=== PATIENT | male | born 1940 | race Caucasian/White ===

== ENCOUNTER 2017-12-12 22:40 | Inpatient (IN) | payer MEDICARE, OTHER ==
[2017-12-12 22:59] VITALS: BMI 46.8
[2017-12-12] MEDS ORDERED: Sodium Chloride 0.9% 1,000 ML IV ONE (23:45)
[2017-12-12] MEDS ORDERED: Albuterol-Ipratrop 3 mg / 0.5 (3 ml) UD IH STA (23:55)
--- NOTE | 2017-12-13 00:20 | ED PDOC ---
Arrival/HPI - General Chief Complaint: Medical Clearance Time Seen by Provider: 12/12/17 22:54 Historian: Patient, Family - History of Present Illness Narrative History of Present Illness (Text): 12/12/17 23:45 77 year old male, whose past medical history includes COPD, hypertension, diabetes, CAD, bowel obstruction s/p colon resection, sepsis, pneumonia, and influenza B, presents to the emergency department transferred from [facility] following discharge there. As per discharge note sent, patient completed a course of IV antibiotics and Tamiflu after being diagnosed with pneumonia. Family requested patient to be transferred to [facility] for further management apparently unhappy with the care. Patient currently states he has continued cough and chest congestion with occasional shortness of breath , but denies any fever, chills, chest pain, nausea, vomiting, diarrhea, back pain, neck pain, headache, dizziness, or any other complaints. Symptom Onset: Gradual Symptom Course: Unchanged Activities at Onset: Light Context: Other (Transfer) Past Medical History - Provider Review Nursing Documentation Reviewed: Yes - Pulmonary Hx Chronic Obstructive Pulmonary Disease (COPD): Yes Hx Pneumonia: Yes - Endocrine/Metabolic Hx Diabetes Mellitus Type 2: Yes - Psychiatric Hx Substance Use: No Family/Social History - Physician Review Nursing Documentation Reviewed: Yes Family/Social History: No Known Family HX Smoking Status: no Hx Alcohol Use: No Hx Substance Use: No Allergies/Home Meds Allergies/Adverse Reactions: Allergies No Known Allergies Allergy (Verified 12/12/17 23:06) Review of Systems - Physician Review All systems were reviewed & negative as marked: Yes - Review of Systems Constitutional: absent: Fevers, Other (Chills) Respiratory: SOB, Cough, Other (Chest congestion) Cardiovascular: absent: Chest Pain Gastrointestinal: absent: Diarrhea, Nausea, Vomiting Musculoskeletal: absent: Back Pain, Neck Pain Neurological: absent: Headache, Dizziness Physical Exam Vital Signs Reviewed: Yes Vital Signs Temp Pulse Resp BP Pulse Ox 12/13/17 01:09 99.5 F 95 H 18 108/70 95 Appearance: Positive for: Well-Appearing, Non-Toxic, Comfortable Pain Distress: None Mental Status: Positive for: Alert and Oriented X 3 - Systems Exam Head: Present: Atraumatic, Normocephalic Pupils: Present: PERRL Extroacular Muscles: Present: EOMI Conjunctiva: Present: Normal Mouth: Present: Moist Mucous Membranes Nose (Internal): Present: Rhinorrhea, Other (Nasal Congestion) Neck: Present: Normal Range of Motion Respiratory/Chest: Present: Decreased Breath Sounds, Rhonchi. No: Respiratory Distress, Accessory Muscle Use Cardiovascular: Present: Regular Rate and Rhythm, Normal S1, S2. No: Murmurs Abdomen: Present: Normal Bowel Sounds. No: Tenderness, Distention, Peritoneal Signs Back: Present: Normal Inspection Upper Extremity: Present: Normal Inspection. No: Cyanosis, Edema Lower Extremity: Present: Normal Inspection. No: Edema, Cyanosis Neurological: Present: GCS=15, CN II-XII Intact, Speech Normal Skin: Present: Warm, Dry, Normal Color. No: Rashes Psychiatric: Present: Alert, Oriented x 3, Normal Insight, Normal Concentration Medical Decision Making ED Course and Treatment: 12/12/17 23:35 Impression: 77 year old male presents complaining of continued cough, chest congestion, and occasional shortness of breath. Patient was transferred from [facility] after being treated for pneumonia with complete course of IV antibiotics and Tamiflu. Plan: -- VBG -- Labs -- EKG -- Chest X-ray -- Duoneb, IV Fluids -- Urine Culture, Blood Culture -- O2 via Nasal Cannula -- Urinalysis -- Reassess and disposition Progress Notes: 12/13/17 01:58 CXR Impression: As read by me, scattered infiltrates 12/13/17 02:12 EKG shows NSR at 97 BPM with non-specific T-wave. Interpreted by me. 12/13/17 02:[address] Diamond morgan who is aware and agrees with the plan. Accepts patient into her service with Dr. Luciano under consult. - Lab Interpretations Lab Results: 12/13/17 00:30 Lab Results 12/13/17 00:30: pO2 33, VBG pH 7.39, VBG pCO2 47.0, VBG HCO3 28.5 H, VBG Total CO2 29.9 H, VBG O2 Sat (Calc) 70.0 H, VBG Base Excess 2.8 H, VBG Potassium 5.0, Sodium 127.0 L, Chloride 97.0 L, Glucose 119 H, Lactate 1.9, FiO2 21.0, Venous Blood Potassium 5.0 12/13/17 00:30: PT 14.7 H, INR 1.28 H, APTT 29.9 12/13/17 00:30: WBC 10.9, RBC 3.58, Hgb 11.0 L, Hct 33.4 L, MCV 93.3, MCH 30.7, MCHC 32.9, RDW 14.1, Plt Count 575 H, MPV 10.0, Gran % 82.1 H, Lymph % (Auto) 11.1 L, [place] % (Auto) 5.4, Eos % (Auto) 1.2 L, Baso % (Auto) 0.2, Gran # 8.91 H , Lymph # (Auto) 1.2, [place] # (Auto) 0.6, Eos # (Auto) 0.1, Baso # (Auto) 0.02 I have reviewed the lab results: Yes - RAD Interpretation Radiology Orders: 12/12/17 23:45 CHEST PORTABLE [RAD] Stat - EKG Interpretation Interpreted by ED Physician: Yes Type: 12 lead EKG - Medication Orders Current Medication Orders: Albuterol/Ipratropium (Duoneb 3 Mg/0.5 Mg (3 Ml) Ud) 3 ml IH Q4H PRN PRN Reason: Shortness of Breath Cefepime HCl (Maxipime 1gm) 1 gm in 100 mls @ 100 mls/hr IVPB ONCE ONE Stop: 12/13/17 03:29 Discontinued Medications Albuterol/Ipratropium (Duoneb 3 Mg/0.5 Mg (3 Ml) Ud) 3 ml IH ONCE STA Stop: 12/12/17 23:56 Last Admin: 12/13/17 00:30 Dose: 3 ml Sodium Chloride (Sodium Chloride 0.9%) 1,000 mls @ 2,000 mls/hr IV .Q30M ONE Stop: 12/13/17 00:14 Last Admin: 12/13/17 00:30 Dose: 2,000 mls/hr eMAR Start Stop Document 12/13/17 00:30 AD (Rec: 12/13/17 01:25 AD [id number]) Intravenous Solution Start Date 12/13/17 Start Time 00:30 Levofloxacin/Dextrose (Levaquin 750mg) 750 mg IVPB ONCE ONE PRN Reason: Protocol Stop: 12/13/17 02:19 - Scribe Statement The provider has reviewed the documentation as recorded by the Alexus Suh Provider Simibe Attestation: All medical record entries made by the Alexus were at my direction and personally dictated by me. I have reviewed the chart and agree that the record accurately reflects my personal performance of the history, physical exam, medical decision making, and the department course for this patient. I have also personally directed, reviewed, and agree with the discharge instructions and disposition. Disposition/Present on Arrival - Present on Arrival Any Indicators Present on Arrival: No History of DVT/PE: No History of Uncontrolled Diabetes: No Urinary Catheter: No History of Decub. Ulcer: No History Surgical Site Infection Following: None - Disposition Have Diagnosis and Disposition been Completed?: Yes Diagnosis: COPD (chronic obstructive pulmonary disease), Pneumonia Disposition Time: 02:21 Patient Plan: Admission Patient Problems: Current Active Problems Problem Status Onset COPD (chronic obstructive pulmonary disease) Acute Pneumonia Acute Condition: STABLE
[2017-12-13 00:52] LABS: BASO # 0.02 K/mm3 (0.0-2.0); BASO % 0.2 % (0.0-3.0); EOS # 0.1 (0.0-0.7); EOS % 1.2 % (1.5-5.0); GRAN # 8.91 (1.4-6.5); GRAN % 82.1 % (50.0-68.0); LYMPH # 1.2 (1.2-3.4); LYMPH % 11.1 % (22.0-35.0); MEAN CELL VOLUME 93.3 fl (80.0-105.0); MEAN CORPUSCULAR HEMOGLOBIN 30.7 pg (25.0-35.0); MEAN CORPUSCULAR HGB CONC 32.9 g/dl (31.0-37.0); MONO # 0.6 (0.1-0.6); MONO % 5.4 % (1.0-6.0); RBC 3.58 10^6/uL (3.5-6.1); RED CELL DISTRIBUTION WIDTH 14.1 % (11.5-14.5); WHITE BLOOD COUNT 10.9 10^3/ul (4.5-11.0)
[2017-12-13 01:04] LABS: VENOUS BLOOD GAS BASE EXCESS 2.8 mmol/L (0.0-2.0); VENOUS BLOOD GAS PO2 33 mm/Hg (30-55); VENOUS BLOOD PH 7.39 (7.32-7.43)
[2017-12-13 01:10] LABS: INR 1.28 (0.93-1.08); PARTIAL THROMBOPLASTIN TIME 29.9 Seconds (25.1-36.5); PROTHROMBIN TIME 14.7 SECONDS (9.4-12.5)
[2017-12-13] MEDS ORDERED: Cefepime (Maxipime) 1 g Inj IVPB ONE (02:15)
[2017-12-13] MEDS ORDERED: levoFLOXacin 750 mg in D5W 150 ML BAG IVPB ONE (02:18)
[2017-12-13] MEDS ORDERED: Albuterol-Ipratrop 3 mg / 0.5 (3 ml) UD IH PRN (02:19)
[2017-12-13] MEDS ORDERED: Cefepime 1gm in NS 100ml 1 GM/100 ML BAG IVPB ONE (02:30)
[2017-12-13 03:48] LABS: ALB/GLOB RATIO 0.6 (1.1-1.8); ALBUMIN 2.3 g/dL (3.0-4.8); ALT/SGPT 61 U/L (7-56); AST/SGOT 49 U/L (17-59); BLOOD UREA NITROGEN 15 mg/dL (7-21); CALCIUM 8.2 mg/dL (8.4-10.5); GFR AFRICAN-AMERICAN > 60; GFR NON-AFRICAN AMERICAN > 60
[2017-12-13 04:00] LABS: B-TYPE NATRIURETIC PEPTIDE 526 pg/mL (0-450); TROPONIN I < 0.01 ng/mL
[2017-12-13] MEDS ORDERED: levoFLOXacin 750 mg in D5W 750 MG/150 ML BAG IVPB ONE (05:45)
--- NOTE | 2017-12-13 08:09 | RAD ---
HISTORY: Sepsis Patient COMPARISON: No prior. FINDINGS: LUNGS: There is a diffuse alveolar infiltrate in the right lung and a patchy alveolar infiltrate in the left. Findings are consistent with pneumonia PLEURA: No significant pleural effusion identified, no pneumothorax apparent. CARDIOVASCULAR: Normal. OSSEOUS STRUCTURES: No significant abnormalities. VISUALIZED UPPER ABDOMEN: Normal. OTHER FINDINGS: None. IMPRESSION: There is a diffuse alveolar infiltrate in the right lung and a patchy alveolar infiltrate in the left. Findings are consistent with pneumonia
[2017-12-13 08:11] LABS: HDL CHOLESTEROL 22 mg/dL (29-60); IRON 14 ug/dL (45-180)
[2017-12-13 08:20] LABS: % IRON SATURATION 8 % (20-55); TOTAL IRON BINDING CAPACITY 177 ug/dL (261-462)
[2017-12-13] MEDS: Albuterol-Ipratrop 3 mg / 0.5 (3 ml) UD IH SCH ×3 (08:25→20:20)
[2017-12-13 08:34] LABS: LDL CHOLESTEROL < 30 mg/dL (0-129)
[2017-12-13 08:40] LABS: PH,URINE 7.5 (4.7-8.0); URINE BILIRUBIN NEGATIVE (NEGATIVE); URINE BLOOD NEGATIVE (NEGATIVE); URINE GLUCOSE (UA) NEGATIVE (NEGATIVE); URINE LEUKOCYTE ESTERASE NEGATIVE Leu/uL (NEGATIVE); URINE PROTEIN NEGATIVE mg/dL (<30 mg/dL); URINE UROBILINOGEN 0.2 E.U./dL (<1 E.U./dL)
[2017-12-13 08:49] LABS: URINE APPEARANCE CLEAR (CLEAR); URINE COLOR YELLOW (YELLOW)
[2017-12-13] MEDS ORDERED: Azithromycin 500MG/NS 250ml 500 MG/250 ML BAG IVPB SCH (10:00)
[2017-12-13] MEDS ORDERED: cefTRIAXone 1 gm 1 GM/100 ML BAG IVPB SCH (10:00)
[2017-12-13] MEDS ORDERED: Azithromycin 500 MG in Sodium Chloride 0.9% 250 ML IVPB SCH (10:00)
[2017-12-13] MEDS: Sodium Chloride 0.9% 1,000 ML IV SCH ×2 (10:01→19:15)
[2017-12-13] MEDS: MethylPREDNISolone 40 mg Vial IVP SCH ×2 (10:01→22:41)
--- NOTE | 2017-12-13 10:25 | CARD ---
APPROVED REPORT EKG Measurement Heart [id number] <Conclusion> Normal sinus rhythm Possible Left atrial enlargement Nonspecific T wave abnormality Prolonged QT Abnormal ECG
[2017-12-13] MEDS: Promethazine/Cod 6.25mg-10mg/5ml Syr UD PO PRN (10:49)
[2017-12-13] MEDS ORDERED: Influenza Vaccine 60 mcg/0.5 mL SYR (4YR UP) IM ONE (11:09)
[2017-12-13] MEDS ORDERED: Pneumococcal 23-Valent Vaccine IM ONE (11:09)
[2017-12-13] MEDS ORDERED: Gadodiamide 287 MG/ML VIAL (20ML) IV ONE (11:23)
[2017-12-13] MEDS: Cefepime IV 2 gm in NS 2 GM/100 ML BAG IVPB SCH ×3 (11:44→22:36)
[2017-12-13] MEDS: Vancomycin 1gm in NS 250ml 1 GM/250 ML BAG IVPB SCH ×2 (14:35→20:58)
[2017-12-13 14:38] LABS: FOLATE 14.3 ng/mL
--- NOTE | 2017-12-13 16:47 | CP.PCM.CON ---
History of Present Illness - History of Present Illness History of Present Illness: 77 year old male with PMH of HTN, DM, CAD, COPD, history of bowel obstruction S/ P colonic resection, history of pneumonia was being treated in [facility] for Influenza but the patient did not like his care there and [place] [facility] [place]. He was having fevers there and cough as well as some shortness of breath. There is no note of vomiting, no loss of consciousness, no diarrhea, no convulsions, no loss of consciousness When I saw the patient on the floor, the patient was just given Ativan and the patient is lethargic. CXR was done and it showed multifocal pneumonia. Infectious Diseases consult is requested to further evaluate and manage. Review of Systems - Review of Systems All systems: reviewed and no additional remarkable complaints except (as per HPI ) Past Patient History - Past Social History Smoking Status: Never Smoked - CARDIAC Hx Hypertension: Yes Other/Comment: CAD - PULMONARY Hx Chronic Obstructive Pulmonary Disease (COPD): Yes Hx Pneumonia: Yes - HEENT Hx Glaucoma: Yes - ENDOCRINE/METABOLIC Hx Diabetes Mellitus Type 2: Yes - MUSCULOSKELETAL/RHEUMATOLOGICAL Hx Falls: Yes - PSYCHIATRIC Hx Substance Use: No - SURGICAL HISTORY Hx Surgeries: Yes Hx Coronary Stent: Yes Other/Comment: Colon Resection Meds Allergies/Adverse Reactions: Allergies Allergy/AdvReac Type Severity Reaction Status Date / Time No Known Allergies Allergy Verified 12/12/17 23:06 - Medications Medications: Current Medications Acetaminophen (Tylenol 325mg Tab) 650 mg PO Q4H PRN PRN Reason: pain fever Albuterol/Ipratropium (Duoneb 3 Mg/0.5 Mg (3 Ml) Ud) 3 ml IH Q4H PRN PRN Reason: Shortness of Breath Albuterol/Ipratropium (Duoneb 3 Mg/0.5 Mg (3 Ml) Ud) 3 ml IH [id number] JEAN PAUL Last Admin: 12/13/17 08:25 Dose: 3 ml Famotidine (Pepcid) 40 mg PO HS JEAN PAUL Ceftriaxone Sodium (Rocephin 1 Gram Ivpb) 1 gm in 100 mls @ 100 mls/hr IVPB DAILY JEAN PAUL PRN Reason: Protocol Sodium Chloride (Sodium Chloride 0.9%) 1,000 mls @ 100 mls/hr IV .Q10H JEAN PAUL Cefepime HCl (Maxipime 2gm) 2 gm in 100 mls @ 100 mls/hr IVPB Q8 JEAN PAUL PRN Reason: Protocol Stop: 12/18/17 09:46 Vancomycin HCl (Vancomycin 1gm) 1 gm in 250 mls @ 167 mls/hr IVPB Q12H JEAN PAUL PRN Reason: Protocol Doxycycline Hyclate 100 mg/ (Sodium Chloride) 100 mls @ 100 mls/hr IVPB Q12 JEAN PAUL PRN Reason: Protocol Methylprednisolone (Solu-Medrol) 40 mg IVP Q12 [facility] Physical Exam - Constitutional Appears: Cachectic, Chronically Ill, Other (somewhat lethargic) - Head Exam Head Exam: NORMAL INSPECTION - Neck Exam Neck exam: Negative for: Meningismus - Respiratory Exam Respiratory Exam: Rales (scattered) Additional comments: harsh breath sounds all over - Cardiovascular Exam Cardiovascular Exam: +S1, +S2 - GI/Abdominal Exam GI & Abdominal Exam: Soft. absent: Tenderness Results - Vital Signs Recent Vital Signs: Last Vital Signs Temp 99.1 F 12/13/17 09:16 Pulse 96 H 12/13/17 09:16 Resp 22 12/13/17 09:16 BP 139/70 12/13/17 09:16 Pulse Ox 97 12/13/17 09:16 - Labs Result Diagrams: 12/13/17 00:30 12/13/17 03:00 Labs: Laboratory Results - last 24 hr 12/13/17 12/13/17 03:00 08:28 Sodium 130 L Potassium 4.7 Chloride 98 Carbon Dioxide 29 Anion Gap 8 L BUN 15 Creatinine 0.8 Est GFR ( Amer) > 60 Est GFR (Non-Af Amer) > 60 Random Glucose 114 H Calcium 8.2 L Total Bilirubin 0.6 AST 49 ALT 61 H Alkaline Phosphatase 94 Troponin I < 0.01 NT-Pro-B Natriuret Pep 526 H Total Protein 5.9 Albumin 2.3 L Globulin 3.6 Albumin/Globulin Ratio 0.6 L Urine Color Yellow Urine Appearance Clear Urine pH 7.5 Ur Specific [place] 1.015 Urine Protein Negative Urine Glucose (UA) Negative Urine Ketones Negative Urine Blood Negative Urine Nitrate Negative Urine Bilirubin Negative Urine Urobilinogen 0.2 Ur Leukocyte Esterase Negative Assessment & Plan - Assessment and Plan (Free Text) Plan: Assessment Consider sepsis from multifocal healthcare-associated pneumonia, post-viral HTN DM CAD COPD history of bowel obstruction S/P colonic resection history of pneumonia Plan Started Vancomycin, Cefepime and Doxycycline pending blood, sputum cx, urine Legionella Ag, PCT; reviewed CXR will monitor clinically
[2017-12-14] MEDS: Albuterol-Ipratrop 3 mg / 0.5 (3 ml) UD IH SCH ×4 (01:30→20:10)
--- NOTE | 2017-12-14 03:53 | CON ---
DATE: PULMONARY CONSULTATION REFERRING PHYSICIAN: Dr. Fields. REASON FOR CONSULTATION: Status post pneumonia, status post influenza infection, chronic lung disease, cough and shortness of breath. HISTORY OF PRESENT ILLNESS: This is a 77-year-old gentleman with past medical history of chronic obstructive lung disease; coronary artery disease; hypertension; diabetes; history of bowel obstruction in the past, requiring resection; history of pneumonia; apparently was in [place] where he got sick, found to have influenza and pneumonia, treated accordingly, so he was admitted here and treated. Apparently, family brought him to [place] and brought into emergency room and was admitted. Earlier today, he was very agitated and wanted to leave, was uncooperative, received some sedative. Presently sleepy, arousable, but according to nursing staff, had his lunch, but has been having cough, sputum production, low-grade fever. No hemoptysis, no hematemesis, no hematuria. No diarrhea reported. Does have a leg swelling. PAST MEDICAL HISTORY: Coronary artery disease, diabetes, chronic obstructive lung disease, hypertension, status post influenza infection and pneumonia, also had glaucoma. ALLERGIES: NONE KNOWN. SOCIAL HISTORY: There is no history of active smoking. Denies any alcohol use. FAMILY HISTORY: No significant cardiopulmonary disease reported. MEDICATIONS: He is on doxycycline 100 mg twice a day, DuoNeb q. 4 hours p.r.n. and q. 6 hours [id number], cefepime 2 g IV q. 8 hours, Pepcid 40 mg daily, promethazine with codeine 5 mL q. 4 hours p.r.n., IV fluid normal saline 100 mL per hour, Solu-Medrol 40 mg q. 12 hours, Tylenol p.r.n. basis, vancomycin 1 g IV q. 12 hours. 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 Follows simple command. Has some cough. No hemoptysis, no hematemesis, no hematuria. Does have leg swelling. PHYSICAL EXAMINATION: GENERAL: Lying in the bed, sleepy, arousable. VITAL SIGNS: T-max 100.5, heart rate is 84, temperature is 98, respiratory rate is 20, blood pressure 116/55, pulse ox 99% on 3 liters nasal cannula. HEENT: Moist mucous membranes. Crowded airway. NECK: Supple. No JVD. LUNGS: Has scattered rhonchi and few crackles at bases. HEART: S1 and S1. ABDOMEN: Soft, nontender. No organomegaly. EXTREMITIES: Does have edema. NEUROLOGIC: Awake and alert, follows simple commands. LABORATORY DATA: Shows hemoglobin 11.0, hematocrit 33.4, WBC 10.9, platelet is 575. INR 1.28. PTT is 30. Has VBG done, which shows pH 7.39, pCO2 47, O2 33. Sodium 130, potassium 4.7, chloride 98, bicarbonate 29, BUN 15, creatinine 0.8, glucose 114, hemoglobin A1c 8.5, calcium 8.2, iron is 14, AST 49, ALT 61, alk phos is 94. Albumin is 2.3. Cholesterol is less than 50, B12 is 966. Folate is 14. ProBNP 526. Chest x-ray done shows diffuse alveolar infiltrate in the right lung and patchy alveolar infiltrate in the left lung. IMPRESSION AND PLAN: Probably resolving multilobar pneumonia, chronic obstructive lung disease, diabetes, hypertension, coronary artery disease. At present, agree with broad-spectrum antibiotics covering healthcare-associated organism. We will also suggest sending procalcitonin in the morning. Stool for Clostridium difficile. We will need to assess left ventricular and right ventricular function. Swallow evaluation. Venous Doppler of lower extremity. Thank you and we will follow with you. Eloisa Luciano MD
[2017-12-14] MEDS: Cefepime IV 2 gm in NS 2 GM/100 ML BAG IVPB SCH ×3 (05:47→21:04)
[2017-12-14 06:22] LABS: HEMOGLOBIN 9.9 g/dL (14.0-18.0); MEAN CELL VOLUME 92.7 fl (80.0-105.0); MEAN CORPUSCULAR HEMOGLOBIN 30.3 pg (25.0-35.0); MEAN CORPUSCULAR HGB CONC 32.7 g/dl (31.0-37.0); MEAN PLATELET VOLUME 9.8 fl (7.0-11.0); RBC 3.27 10^6/uL (3.5-6.1); RED CELL DISTRIBUTION WIDTH 13.6 % (11.5-14.5); WHITE BLOOD COUNT 12.3 10^3/ul (4.5-11.0)
[2017-12-14 07:33] LABS: ALB/GLOB RATIO 0.6 (1.1-1.8); ALBUMIN 2.4 g/dL (3.0-4.8); ALT/SGPT 59 U/L (7-56); AST/SGOT 44 U/L (17-59); BLOOD UREA NITROGEN 18 mg/dL (7-21); GFR AFRICAN-AMERICAN > 60; GFR NON-AFRICAN AMERICAN > 60
[2017-12-14] MEDS: Promethazine/Cod 6.25mg-10mg/5ml Syr UD PO PRN ×4 (07:53→22:20)
[2017-12-14] MEDS ORDERED: Petrolatum Oint Foilpak (5 gm) TOP PRN ×2 (09:00→09:08)
--- NOTE | 2017-12-14 09:03 | HP ---
CHIEF COMPLAINT: Shortness of breath, anxious. HISTORY OF PRESENT ILLNESS: Mr. Nikko Dia is a 77-year-old male with past medical history of COPD, hypertension, diabetes mellitus, pneumonia, coronary artery disease, bowel obstruction status post colon resection, sepsis, influenza B who came to the Emergency Department of [facility] from [facility] following discharge there. According to papers, the patient was getting IV antibiotics there and Tamiflu after being diagnosed with pneumonia. According to patient's family, patient was not getting good care over there and transferred here, but they brought patient by themselves in [facility]. Patient is still coughing, having chest congestion, occasional shortness of breath. Denies any fever, chills. No nausea, vomiting or diarrhea, but looks like anxious. PAST MEDICAL HISTORY: As above. COPD, pneumonia, diabetes mellitus type 2. FAMILY HISTORY: Father and mother noncontributory. HABITS: Never smoke. No drugs. No ethanol. ALLERIGES: PATIENT IS NOT ALLERGIC WITH ANY MEDICATION. REVIEW OF SYSTEMS: Patient was examined at the bedside in his room, looks anxious, coughing, shortness of breath, and chest congestion and complaining about constipation. No chest pain. No nausea, vomiting, or diarrhea. No back pain. No neck pain. No headache. No dizziness. PHYSICAL EXAMINATION: VITAL SIGNS: Temperature 99.5, pulse 95, respiratory rate 18, blood pressure 108/70, pulse oximetry 95%. HEENT: Head normocephalic, atraumatic. Eyes PERRLA. Extraocular muscles intact. Conjunctivae clear. Nose patent. Mucous membrane moist. NECK: Supple. No carotid bruit. No JVD. No thyromegaly. CHEST: Bilaterally symmetrical. HEART: S1, S2 positive. LUNGS: Clear to auscultation. ABDOMEN: Soft. Bowel sounds present. No organomegaly. EXTREMITIES: No edema. No cyanosis. NEUROLOGICAL: Patient is awake and alert. Moving all four extremities. No focal deficits. LABORATORY DATA: White blood cells 10.9, hemoglobin 11.0, hematocrit 33.4, platelets 575. Sodium 130, potassium 4.7, BUN 15, creatinine 0.8, glucose 114, hemoglobin A1c 8.5, calcium 8.2. ASSESSMENT AND PLAN: Mr. Nikko Dia is a 77-year-old male with anemia, hyponatremia, hyperglycemia, uncontrolled diabetes mellitus, hemoglobin A1c is 8.5, hypocalcemia, iron deficiency, abnormal liver function test, recently pneumonia, flu, chronic obstructive pulmonary disease, hypertension, diabetes mellitus, coronary artery disease, history of bowel resection status post colon resection, sepsis. Patient got treatment in [facility]. Following discharge there, diabetes mellitus type 2. We admitted the patient. Would consult with Infectious Disease, Dr. Curtis and Dr. Luciano of Pulmonary/Critical Care. Spoke for length of time with patient's niece, Valencia, who is the power of document review attorney, phone number [phone]. According to her, patient does not have children. He lost his a couple of months ago, and he is very depressed. So, I put consult with Dr. Desiree Umana. During depression, he made him DNR and DNI, but his niece, Valencia, made him full code. Now, patient is getting Ativan for agitation, doxycycline started by [facility] Cameron, albuterol started, cefepime given in emergency room, Pepcid for gastrointestinal prophylaxis, promethazine with codeine given for coughing. Patient has hyponatremia, normal saline given; Solu-Medrol started with 40 mg, we will taper it down; vancomycin started. Out of bed, physical therapy. Repeat labs. Ya Fields MD
[2017-12-14] MEDS: MethylPREDNISolone 40 mg Vial IVP SCH ×2 (10:50→21:14)
[2017-12-14] MEDS: Insulin Reg-MEDIUM-Coverage SC SCH ×3 (11:55→21:55)
[2017-12-14] MEDS: Vancomycin 1gm in NS 250ml 1 GM/250 ML BAG IVPB SCH ×2 (12:45→21:15)
--- NOTE | 2017-12-14 15:28 | US ---
HISTORY: Leg pain and swelling. Evaluate for DVT PHYSICIAN(S): Kaiser Henry MD. TECHNIQUE: Duplex sonography and color-flow Doppler with graded compression were used to evaluate the deep venous systems of both lower extremities. FINDINGS: The visualized deep venous systems of both lower extremities are sonographically normal and compressible. Normal wave forms and augmentation are seen. There is no sonographic evidence for deep venous thrombosis in the visualized segments of both lower extremities. IMPRESSION: No sonographic evidence for deep venous thrombosis in the visualized segments of both lower extremities.
--- NOTE | 2017-12-14 17:32 | CP.PCM.PN ---
Subjective - Date & Time of Evaluation Date of Evaluation: 12/14/17 Time of Evaluation: 11:00 - Subjective Subjective: Patient still having SOB and cough, no fevers. Objective - Vital Signs/Intake and Output Vital Signs (last 24 hours): Temp Pulse Resp BP Pulse Ox 98.1 F 101 H 18 114/78 98 12/14/17 06:00 12/14/17 06:00 12/14/17 06:00 12/14/17 06:00 12/14/17 06:00 Intake and Output: 12/14/17 12/14/17 06:59 18:59 Intake Total 3680 Output Total 400 Balance 3280 - Medications Medications: Current Medications Acetaminophen (Tylenol 325mg Tab) 650 mg PO Q4H PRN PRN Reason: Fever >100.4 F Albuterol/Ipratropium (Duoneb 3 Mg/0.5 Mg (3 Ml) Ud) 3 ml IH Q4H PRN PRN Reason: Shortness of Breath Last Admin: 12/14/17 05:05 Dose: 3 ml Albuterol/Ipratropium (Duoneb 3 Mg/0.5 Mg (3 Ml) Ud) 3 ml IH [id number] [facility] Last Admin: 12/14/17 07:30 Dose: 3 ml Emollient Ointment (Vaseline Oint) 5 gm TOP Q8 PRN PRN Reason: Dry skin Last Admin: 12/14/17 09:26 Dose: 5 gm Famotidine (Pepcid) 40 mg PO HS [facility] Last Admin: 12/13/17 22:41 Dose: 40 mg Sodium Chloride (Sodium Chloride 0.9%) 1,000 mls @ 100 mls/hr IV .Q10H [facility] Last Admin: 12/13/17 19:15 Dose: Not Given Cefepime HCl (Maxipime 2gm) 2 gm in 100 mls @ 100 mls/hr IVPB Q8 JEAN PAUL PRN Reason: Protocol Stop: 12/18/17 09:46 Last Admin: 12/14/17 05:47 Dose: 100 mls/hr Vancomycin HCl (Vancomycin 1gm) 1 gm in 250 mls @ 167 mls/hr IVPB Q12H JEAN PAUL PRN Reason: Protocol Last Admin: 12/13/17 20:58 Dose: 167 mls/hr Doxycycline Hyclate 100 mg/ (Sodium Chloride) 100 mls @ 100 mls/hr IVPB Q12 JEAN PAUL PRN Reason: Protocol Last Admin: 12/14/17 10:51 Dose: 100 mls/hr Insulin Human Regular (Humulin R Med) 0 units SC ACHS JEAN PAUL PRN Reason: Protocol Lorazepam (Ativan) 0.5 mg IVP Q8H PRN; Protocol PRN Reason: Anxiety Methylprednisolone (Solu-Medrol) 40 mg IVP Q12 JEAN PAUL Last Admin: 12/14/17 10:50 Dose: 40 mg Promethazine HCl/Codeine (Phenergan/Codeine Oral Syrup) 5 ml PO Q4H PRN PRN Reason: Cough and congestion Last Admin: 12/14/17 07:53 Dose: 5 ml - Labs Labs: 12/14/17 06:00 12/14/17 06:00 PT 14.7 SECONDS (9.4-12.5) H 12/13/17 00:30 INR 1.28 (0.93-1.08) H 12/13/17 00:30 APTT 29.9 Seconds (25.1-36.5) 12/13/17 00:30 - Constitutional Appears: Cachectic, Chronically Ill - Head Exam Head Exam: NORMAL INSPECTION - Neck Exam Neck Exam: absent: Meningismus - Respiratory Exam Respiratory Exam: Decreased Breath Sounds - Cardiovascular Exam Cardiovascular Exam: +S1, +S2 - GI/Abdominal Exam GI & Abdominal Exam: Soft. absent: Tenderness Assessment and Plan - Assessment and Plan (Free Text) Plan: Assessment Consider sepsis from multifocal healthcare-associated pneumonia, post-viral HTN DM CAD COPD history of bowel obstruction S/P colonic resection history of pneumonia Plan continue Vancomycin, Cefepime and Doxycycline day 2 pending final blood, sputum cx; reviewed CXR will continue to monitor clinically
[2017-12-14] MEDS: POLYETHYLENE GLYCOL 3350 17 GM/Dose PACKET PO SCH (17:49)
--- NOTE | 2017-12-14 17:56 | PN ---
DATE: 12/14/2017 PULMONARY PROGRESS NOTE REFERRING PHYSICIAN: Ya Fields MD. SUBJECTIVE: He is lying in the bed, head at 45 degrees, sleepy, arousable. Has some cough and shortness of breath. No nausea. No vomiting. No diarrhea, leg pain or leg swelling. OBJECTIVE: GENERAL: In no acute distress. VITAL SIGNS: Temp is 98, heart rate is 101, respiratory rate is 20, blood pressure 114/78, pulse ox 98% on 3 L nasal cannula. HEENT: Moist mucous membranes. Small oral cavity. NECK: Supple. No JVD. LUNGS: Have a scattered rhonchi. HEART: S1 and S2. ABDOMEN: Soft, nontender. No organomegaly. EXTREMITIES: No edema of lower extremities. He has the right upper extremity some edema. NEUROLOGICAL: Sleepy, arousable. Follows simple command. LABORATORY DATA: Shows hemoglobin 9.9, hematocrit 30.3, WBC 12.3, platelet count is 439. Sodium 132, potassium 3.9, chloride 103, bicarbonate 20, BUN 18, creatinine 0.8, glucose 347, calcium is 8.0, AST 44, ALT 59, alk phos is 94, albumin is 2.4. Procalcitonin is 0.44. TSH is 1.90. Laboratory data showed blood culture and urine culture with no growth. An extremity ultrasound done, report is pending. MEDICATIONS: He is on Ativan 0.5 mg q. 8 hours p.r.n., doxycycline 100 mg twice a day, DuoNeb q. 4 hours p.r.n. and q. 6 hours [id number], insulin coverage, cefepime 2 g IV q. 8 hours, Pepcid 40 mg at bedtime, promethazine with codeine q. 4 hours p.r.n., Remeron 7.5 mg at bedtime, IV fluid normal saline 100 mL per hour, Solu-Medrol 40 mg q. 12 hours, Tylenol p.r.n., vancomycin 1 g IV q. 12 hours, bacitracin ointment q. 8 hours p.r.n. basis, which is Eye Wash. IMPRESSION AND PLAN: Multilobe pneumonia, chronic obstructive lung disease, diabetes, hypertension, coronary artery disease, rule out deep venous thrombosis, aspiration precaution. Keep head elevated at 45 degrees. Continue bronchodilator. Decrease Solu-Medrol. Continue antibiotics. Gastric prophylaxis. Sequential compression device to lower extremity. Awaiting for echocardiogram and assess left ventricular and right ventricular function. Thank you and we will follow with you. Eloisa Luciano MD
[2017-12-14] MEDS: Sodium Chloride 0.9% 1,000 ML IV SCH (21:56)
--- NOTE | 2017-12-15 00:09 | CON ---
DATE: 12/14/2017 PRESENTATION: Patient is a 77-year-old male, seen at bedside. Patient was admitted to the hospital on 12/13/2017; he was a transfer from [facility] following discharge there. Patient had completed a course of antibiotics and Tamiflu after being diagnosed with pneumonia. Family requested patient to be transferred to [facility] for further management; they were not happy with the care he had received there. Patient was having continued cough, chest congestion, with shortness of breath. His past medical history includes COPD, hypertension, diabetes, CAD, bowel obstruction and he is status post colon resection. Sepsis, pneumonia, and influenza B are his most current diagnosis. Psychiatric consult was ordered due to concern that patient may be depressed. Patient was seen at bedside. He was very upset. He wanted some Vaseline for his lips, that is the time when he had asked several times for this and he was very, very loud. When I tried to talk with him, he gets very frustrated because he cannot hear me. I was yelling at the top of my lungs and he was not able to hear much of anything, indicated that I should ask his niece anything I wanted to know and that he was sick; he was very, very sick; and he pointed to his chest and said he has trouble breathing. Patient was not in any imminent distress at that point in time. His color was good. His air exchange appeared to be normal, but patient did appear to be very anxious and upset. Chart was reviewed. It was found that his healthcare proxy is Valencia Mendez with the phone number given as [phone]. She is his niece. She was able to give me collateral information. Evidently, patient's a few months ago. They had been a very long time and had no children, had a very close marriage and he has been going downhill since that time. He lives in [place], has not been not been able to take care of his apartment recently. He does not have any close relatives other than his nieces and nephews that are the next of kin. She indicates that his current presentation is not indicative of his normal baseline. He is a bright man, who stays current with current events, is very talkative, is very able to interact with others. 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 She indicates that his hearing seems to have worsened over the recent past and he is complaining of his throat hurting. Psychiatrically, he has had no history of any psychiatric difficulties. He has never been to a psychiatrist, put on any medication, had any suicide attempts or suicidal thoughts, and even with his confusion, this has not been part of the picture. She is very concerned about him. She does not feel he will be able to be discharged home and manage for himself, so she is willing to consider a subacute care for him. We discussed his current medications. She does not really want him to be routinely given a benzodiazepine and she has concerns about addiction and oversedation. I discussed the possibility of Seroquel or mirtazapine, and we agreed on mirtazapine as he has been significantly depressed prior to becoming delirious. This information was all relayed to the addiction social worker, who will follow up with her. VITAL SIGNS: Current vital signs include temperature of 98.1, pulse rate of 101, blood pressure of 114/78, respiratory rate of 18, and O2 saturation of 98%. MENTAL STATUS EXAMINATION: Unable to be performed due to patient being unable to hear me. He is frustrated and somewhat anxious and agitated, but this maybe partially because he really is unable to communicate or he communicated with adequately. There is nothing in his behavior or history that would indicate that he is suicidal or homicidal at this time. LABORATORY DATA: Patient's current white blood cell count is 12.3. As of 11:14 this morning, his blood sugar was 418; at 08:00 this morning was 342. So, either or both of these could certainly have an effect on patient's delirium and current symptoms. His urine clean catch indicates no infection. His blood cultures were both negative after 24 hours as well. DIAGNOSTIC IMPRESSION: Depressive disorder, unspecified; delirium secondary to medical condition. PLAN: Patient does not appear to be suicidal or homicidal at this time. His niece Valencia is willing to be involved in his care and wants to take an active part, in fact, in his care and has been contacted for collateral information. Patient's medications, which maybe helpful to him in terms of his sensorium at this time are Ativan 0.5 mg IV push every 8 hours as needed, he has not utilized this as of yet, and he was started on mirtazapine 7.5 mg one p.o. at bedtime. Psychiatry will continue to follow this patient on a daily basis. Thank you for the consult. Francisca Olea APN Desiree Umana MD STEVEN
--- NOTE | 2017-12-15 02:01 | PN ---
DATE: SUBJECTIVE: Patient is seen and examined at the bedside, looking comfortable. Sometimes getting anxiety attack, gave Ativan. Discussion done with patient's niece; nurse practitioner, Danay; and the patient's nurse, Missy; having cough and shortness of breath sometime. Otherwise, no headache, no dizziness. Having constipation, we gave him MiraLax. Sugar was getting high due to steroids. We put him on sliding scale and still sugar was high, then I gave him Levemir. PHYSICAL EXAMINATION: VITAL SIGNS: Temperature 98, heart rate 101, respiratory rate 20, blood pressure 114/78, pulse oximetry 98% on 3 liters nasal cannula. HEENT: Head: Normocephalic and atraumatic. Eyes: PERRLA. EOMs are intact. Conjunctivae are clear. Nose: Patent. Mucous membranes are moist. NECK: Supple. No JVD or thyromegaly. LUNGS: Have scattered rhonchi. HEART: S1, S2 positive. ABDOMEN: Soft and nontender. No organomegaly. EXTREMITIES: No edema. No cyanosis. NEUROLOGIC: Patient is awake. Moving all four extremities. Follows simple commands. LABORATORY DATA: Hemoglobin 9.9, hematocrit 30.3, white blood cell 12.3, platelets 439. Sodium 132, potassium 3.9, BUN 18, creatinine 0.8. AST 44, ALT 59, TSH 1.90. MEDICATIONS: Ativan, doxycycline, DuoNeb, insulin coverage, cefepime, Pepcid, promethazine, Remeron, Solu-Medrol, Tylenol, vancomycin. ASSESSMENT AND PLAN: Mr. Nikko Dia has multiple lobe pneumonia, chronic obstructive lung disease, diabetes mellitus, anxiety, depression, hypertension, coronary artery disease, rule out deep vein thrombosis, aspiration precautions, constipation, gave MiraLax, diabetes mellitus. We will do hemoglobin A1c and start the patient on sliding scale and started Levemir. Continue bronchodilator, tapering dose of steroid, continue antibiotics. Gastric and deep venous thrombosis prophylaxis. Patient went for lower extremity ultrasound. According to Dr. Kaiser Henry, no sonographic evidence of deep vein thrombosis in the visualized segment of both the lower extremities. Patient is sometimes getting agitated. Psych is on the case. Repeat labs. We will follow up. Ya Fields MD [facility] # [id number]
[2017-12-15] MEDS: Albuterol-Ipratrop 3 mg / 0.5 (3 ml) UD IH SCH ×3 (02:40→19:49)
[2017-12-15] MEDS: Promethazine/Cod 6.25mg-10mg/5ml Syr UD PO PRN ×2 (03:14→07:31)
[2017-12-15] MEDS: Cefepime IV 2 gm in NS 2 GM/100 ML BAG IVPB SCH ×3 (06:05→21:18)
[2017-12-15 08:15] LABS: ALB/GLOB RATIO 0.7 (1.1-1.8); ALBUMIN 2.2 g/dL (3.0-4.8); ALT/SGPT 67 U/L (7-56); AST/SGOT 36 U/L (17-59); BLOOD UREA NITROGEN 18 mg/dL (7-21); GFR AFRICAN-AMERICAN > 60; GFR NON-AFRICAN AMERICAN > 60
[2017-12-15] MEDS: Insulin Reg-MEDIUM-Coverage SC SCH ×4 (08:38→22:20)
--- NOTE | 2017-12-15 11:14 | RAD ---
PROCEDURE: Radiographs of the Right Shoulder HISTORY: pain COMPARISON: No prior. FINDINGS: BONES: Normal. No fracture. JOINTS: Normal. Glenohumeral and acromioclavicular joints preserved. No osteoarthritis. SOFT TISSUES: Normal. OTHER FINDINGS: Large right-sided pneumothorax. I spoke to the patient's nurse on at 11:10 a.m. IMPRESSION: Large right-sided pneumothorax
--- NOTE | 2017-12-15 11:53 | RAD ---
HISTORY: pneumothorax seen on shoulder XR COMPARISON: 12/12/2017 and shoulder x-ray obtained earlier today FINDINGS: LUNGS: There is a large right-sided pneumothorax. The edge of the lung is 2 cm from the chest wall in the mid chest and is 6 cm from the lung apex. There is no mediastinal shift. This has not changed compare to the earlier shoulder film PLEURA: No significant pleural effusion identified, no pneumothorax apparent. CARDIOVASCULAR: Normal. OSSEOUS STRUCTURES: No significant abnormalities. VISUALIZED UPPER ABDOMEN: Normal. OTHER FINDINGS: None. IMPRESSION: There is a large right-sided pneumothorax. The edge of the lung is 2 cm from the chest wall in the mid chest and is 6 cm from the lung apex. There is no mediastinal shift. This has not changed compare to the earlier shoulder film
[2017-12-15] MEDS: POLYETHYLENE GLYCOL 3350 17 GM/Dose PACKET PO SCH (12:00)
[2017-12-15] MEDS: Insulin Detemir 100 units/ml Vial (Levemir) SC SCH (12:00)
--- NOTE | 2017-12-15 12:10 | CP.PCM.CON ---
History of Present Illness - History of Present Illness History of Present Illness: General Surgery Note for Dr. Purdy Reason for Consult: Right Pneumothorax 77 M with past medical history of HTN, COPD, DM, and CAD who was admitted for HCAP and COPD exacerbation. Patient had shoulder XR done which was read as R pneumothorax. Portable CXR was ordered which confirmed the diagnosis. Patient was evaluated with ICU team. Patient was noted to be in respiratory distress on initial presentation. Dr. Purdy emergently placed an 8 Fr catheter in the right anterior chest wall, which lead to re-expansion of lung shown on post procedure CXR. Patient tolerated procedure and symptoms improved. Admits to cough. 12 pint ROS was negative unless otherwise stated above. PMD: Dr. Fields PMH: HTN, COPD, DM, history of Colon Ca, CAD Medications: Reviewed, as per APOLINAR Allergies: NKDA PSH: colectomy, colostomy, colostomy reversal Family History: Noncontributory Social History: Denies alcohol/tobacco/illicit drug use Review of Systems - Review of Systems All systems: reviewed and no additional remarkable complaints except (12 pint ROS was negatoive unless otherwise stated in HPI) Past Patient History - Past Social History Smoking Status: Never Smoked - CARDIAC Hx Hypertension: Yes Other/Comment: CAD - PULMONARY Hx Chronic Obstructive Pulmonary Disease (COPD): Yes Hx Pneumonia: Yes - HEENT Hx Glaucoma: Yes - ENDOCRINE/METABOLIC Hx Diabetes Mellitus Type 2: Yes - MUSCULOSKELETAL/RHEUMATOLOGICAL Hx Falls: Yes - PSYCHIATRIC Hx Substance Use: No - SURGICAL HISTORY Hx Surgeries: Yes Hx Coronary Stent: Yes Other/Comment: Colon Resection Meds Allergies/Adverse Reactions: Allergies Allergy/AdvReac Type Severity Reaction Status Date / Time No Known Allergies Allergy Verified 12/12/17 23:06 - Medications Medications: Current Medications Acetaminophen (Tylenol 325mg Tab) 650 mg PO Q4H PRN PRN Reason: Fever >100.4 F Last Admin: 12/15/17 10:14 Dose: 650 mg Albuterol/Ipratropium (Duoneb 3 Mg/0.5 Mg (3 Ml) Ud) 3 ml IH Q4H PRN PRN Reason: Shortness of Breath Last Admin: 12/14/17 05:05 Dose: 3 ml Albuterol/Ipratropium (Duoneb 3 Mg/0.5 Mg (3 Ml) Ud) 3 ml IH [id number] JEAN PAUL Last Admin: 12/15/17 07:14 Dose: 3 ml Emollient Ointment (Vaseline Oint) 5 gm TOP Q8 PRN PRN Reason: Dry skin Last Admin: 12/14/17 09:26 Dose: 5 gm Famotidine (Pepcid) 40 mg PO HS [facility] Last Admin: 12/14/17 21:05 Dose: 40 mg Sodium Chloride (Sodium Chloride 0.9%) 1,000 mls @ 100 mls/hr IV .Q10H [facility] Last Admin: 12/14/17 21:56 Dose: 100 mls/hr Cefepime HCl (Maxipime 2gm) 2 gm in 100 mls @ 100 mls/hr IVPB Q8 JEAN PAUL PRN Reason: Protocol Stop: 12/18/17 09:46 Last Admin: 12/15/17 06:05 Dose: 100 mls/hr Vancomycin HCl (Vancomycin 1gm) 1 gm in 250 mls @ 167 mls/hr IVPB Q12H JEAN PAUL PRN Reason: Protocol Last Admin: 12/14/17 21:15 Dose: 167 mls/hr Doxycycline Hyclate 100 mg/ (Sodium Chloride) 100 mls @ 100 mls/hr IVPB Q12 JEAN PAUL PRN Reason: Protocol Last Admin: 12/14/17 21:16 Dose: 100 mls/hr Insulin Detemir (Levemir) 8 unit SC DAILY [facility] Insulin Human Regular (Humulin R Med) 0 units SC ACHS [facility] PRN Reason: Protocol Last Admin: 12/15/17 08:38 Dose: 7 units Lorazepam (Ativan) 0.25 mg IVP Q8H PRN; Protocol PRN Reason: Anxiety Last Admin: 12/15/17 10:28 Dose: 0.25 mg Methylprednisolone (Solu-Medrol) 20 mg IVP Q12 [facility] Last Admin: 12/14/17 21:14 Dose: 20 mg Pantoprazole Sodium (Protonix Inj) 40 mg IVP DAILY [facility] Polyethylene Glycol (Miralax) 17 gm PO DAILY [facility] Last Admin: 12/14/17 17:49 Dose: 17 gm Promethazine HCl/Codeine (Phenergan/Codeine Oral Syrup) 5 ml PO Q4H PRN PRN Reason: Cough and congestion Last Admin: 12/15/17 07:31 Dose: 5 ml Quetiapine Fumarate (Seroquel) 12.5 mg PO HS JEAN PAUL PRN Reason: Protocol Physical Exam - Constitutional Appears: In Acute Distress - Head Exam Head Exam: ATRAUMATIC, NORMOCEPHALIC - Eye Exam Eye Exam: EOMI, Normal appearance - ENT Exam ENT Exam: Mucous Membranes Dry - Neck Exam Neck exam: Negative for: Tenderness - Respiratory Exam Respiratory Exam: Decreased Breath Sounds (Right), Respiratory Distress - Cardiovascular Exam Cardiovascular Exam: REGULAR RHYTHM - GI/Abdominal Exam GI & Abdominal Exam: Normal Bowel Sounds, Soft. absent: Tenderness - Extremities Exam Extremities exam: Positive for: normal capillary refill, pedal pulses present - Back Exam Back exam: absent: CVA tenderness (L), CVA tenderness (R) - Neurological Exam Neurological exam: Alert, CN II-XII Intact, Oriented x3 - Psychiatric Exam Psychiatric exam: Agitated, Anxious - Skin Skin Exam: Dry, Intact, Normal Color, Warm Additional comments: 8 fr chest tube in right anterior chest wall attached to [place] drainage system connected to wall suction Results - Vital Signs Recent Vital Signs: Last Vital Signs Temp 97.4 F L 12/15/17 08:31 Pulse 95 H 12/15/17 08:31 Resp 22 12/15/17 08:31 BP 146/93 H 12/15/17 08:31 Pulse Ox 97 12/15/17 11:08 - Labs Result Diagrams: 12/14/17 06:00 12/15/17 07:00 Labs: Laboratory Results - last 24 hr 12/14/17 12/14/17 12/14/17 06:00 16:30 21:12 Sodium Potassium Chloride Carbon Dioxide Anion Gap BUN Creatinine Est GFR ( Amer) Est GFR (Non-Af Amer) POC Glucose (mg/dL) 362 H 362 H Random Glucose Calcium Total Bilirubin AST ALT Alkaline Phosphatase Total Protein Albumin Globulin Albumin/Globulin Ratio Procalcitonin 0.44 12/15/17 12/15/17 12/15/17 07:00 07:23 11:26 Sodium 135 Potassium 4.3 Chloride 108 H Carbon Dioxide 20 L Anion Gap 12 BUN 18 Creatinine 0.7 L Est GFR ( Amer) > 60 Est GFR (Non-Af Amer) > 60 POC Glucose (mg/dL) 326 H 294 H Random Glucose 340 H* Calcium 8.0 L Total Bilirubin 0.2 AST 36 ALT 67 H Alkaline Phosphatase 89 Total Protein 5.6 L Albumin 2.2 L Globulin 3.4 Albumin/Globulin Ratio 0.7 L Procalcitonin Assessment & Plan - Assessment and Plan (Free Text) Assessment: 77 M presents with Right Pneumothorax Plan: -8 fr Chest tube placed on the right -Chest tube to wall suction -Analgesics PRN -Dressing changes PRN -Discussed with Dr. Gurwinder Gaspar PGY1 Procedures - Chest Tube Chest Tube Location: Anterior Chest Right Chest Tube Procedure: Chlorhexidine Tube Sutured to Skin: Yes Sterile Dressing Applied: Yes Anesthesia: Lidocaine 1% Volume Anesthetic (mls): 10 Incision Made With: #11 blade Post Procedure: sutured to skin, sterile dressing applied, air occlusive dressing Villatoro of Air Villalba: Yes Tube Drainage: fluid Amount of Initial Drainage: 150 Post Procedure CXR?: Yes Patient Tolerated Procedure: Yes Progress: 8 fr chest tube
[2017-12-15] MEDS ORDERED: HYDROmorphone 0.5 mg/0.5 ml ISec IVP PRN (12:16)
--- NOTE | 2017-12-15 12:36 | RAD ---
HISTORY: s/p chest tube placement COMPARISON: Earlier same day FINDINGS: LUNGS: There is a new small caliber chest tube in the right lung apex with re-expansion of the right lung. PLEURA: No significant pleural effusion identified, no pneumothorax apparent. CARDIOVASCULAR: Normal. OSSEOUS STRUCTURES: No significant abnormalities. VISUALIZED UPPER ABDOMEN: Normal. OTHER FINDINGS: None. IMPRESSION: There is a new small caliber chest tube in the right lung apex with re-expansion of the right lung.
--- NOTE | 2017-12-15 12:42 | CP.PCM.CON ---
<Deniz Porter - Last Filed: 12/15/17 12:36> History of Present Illness - History of Present Illness History of Present Illness: ICU Consult Note 77 year old male with past medical history of HTN, COPD, DM, and CAD who initially presented for HCAP. ICU was called by nursing staff on the floor once it was discovered patient has a right sided pneumothorax, as per request by PMD. Chest x-ray showed right sided pneumothorax. Vitals signs stable on arrival. Patient was evaluated by ICU team and Surgery, Dr. Purdy. Patient was noted to be in respiratory distress on initial presentation. Dr. Purdy emergently placed an 8 [place] pigtail catheter in the right chest wall, which lead to reexpansion of lung as shown on repeat chest x-ray. Patient reports improvement in respiratory symptoms. Admits to cough. Denies chest pain, nausea , vomiting, fever, chills. PMH: As above Family History: Noncontributory Social History: Denies alcohol, tobacco, or illicit drug use Allergies: NKDA Medications: Reviewed, as per MAR Review of Systems - Review of Systems Review of Systems: 12 point ROS as per HPI, otherwise negative Past Patient History - Past Social History Smoking Status: Never Smoked - CARDIAC Hx Hypertension: Yes Other/Comment: CAD - PULMONARY Hx Chronic Obstructive Pulmonary Disease (COPD): Yes Hx Pneumonia: Yes - HEENT Hx Glaucoma: Yes - ENDOCRINE/METABOLIC Hx Diabetes Mellitus Type 2: Yes - MUSCULOSKELETAL/RHEUMATOLOGICAL Hx Falls: Yes - PSYCHIATRIC Hx Substance Use: No - SURGICAL HISTORY Hx Surgeries: Yes Hx Coronary Stent: Yes Other/Comment: Colon Resection Meds Allergies/Adverse Reactions: Allergies Allergy/AdvReac Type Severity Reaction Status Date / Time No Known Allergies Allergy Verified 12/12/17 23:06 - Medications Medications: Current Medications Acetaminophen (Tylenol 325mg Tab) 650 mg PO Q4H PRN PRN Reason: Fever >100.4 F Last Admin: 12/15/17 10:14 Dose: 650 mg Albuterol/Ipratropium (Duoneb 3 Mg/0.5 Mg (3 Ml) Ud) 3 ml IH Q4H PRN PRN Reason: Shortness of Breath Last Admin: 12/14/17 05:05 Dose: 3 ml Albuterol/Ipratropium (Duoneb 3 Mg/0.5 Mg (3 Ml) Ud) 3 ml IH [id number] [facility] Last Admin: 12/15/17 07:14 Dose: 3 ml Emollient Ointment (Vaseline Oint) 5 gm TOP Q8 PRN PRN Reason: Dry skin Last Admin: 12/14/17 09:26 Dose: 5 gm Famotidine (Pepcid) 40 mg PO HS [facility] Last Admin: 12/14/17 21:05 Dose: 40 mg Hydromorphone HCl (Dilaudid) 0.5 mg IVP Q4H PRN PRN Reason: Pain, moderate (4-7) Sodium Chloride (Sodium Chloride 0.9%) 1,000 mls @ 100 mls/hr IV .Q10H [facility] Last Admin: 12/14/17 21:56 Dose: 100 mls/hr Cefepime HCl (Maxipime 2gm) 2 gm in 100 mls @ 100 mls/hr IVPB Q8 [facility] PRN Reason: Protocol Stop: 12/18/17 09:46 Last Admin: 12/15/17 06:05 Dose: 100 mls/hr Vancomycin HCl (Vancomycin 1gm) 1 gm in 250 mls @ 167 mls/hr IVPB Q12H [facility] PRN Reason: Protocol Last Admin: 12/14/17 21:15 Dose: 167 mls/hr Doxycycline Hyclate 100 mg/ (Sodium Chloride) 100 mls @ 100 mls/hr IVPB Q12 [facility] PRN Reason: Protocol Last Admin: 12/14/17 21:16 Dose: 100 mls/hr Insulin Detemir (Levemir) 8 unit SC DAILY [facility] Insulin Human Regular (Humulin R Med) 0 units SC ACHS [facility] PRN Reason: Protocol Last Admin: 12/15/17 08:38 Dose: 7 units Lorazepam (Ativan) 0.25 mg IVP Q8H PRN; Protocol PRN Reason: Anxiety Last Admin: 12/15/17 10:28 Dose: 0.25 mg Methylprednisolone (Solu-Medrol) 20 mg IVP Q12 [facility] Last Admin: 12/14/17 21:14 Dose: 20 mg Pantoprazole Sodium (Protonix Ec Tab) 40 mg PO ACB [facility] Polyethylene Glycol (Miralax) 17 gm PO DAILY [facility] Last Admin: 12/14/17 17:49 Dose: 17 gm Promethazine HCl/Codeine (Phenergan/Codeine Oral Syrup) 5 ml PO Q4H PRN PRN Reason: Cough and congestion Last Admin: 12/15/17 07:31 Dose: 5 ml Quetiapine Fumarate (Seroquel) 12.5 mg PO HS [facility] PRN Reason: Protocol Physical Exam - Constitutional Appears: Non-toxic, In Acute Distress - Head Exam Head Exam: ATRAUMATIC, NORMAL INSPECTION, NORMOCEPHALIC - Eye Exam Eye Exam: EOMI, Normal appearance - ENT Exam ENT Exam: Mucous Membranes Dry - Respiratory Exam Respiratory Exam: Decreased Breath Sounds (On right), Respiratory Distress. absent: Rales, Rhonchi, Wheezes - Cardiovascular Exam Cardiovascular Exam: RRR, +S1, +S2 - GI/Abdominal Exam GI & Abdominal Exam: Normal Bowel Sounds, Soft. absent: Tenderness - Extremities Exam Extremities exam: Positive for: normal inspection. Negative for: calf tenderness, pedal edema - Neurological Exam Neurological exam: Alert, CN II-XII Intact, Oriented x3 - Psychiatric Exam Psychiatric exam: Normal Affect, Normal Mood - Skin Skin Exam: Intact, Normal Color, Warm Results - Vital Signs Recent Vital Signs: Last Vital Signs Temp 97.4 F L 12/15/17 08:31 Pulse 95 H 12/15/17 08:31 Resp 22 12/15/17 08:31 BP 146/93 H 12/15/17 08:31 Pulse Ox 97 12/15/17 11:08 - Labs Result Diagrams: 12/14/17 06:00 12/15/17 07:00 Labs: Laboratory Results - last 24 hr 12/14/17 12/14/17 12/14/17 06:00 16:30 21:12 Sodium Potassium Chloride Carbon Dioxide Anion Gap BUN Creatinine Est GFR ( Amer) Est GFR (Non-Af Amer) POC Glucose (mg/dL) 362 H 362 H Random Glucose Calcium Total Bilirubin AST ALT Alkaline Phosphatase Total Protein Albumin Globulin Albumin/Globulin Ratio Procalcitonin 0.44 12/15/17 12/15/17 12/15/17 07:00 07:23 11:26 Sodium 135 Potassium 4.3 Chloride 108 H Carbon Dioxide 20 L Anion Gap 12 BUN 18 Creatinine 0.7 L Est GFR ( Amer) > 60 Est GFR (Non-Af Amer) > 60 POC Glucose (mg/dL) 326 H 294 H Random Glucose 340 H* Calcium 8.0 L Total Bilirubin 0.2 AST 36 ALT 67 H Alkaline Phosphatase 89 Total Protein 5.6 L Albumin 2.2 L Globulin 3.4 Albumin/Globulin Ratio 0.7 L Procalcitonin Assessment & Plan - Assessment and Plan (Free Text) Plan: 77 year old male with past medical history of HTN, COPD, DM, and CAD presents to the ICU for right sided pneumothorax s/p pigtail catheter insertion. Patient improved after procedure, will continue to monitor in ICU overnight. Will repeat chest x-ray tomorrow morning. Neuro: AAOx3 No deficits Cardio: Hemodynamically stable Maintain MAP > 65 Continue current meds Pulm: Right pneumothorax, pigtail catheter placed Reexpansion of lung as per CXR Will repeat CXR in AM Maintain O2 sat >90% Pulm Consulted Continue antibiotics GI: Protonix CCD Nephro: Replenish electrolytes as needed Maintain euvolemia ID: Afebrile, leukocytosis likely secondary to steroid use Continue abx Procal pending follow up cultures Maintain normothermia Endo: Continue ISS Maintain euglycemia German PGY-2 <Edwin Scruggs - Last Filed: 12/15/17 14:45> Meds - Medications Medications: Current Medications Acetaminophen (Tylenol 325mg Tab) 650 mg PO Q4H PRN PRN Reason: Fever >100.4 F Last Admin: 12/15/17 10:14 Dose: 650 mg Albuterol/Ipratropium (Duoneb 3 Mg/0.5 Mg (3 Ml) Ud) 3 ml IH Q4H PRN PRN Reason: Shortness of Breath Last Admin: 12/14/17 05:05 Dose: 3 ml Albuterol/Ipratropium (Duoneb 3 Mg/0.5 Mg (3 Ml) Ud) 3 ml IH [id number] [facility] Last Admin: 12/15/17 07:14 Dose: 3 ml Emollient Ointment (Vaseline Oint) 5 gm TOP Q8 PRN PRN Reason: Dry skin Last Admin: 12/14/17 09:26 Dose: 5 gm Famotidine (Pepcid) 40 mg PO HS [facility] Last Admin: 12/14/17 21:05 Dose: 40 mg Hydromorphone HCl (Dilaudid) 0.5 mg IVP Q4H PRN PRN Reason: Pain, moderate (4-7) Last Admin: 12/15/17 13:02 Dose: 0.5 mg Sodium Chloride (Sodium Chloride 0.9%) 1,000 mls @ 100 mls/hr IV .Q10H [facility] Last Admin: 12/15/17 13:00 Dose: 100 mls/hr Cefepime HCl (Maxipime 2gm) 2 gm in 100 mls @ 100 mls/hr IVPB Q8 JAEN PAUL PRN Reason: Protocol Stop: 12/18/17 09:46 Last Admin: 12/15/17 14:31 Dose: 100 mls/hr Vancomycin HCl (Vancomycin 1gm) 1 gm in 250 mls @ 167 mls/hr IVPB Q12H [facility] PRN Reason: Protocol Last Admin: 12/15/17 13:15 Dose: 167 mls/hr Doxycycline Hyclate 100 mg/ (Sodium Chloride) 100 mls @ 100 mls/hr IVPB Q12 [facility] PRN Reason: Protocol Last Admin: 12/15/17 14:31 Dose: 100 mls/hr Insulin Detemir (Levemir) 8 unit SC DAILY [facility] Last Admin: 12/15/17 12:00 Dose: 8 unit Insulin Human Regular (Humulin R Med) 0 units SC ACHS [facility] PRN Reason: Protocol Last Admin: 12/15/17 13:19 Dose: 10 units Lorazepam (Ativan) 0.25 mg IVP Q8H PRN; Protocol PRN Reason: Anxiety Last Admin: 12/15/17 10:28 Dose: 0.25 mg Methylprednisolone (Solu-Medrol) 20 mg IVP Q12 [facility] Last Admin: 12/15/17 14:30 Dose: 20 mg Pantoprazole Sodium (Protonix Ec Tab) 40 mg PO ACB [facility] Polyethylene Glycol (Miralax) 17 gm PO DAILY [facility] Last Admin: 12/15/17 12:00 Dose: Not Given Promethazine HCl/Codeine (Phenergan/Codeine Oral Syrup) 5 ml PO Q4H PRN PRN Reason: Cough and congestion Last Admin: 12/15/17 07:31 Dose: 5 ml Quetiapine Fumarate (Seroquel) 12.5 mg PO HS [facility] PRN Reason: Protocol Results - Vital Signs Recent Vital Signs: Last Vital Signs Temp 97.4 F L 12/15/17 08:31 Pulse 98 H 12/15/17 14:00 Resp 32 H 12/15/17 14:00 BP 152/79 H 12/15/17 14:00 Pulse Ox 100 12/15/17 14:00 - Labs Result Diagrams: 12/14/17 06:00 12/15/17 07:00 Labs: Laboratory Results - last 24 hr 12/14/17 12/14/17 12/15/17 16:30 21:12 07:00 Sodium 135 Potassium 4.3 Chloride 108 H Carbon Dioxide 20 L Anion Gap 12 BUN 18 Creatinine 0.7 L Est GFR ( Amer) > 60 Est GFR (Non-Af Amer) > 60 POC Glucose (mg/dL) 362 H 362 H Random Glucose 340 H* Calcium 8.0 L Total Bilirubin 0.2 AST 36 ALT 67 H Alkaline Phosphatase 89 Total Protein 5.6 L Albumin 2.2 L Globulin 3.4 Albumin/Globulin Ratio 0.7 L 12/15/17 12/15/17 07:23 11:26 Sodium Potassium Chloride Carbon Dioxide Anion Gap BUN Creatinine Est GFR ( Amer) Est GFR (Non-Af Amer) POC Glucose (mg/dL) 326 H 294 H Random Glucose Calcium Total Bilirubin AST ALT Alkaline Phosphatase Total Protein Albumin Globulin Albumin/Globulin Ratio Assessment & Plan - Assessment and Plan (Free Text) Plan: Patient seen and examined, with resident, agree with note with following additions/exceptions: Patient is 77yo male with PMhx of HTN, COPD, DM, CAD, was on regular gurpreet when he was noted to have large R pneumothorax, ICU consulted. Surgery placed emergent R pigtail CT with subsequent lung re-expansion, and improvement in resp distress. Currently afebrile, HD stable, comfortable in NAD, sat 99% on 2LNC. Cont with CT to suction, repeat CXR in AM, BP control, supp o2, follow up cultures, GI ppx, DVT ppx, monitor in MICU
[2017-12-15] MEDS: Sodium Chloride 0.9% 1,000 ML IV SCH ×2 (13:00→21:19)
[2017-12-15] MEDS: Vancomycin 1gm in NS 250ml 1 GM/250 ML BAG IVPB SCH ×2 (13:15→21:25)
[2017-12-15] MEDS: MethylPREDNISolone 40 mg Vial IVP SCH ×2 (14:30→21:21)
--- NOTE | 2017-12-15 15:01 | CP.PCM.PN ---
Subjective - Date & Time of Evaluation Date of Evaluation: 12/15/17 Time of Evaluation: 10:50 - Subjective Subjective: Patient noted to have right sided pneumothorax and chest tube is to be placed and patient to be sent to ICU. Still with some SOB at rest, no fevers. Objective - Vital Signs/Intake and Output Vital Signs (last 24 hours): Temp Pulse Resp BP Pulse Ox 97.4 F L 95 H 22 146/93 H 99 12/15/17 08:31 12/15/17 08:31 12/15/17 08:31 12/15/17 08:31 12/15/17 08:31 Intake and Output: 12/15/17 12/15/17 06:59 18:59 Intake Total 1620 Output Total 400 Balance 1220 - Medications Medications: Current Medications Acetaminophen (Tylenol 325mg Tab) 650 mg PO Q4H PRN PRN Reason: Fever >100.4 F Last Admin: 12/14/17 19:55 Dose: 650 mg Albuterol/Ipratropium (Duoneb 3 Mg/0.5 Mg (3 Ml) Ud) 3 ml IH Q4H PRN PRN Reason: Shortness of Breath Last Admin: 12/14/17 05:05 Dose: 3 ml Albuterol/Ipratropium (Duoneb 3 Mg/0.5 Mg (3 Ml) Ud) 3 ml IH [id number] [facility] Last Admin: 12/15/17 07:14 Dose: 3 ml Emollient Ointment (Vaseline Oint) 5 gm TOP Q8 PRN PRN Reason: Dry skin Last Admin: 12/14/17 09:26 Dose: 5 gm Famotidine (Pepcid) 40 mg PO HS [facility] Last Admin: 12/14/17 21:05 Dose: 40 mg Sodium Chloride (Sodium Chloride 0.9%) 1,000 mls @ 100 mls/hr IV .Q10H [facility] Last Admin: 12/14/17 21:56 Dose: 100 mls/hr Cefepime HCl (Maxipime 2gm) 2 gm in 100 mls @ 100 mls/hr IVPB Q8 [facility] PRN Reason: Protocol Stop: 12/18/17 09:46 Last Admin: 12/15/17 06:05 Dose: 100 mls/hr Vancomycin HCl (Vancomycin 1gm) 1 gm in 250 mls @ 167 mls/hr IVPB Q12H [facility] PRN Reason: Protocol Last Admin: 12/14/17 21:15 Dose: 167 mls/hr Doxycycline Hyclate 100 mg/ (Sodium Chloride) 100 mls @ 100 mls/hr IVPB Q12 [facility] PAUL PRN Reason: Protocol Last Admin: 12/14/17 21:16 Dose: 100 mls/hr Insulin Detemir (Levemir) 8 unit SC DAILY [facility] Insulin Human Regular (Humulin R Med) 0 units SC ACHS [facility] PRN Reason: Protocol Last Admin: 12/15/17 08:38 Dose: 7 units Lorazepam (Ativan) 0.25 mg IVP Q8H PRN; Protocol PRN Reason: Anxiety Methylprednisolone (Solu-Medrol) 20 mg IVP Q12 [facility] Last Admin: 12/14/17 21:14 Dose: 20 mg Mirtazapine (Remeron) 7.5 mg PO HS [facility] Last Admin: 12/14/17 21:06 Dose: 7.5 mg Pantoprazole Sodium (Protonix Inj) 40 mg IVP DAILY [facility] Polyethylene Glycol (Miralax) 17 gm PO DAILY [facility] Last Admin: 12/14/17 17:49 Dose: 17 gm Promethazine HCl/Codeine (Phenergan/Codeine Oral Syrup) 5 ml PO Q4H PRN PRN Reason: Cough and congestion Last Admin: 12/15/17 07:31 Dose: 5 ml - Labs Labs: 12/14/17 06:00 12/15/17 07:00 PT 14.7 SECONDS (9.4-12.5) H 12/13/17 00:30 INR 1.28 (0.93-1.08) H 12/13/17 00:30 APTT 29.9 Seconds (25.1-36.5) 12/13/17 00:30 - Constitutional Appears: Chronically Ill - Head Exam Head Exam: NORMAL INSPECTION - Neck Exam Neck Exam: absent: Meningismus - Respiratory Exam Respiratory Exam: Decreased Breath Sounds - Cardiovascular Exam Cardiovascular Exam: +S1, +S2 - GI/Abdominal Exam GI & Abdominal Exam: Soft. absent: Tenderness Assessment and Plan - Assessment and Plan (Free Text) Plan: Assessment Consider sepsis from multifocal healthcare-associated pneumonia, post-viral, now with right sided pneumothorax HTN DM CAD COPD history of bowel obstruction S/P colonic resection history of pneumonia Plan continue Vancomycin, Cefepime and Doxycycline day 3 follow up plan for chest tube placement and patient to be sent to ICU
--- NOTE | 2017-12-15 17:42 | PN ---
DATE: 12/15/2017 He is being seen today for a psychiatry followup consultation. PRESENTATION: The patient is a 77-year-old male seen at bedside. He was originally admitted to [facility] on 12/13/2017. He had been hospitalized at [facility], but the family was not happy with the care he received there. He completed a course of IV antibiotics and Tamiflu and has been diagnosed with pneumonia. He continued to have cough and chest congestion with shortness of breath on admission. Consult for psychiatry was ordered for 12/14/2017, due to concerns about patient being depressed. Collateral information had been collected from patient's medical proxy, [place]. Patient does have a history of being depressed recently due to his fairly recent of his and since then he started decline in his functioning and his health. Yesterday, he was difficult to speak with, he was belligerent, he did not appear to be oriented. However, today, he is marginally better. He is able to hear me when I talk to him. He indicates that he needs a pill for sleep. When I indicated to him that I will order something for him, he points his finger at me and tells me he is going to hold me to it. He is oriented today. Denies any symptoms; however, he does not allow me to converse with him very well again indicating if I have anything that I want to know, I should call his niece and that what he needs is his pill, so he can sleep at night. He was reassured that it will be ordered. Current vital signs include temperature of 97.4, blood pressure of 146/93. His blood sugar at 11:26 today was 294. Chest x-ray from today indicates a large right-sided pneumothorax without mediastinal shift. MENTAL STATUS EXAMINATION: Patient is alert and oriented x3. His eye contact is good. His behavior was cooperative only for a short amount of time. His speech rate and volume are within normal limits, little little loud. Mood is blunted. Affect is constricted. Thoughts are goal directed, but concrete and simplistic. He denies being suicidal or homicidal, "What you are asking me that for?" Denies the presence of hallucinations, delusions, or paranoia. "Why do you ask me these questions, ask my niece? I don't have any of that." His focus, concentration, and memory appeared to be impaired. Appetite is improving. He did not sleep last night, which he is upset about. 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 PLAN: Patient denies being suicidal or homicidal and appears in no imminent danger of hurting himself or others. I had started him on Remeron 7.5 mg at bedtime last night that did not help him sleep. This will be discontinued and Seroquel 12.5 mg one at bedtime was ordered. It appears he has started to clear and he is able to take part in his care. Psychiatry will continue to follow. Thank you for the consult. Francisca Olea APN Desiree Umana MD [facility]
[2017-12-16] MEDS: Albuterol-Ipratrop 3 mg / 0.5 (3 ml) UD IH SCH ×5 (01:24→19:28)
--- NOTE | 2017-12-16 04:14 | PN ---
DATE: 12/15/2017 PULMONARY CRITICAL CARE PROGRESS NOTE REFERRING PHYSICIAN: Ya Fields MD. SUBJECTIVE: Subjectively, the patient's last 24-hour events noted. Apparently, the patient has right-sided chest pain, found to have spontaneous pneumothorax which was tension pneumothorax requiring chest tube placement. Presently, he is in intensive care unit, has some air leak, complaining about chest tube site pain. Has some cough and sputum production. No hemoptysis or emesis. No hematuria. No diarrhea reported. OBJECTIVE: GENERAL: Lying in the bed, head at 45 degrees, no acute distress. VITAL SIGNS: Temp is 100.8, heart rate is 83, respiratory rate is 20, blood pressure 151/83, pulse ox 100% on nasal cannula. HEENT: Small oral cavity. Crowded airway. NECK: Supple. No JVD. LUNGS: Had scattered rhonchi and crackles. Right-sided chest tube. HEART: S1 and S2. ABDOMEN: Soft, nontender. No organomegaly. EXTREMITIES: No edema. NEUROLOGICAL: Awake, alert. Follows simple command. MEDICATIONS: He is on Ativan 0.5 mg IV q. 8 hours p.r.n., Dilaudid 0.5 mg q.4 hours p.r.n., doxycycline 100 mg twice a day, DuoNeb q. 4 hours p.r.n. and DuoNeb q. 6 hours [id number], insulin coverage, Levemir 8 unit subcu daily, cefepime 2 g IV q. 8 hours, Miralax 17 g daily, Pepcid 40 mg daily, promethazine with codeine q. 4 hours p.r.n., Protonix 40 mg daily, Seroquel 12.5 mg at bedtime, IV fluid normal saline 100 mL per hour, Solu-Medrol 20 mg IV q. 12 hours, Tylenol p.r.n., vancomycin 1 g IV q. 12 hours, Vaseline ointment to affected area q. 8 hours. LABORATORY DATA: Shows sodium 135, potassium 4.3, chloride 108, bicarbonate 20, BUN 18, creatinine 0.7, glucose is 390, calcium is 8.0, AST 36, ALT 67, alk phos is 89, albumin is 2.2. Microbiology; blood culture, urine culture, there is no growth. Right shoulder x-ray shows tension pneumothorax. X-ray after chest tube placement shows right-sided chest tube with re-expansion of the right lung. IMPRESSION AND PLAN: Multi-lobe pneumonia, chronic obstructive lung disease, spontaneous pneumothorax which was tension pneumothorax requiring emergent chest tube placement, diabetes, hypertension, coronary artery disease. From Pulmonary point of view, continue chest tube on low suction, antibiotics, IV and inhaled bronchodilators. Gastric prophylaxis. Sequential compression device to lower extremity. Awaiting for echocardiogram. Follow up ABG, chest x-ray, CBC, CMP in the morning. Critical care time, more than 35 minutes. Thank you and we will follow with you. Eloisa Luciano MD
[2017-12-16] MEDS: Cefepime IV 2 gm in NS 2 GM/100 ML BAG IVPB SCH ×3 (05:11→23:32)
[2017-12-16] MEDS: Sodium Chloride 0.9% 1,000 ML IV SCH ×2 (05:12→18:50)
[2017-12-16 06:26] LABS: ARTERIAL BLOOD GAS HCO3 21.2 mmol/L (21-28); ARTERIAL BLOOD GAS HEMOGLOBIN 11.6 g/dL (11.7-17.4); ARTERIAL BLOOD GAS O2 CAPACITY 16.1 mL/dl (16-24); ARTERIAL BLOOD GAS O2 CONTENT 15.9 ML/dl (15-23); ARTERIAL BLOOD GAS O2 SAT 98.7 % (95-98); ARTERIAL BLOOD GAS PCO2 32 mm/Hg (35-45); ARTERIAL BLOOD GAS PH 7.43 (7.35-7.45); ARTERIAL BLOOD GAS TCO2 22.2 mmol.L (22-28)
[2017-12-16] MEDS: Insulin Reg-MEDIUM-Coverage SC SCH ×4 (08:09→22:00)
[2017-12-16] MEDS: Pantoprazole 40 mg EC Tab PO SCH (08:10)
[2017-12-16 08:15] LABS: HEMOGLOBIN 9.2 g/dL (14.0-18.0); MEAN CELL VOLUME 91.8 fl (80.0-105.0); MEAN CORPUSCULAR HEMOGLOBIN 30.1 pg (25.0-35.0); MEAN CORPUSCULAR HGB CONC 32.7 g/dl (31.0-37.0); MEAN PLATELET VOLUME 9.4 fl (7.0-11.0); RBC 3.06 10^6/uL (3.5-6.1); RED CELL DISTRIBUTION WIDTH 13.9 % (11.5-14.5); WHITE BLOOD COUNT 11.1 10^3/ul (4.5-11.0)
[2017-12-16 08:42] LABS: ALB/GLOB RATIO 0.7 (1.1-1.8); ALBUMIN 2.2 g/dL (3.0-4.8); ALT/SGPT 79 U/L (7-56); AST/SGOT 43 U/L (17-59); BLOOD UREA NITROGEN 21 mg/dL (7-21); CALCIUM 7.9 mg/dL (8.4-10.5); GFR AFRICAN-AMERICAN > 60; GFR NON-AFRICAN AMERICAN > 60
--- NOTE | 2017-12-16 09:04 | PN ---
DATE: 12/15/2017 SUBJECTIVE: The patient is a 77-year-old male. The patient is seen and examined on the bedside in the ICU, status post right-sided pneumothorax and chest tube is placed, and the patient sent to ICU. Still having some shortness of breath at rest. No fever, no chills. No nausea, vomiting or diarrhea. No headache, no dizziness. No hematuria or hematochezia. PHYSICAL EXAMINATION: VITAL SIGNS: Temperature 97.4, pulse 95, respiratory rate 22, blood pressure 146/93, pulse oximetry 99. HEENT: Head is normocephalic and atraumatic. Eyes, PERRLA. Extraocular muscles intact. Conjunctivae clear. Nose patent. NECK: Supple. No carotid bruit. No JVD or thyromegaly. CHEST: Bilaterally symmetrical. HEART: S1 and S2 positive. LUNGS: Clear to auscultation. ABDOMEN: Soft. Bowel sounds present. No organomegaly. EXTREMITIES: No edema. No cyanosis. NEUROLOGIC: Patient is awake, alert. Moving all 4 extremities. No focal deficit. MEDICATIONS: Albuterol, Vaseline ointment, Pepcid, NS, cefepime, vancomycin, doxycycline, insulin, lorazepam, Solu-Medrol, pantoprazole. LABORATORY DATA: White blood cells 12.3, hemoglobin 9.9, hematocrit 30.0, platelets 439. Sodium 135, potassium 4.3, BUN 18, creatinine 0.7, glucose 340. ASSESSMENT AND PLAN: Mr. Nikko Dia is a 77-year-old male with leukocytosis, anemia, hyperkalemia, hyperglycemia, has sepsis from multifocal healthcare-associated pneumonia, now right-sided pneumothorax, chest tube in place, hypertension, coronary artery disease, chronic obstructive pulmonary disease, has a history of bilateral status post, history of pneumonia. PLAN: We will continue vancomycin, cefepime, doxycycline as per Infectious Disease, status post chest tube placement, and admitted in the ICU. I appreciated Dr. Grant Cameron and Dr. Faheem Purdy's input. Seen by psychiatrist also. GI and DVT prophylaxes. I reviewed chest x-ray, shoulder x-ray. Repeat labs. We will follow up. Ya Fields MD [facility] # [id number] [facility]
--- NOTE | 2017-12-16 09:27 | CP.PCM.PN ---
Subjective - Date & Time of Evaluation Date of Evaluation: 12/16/17 Time of Evaluation: 09:25 - Subjective Subjective: Surgery Pt s&e. Pt had R CT placed for PTX yesterday and tolerated it well. Reports mild SOB. Liza CP. Low grade fever of 100.4 overnight. Objective - Vital Signs/Intake and Output Vital Signs (last 24 hours): Temp Pulse Resp BP Pulse Ox 97.4 F L 79 29 H 151/83 H 100 12/16/17 08:00 12/16/17 02:00 12/15/17 20:01 12/15/17 20:01 12/15/17 20:01 - Medications Medications: Current Medications Acetaminophen (Tylenol 325mg Tab) 650 mg PO Q4H PRN PRN Reason: Fever >100.4 F Last Admin: 12/15/17 21:29 Dose: 650 mg Acetaminophen (Tylenol 325mg Tab) 650 mg PO Q6H PRN PRN Reason: Pain, Mild (1-3) Albuterol/Ipratropium (Duoneb 3 Mg/0.5 Mg (3 Ml) Ud) 3 ml IH Q4H PRN PRN Reason: Shortness of Breath Last Admin: 12/14/17 05:05 Dose: 3 ml Albuterol/Ipratropium (Duoneb 3 Mg/0.5 Mg (3 Ml) Ud) 3 ml IH [id number] [facility] Last Admin: 12/16/17 07:17 Dose: 3 ml Emollient Ointment (Vaseline Oint) 5 gm TOP Q8 PRN PRN Reason: Dry skin Last Admin: 12/14/17 09:26 Dose: 5 gm Famotidine (Pepcid) 40 mg PO HS [facility] Last Admin: 12/15/17 21:19 Dose: 40 mg Hydromorphone HCl (Dilaudid) 0.5 mg IVP Q4H PRN PRN Reason: Pain, moderate (4-7) Last Admin: 12/15/17 13:02 Dose: 0.5 mg Sodium Chloride (Sodium Chloride 0.9%) 1,000 mls @ 100 mls/hr IV .Q10H [facility] Last Admin: 12/16/17 05:12 Dose: 100 mls/hr Cefepime HCl (Maxipime 2gm) 2 gm in 100 mls @ 100 mls/hr IVPB Q8 JEAN PAUL PRN Reason: Protocol Stop: 12/18/17 09:46 Last Admin: 12/16/17 05:11 Dose: 100 mls/hr Vancomycin HCl (Vancomycin 1gm) 1 gm in 250 mls @ 167 mls/hr IVPB Q12H JEAN PAUL PRN Reason: Protocol Last Admin: 12/15/17 21:25 Dose: 167 mls/hr Doxycycline Hyclate 100 mg/ (Sodium Chloride) 100 mls @ 100 mls/hr IVPB Q12 JEAN PAUL PRN Reason: Protocol Last Admin: 12/15/17 21:25 Dose: 100 mls/hr Insulin Detemir (Levemir) 8 unit SC DAILY JEAN PAUL Last Admin: 12/15/17 12:00 Dose: 8 unit Insulin Human Regular (Humulin R Med) 0 units SC ACHS JEAN PAUL PRN Reason: Protocol Last Admin: 12/16/17 08:09 Dose: 7 units Lorazepam (Ativan) 0.25 mg IVP Q8H PRN; Protocol PRN Reason: Anxiety Last Admin: 12/15/17 10:28 Dose: 0.25 mg Methylprednisolone (Solu-Medrol) 20 mg IVP Q12 JEAN PAUL Last Admin: 12/15/17 21:21 Dose: 20 mg Pantoprazole Sodium (Protonix Ec Tab) 40 mg PO ACB JEAN PAUL Last Admin: 12/16/17 08:10 Dose: 40 mg Polyethylene Glycol (Miralax) 17 gm PO DAILY JEAN PAUL Last Admin: 12/15/17 12:00 Dose: Not Given Promethazine HCl/Codeine (Phenergan/Codeine Oral Syrup) 5 ml PO Q4H PRN PRN Reason: Cough and congestion Last Admin: 12/15/17 07:31 Dose: 5 ml Quetiapine Fumarate (Seroquel) 12.5 mg PO HS JEAN PAUL PRN Reason: Protocol Last Admin: 12/15/17 21:19 Dose: 12.5 mg - Labs Labs: 12/16/17 07:30 12/16/17 08:02 PT 14.7 SECONDS (9.4-12.5) H 12/13/17 00:30 INR 1.28 (0.93-1.08) H 12/13/17 00:30 APTT 29.9 Seconds (25.1-36.5) 12/13/17 00:30 - Constitutional Appears: Non-toxic, Cachectic, Chronically Ill - Head Exam Head Exam: ATRAUMATIC, NORMAL INSPECTION, NORMOCEPHALIC - Eye Exam Eye Exam: EOMI, Normal appearance, PERRL Pupil Exam: NORMAL ACCOMODATION, PERRL - ENT Exam ENT Exam: Mucous Membranes Moist, Normal Exam - Neck Exam Neck Exam: Full ROM, Normal Inspection. absent: Lymphadenopathy - Respiratory Exam Respiratory Exam: Decreased Breath Sounds, Clear to Ausculation Bilateral, Rhonchi. absent: Chest Wall Tenderness, Wheezes, Stridor Additional comments: Mild R crackles. R CT in place. No leak. Minimal fluids output. - Cardiovascular Exam Cardiovascular Exam: REGULAR RHYTHM, +S1, +S2. absent: Murmur - GI/Abdominal Exam GI & Abdominal Exam: Soft, Normal Bowel Sounds. absent: Distended, Firm, Guarding, Rigid, Tenderness - Extremities Exam Extremities Exam: Normal Capillary Refill, Normal Inspection, Tenderness. absent: Full ROM, Joint Swelling, Pedal Edema Additional comments: R shoulder TTP - Back Exam Back Exam: NORMAL INSPECTION - Neurological Exam Neurological Exam: Alert, Awake, CN II-XII Intact, Normal Gait, Oriented x3 - Psychiatric Exam Psychiatric exam: Normal Affect, Normal Mood - Skin Skin Exam: Dry, Intact, Normal Color, Warm Assessment and Plan - Assessment and Plan (Free Text) Assessment: R Pneumothorax POD 1 s/p R Chest Tube 8fr CXR: resolution of PTX. CT in place Plan: -Chest tube to wall suction -Analgesics PRN -Dressing changes PRN -Medical management -Will Discuss with Dr. Purdy
[2017-12-16] MEDS: Insulin Detemir 100 units/ml Vial (Levemir) SC SCH (09:30)
[2017-12-16] MEDS: POLYETHYLENE GLYCOL 3350 17 GM/Dose PACKET PO SCH (09:31)
[2017-12-16] MEDS: MethylPREDNISolone 40 mg Vial IVP SCH ×2 (09:32→21:59)
[2017-12-16] MEDS: Vancomycin 1gm in NS 250ml 1 GM/250 ML BAG IVPB SCH (09:32)
--- NOTE | 2017-12-16 10:05 | RAD ---
HISTORY: pneumothorax COMPARISON: 12/15/2017 FINDINGS: LUNGS: Patchy bilateral infiltrates PLEURA: A small caliber chest tube is seen in the right lung apex. There is no evidence of pneumothorax CARDIOVASCULAR: Normal. OSSEOUS STRUCTURES: No significant abnormalities. VISUALIZED UPPER ABDOMEN: Normal. OTHER FINDINGS: None. IMPRESSION: Bilateral infiltrates. No evidence of pneumothorax. Chest tube remains in place
--- NOTE | 2017-12-16 10:09 | CP.CCUPN ---
<Deniz Porter - Last Filed: 12/16/17 10:05> CCU Subjective - Physician Review Subjective (Free Text): Patient seen and examined at bedside. Patient complaining of pain near site of chest tube. Patient denies shortness of breath, nausea, vomiting, diarrhea, fever, chills. CCU Objective - Vital Signs / Intake & Output Vital Signs (Last 4 hours): Vital Signs Temp 12/16/17 08:00 97.4 F L Intake and Output (Last 8hrs): Intake & Output 12/15/17 12/16/17 12/16/17 22:59 06:59 14:59 Intake Total 1130 Output Total 990 Balance 140 Intake: IV 650 Right Hand 650 Oral 480 Output: Chest Tube Drainage 190 Right Upper Anterior 190 Chest Urine 800 Urine, Voided 800 Other: # Voids Urine, Voided 2 # Bowel Movements 0 - Physical Exam Head: Positive for: Atraumatic, Normocephalic Pupils: Positive for: PERRL Extroacular Muscles: Positive for: EOMI Conjunctiva: Positive for: Normal Mouth: Positive for: Moist Mucous Membranes Neck: Positive for: Normal Range of Motion Respiratory/Chest: Positive for: Decreased Breath Sounds, Rhonchi. Negative for : Respiratory Distress, Accessory Muscle Use Cardiovascular: Positive for: Regular Rate and Rhythm, Normal S1, S2. Negative for: Murmurs Abdomen: Positive for: Normal Bowel Sounds. Negative for: Tenderness, Distention, Peritoneal Signs Back: Positive for: Normal Inspection Upper Extremity: Positive for: Normal Inspection. Negative for: Cyanosis, Edema Lower Extremity: Positive for: Normal Inspection. Negative for: Edema, Cyanosis Neurological: Positive for: GCS=15, CN II-XII Intact, Speech Normal Skin: Positive for: Warm, Dry, Normal Color. Negative for: Rashes Psychiatric: Positive for: Alert, Oriented x 3, Normal Insight, Normal Concentration - Medications Active Medications: Active Medications Generic Name Dose Route Start Last Admin Trade Name Freq PRN Reason Stop Dose Admin Acetaminophen 650 mg 12/13/17 14:01 12/15/17 21:29 Tylenol 325mg Tab PO 650 mg Q4H PRN Administration Fever >100.4 F Acetaminophen 650 mg 12/16/17 05:57 Tylenol 325mg Tab PO Q6H PRN Pain, Mild (1-3) Albuterol/Ipratropium 3 ml 12/13/17 02:19 12/14/17 05:05 Duoneb 3 Mg/0.5 Mg (3 Ml) Ud IH 3 ml Q4H PRN Administration Shortness of Breath Albuterol/Ipratropium 3 ml 12/13/17 08:00 12/16/17 07:17 Duoneb 3 Mg/0.5 Mg (3 Ml) Ud IH 3 ml [id number] JEAN PAUL Administration Emollient Ointment 5 gm 12/14/17 09:08 12/14/17 09:26 Vaseline Oint TOP 5 gm Q8 PRN Administration Dry skin Famotidine 40 mg 12/13/17 22:00 12/15/17 21:19 Pepcid PO 40 mg HS JEAN PAUL Administration Hydromorphone HCl 0.5 mg 12/15/17 12:16 12/15/17 13:02 Dilaudid IVP 0.5 mg Q4H PRN Administration Pain, moderate (4-7) Sodium Chloride 1,000 mls @ 100 mls/hr 12/13/17 07:30 12/16/17 05:12 Sodium Chloride 0.9% IV 100 mls/hr .Q10H JEAN PAUL Administration Cefepime HCl 2 gm in 100 mls @ 100 mls/hr 12/13/17 09:45 12/16/17 05:11 Maxipime 2gm IVPB 12/18/17 09:46 100 mls/hr Q8 JEAN PAUL Administration Protocol Vancomycin HCl 1 gm in 250 mls @ 167 mls/hr 12/13/17 09:45 12/16/17 09:32 Vancomycin 1gm IVPB 167 mls/hr Q12H JEAN PAUL Administration Protocol Doxycycline Hyclate 100 mg/ 100 mls @ 100 mls/hr 12/13/17 10:00 12/16/17 09: 33 Sodium Chloride IVPB 100 mls/hr Q12 JEAN PAUL Administration Protocol Insulin Detemir 8 unit 12/15/17 10:00 12/16/17 09:30 Levemir SC 8 unit DAILY JEAN PAUL Administration Insulin Human Regular 0 units 12/14/17 11:30 12/16/17 08:09 Humulin R Med SC 7 units ACHS JEAN PAUL Administration Protocol Lorazepam 0.25 mg 12/14/17 22:08 12/16/17 09:29 Ativan IVP 0.25 mg Q8H PRN Administration Anxiety Protocol Methylprednisolone 20 mg 12/14/17 14:19 12/16/17 09:32 Solu-Medrol IVP 20 mg Q12 JEAN PAUL Administration Pantoprazole Sodium 40 mg 12/16/17 07:30 12/16/17 08:10 Protonix Ec Tab PO 40 mg ACB JEAN PAUL Administration Polyethylene Glycol 17 gm 12/14/17 17:00 12/16/17 09:31 Miralax PO 17 gm DAILY JEAN PAUL Administration Promethazine HCl/Codeine 5 ml 12/13/17 10:17 12/15/17 07:31 Phenergan/Codeine Oral Syrup PO 5 ml Q4H PRN Administration Cough and congestion Quetiapine Fumarate 12.5 mg 12/15/17 22:00 12/15/17 21:19 Seroquel PO 12.5 mg HS JEAN PAUL Administration Protocol - Patient Studies Lab Studies: Lab Studies 12/16/17 12/16/17 12/16/17 Range/Units 08:02 08:00 07:30 WBC 11.1 H (4.5-11.0) 10^3/ul RBC 3.06 L (3.5-6.1) 10^6/uL Hgb 9.2 L (14.0-18.0) g/dL Hct 28.1 L (42.0-52.0) % MCV 91.8 (80.0-105.0) fl MCH 30.1 (25.0-35.0) pg MCHC 32.7 (31.0-37.0) g/dl RDW 13.9 (11.5-14.5) % Plt Count 367 (120.0-450.0) 10^3/uL MPV 9.4 (7.0-11.0) fl pCO2 (35-45) mm/Hg pO2 (80-100) mm/Hg HCO3 (21-28) mmol/L ABG pH (7.35-7.45) ABG Total CO2 (22-28) mmol.L ABG O2 Saturation (95-98) % ABG O2 Content (15-23) ML/dl ABG Base Excess (-2.0-3.0) mmol/L ABG Hemoglobin (11.7-17.4) g/dL ABG Carboxyhemoglobin (0.5-1.5) % POC ABG HHb (Measured) (0-5) % ABG Methemoglobin (0.0-3.0) % ABG O2 Capacity (16-24) mL/dl Hgb O2 Saturation (95.0-98.0) % FiO2 % Sodium 135 (132-148) mmol/L Potassium 4.3 (3.6-5.0) mmol/L Chloride 109 H (98-107) mmol/L Carbon Dioxide 21 (21-33) mmol/L Anion Gap 10 (10-20) BUN 21 (7-21) mg/dL Creatinine 0.7 L (0.8-1.5) mg/dl Est GFR ( Amer) > 60 Est GFR (Non-Af Amer) > 60 POC Glucose (mg/dL) 315 H (65-110) mg/dL Random Glucose 344 H* (70-110) mg/dL Calcium 7.9 L (8.4-10.5) mg/dL Total Bilirubin 0.3 (0.2-1.3) mg/dL AST 43 (17-59) U/L ALT 79 H (7-56) U/L Alkaline Phosphatase 114 (38-126) U/L Total Protein 5.5 L (5.8-8.3) g/dL Albumin 2.2 L (3.0-4.8) g/dL Globulin 3.3 gm/dL Albumin/Globulin Ratio 0.7 L (1.1-1.8) 12/16/17 12/16/17 12/15/17 Range/Units 06:18 04:59 21:38 WBC (4.5-11.0) 10^3/ul RBC (3.5-6.1) 10^6/uL Hgb (14.0-18.0) g/dL Hct (42.0-52.0) % MCV (80.0-105.0) fl MCH (25.0-35.0) pg MCHC (31.0-37.0) g/dl RDW (11.5-14.5) % Plt Count (120.0-450.0) 10^3/uL MPV (7.0-11.0) fl pCO2 32 L (35-45) mm/Hg pO2 109.0 H (80-100) mm/Hg HCO3 21.2 (21-28) mmol/L ABG pH 7.43 (7.35-7.45) ABG Total CO2 22.2 (22-28) mmol.L ABG O2 Saturation 98.7 H (95-98) % ABG O2 Content 15.9 (15-23) ML/dl ABG Base Excess -2.4 L (-2.0-3.0) mmol/L ABG Hemoglobin 11.6 L (11.7-17.4) g/dL ABG Carboxyhemoglobin 1.2 (0.5-1.5) % POC ABG HHb (Measured) 1.3 (0-5) % ABG Methemoglobin 0.9 (0.0-3.0) % ABG O2 Capacity 16.1 (16-24) mL/dl Hgb O2 Saturation 96.6 (95.0-98.0) % FiO2 32.0 % Sodium (132-148) mmol/L Potassium (3.6-5.0) mmol/L Chloride (98-107) mmol/L Carbon Dioxide (21-33) mmol/L Anion Gap (10-20) BUN (7-21) mg/dL Creatinine (0.8-1.5) mg/dl Est GFR ( Amer) Est GFR (Non-Af Amer) POC Glucose (mg/dL) 374 H 338 H (65-110) mg/dL Random Glucose (70-110) mg/dL Calcium (8.4-10.5) mg/dL Total Bilirubin (0.2-1.3) mg/dL AST (17-59) U/L ALT (7-56) U/L Alkaline Phosphatase (38-126) U/L Total Protein (5.8-8.3) g/dL Albumin (3.0-4.8) g/dL Globulin gm/dL Albumin/Globulin Ratio (1.1-1.8) 12/15/17 12/15/17 12/15/17 Range/Units 15:51 12:59 11:26 WBC (4.5-11.0) 10^3/ul RBC (3.5-6.1) 10^6/uL Hgb (14.0-18.0) g/dL Hct (42.0-52.0) % MCV (80.0-105.0) fl MCH (25.0-35.0) pg MCHC (31.0-37.0) g/dl RDW (11.5-14.5) % Plt Count (120.0-450.0) 10^3/uL MPV (7.0-11.0) fl pCO2 (35-45) mm/Hg pO2 (80-100) mm/Hg HCO3 (21-28) mmol/L ABG pH (7.35-7.45) ABG Total CO2 (22-28) mmol.L ABG O2 Saturation (95-98) % ABG O2 Content (15-23) ML/dl ABG Base Excess (-2.0-3.0) mmol/L ABG Hemoglobin (11.7-17.4) g/dL ABG Carboxyhemoglobin (0.5-1.5) % POC ABG HHb (Measured) (0-5) % ABG Methemoglobin (0.0-3.0) % ABG O2 Capacity (16-24) mL/dl Hgb O2 Saturation (95.0-98.0) % FiO2 % Sodium (132-148) mmol/L Potassium (3.6-5.0) mmol/L Chloride (98-107) mmol/L Carbon Dioxide (21-33) mmol/L Anion Gap (10-20) BUN (7-21) mg/dL Creatinine (0.8-1.5) mg/dl Est GFR ( Amer) Est GFR (Non-Af Amer) POC Glucose (mg/dL) 390 H 414 H* 294 H (65-110) mg/dL Random Glucose (70-110) mg/dL Calcium (8.4-10.5) mg/dL Total Bilirubin (0.2-1.3) mg/dL AST (17-59) U/L ALT (7-56) U/L Alkaline Phosphatase (38-126) U/L Total Protein (5.8-8.3) g/dL Albumin (3.0-4.8) g/dL Globulin gm/dL Albumin/Globulin Ratio (1.1-1.8) Laboratory Results - last 24 hr 12/15/17 12/15/17 12/15/17 11:26 12:59 15:51 WBC RBC Hgb Hct MCV MCH MCHC RDW Plt Count MPV pCO2 pO2 HCO3 ABG pH ABG Total CO2 ABG O2 Saturation ABG O2 Content ABG Base Excess ABG Hemoglobin ABG Carboxyhemoglobin POC ABG HHb (Measured) ABG Methemoglobin ABG O2 Capacity Hgb O2 Saturation FiO2 Sodium Potassium Chloride Carbon Dioxide Anion Gap BUN Creatinine Est GFR ( Amer) Est GFR (Non-Af Amer) POC Glucose (mg/dL) 294 H 414 H* 390 H Random Glucose Calcium Total Bilirubin AST ALT Alkaline Phosphatase Total Protein Albumin Globulin Albumin/Globulin Ratio 12/15/17 12/16/17 12/16/17 21:38 04:59 06:18 WBC RBC Hgb Hct MCV MCH MCHC RDW Plt Count MPV pCO2 32 L pO2 109.0 H HCO3 21.2 ABG pH 7.43 ABG Total CO2 22.2 ABG O2 Saturation 98.7 H ABG O2 Content 15.9 ABG Base Excess -2.4 L ABG Hemoglobin 11.6 L ABG Carboxyhemoglobin 1.2 POC ABG HHb (Measured) 1.3 ABG Methemoglobin 0.9 ABG O2 Capacity 16.1 Hgb O2 Saturation 96.6 FiO2 32.0 Sodium Potassium Chloride Carbon Dioxide Anion Gap BUN Creatinine Est GFR ( Amer) Est GFR (Non-Af Amer) POC Glucose (mg/dL) 338 H 374 H Random Glucose Calcium Total Bilirubin AST ALT Alkaline Phosphatase Total Protein Albumin Globulin Albumin/Globulin Ratio 12/16/17 12/16/17 12/16/17 07:30 08:00 08:02 WBC 11.1 H RBC 3.06 L Hgb 9.2 L Hct 28.1 L MCV 91.8 MCH 30.1 MCHC 32.7 RDW 13.9 Plt Count 367 MPV 9.4 pCO2 pO2 HCO3 ABG pH ABG Total CO2 ABG O2 Saturation ABG O2 Content ABG Base Excess ABG Hemoglobin ABG Carboxyhemoglobin POC ABG HHb (Measured) ABG Methemoglobin ABG O2 Capacity Hgb O2 Saturation FiO2 Sodium 135 Potassium 4.3 Chloride 109 H Carbon Dioxide 21 Anion Gap 10 BUN 21 Creatinine 0.7 L Est GFR ( Amer) > 60 Est GFR (Non-Af Amer) > 60 POC Glucose (mg/dL) 315 H Random Glucose 344 H* Calcium 7.9 L Total Bilirubin 0.3 AST 43 ALT 79 H Alkaline Phosphatase 114 Total Protein 5.5 L Albumin 2.2 L Globulin 3.3 Albumin/Globulin Ratio 0.7 L Fingerstick Blood Sugar Results: 315 Critical Care Progress Note - Nutrition Nutrition: Nutrition Category Date Time Status Consistent Carbohydrate [DIET] Diets 12/14/17 Dinner Ordered Assessment/Plan - Assessment and Plan (Free Text) Plan: 77 year old male with past medical history of HTN, COPD, DM, and CAD presents to the ICU for right sided pneumothorax s/p pigtail catheter insertion. Patient is stable. Chest x-ray from this morning demonstrates no pneumothorax. Patient will be transferred to telemetry at this time. Neuro: AAOx3 No deficits Cardio: Hemodynamically stable Maintain MAP > 65 Continue current meds Pulm: Right pneumothorax, pigtail catheter placed No pneumothorax on x-ray Surgery following Will repeat CXR in AM Maintain O2 sat >90% Pulm Consulted Continue antibiotics GI: Protonix CCD Nephro: Replenish electrolytes as needed Maintain euvolemia ID: Afebrile, leukocytosis likely secondary to steroid use Continue abx Procal pending follow up cultures Maintain normothermia Endo: Continue ISS Maintain euglycemia German, PGY-2 <Edwin Scruggs - Last Filed: 12/16/17 11:54> CCU Objective - Vital Signs / Intake & Output Vital Signs (Last 4 hours): Vital Signs Temp 12/16/17 08:00 97.4 F L Intake and Output (Last 8hrs): Intake & Output 12/15/17 12/16/17 12/16/17 22:59 06:59 14:59 Intake Total 1130 Output Total 990 Balance 140 Intake: IV 650 Right Hand 650 Oral 480 Output: Chest Tube Drainage 190 Right Upper Anterior 190 Chest Urine 800 Urine, Voided 800 Other: # Voids Urine, Voided 2 # Bowel Movements 0 - Medications Active Medications: Active Medications Generic Name Dose Route Start Last Admin Trade Name Freq PRN Reason Stop Dose Admin Acetaminophen 650 mg 12/13/17 14:01 12/15/17 21:29 Tylenol 325mg Tab PO 650 mg Q4H PRN Administration Fever >100.4 F Acetaminophen 650 mg 12/16/17 05:57 Tylenol 325mg Tab PO Q6H PRN Pain, Mild (1-3) Albuterol/Ipratropium 3 ml 12/13/17 02:19 12/14/17 05:05 Duoneb 3 Mg/0.5 Mg (3 Ml) Ud IH 3 ml Q4H PRN Administration Shortness of Breath Albuterol/Ipratropium 3 ml 12/13/17 08:00 12/16/17 07:17 Duoneb 3 Mg/0.5 Mg (3 Ml) Ud IH 3 ml [id number] JEAN PAUL Administration Emollient Ointment 5 gm 12/14/17 09:08 12/14/17 09:26 Vaseline Oint TOP 5 gm Q8 PRN Administration Dry skin Sodium Chloride 1,000 mls @ 100 mls/hr 12/13/17 07:30 12/16/17 05:12 Sodium Chloride 0.9% IV 100 mls/hr .Q10H JEAN PAUL Administration Cefepime HCl 2 gm in 100 mls @ 100 mls/hr 12/13/17 09:45 12/16/17 05:11 Maxipime 2gm IVPB 12/18/17 09:46 100 mls/hr Q8 JEAN PAUL Administration Protocol Vancomycin HCl 1 gm in 250 mls @ 167 mls/hr 12/13/17 09:45 12/16/17 09:32 Vancomycin 1gm IVPB 167 mls/hr Q12H JEAN PAUL Administration Protocol Doxycycline Hyclate 100 mg/ 100 mls @ 100 mls/hr 12/13/17 10:00 12/16/17 09: 33 Sodium Chloride IVPB 100 mls/hr Q12 JEAN PAUL Administration Protocol Insulin Detemir 8 unit 12/15/17 10:00 12/16/17 09:30 Levemir SC 8 unit DAILY JEAN PAUL Administration Insulin Human Regular 0 units 12/14/17 11:30 12/16/17 08:09 Humulin R Med SC 7 units ACHS JEAN PAUL Administration Protocol Lorazepam 0.25 mg 12/14/17 22:08 12/16/17 09:29 Ativan IVP 0.25 mg Q8H PRN Administration Anxiety Protocol Methylprednisolone 20 mg 12/14/17 14:19 12/16/17 09:32 Solu-Medrol IVP 20 mg Q12 JEAN PAUL Administration Pantoprazole Sodium 40 mg 12/16/17 07:30 12/16/17 08:10 Protonix Ec Tab PO 40 mg ACB JEAN PAUL Administration Polyethylene Glycol 17 gm 12/14/17 17:00 12/16/17 09:31 Miralax PO 17 gm DAILY JEAN PAUL Administration Promethazine HCl/Codeine 5 ml 12/13/17 10:17 12/15/17 07:31 Phenergan/Codeine Oral Syrup PO 5 ml Q4H PRN Administration Cough and congestion Quetiapine Fumarate 12.5 mg 12/16/17 18:00 Seroquel PO BID JEAN PAUL Protocol - Patient Studies Lab Studies: Lab Studies 12/16/17 12/16/17 12/16/17 Range/Units 11:20 08:02 08:00 WBC (4.5-11.0) 10^3/ul RBC (3.5-6.1) 10^6/uL Hgb (14.0-18.0) g/dL Hct (42.0-52.0) % MCV (80.0-105.0) fl MCH (25.0-35.0) pg MCHC (31.0-37.0) g/dl RDW (11.5-14.5) % Plt Count (120.0-450.0) 10^3/uL MPV (7.0-11.0) fl pCO2 (35-45) mm/Hg pO2 (80-100) mm/Hg HCO3 (21-28) mmol/L ABG pH (7.35-7.45) ABG Total CO2 (22-28) mmol.L ABG O2 Saturation (95-98) % ABG O2 Content (15-23) ML/dl ABG Base Excess (-2.0-3.0) mmol/L ABG Hemoglobin (11.7-17.4) g/dL ABG Carboxyhemoglobin (0.5-1.5) % POC ABG HHb (Measured) (0-5) % ABG Methemoglobin (0.0-3.0) % ABG O2 Capacity (16-24) mL/dl Hgb O2 Saturation (95.0-98.0) % FiO2 % Sodium 135 (132-148) mmol/L Potassium 4.3 (3.6-5.0) mmol/L Chloride 109 H (98-107) mmol/L Carbon Dioxide 21 (21-33) mmol/L Anion Gap 10 (10-20) BUN 21 (7-21) mg/dL Creatinine 0.7 L (0.8-1.5) mg/dl Est GFR ( Amer) > 60 Est GFR (Non-Af Amer) > 60 POC Glucose (mg/dL) 299 H 315 H (65-110) mg/dL Random Glucose 344 H* (70-110) mg/dL Calcium 7.9 L (8.4-10.5) mg/dL Total Bilirubin 0.3 (0.2-1.3) mg/dL AST 43 (17-59) U/L ALT 79 H (7-56) U/L Alkaline Phosphatase 114 (38-126) U/L Total Protein 5.5 L (5.8-8.3) g/dL Albumin 2.2 L (3.0-4.8) g/dL Globulin 3.3 gm/dL Albumin/Globulin Ratio 0.7 L (1.1-1.8) 12/16/17 12/16/17 12/16/17 Range/Units 07:30 06:18 04:59 WBC 11.1 H (4.5-11.0) 10^3/ul RBC 3.06 L (3.5-6.1) 10^6/uL Hgb 9.2 L (14.0-18.0) g/dL Hct 28.1 L (42.0-52.0) % MCV 91.8 (80.0-105.0) fl MCH 30.1 (25.0-35.0) pg MCHC 32.7 (31.0-37.0) g/dl RDW 13.9 (11.5-14.5) % Plt Count 367 (120.0-450.0) 10^3/uL MPV 9.4 (7.0-11.0) fl pCO2 32 L (35-45) mm/Hg pO2 109.0 H (80-100) mm/Hg HCO3 21.2 (21-28) mmol/L ABG pH 7.43 (7.35-7.45) ABG Total CO2 22.2 (22-28) mmol.L ABG O2 Saturation 98.7 H (95-98) % ABG O2 Content 15.9 (15-23) ML/dl ABG Base Excess -2.4 L (-2.0-3.0) mmol/L ABG Hemoglobin 11.6 L (11.7-17.4) g/dL ABG Carboxyhemoglobin 1.2 (0.5-1.5) % POC ABG HHb (Measured) 1.3 (0-5) % ABG Methemoglobin 0.9 (0.0-3.0) % ABG O2 Capacity 16.1 (16-24) mL/dl Hgb O2 Saturation 96.6 (95.0-98.0) % FiO2 32.0 % Sodium (132-148) mmol/L Potassium (3.6-5.0) mmol/L Chloride (98-107) mmol/L Carbon Dioxide (21-33) mmol/L Anion Gap (10-20) BUN (7-21) mg/dL Creatinine (0.8-1.5) mg/dl Est GFR ( Amer) Est GFR (Non-Af Amer) POC Glucose (mg/dL) 374 H (65-110) mg/dL Random Glucose (70-110) mg/dL Calcium (8.4-10.5) mg/dL Total Bilirubin (0.2-1.3) mg/dL AST (17-59) U/L ALT (7-56) U/L Alkaline Phosphatase (38-126) U/L Total Protein (5.8-8.3) g/dL Albumin (3.0-4.8) g/dL Globulin gm/dL Albumin/Globulin Ratio (1.1-1.8) 12/15/17 12/15/17 12/15/17 Range/Units 21:38 15:51 12:59 WBC (4.5-11.0) 10^3/ul RBC (3.5-6.1) 10^6/uL Hgb (14.0-18.0) g/dL Hct (42.0-52.0) % MCV (80.0-105.0) fl MCH (25.0-35.0) pg MCHC (31.0-37.0) g/dl RDW (11.5-14.5) % Plt Count (120.0-450.0) 10^3/uL MPV (7.0-11.0) fl pCO2 (35-45) mm/Hg pO2 (80-100) mm/Hg HCO3 (21-28) mmol/L ABG pH (7.35-7.45) ABG Total CO2 (22-28) mmol.L ABG O2 Saturation (95-98) % ABG O2 Content (15-23) ML/dl ABG Base Excess (-2.0-3.0) mmol/L ABG Hemoglobin (11.7-17.4) g/dL ABG Carboxyhemoglobin (0.5-1.5) % POC ABG HHb (Measured) (0-5) % ABG Methemoglobin (0.0-3.0) % ABG O2 Capacity (16-24) mL/dl Hgb O2 Saturation (95.0-98.0) % FiO2 % Sodium (132-148) mmol/L Potassium (3.6-5.0) mmol/L Chloride (98-107) mmol/L Carbon Dioxide (21-33) mmol/L Anion Gap (10-20) BUN (7-21) mg/dL Creatinine (0.8-1.5) mg/dl Est GFR ( Amer) Est GFR (Non-Af Amer) POC Glucose (mg/dL) 338 H 390 H 414 H* (65-110) mg/dL Random Glucose (70-110) mg/dL Calcium (8.4-10.5) mg/dL Total Bilirubin (0.2-1.3) mg/dL AST (17-59) U/L ALT (7-56) U/L Alkaline Phosphatase (38-126) U/L Total Protein (5.8-8.3) g/dL Albumin (3.0-4.8) g/dL Globulin gm/dL Albumin/Globulin Ratio (1.1-1.8) Laboratory Results - last 24 hr 12/15/17 12/15/17 12/15/17 12:59 15:51 21:38 WBC RBC Hgb Hct MCV MCH MCHC RDW Plt Count MPV pCO2 pO2 HCO3 ABG pH ABG Total CO2 ABG O2 Saturation ABG O2 Content ABG Base Excess ABG Hemoglobin ABG Carboxyhemoglobin POC ABG HHb (Measured) ABG Methemoglobin ABG O2 Capacity Hgb O2 Saturation FiO2 Sodium Potassium Chloride Carbon Dioxide Anion Gap BUN Creatinine Est GFR ( Amer) Est GFR (Non-Af Amer) POC Glucose (mg/dL) 414 H* 390 H 338 H Random Glucose Calcium Total Bilirubin AST ALT Alkaline Phosphatase Total Protein Albumin Globulin Albumin/Globulin Ratio 12/16/17 12/16/17 12/16/17 04:59 06:18 07:30 WBC 11.1 H RBC 3.06 L Hgb 9.2 L Hct 28.1 L MCV 91.8 MCH 30.1 MCHC 32.7 RDW 13.9 Plt Count 367 MPV 9.4 pCO2 32 L pO2 109.0 H HCO3 21.2 ABG pH 7.43 ABG Total CO2 22.2 ABG O2 Saturation 98.7 H ABG O2 Content 15.9 ABG Base Excess -2.4 L ABG Hemoglobin 11.6 L ABG Carboxyhemoglobin 1.2 POC ABG HHb (Measured) 1.3 ABG Methemoglobin 0.9 ABG O2 Capacity 16.1 Hgb O2 Saturation 96.6 FiO2 32.0 Sodium Potassium Chloride Carbon Dioxide Anion Gap BUN Creatinine Est GFR ( Amer) Est GFR (Non-Af Amer) POC Glucose (mg/dL) 374 H Random Glucose Calcium Total Bilirubin AST ALT Alkaline Phosphatase Total Protein Albumin Globulin Albumin/Globulin Ratio 12/16/17 12/16/17 12/16/17 08:00 08:02 11:20 WBC RBC Hgb Hct MCV MCH MCHC RDW Plt Count MPV pCO2 pO2 HCO3 ABG pH ABG Total CO2 ABG O2 Saturation ABG O2 Content ABG Base Excess ABG Hemoglobin ABG Carboxyhemoglobin POC ABG HHb (Measured) ABG Methemoglobin ABG O2 Capacity Hgb O2 Saturation FiO2 Sodium 135 Potassium 4.3 Chloride 109 H Carbon Dioxide 21 Anion Gap 10 BUN 21 Creatinine 0.7 L Est GFR ( Amer) > 60 Est GFR (Non-Af Amer) > 60 POC Glucose (mg/dL) 315 H 299 H Random Glucose 344 H* Calcium 7.9 L Total Bilirubin 0.3 AST 43 ALT 79 H Alkaline Phosphatase 114 Total Protein 5.5 L Albumin 2.2 L Globulin 3.3 Albumin/Globulin Ratio 0.7 L Critical Care Progress Note - Nutrition Nutrition: Nutrition Category Date Time Status Consistent Carbohydrate [DIET] Diets 12/14/17 Dinner Ordered Assessment/Plan - Assessment and Plan (Free Text) Plan: Patient seen and examined, with resident, agree with note with following additions/exceptions: Patient is 77yo male with PMhx of HTN, COPD, DM, CAD, admitted to ICU with large R pneumothorax. Surgery placed emergent R pigtail CT Denies fever, chills , cough, chest pain, sob. CXR today with lung re-expansion, no PTX. PTX s/p pigtail CT PNA HTN COPD CAD Recommend: - supp o2 as needed - cont with CT to low wall suction, management as per surgery - BP control - antibiotics as per ID - monitor HH - daily cxr, abg - follow up pulm, ID - GI ppx - DVT ppx - stable, transfer to telemetry
--- NOTE | 2017-12-16 15:53 | CP.PCM.PN ---
Subjective - Date & Time of Evaluation Date of Evaluation: 12/16/17 Time of Evaluation: 10:10 - Subjective Subjective: Patient continues to have a chest tube, no fevers, no feels weak. Objective - Vital Signs/Intake and Output Vital Signs (last 24 hours): Temp Pulse Resp BP Pulse Ox 97.4 F L 79 29 H 151/83 H 100 12/16/17 08:00 12/16/17 02:00 12/15/17 20:01 12/15/17 20:01 12/15/17 20:01 - Medications Medications: Current Medications Acetaminophen (Tylenol 325mg Tab) 650 mg PO Q4H PRN PRN Reason: Fever >100.4 F Last Admin: 12/15/17 21:29 Dose: 650 mg Acetaminophen (Tylenol 325mg Tab) 650 mg PO Q6H PRN PRN Reason: Pain, Mild (1-3) Albuterol/Ipratropium (Duoneb 3 Mg/0.5 Mg (3 Ml) Ud) 3 ml IH Q4H PRN PRN Reason: Shortness of Breath Last Admin: 12/14/17 05:05 Dose: 3 ml Albuterol/Ipratropium (Duoneb 3 Mg/0.5 Mg (3 Ml) Ud) 3 ml IH [id number] [facility] Last Admin: 12/16/17 07:17 Dose: 3 ml Emollient Ointment (Vaseline Oint) 5 gm TOP Q8 PRN PRN Reason: Dry skin Last Admin: 12/14/17 09:26 Dose: 5 gm Famotidine (Pepcid) 40 mg PO HS [facility] Last Admin: 12/15/17 21:19 Dose: 40 mg Hydromorphone HCl (Dilaudid) 0.5 mg IVP Q4H PRN PRN Reason: Pain, moderate (4-7) Last Admin: 12/15/17 13:02 Dose: 0.5 mg Sodium Chloride (Sodium Chloride 0.9%) 1,000 mls @ 100 mls/hr IV .Q10H [facility] Last Admin: 12/16/17 05:12 Dose: 100 mls/hr Cefepime HCl (Maxipime 2gm) 2 gm in 100 mls @ 100 mls/hr IVPB Q8 JE[facility] PAUL PRN Reason: Protocol Stop: 12/18/17 09:46 Last Admin: 12/16/17 05:11 Dose: 100 mls/hr Vancomycin HCl (Vancomycin 1gm) 1 gm in 250 mls @ 167 mls/hr IVPB Q12H JEAN PAUL PRN Reason: Protocol Last Admin: 12/15/17 21:25 Dose: 167 mls/hr Doxycycline Hyclate 100 mg/ (Sodium Chloride) 100 mls @ 100 mls/hr IVPB Q12 JEAN PAUL PRN Reason: Protocol Last Admin: 12/15/17 21:25 Dose: 100 mls/hr Insulin Detemir (Levemir) 8 unit SC DAILY JEAN PAUL Last Admin: 12/15/17 12:00 Dose: 8 unit Insulin Human Regular (Humulin R Med) 0 units SC ACHS JEAN PAUL PRN Reason: Protocol Last Admin: 12/16/17 08:09 Dose: 7 units Lorazepam (Ativan) 0.25 mg IVP Q8H PRN; Protocol PRN Reason: Anxiety Last Admin: 12/15/17 10:28 Dose: 0.25 mg Methylprednisolone (Solu-Medrol) 20 mg IVP Q12 JEAN PAUL Last Admin: 12/15/17 21:21 Dose: 20 mg Pantoprazole Sodium (Protonix Ec Tab) 40 mg PO ACB JEAN PAUL Last Admin: 12/16/17 08:10 Dose: 40 mg Polyethylene Glycol (Miralax) 17 gm PO DAILY JEAN PAUL Last Admin: 12/15/17 12:00 Dose: Not Given Promethazine HCl/Codeine (Phenergan/Codeine Oral Syrup) 5 ml PO Q4H PRN PRN Reason: Cough and congestion Last Admin: 12/15/17 07:31 Dose: 5 ml Quetiapine Fumarate (Seroquel) 12.5 mg PO HS JEAN PAUL PRN Reason: Protocol Last Admin: 12/15/17 21:19 Dose: 12.5 mg - Labs Labs: 12/16/17 07:30 12/16/17 08:02 PT 14.7 SECONDS (9.4-12.5) H 12/13/17 00:30 INR 1.28 (0.93-1.08) H 12/13/17 00:30 APTT 29.9 Seconds (25.1-36.5) 12/13/17 00:30 - Constitutional Appears: Cachectic, Chronically Ill - Head Exam Head Exam: NORMAL INSPECTION - Neck Exam Neck Exam: absent: Meningismus - Respiratory Exam Respiratory Exam: Decreased Breath Sounds - Cardiovascular Exam Cardiovascular Exam: +S1, +S2 - GI/Abdominal Exam GI & Abdominal Exam: Soft. absent: Tenderness Assessment and Plan - Assessment and Plan (Free Text) Plan: Assessment Consider sepsis from multifocal healthcare-associated pneumonia, post-viral, now with right sided spontaneous pneumothorax S/P chest tube placement HTN DM CAD COPD history of bowel obstruction S/P colonic resection history of pneumonia Plan continue Vancomycin, Cefepime and Doxycycline day 4 and monitor clinically; complete up to 7 days of antibiotics
--- NOTE | 2017-12-16 19:50 | PN ---
DATE: 10/18/2017 FOLLOWUP CONSULTATION PRESENTATION: Patient is a 77-year-old male, seen at bedside in the ICU. Patient was admitted to the hospital, having been transferred from [facility] on 12/13/2017, at the time when he had been treated there with antibiotics and Tamiflu. Family was not pleased with his care and brought him here. He was diagnosed with pneumonia, flu, and originally came in with chest congestion and shortness of breath. Psych consult was called due to concerns regarding patient being depressed. Patient's has within the last 6 months and he misses her and since then his health and his mental status are going downhill according to family. His medical proxy is his niece, Valencia. Patient was on a regular floor, was transferred yesterday due to the finding of a large pneumothorax and chest tube has been inserted and he is being monitored in the ICU. He indicates today that he is doing better. He remembers me, he is oriented, but he is very sad. He talks to me about losing his and how difficult that was and how sick she was and how she and how difficult the whole situation was for him and how much he misses her and his mother. He is not enjoying the food; he is used to his homemade food from home. His niece has evidently been bringing him food, which is helpful, but patient is still, having a hard time recalling, his memory, sometimes is fuzzy and he has a lot of anxiety. I spoke with the ICU nurses. I have reviewed their notes. I also spoke with his niece to just let her know how he was doing today and that I had increased his Seroquel from 12.5 at bedtime to 12.5 a.m. and at bedtime may be to help with his anxiety during the day. CURRENT VITAL SIGNS: Include temperature of 97.4, blood pressure of 151/83, pulse rate of 83, and O2 sat of 98%. LABORATORY DATA: Most recent labs show his white blood cell count had gone up to 12.3 on 12/14 and it has now dropped to 11.1 and his hemoglobin and hematocrit remain low. Urine cultures and blood cultures are negative. MENTAL STATUS EXAM: Patient is alert and oriented as to where he is, but not date and time which is not unusual for a patient that has been in the hospital for a few days. His speech rate and volume are within normal limits. Mood is sad. Affect is constricted. Thoughts are goal directed, but concrete. He denies being suicidal or homicidal. Denies the presence of hallucinations, delusions, or paranoia. His concentration and focus have some impairment. 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 His appetite is improving and he is having some difficulty sleeping at night according to himself. DIAGNOSTIC IMPRESSION: Depressive disorder, unspecified; delirium secondary to medical problems, clearing. PLAN: Patient denies being suicidal or homicidal and appears in no imminent danger of hurting himself or others. He is sad and is talking a lot about his loses, but his delirium is clearly improving. He seems to be feeling better and physically he is much more comfortable and breathing better. I expect that he will continue to clear. Psychiatry will continue to follow, Dr. Pina will follow this weekend. Thank you for the consult. Francisca Olea APN Desiree Umana MD STEVEN
--- NOTE | 2017-12-16 21:14 | PN ---
DATE: 12/16/2017 PULMONARY CRITICAL CARE PROGRESS NOTE REFERRING PHYSICIAN: Ya Fields M.D. SUBJECTIVE: He is lying in the bed, head at 45 degree, a little sleepy, arousable, feels better, still has a chest tube area some discomfort. No more air leak, no nausea, no vomiting, no diarrhea, no leg swelling. OBJECTIVE: GENERAL: In no acute distress. VITAL SIGNS: Temperature 98, heart rate is 83, respiratory rate is 20, blood pressure 144/67, pulse ox 99% on nasal canula. HEENT: Moist mucous membranes. Small oral cavity. NECK: Supple. No JVD. LUNGS: Have crackles and scattered rhonchi. HEART: S1 and S2, has a right-sided chest tube. ABDOMEN: Soft, nontender. No organomegaly. EXTREMITIES: There is no edema of the lower extremity. Upper extremity, does have some edema. NEUROLOGICAL: Sleepy, arousable, follows simple command. MEDICATIONS: He is on Ativan 0.25 mg IV q.8 hours p.r.n., doxycycline 100 mg twice a day, albuterol/Atrovent nebulizer q.4 hours p.r.n. and q. 6 hours round the clock, insulin coverage, Levemir 8 units subcu daily, cefepime is at 2 g IV q.8 hours, MiraLax 17 g daily, promethazine with codeine 5 mL q.4 hours p.r.n., Protonix 40 mg daily, Seroquel 12.5 mg twice a day, IV fluid normal saline 100 mL/hour, Solu-Medrol 20 mg q.12 hours, Tylenol p.r.n., Ultram 50 mg q.8 hours p.r.n., vancomycin 1 g IV q.12 hours, Vaseline ointment to affected area q.8 hours. LABORATORY DATA: Shows hemoglobin 9.2, hematocrit 28.1, WBC 11.1, platelet count is 367. ABG show pH 7.43, pCO2 32, O2 of 109, this is on nasal cannula. Sodium 135, potassium 4.3, chloride 109, bicarbonate 21, BUN 21, creatinine 0.7, glucose 299, calcium is 7.9, AST 43, ALT 79, alkaline phosphatase is 114, albumin is 2.2. Microbiology: Blood culture and urine culture, there is no growth. Had echocardiogram done, report is pending. Chest x-ray done this morning shows bilateral infiltrate. Chest tube remains in the right chest cavity. IMPRESSION AND PLAN: Multilobe pneumonia; chronic obstructive lung disease; status post spontaneous pneumothorax requiring chest tube, presently no more air leak in the chest tube; diabetes; hypertension; coronary artery disease. Case discussed with control inspector. I agree with the present treatment. We will get CT of the chest to evaluate the lung parenchyma, being treated for healthcare-associated organism. Continue gastric prophylaxis. IV and inhaled bronchodilator. Follow up labs in the morning. Thank you and we will follow with you. Eloisa Luciano MD
[2017-12-17] MEDS: Vancomycin 1gm in NS 250ml 1 GM/250 ML BAG IVPB SCH ×2 (00:48→09:22)
[2017-12-17] MEDS: Sodium Chloride 0.9% 1,000 ML IV SCH ×3 (01:45→21:41)
[2017-12-17] MEDS: Albuterol-Ipratrop 3 mg / 0.5 (3 ml) UD IH SCH ×4 (01:52→19:54)
[2017-12-17] MEDS: Cefepime IV 2 gm in NS 2 GM/100 ML BAG IVPB SCH ×3 (05:15→21:41)
[2017-12-17 07:18] LABS: HEMOGLOBIN 10.3 g/dL (14.0-18.0); MEAN CELL VOLUME 91.7 fl (80.0-105.0); MEAN CORPUSCULAR HEMOGLOBIN 30.4 pg (25.0-35.0); MEAN CORPUSCULAR HGB CONC 33.1 g/dl (31.0-37.0); MEAN PLATELET VOLUME 9.4 fl (7.0-11.0); RBC 3.39 10^6/uL (3.5-6.1); RED CELL DISTRIBUTION WIDTH 13.8 % (11.5-14.5); WHITE BLOOD COUNT 17.5 10^3/ul (4.5-11.0)
[2017-12-17 07:42] LABS: ALB/GLOB RATIO 0.6 (1.1-1.8); ALBUMIN 2.1 g/dL (3.0-4.8); ALT/SGPT 70 U/L (7-56); AST/SGOT 30 U/L (17-59); BLOOD UREA NITROGEN 20 mg/dL (7-21); CALCIUM 8.1 mg/dL (8.4-10.5); GFR AFRICAN-AMERICAN > 60; GFR NON-AFRICAN AMERICAN > 60
--- NOTE | 2017-12-17 08:04 | CP.PCM.PN ---
Subjective - Date & Time of Evaluation Date of Evaluation: 12/17/17 Time of Evaluation: 08:00 - Subjective Subjective: Surgery Pt s&e. Reports SOB. CT leak with cough. CT placed on waterseal yesterday Objective - Vital Signs/Intake and Output Vital Signs (last 24 hours): Temp Pulse Resp BP Pulse Ox 97.4 F L 79 20 149/70 96 12/17/17 06:36 12/17/17 06:36 12/17/17 06:36 12/17/17 06:36 12/17/17 06:36 Intake and Output: 12/17/17 12/17/17 06:59 18:59 Intake Total 1660 Output Total 860 Balance 800 - Medications Medications: Current Medications Acetaminophen (Tylenol 325mg Tab) 650 mg PO Q4H PRN PRN Reason: Fever >100.4 F Last Admin: 12/16/17 17:01 Dose: 650 mg Acetaminophen (Tylenol 325mg Tab) 650 mg PO Q6H PRN PRN Reason: Pain, Mild (1-3) Albuterol/Ipratropium (Duoneb 3 Mg/0.5 Mg (3 Ml) Ud) 3 ml IH Q4H PRN PRN Reason: Shortness of Breath Last Admin: 12/14/17 05:05 Dose: 3 ml Albuterol/Ipratropium (Duoneb 3 Mg/0.5 Mg (3 Ml) Ud) 3 ml IH [id number] [facility] Last Admin: 12/17/17 01:52 Dose: Not Given Emollient Ointment (Vaseline Oint) 5 gm TOP Q8 PRN PRN Reason: Dry skin Last Admin: 12/14/17 09:26 Dose: 5 gm Sodium Chloride (Sodium Chloride 0.9%) 1,000 mls @ 100 mls/hr IV .Q10H [facility] Last Admin: 12/17/17 01:45 Dose: Not Given Cefepime HCl (Maxipime 2gm) 2 gm in 100 mls @ 100 mls/hr IVPB Q8 JEAN PAUL PRN Reason: Protocol Stop: 12/18/17 09:46 Last Admin: 12/17/17 05:15 Dose: 100 mls/hr Vancomycin HCl (Vancomycin 1gm) 1 gm in 250 mls @ 167 mls/hr IVPB Q12H JEAN PAUL PRN Reason: Protocol Last Admin: 12/17/17 00:48 Dose: 167 mls/hr Doxycycline Hyclate 100 mg/ (Sodium Chloride) 100 mls @ 100 mls/hr IVPB Q12 JEAN PAUL PRN Reason: Protocol Last Admin: 12/16/17 22:02 Dose: 100 mls/hr Insulin Detemir (Levemir) 8 unit SC DAILY [facility] Last Admin: 12/16/17 09:30 Dose: 8 unit Insulin Human Regular (Humulin R Med) 0 units SC ACHS JEAN PAUL PRN Reason: Protocol Last Admin: 12/16/17 22:00 Dose: Not Given Lorazepam (Ativan) 0.25 mg IVP Q8H PRN; Protocol PRN Reason: Anxiety Last Admin: 12/16/17 20:24 Dose: 0.25 mg Methylprednisolone (Solu-Medrol) 20 mg IVP Q12 [facility] Last Admin: 12/16/17 21:59 Dose: 20 mg Pantoprazole Sodium (Protonix Ec Tab) 40 mg PO ACB [facility] Last Admin: 12/16/17 08:10 Dose: 40 mg Polyethylene Glycol (Miralax) 17 gm PO DAILY [facility] Last Admin: 12/16/17 09:31 Dose: 17 gm Promethazine HCl/Codeine (Phenergan/Codeine Oral Syrup) 5 ml PO Q4H PRN PRN Reason: Cough and congestion Last Admin: 12/15/17 07:31 Dose: 5 ml Quetiapine Fumarate (Seroquel) 12.5 mg PO BID [facility] PRN Reason: Protocol Last Admin: 12/16/17 17:01 Dose: 12.5 mg Tramadol HCl (Ultram) 50 mg PO TID PRN PRN Reason: Pain, moderate (4-7) Last Admin: 12/17/17 01:47 Dose: 50 mg - Labs Labs: 12/17/17 06:00 12/17/17 06:00 PT 14.7 SECONDS (9.4-12.5) H 12/13/17 00:30 INR 1.28 (0.93-1.08) H 12/13/17 00:30 APTT 29.9 Seconds (25.1-36.5) 12/13/17 00:30 - Constitutional Appears: Non-toxic, Cachectic, Chronically Ill - Head Exam Head Exam: ATRAUMATIC, NORMAL INSPECTION, NORMOCEPHALIC - Eye Exam Eye Exam: EOMI, Normal appearance, PERRL Pupil Exam: NORMAL ACCOMODATION, PERRL - ENT Exam ENT Exam: Mucous Membranes Moist, Normal Exam - Neck Exam Neck Exam: Full ROM, Normal Inspection. absent: Lymphadenopathy - Respiratory Exam Respiratory Exam: Decreased Breath Sounds. absent: NORMAL BREATHING PATTERN Additional comments: crackles R side - Cardiovascular Exam Cardiovascular Exam: REGULAR RHYTHM - GI/Abdominal Exam GI & Abdominal Exam: Soft, Normal Bowel Sounds. absent: Distended, Tenderness - Extremities Exam Extremities Exam: Full ROM, Normal Inspection - Back Exam Back Exam: NORMAL INSPECTION - Neurological Exam Neurological Exam: Alert, Awake, CN II-XII Intact, Oriented x3 Assessment and Plan - Assessment and Plan (Free Text) Assessment: R Pneumothorax POD 2 s/p R Chest Tube 8fr POD 1: CXR: resolution of PTX . CT in place CT currently on waterseal Plan: -F/u CXR -Analgesics PRN -Dressing changes PRN -Medical management -Will Discuss with Dr. Purdy
[2017-12-17] MEDS: Insulin Reg-MEDIUM-Coverage SC SCH ×4 (08:26→22:00)
[2017-12-17] MEDS: Pantoprazole 40 mg EC Tab PO SCH (08:26)
--- NOTE | 2017-12-17 09:14 | CP.PCM.PCO ---
Physician Communication Note - Physician Communication Note Physician Communication Note: CT clogged-PTX recurred/Rx Suction-Rep CXR
[2017-12-17] MEDS: Insulin Detemir 100 units/ml Vial (Levemir) SC SCH (09:20)
[2017-12-17] MEDS: POLYETHYLENE GLYCOL 3350 17 GM/Dose PACKET PO SCH (09:21)
[2017-12-17] MEDS: MethylPREDNISolone 40 mg Vial IVP SCH (09:21)
--- NOTE | 2017-12-17 09:31 | CARD ---
APPROVED REPORT EXAM: Two-dimensional and M-mode echocardiogram with Doppler and color Doppler. Other Information Quality : AverageRhythm : INDICATION Congestive Heart Failure 2D DIMENSIONS Left Atrium (2D)3.8 (1.6-4.0cm)IVSd1.0 (0.7-1.1cm) LVDd4.1 (3.9-5.9cm)PWd1.0 (0.7-1.1cm) LVDs2.7 (2.5-4.0cm)FS (%) 34.6 % LVEF (%)64.0 (>50%) M-Mode DIMENSIONS Aortic Root3.10 (2.2-3.7cm)Aortic Cusp Exc.1.40 (1.5-2.0cm) Aortic Valve AoV Peak Jercwdmm571.0cm/s Mitral Valve MV E Uklozsss45.3cm/sMV A Kiyawyzo521.0cm/sE/A ratio0.9 TDI Lateral E' Peak V13.30cm/sMedial E' Peak V6.24cm/sE/Lateral E'7.2 E/Medial E'15.3 Pulmonary Valve PV Peak Fydpxjpb76.0cm/sPV Peak Grad.3mmHg Tricuspid Valve TR Peak [id number]/sRAP [id number] Peak Gr.29mmHg [id number] LEFT VENTRICLE The left ventricle is normal size. There is normal left ventricular wall thickness. The left ventricular function is normal. The left ventricular ejection fraction is within the normal range. There is normal LV segmental wall motion. RIGHT VENTRICLE The right ventricle is normal size. ATRIA The left atrium size is normal. The right atrium size is normal. The interatrial septum is intact with no evidence for an atrial septal defect. AORTIC VALVE The aortic valve is normal in structure. MITRAL VALVE The mitral valve is normal in structure. Mitral regurgitation is mild. TRICUSPID VALVE The tricuspid valve is normal in structure. There is trace tricuspid regurgitation. PULMONIC VALVE The pulmonic valve is not well visualized. GREAT VESSELS The aortic root is normal in size. PERICARDIAL EFFUSION There is no pericardial effusion. <Conclusion> The left ventricle is normal size. There is normal left ventricular wall thickness. There is normal left ventricular wall thickness. Mitral regurgitation is mild.
[2017-12-17] MEDS: Oxycodone/Acetaminophen 5/325 mg Tab PO PRN ×2 (10:08→20:32)
--- NOTE | 2017-12-17 16:23 | PN ---
DATE: 12/17/2017 SUBJECTIVE: The patient is in bed, in no acute distress, was seen early this morning, chronically ill and weak. OBJECTIVE: VITAL SIGNS: Temperature of 97, heart rate of 96, respiratory rate of 20, blood pressure is 140/70. HEENT: Unremarkable. NECK: Supple. LUNGS: Decreased breath sounds. HEART: Normal S1, S2. ABDOMEN: Soft, nontender. LABORATORY EXAMINATION: Reveals a white count of 17,500, hemoglobin of 10, platelets of 396. BUN of 20, creatinine of 0.7. Procalcitonin is 0.44. Urinalysis is noted and serology is negative. ASSESSMENT AND PLAN: A 77-year-old male with sepsis with multifocal healthcare-associated pneumonia, post viral with a right-sided spontaneous pneumothorax with chest tube with hypertension, diabetes, coronary artery disease, chronic obstructive pulmonary disease, currently on vancomycin, cefepime, doxycycline day #5 with complete [address] Wagner's note is reviewed. Repeat chest x-ray from this morning, results are pending. Chest tube was placed black on wall suction as discussion with Dr. Purdy. Dr. Luciano's is note is reviewed. Review of orders confirms the patient to be on doxycycline, cefepime, and vancomycin. Blood cultures negative. Methicillin resistant Staphylococcus aureus screen is negative. The patient's procalcitonin is 0.44. We will discontinue the vancomycin. Isacc Curtis MD
--- NOTE | 2017-12-17 17:05 | RAD ---
HISTORY: pneumothorax COMPARISON: Comparison is made to the previous study dated 12/16/2017 FINDINGS: LUNGS: Interval worsening of the right-sided pneumothorax and partial collapse of the right lung since the previous exam. Reticular opacities are again seen in both lungs. PLEURA: Interval mild worsening of the right pneumothorax since the previous exam. CARDIOVASCULAR: Normal. OSSEOUS STRUCTURES: No significant abnormalities. VISUALIZED UPPER ABDOMEN: Dilated bowel loops are noted in the abdomen. OTHER FINDINGS: None. IMPRESSION: Interval mild worsening of the right-sided pneumothorax and partial collapse of the right lung since the previous study. Patchy opacities in the lungs again noted.
--- NOTE | 2017-12-17 17:30 | CP.PCM.PCO ---
Physician Communication Note - Physician Communication Note Physician Communication Note: PTX Improving/Cont suction for now/Sat 98% - Room Air
--- NOTE | 2017-12-17 21:08 | RAD ---
HISTORY: pneumothorax COMPARISON: Comparison is made with the previous same-day exam FINDINGS: LUNGS: No significant interval change in the lungs noted since the previous study. Again seen are patchy opacities at the mid left lung and in the mid and lower right lung. There is partial collapse of the right lung. PLEURA: Pneumothorax is again noted. The chest C tube/ catheter is seen extending to the mid portion of the right chest. CARDIOVASCULAR: Normal. OSSEOUS STRUCTURES: No significant abnormalities. VISUALIZED UPPER ABDOMEN: Normal. OTHER FINDINGS: None. IMPRESSION: No significant interval change noted since the previous exam. Right upper chest pneumothorax again noted. Possible trapped right lung partially collapsed.
--- NOTE | 2017-12-17 21:15 | RAD ---
HISTORY: recheck pneumothorax COMPARISON: Comparison is made to the previous same-day exam FINDINGS: LUNGS: Interval appearance of small opacity in the right lung base likely atelectasis. Otherwise no significant interval change in the lungs. Partial collapse of the right lung is again noted. PLEURA: Pneumothorax at the mid and upper right chest is again noted without significant change. Possible small right pleural effusion CARDIOVASCULAR: Normal. OSSEOUS STRUCTURES: No significant abnormalities. VISUALIZED UPPER ABDOMEN: Normal. OTHER FINDINGS: None. IMPRESSION: Right lung base opacity likely atelectasis. Otherwise no significant interval change since the previous exam.
--- NOTE | 2017-12-18 00:37 | PN ---
PULMONARY PROGRESS NOTE DATE: 12/17/2017 REFERRING PHYSICIAN: Ya Fields MD SUBJECTIVE: He is lying in the bed, head at 45 degrees. Feels okay. This morning events noted, had a recurrence of pneumothorax. There is collapse of upper lobe requiring continued chest tube with suction. Has mild cough. No nausea. No vomiting. He is constipated. No leg pain. No leg swelling. OBJECTIVE: GENERAL: In no acute distress. VITAL SIGNS: Temperature is 98, heart rate is 90, respiratory rate is 20, blood pressure 143/67, pulse ox 98% on nasal cannula. HEENT: Small oral cavity. Crowded airway. NECK: Supple. No JVD. LUNGS: Has a right-sided chest tube. Scattered rhonchi. HEART: S1 and S2. ABDOMEN: Positive bowel sounds. Soft, nontender. EXTREMITIES: There is no edema. NEUROLOGICAL: Awake and alert. Follows simple commands. MEDICATIONS: He is on Ativan 0.25 mg q. 8 hours p.r.n., doxycycline 100 mg twice a day, DuoNeb q. 4 hours p.r.n. and q. 6 hours [id number], insulin coverage Levemir 8 units subcutaneous daily,cefepime 2 gm IV q. 8 hours, Miralax 17 gm daily, Percocet 5/325 one tab q. 8 hours p.r.n., promethazine with codeine q. 4 hours p.r.n., Protonix 40 mg daily, Seroquel 12.5 mg twice a day, IV fluid normal saline 100 mL per hour, Solu-Medrol 20 mg q. 12 hours, Tylenol p.r.n. basis, Vaseline ointment to affected area p.r.n. LABORATORY DATA: Shows hemoglobin 10.3, hematocrit 31.1, WBC is 17.5, platelet count is 396. Sodium 135, potassium 4.7, chloride 105, bicarbonate 22, BUN 20, creatinine 0.7, glucose is 190, calcium is 8.1, AST 30, ALT 70, alk phos is 93, albumin is 2.1. Microbiology, blood culture and urine culture, there is no growth. Chest x-ray repeat shows chest tube in the right side, but no more pneumothorax. IMPRESSION AND PLAN: Multi-lobe pneumonia, chronic obstructive lung disease status post pneumothorax, still has a chest tube, constipation, diabetes, hypertension, coronary artery disease. Chest tube point of view, being followed by Surgery. Pulmonary point of view, continue antibiotics, decrease Solu-Medrol, and continue inhaled bronchodilator. We will add MiraLax p.o., p.r.n. Dulcolax, gastric prophylaxis, deep venous thrombosis prophylaxis. Thank you, and we will follow with you. Eloisa Luciano MD
[2017-12-18] MEDS: Albuterol-Ipratrop 3 mg / 0.5 (3 ml) UD IH SCH ×4 (01:25→21:05)
--- NOTE | 2017-12-18 04:32 | PN ---
DATE: SUBJECTIVE: The patient is a 77-year-old male. The patient is seen and examined at the bedside, no acute distress. No nausea, vomiting, or diarrhea. Chronically ill and weak. Complaining about chest pain. According to him, Tylenol or tramadol is not working. I gave a dose of Percocet. No fever. No chills. No headache or dizziness. PHYSICAL EXAMINATION: VITAL SIGNS: Temperature 97, heart rate 96, respiratory rate 20, and blood pressure 140/70. HEENT: Head: Normocephalic, atraumatic. Eyes: PERRLA. Extraocular movements are intact. Conjunctivae clear. Nose patent. Mucous membranes are moist. NECK: Supple. No carotid bruit. No JVD or thyromegaly. CHEST: Bilaterally symmetrical. HEART: S1 and S2 positive. LUNGS: Clear to auscultation. ABDOMEN: Soft. Bowel sounds are present. No organomegaly. EXTREMITIES: No edema. No cyanosis. NEUROLOGIC: The patient is awake and alert. Moving all four extremities with no focal deficits. LABORATORY DATA: White blood cells 17.5, hemoglobin 10.3, hematocrit 31.1, and platelets 396. Sodium 135, potassium 4.7, BUN 20, creatinine 0.7, glucose 253, and calcium 8.1. MEDICATIONS: Ativan, doxycycline, Dulcolax, albuterol, DuoNeb, insulin, Levemir, cefepime, MiraLax, Percocet, Phenergan, Protonix, Seroquel, MS, Solu-Medrol, and Tylenol. ASSESSMENT AND PLAN: Mr. Nikko Dia is a 77-year-old male with leukocytosis, anemia, uncontrolled diabetes mellitus, hypocalcemia, and abnormal liver function test, seen by Infectious Disease, Dr. Curtis, has multifocal healthcare-associated pneumonia, post viral syndrome with right-sided spontaneous pneumothorax, with chest tube, with hypertension, coronary artery disease, and chronic obstructive pulmonary disease, currently on vancomycin, cefepime, doxycycline, D5 with the completion of 7 days. Repeat chest x-ray noted. Chest tube was placed back on wall suction as discussed with Dr. Purdy. I reviewed Dr. Purdy' notes and Dr. Curtis's notes. Reviewed Dr. Luciano's notes. Continue doxycycline, cefepime, and vancomycin. Blood cultures are negative. Methicillin resistant Staphylococcus aureus screen is negative. The patient's prolactin is 0.44. Dr. Curtis discontinued the vancomycin. Discussion done with patient and patient's brother. Gastrointestinal and deep venous thrombosis prophylaxis. Repeat labs. We will follow up. Ya Fields MD
[2017-12-18] MEDS: Cefepime IV 2 gm in NS 2 GM/100 ML BAG IVPB SCH (05:03)
[2017-12-18] MEDS: Oxycodone/Acetaminophen 5/325 mg Tab PO PRN ×3 (06:06→21:08)
[2017-12-18] MEDS: Promethazine/Cod 6.25mg-10mg/5ml Syr UD PO PRN (06:13)
[2017-12-18] MEDS: Sodium Chloride 0.9% 1,000 ML IV SCH ×2 (07:30→17:30)
--- NOTE | 2017-12-18 07:56 | CP.PCM.PN ---
Subjective - Date & Time of Evaluation Date of Evaluation: 12/18/17 Time of Evaluation: 07:53 - Subjective Subjective: Patient reports feeling better today. Denies SOB or pain. He is saturating 98% on NC, 2lt. Objective - Vital Signs/Intake and Output Vital Signs (last 24 hours): Temp Pulse Resp BP Pulse Ox 99.0 F 93 H 20 138/85 98 12/18/17 06:00 12/18/17 06:00 12/18/17 06:00 12/18/17 06:00 12/18/17 06:00 Intake and Output: 12/18/17 12/18/17 06:59 18:59 Intake Total 2060 Output Total 1600 Balance 460 - Medications Medications: Current Medications Acetaminophen (Tylenol 325mg Tab) 650 mg PO Q4H PRN PRN Reason: Fever >100.4 F Last Admin: 12/16/17 17:01 Dose: 650 mg Acetaminophen (Tylenol 325mg Tab) 650 mg PO Q6H PRN PRN Reason: Pain, Mild (1-3) Last Admin: 12/18/17 01:52 Dose: 650 mg Albuterol/Ipratropium (Duoneb 3 Mg/0.5 Mg (3 Ml) Ud) 3 ml IH Q4H PRN PRN Reason: Shortness of Breath Last Admin: 12/14/17 05:05 Dose: 3 ml Albuterol/Ipratropium (Duoneb 3 Mg/0.5 Mg (3 Ml) Ud) 3 ml IH [id number] JEAN PAUL Last Admin: 12/18/17 07:33 Dose: 3 ml Bisacodyl (Dulcolax) 10 mg RC DAILY [facility] Emollient Ointment (Vaseline Oint) 5 gm TOP Q8 PRN PRN Reason: Dry skin Last Admin: 12/14/17 09:26 Dose: 5 gm Sodium Chloride (Sodium Chloride 0.9%) 1,000 mls @ 100 mls/hr IV .Q10H JEAN PAUL Last Admin: 12/17/17 21:41 Dose: 100 mls/hr Cefepime HCl (Maxipime 2gm) 2 gm in 100 mls @ 100 mls/hr IVPB Q8 JEAN PAUL PRN Reason: Protocol Stop: 12/18/17 09:46 Last Admin: 12/18/17 05:03 Dose: 100 mls/hr Doxycycline Hyclate 100 mg/ (Sodium Chloride) 100 mls @ 100 mls/hr IVPB Q12 JEAN PAUL PRN Reason: Protocol Last Admin: 12/17/17 23:06 Dose: 100 mls/hr Insulin Detemir (Levemir) 8 unit SC DAILY [facility] Last Admin: 12/17/17 09:20 Dose: 8 unit Insulin Human Regular (Humulin R Med) 0 units SC ACHS JEAN PAUL PRN Reason: Protocol Last Admin: 12/17/17 22:00 Dose: Not Given Lorazepam (Ativan) 0.25 mg IVP Q8H PRN; Protocol PRN Reason: Anxiety Last Admin: 12/17/17 18:04 Dose: 0.25 mg Methylprednisolone (Solu-Medrol) 20 mg IVP DAILY [facility] Oxycodone/Acetaminophen (Percocet 5/325 Mg Tab) 1 tab PO Q8 PRN PRN Reason: Pain, moderate (4-7) Stop: 12/20/17 14:01 Last Admin: 12/18/17 06:06 Dose: 1 tab Pantoprazole Sodium (Protonix Ec Tab) 40 mg PO ACB [facility] Last Admin: 12/17/17 08:26 Dose: 40 mg Polyethylene Glycol (Miralax) 17 gm PO DAILY [facility] Last Admin: 12/17/17 09:21 Dose: 17 gm Promethazine HCl/Codeine (Phenergan/Codeine Oral Syrup) 5 ml PO Q4H PRN PRN Reason: Cough and congestion Last Admin: 12/18/17 06:13 Dose: 5 ml Quetiapine Fumarate (Seroquel) 12.5 mg PO BID [facility] PRN Reason: Protocol Last Admin: 12/17/17 18:09 Dose: 12.5 mg - Labs Labs: 12/17/17 06:00 12/17/17 06:00 PT 14.7 SECONDS (9.4-12.5) H 12/13/17 00:30 INR 1.28 (0.93-1.08) H 12/13/17 00:30 APTT 29.9 Seconds (25.1-36.5) 12/13/17 00:30 - Constitutional Appears: No Acute Distress, Chronically Ill - Head Exam Head Exam: ATRAUMATIC, NORMOCEPHALIC - Eye Exam Eye Exam: EOMI - ENT Exam ENT Exam: Mucous Membranes Moist - Respiratory Exam Respiratory Exam: absent: Respiratory Distress Additional comments: chest tube site CDI with clean and dry dressing. - Cardiovascular Exam Cardiovascular Exam: REGULAR RHYTHM. absent: Tachycardia Assessment and Plan - Assessment and Plan (Free Text) Assessment: 77 y/o male w/ pneumothorax s/p chest tube placement Plan: -cont chest tube on wall suction -monitor output -daily CXR -may require second chest tube -aggressive incentive spirometer use -further recs per Dr. Purdy [facility] PGY3
[2017-12-18] MEDS: Insulin Reg-MEDIUM-Coverage SC SCH ×4 (07:59→22:12)
--- NOTE | 2017-12-18 09:02 | RAD ---
HISTORY: pneumothorax COMPARISON: Comparison is made to the previous study dated 12/17/2017. FINDINGS: LUNGS: Interval [id number] improvement in the previously seen patchy opacities in both lungs since the previous exam. PLEURA: Interval mild decrease in the size of the right upper chest pneumothorax since the previous study. Right-sided chest C tube is noted. There is a blunting of the right costophrenic angle likely represents small pleural effusion. CARDIOVASCULAR: Normal. OSSEOUS STRUCTURES: No significant abnormalities. VISUALIZED UPPER ABDOMEN: Dilated bowel loops in the abdomen are again noted. OTHER FINDINGS: None. IMPRESSION: Interval [id number] improvement in the lungs since the previous exam. Interval mild decrease in the size of the right upper chest pneumothorax.
[2017-12-18] MEDS: Lidocaine 5% Patch TD SCH (09:30)
[2017-12-18] MEDS: Insulin Detemir 100 units/ml Vial (Levemir) SC SCH (09:30)
[2017-12-18] MEDS: MethylPREDNISolone 40 mg Vial IVP SCH (09:31)
[2017-12-18] MEDS: Pantoprazole 40 mg EC Tab PO SCH (09:33)
[2017-12-18] MEDS: POLYETHYLENE GLYCOL 3350 17 GM/Dose PACKET PO SCH (10:59)
[2017-12-18] MEDS ORDERED: Iohexol 350 MG/100 ML VIAL ONE (11:30)
[2017-12-18] MEDS ORDERED: A C T ELECTRONICS XX ONE (13:10)
--- NOTE | 2017-12-18 13:35 | PN ---
DATE: 12/18/2017 SUBJECTIVE: The patient is in bed in no acute distress, was seen earlier today in 264, bed 2. No fevers and chills. PHYSICAL EXAMINATION: VITAL SIGNS: Temperature is 99, blood pressure is 130/80, respiratory rate 20, heart rate of 93. HEENT: Unremarkable. NECK: Supple. LUNGS: Have decreased breath sounds. HEART: Normal S1, S2. ABDOMEN: Soft, nontender. LABORATORY EXAMINATION: Reveals the patient's white count is 17,500, hemoglobin of 10, platelets of 396. BUN of 20, creatinine of 0.7 and procalcitonin is noted at 0.44. Urinalysis is reviewed to be unremarkable and serology is negative. Microbiology reveals the blood cultures are no growth. Urine cultures are no growth. ASSESSMENT AND PLAN: He is a 77-year-old male seen earlier today with sepsis with multi healthcare-associated pneumonia, right-sided spontaneous pneumothorax with chest tube and hypertension, diabetes, coronary artery disease, chronic obstructive lung disease on vancomycin, cefepime and doxycycline, day #6. The vancomycin was discontinued. Currently on doxycycline and cefepime, day #6, would complete a short course therapy. The patient is also on Solu-Medrol. The patient's last procalcitonin was 0.4 and chest x-ray from this morning is improving and previously seen patchy opacities in both lungs. The cefepime was discontinued by pharmacy. We will repeat a procalcitonin and reinitiate cefepime. We will continue doxycycline, today is day #6. Isacc Curtis MD
[2017-12-18] MEDS: Cefepime 1gm in NS 100ml 1 GM/100 ML BAG IVPB SCH ×2 (16:25→21:08)
--- NOTE | 2017-12-18 21:46 | PN ---
DATE: 12/18/2017 PULMONARY PROGRESS NOTE REFERRING PHYSICIAN: Dr. Fields. SUBJECTIVE: He is lying in the bed, head at 45 degrees, still have a chest tube on water seal and negative pressure. No chest pain, no nausea, no vomiting, no diarrhea. Trace upper extremity swelling, no leg swelling. OBJECTIVE: GENERAL: In no acute distress. VITAL SIGNS: Temperature is 98, heart rate 72, respiratory 20, blood pressure 164/99, pulse ox 98% on nasal cannula. HEENT: Small oral cavity. NECK: Supple. No JVD. LUNGS: Has a right-sided chest tube. There is no air leak noted. HEART: S1 and S2. ABDOMEN: Soft, nontender. No organomegaly. EXTREMITIES: No edema. NEUROLOGICAL: Awake and alert. Follows simple commands. MEDICATIONS: He is on Ativan 0.25 mg IV q. 8 hours p.r.n., doxycycline 100 mg twice a day, Dulcolax 10 mg rectally also, DuoNeb q. 4 hours p.r.n. and q. 6 hours [id number], insulin coverage, Levemir 8 units subcutaneous daily, Lidocaine patch daily, cefepime 1 g q. 8 hours, MiraLax 17 g daily, Percocet 5/325 one tablet q. 6 hours p.r.n., promethazine q. 4 hours p.r.n., Protonix 40 mg daily, Seroquel 12.5 mg twice a day, IV fluid normal saline 100 mL per hour, Solu-Medrol 20 mg daily, Tylenol p.r.n. basis, Vaseline ointment to affected area. LABORATORY DATA: Reviewed, noted blood sugar 198. Microbiology: Blood culture, urine culture, culture is unremarkable. Chest x-ray shows persistent right upper lobe small pneumothorax, also bilateral infiltrate. IMPRESSION AND PLAN: Multi-lobe pneumonia, chronic obstructive lung disease, persistent pneumothorax despite chest tube placement, constipation, diabetes, hypertension, coronary artery disease. There is no air leak. So we may need bigger chest tube. We will get CT of the chest to evaluate the lung parenchyma, continue intravenous and inhaled bronchodilator, continue antibiotics, gastric prophylaxis, deep venous thrombosis prophylaxis. Follow up chest x-ray. Thank you, and we will follow with you. Eloisa Luciano MD [facility] # [id number]
[2017-12-19] MEDS: Albuterol-Ipratrop 3 mg / 0.5 (3 ml) UD IH SCH ×4 (02:55→20:51)
[2017-12-19] MEDS: Sodium Chloride 0.9% 1,000 ML IV SCH ×2 (03:30→05:25)
--- NOTE | 2017-12-19 04:14 | PN ---
DATE:11/20/17 SUBJECTIVE: The patient is a 77-year-old male. The patient was seen and examined on the bedside, looking comfortable. No nausea, vomiting or diarrhea. No hematuria or hematochezia. No swelling of the leg. Still having chest tube on water fill and negative pressure. Was complaining about back pain; I put lidocaine patch. No fever, no chills. PHYSICAL EXAMINATION: VITAL SIGNS: Temperature 98, heart rate 72, respiratory rate 20, blood pressure 164/99, pulse oximetry 98% on nasal cannula. HEENT: Head: Normocephalic and atraumatic. Eyes: PERRLA. Extraocular muscles are intact. Conjunctivae are clear. Nose: Patent. Mucous membranes are moist. NECK: Supple. No carotid bruit. No JVD or thyromegaly. CHEST: Bilaterally symmetrical. HEART: S1, S2 positive. LUNGS: Clear to auscultation. ABDOMEN: Soft. Bowel sounds present. No organomegaly. EXTREMITIES: No edema. No cyanosis. NEUROLOGIC: Patient is awake and alert. Moving all four extremities. No focal deficit. MEDICATIONS: Ativan, doxycycline, Dulcolax, DuoNeb, insulin coverage, Levemir, Lidoderm, cefepime, Percocet, promethazine, Protonix, Seroquel, NS, Solu-Medrol, Tylenol. LABORATORY DATA: Blood sugar 198. Microbiology: Blood cultures and urine cultures are negative. ASSESSMENT AND PLAN: Mr. Nikko Dia is a 77-year-old male with multi-lobe pneumonia, chronic back pain, chronic obstructive lung disease, persistent pneumothorax, just had chest tube placement, constipation, diabetes mellitus, hypertension, coronary artery disease. There is no air leakage. So we may need bigger chest tube. We will do a CT of the chest and evaluate the lung parenchyma. Continue intravenous and inhaled bronchodilators. Gastric prophylaxis, deep venous thrombosis prophylaxis. Repeat labs. For chronic back pain, Lidoderm patch given. Otherwise, continue suction of the gastric products, pneumothorax. We will follow up. Ya Fields MD [facility]
[2017-12-19] MEDS: Cefepime 1gm in NS 100ml 1 GM/100 ML BAG IVPB SCH ×2 (05:26→13:15)
--- NOTE | 2017-12-19 05:30 | CON ---
DATE: HISTORY OF PRESENT ILLNESS: Patient is a 77-year-old [place] male who is being treated on the medical floor for pneumonia and flu. Psychiatry consult was called due to concern by his family that the patient being depressed. Apparently, the patient's in the last 6 months and since then his health and mental status has been suddenly getting worse. I have reviewed Francisca Olea's notes, which indicate that the patient reported he was doing better and he recalls her from prior interviews. He reported that he remains depressed , his indicated that it was difficult and is unhappy with the hospitalization and is not enjoying the food and apparently has some anxiety. The patient is not suicidal and confusion was improving according to Francisca Olea's follow up with him yesterday. I met with him at bedside this morning and it was very difficult to have a conversation with him as he is quite hard of hearing. He does appear to be depressed and he admits depression and however, he is quite certain that he is not suicidal and wants to live. He denies any hallucinations and he is not responding to internal stimuli. Affect is constricted. His focus is fair and the patient is oriented to the month, year, location and circumstances. There is some mild shortness of breath, but overall he does appear comfortable regarding his breathing. The patient states that he has some pain and dry mouth and would like some medical change to address current pain. Anxiety still appears to be an issue, which is quite common in individuals with shortness of breath, regardless, perhaps will improve if breathing improves well. He does not appear to be paranoid or actively delusional. His insight and judgment are improving, but still limited. MEDICATIONS: Current psychiatric medications include Ativan 0.25 mg IV q. 8 p.r.n., the patient received 2 doses yesterday; Seroquel 12.5 mg p.o. b.i.d. scheduled, the patient received one dose yesterday, one dose this morning. Labs and vitals were reviewed by this provider. DIAGNOSTIC IMPRESSION: Includes depression, not otherwise specified; improving delirium. Rule out major depression. RECOMMENDATIONS: The patient is improving in terms of his orientation; however, continues to be depressed and has some symptoms of anxiety. He would benefit from outpatient psychiatric treatment or therapy with a psychiatrist to discuss his losses and consider psychiatric medications if his depression persists. At this time, we will hold off on any antidepressants until the patient's medical health improves and until delirium clears up. Psychiatry will follow up with him on 12/19/2017 to monitor his progress and determine need for deferring antidepressants. Ariel Pina MD
[2017-12-19] MEDS: Insulin Reg-MEDIUM-Coverage SC SCH ×4 (08:29→21:41)
--- NOTE | 2017-12-19 09:19 | RAD ---
HISTORY: chest tube COMPARISON: 12/18/2017 FINDINGS: LUNGS: No active pulmonary disease. PLEURA: There is an increasing right-sided pneumothorax. The edge of the lung is 4 cm from the chest wall in the apex. A chest tube remains in place CARDIOVASCULAR: Normal. OSSEOUS STRUCTURES: No significant abnormalities. VISUALIZED UPPER ABDOMEN: Normal. OTHER FINDINGS: None. IMPRESSION: There is an increasing right-sided pneumothorax. The edge of the lung is 4 cm from the chest wall in the apex. A chest tube remains in place
[2017-12-19] MEDS: MethylPREDNISolone 40 mg Vial IVP SCH (10:18)
[2017-12-19] MEDS: Pantoprazole 40 mg EC Tab PO SCH (10:20)
[2017-12-19] MEDS: Insulin Detemir 100 units/ml Vial (Levemir) SC SCH (10:20)
[2017-12-19] MEDS: Lidocaine 5% Patch TD SCH (10:21)
[2017-12-19] MEDS: POLYETHYLENE GLYCOL 3350 17 GM/Dose PACKET PO SCH (10:21)
[2017-12-19] MEDS ORDERED: Morphine 4 mg/ml ISec IVP STA (10:56)
--- NOTE | 2017-12-19 12:00 | PCM.SURG1 ---
Surgeon's Initial Post Op Note - Surgeon's Notes Surgeon: Gurwinder [employer] Officer: none Type of Anesthesia: Local Anesthesia Administered By: surgeon Pre-Operative Diagnosis: Rec PTX Operative Findings: Air Leak Post-Operative Diagnosis: same Operation Performed: #14 Fr Chest tube Insertion Specimen/Specimens Removed: none Estimated Blood Loss: EBL {In ML}: 0 Blood Products Given: N/A Drains Used: Chest Tubes Post-Op Condition: Fair Date of Surgery/Procedure: 12/19/17 Time of Surgery/Procedure: 11:15
--- NOTE | 2017-12-19 12:02 | CP.PCM.PCO ---
Physician Communication Note - Physician Communication Note Physician Communication Note: New CT(14Fr)Inserted:+air leak noted
--- NOTE | 2017-12-19 13:06 | RAD ---
HISTORY: chest tube placement COMPARISON: 12/19/2017 earlier FINDINGS: LUNGS: There is improvement in the right-sided pneumothorax after placement of a larger caliber chest tube. The edge of the lung is 12 mm from the lung apex. No change in bilateral infiltrates PLEURA: No significant pleural effusion identified, no pneumothorax apparent. CARDIOVASCULAR: Normal. OSSEOUS STRUCTURES: No significant abnormalities. VISUALIZED UPPER ABDOMEN: Normal. OTHER FINDINGS: None. IMPRESSION: There is improvement in the right-sided pneumothorax after placement of a larger caliber chest tube. The edge of the lung is 12 mm from the lung apex. No change in bilateral infiltrates
[2017-12-19] MEDS: Benzocaine/Menthol (Cepacol) Lozenge MT PRN (13:16)
--- NOTE | 2017-12-19 13:57 | CP.PCM.PN ---
Subjective - Date & Time of Evaluation Date of Evaluation: 12/19/17 Time of Evaluation: 11:00 - Subjective Subjective: Patient still with chest tube, no fevers, not in distress. Objective - Vital Signs/Intake and Output Vital Signs (last 24 hours): Temp Pulse Resp BP Pulse Ox 98.8 F 93 H 18 152/91 H 97 12/19/17 06:00 12/19/17 06:00 12/19/17 06:00 12/19/17 06:00 12/19/17 06:00 Intake and Output: 12/19/17 12/19/17 06:59 18:59 Intake Total 2780 Output Total 225 Balance 2555 - Medications Medications: Current Medications Acetaminophen (Tylenol 325mg Tab) 650 mg PO Q4H PRN PRN Reason: Fever >100.4 F Last Admin: 12/16/17 17:01 Dose: 650 mg Acetaminophen (Tylenol 325mg Tab) 650 mg PO Q6H PRN PRN Reason: Pain, Mild (1-3) Last Admin: 12/18/17 01:52 Dose: 650 mg Albuterol/Ipratropium (Duoneb 3 Mg/0.5 Mg (3 Ml) Ud) 3 ml IH Q4H PRN PRN Reason: Shortness of Breath Last Admin: 12/14/17 05:05 Dose: 3 ml Albuterol/Ipratropium (Duoneb 3 Mg/0.5 Mg (3 Ml) Ud) 3 ml IH [id number] [facility] Last Admin: 12/19/17 07:46 Dose: 3 ml Bisacodyl (Dulcolax) 10 mg RC DAILY [facility] Last Admin: 12/19/17 10:20 Dose: 10 mg Emollient Ointment (Vaseline Oint) 5 gm TOP Q8 PRN PRN Reason: Dry skin Last Admin: 12/14/17 09:26 Dose: 5 gm Sodium Chloride (Sodium Chloride 0.9%) 1,000 mls @ 100 mls/hr IV .Q10H [facility] Last Admin: 12/19/17 05:25 Dose: 100 mls/hr Doxycycline Hyclate 100 mg/ (Sodium Chloride) 100 mls @ 100 mls/hr IVPB Q12 JEAN PAUL PRN Reason: Protocol Last Admin: 12/19/17 10:21 Dose: 100 mls/hr Cefepime HCl (Maxipime 1gm) 1 gm in 100 mls @ 100 mls/hr IVPB Q8 JEAN PAUL PRN Reason: Protocol Stop: 12/27/17 14:01 Last Admin: 12/19/17 05:26 Dose: 100 mls/hr Insulin Detemir (Levemir) 8 unit SC DAILY [facility] Last Admin: 12/19/17 10:20 Dose: 8 unit Insulin Human Regular (Humulin R Med) 0 units SC ACHS JEAN PAUL PRN Reason: Protocol Last Admin: 12/19/17 08:29 Dose: Not Given Lidocaine (Lidoderm) 1 ea TD DAILY [facility] Last Admin: 12/19/17 10:21 Dose: 1 ea Lorazepam (Ativan) 0.25 mg IVP Q8H PRN; Protocol PRN Reason: Anxiety Last Admin: 12/19/17 02:51 Dose: 0.25 mg Methylprednisolone (Solu-Medrol) 20 mg IVP DAILY [facility] Last Admin: 12/19/17 10:18 Dose: 20 mg Oxycodone/Acetaminophen (Percocet 5/325 Mg Tab) 1 tab PO Q6H PRN PRN Reason: Pain, moderate (4-7) Stop: 12/21/17 09:22 Last Admin: 12/18/17 21:08 Dose: 1 tab Pantoprazole Sodium (Protonix Ec Tab) 40 mg PO ACB [facility] Last Admin: 12/19/17 10:20 Dose: 40 mg Polyethylene Glycol (Miralax) 17 gm PO DAILY [facility] Last Admin: 12/19/17 10:21 Dose: 17 gm Promethazine HCl/Codeine (Phenergan/Codeine Oral Syrup) 5 ml PO Q4H PRN PRN Reason: Cough and congestion Last Admin: 12/18/17 06:13 Dose: 5 ml Quetiapine Fumarate (Seroquel) 12.5 mg PO BID JEAN PAUL PRN Reason: Protocol Last Admin: 12/19/17 10:20 Dose: 12.5 mg - Labs Labs: 12/17/17 06:00 12/17/17 06:00 PT 14.7 SECONDS (9.4-12.5) H 12/13/17 00:30 INR 1.28 (0.93-1.08) H 12/13/17 00:30 APTT 29.9 Seconds (25.1-36.5) 12/13/17 00:30 - Constitutional Appears: Chronically Ill - Head Exam Head Exam: NORMAL INSPECTION - ENT Exam ENT Exam: Mucous Membranes Moist - Neck Exam Neck Exam: absent: Meningismus - Respiratory Exam Respiratory Exam: Decreased Breath Sounds - Cardiovascular Exam Cardiovascular Exam: +S1, +S2 - GI/Abdominal Exam GI & Abdominal Exam: Soft. absent: Tenderness Assessment and Plan - Assessment and Plan (Free Text) Plan: Assessment Consider sepsis from multifocal healthcare-associated pneumonia, post-viral, now with right sided spontaneous pneumothorax S/P chest tube placement HTN DM CAD COPD history of bowel obstruction S/P colonic resection history of pneumonia Plan continue Doxycycline day 7 - january d/c after today will continue to monitor clinically
[2017-12-19 14:20] LABS: PH,URINE 5.5 (4.7-8.0); URINE BILIRUBIN NEGATIVE (NEGATIVE); URINE BLOOD SMALL (NEGATIVE); URINE GLUCOSE (UA) 100 mg/dL (NEGATIVE); URINE LEUKOCYTE ESTERASE NEGATIVE Leu/uL (NEGATIVE); URINE PROTEIN NEGATIVE mg/dL (<30 mg/dL); URINE UROBILINOGEN 0.2 E.U./dL (<1 E.U./dL)
[2017-12-19 14:24] LABS: URINE APPEARANCE CLEAR (CLEAR); URINE COLOR YELLOW (YELLOW)
[2017-12-19 14:36] LABS: URINE EPITHELIAL CELLS 0 - 2 /hpf (0-5); URINE WBC 0 - 2 /hpf (0-6)
[2017-12-19 14:37] LABS: URINE AMORPHOUS SEDIMENT MODERATE; URINE BACTERIA MANY (NEG)
--- NOTE | 2017-12-19 14:55 | CP.PCM.PN ---
<Kayli Murphy - Last Filed: 12/19/17 15:03> Subjective - Date & Time of Evaluation Date of Evaluation: 12/19/17 Time of Evaluation: 11:30 - Subjective Subjective: Chief Complaint: scrotal edema 77 yr male w/ history of COPD, HTN, DM II, CAD, bowel obstruction s/p colon resection, sepsis, pneumonia, and influenza B. Pt was transferred from [facility] following discharge there after being treated for pneumonia. Pt admitted to [facility] [place] with respiratory distress and transferred to ICU for sepsis. R chest wall chest tube inserted on 12/19/17. Pt is now on telemetry unit. Today, pt is seen at bedside with no complaints. Pt's nurse endorsed that patient has very large scrotal edema and his urine has been copious and malodorous. Pt denies any fever, chills, chest pain, shortness of breath, diarrhea, constipation, or urinary problems. Objective - Vital Signs/Intake and Output Vital Signs (last 24 hours): Temp Pulse Resp BP Pulse Ox 98.9 F 107 H 19 146/79 97 12/19/17 11:50 12/19/17 11:50 12/19/17 11:50 12/19/17 13:17 12/19/17 06:00 Intake and Output: 12/19/17 12/19/17 06:59 18:59 Intake Total 2780 Output Total 225 Balance 2555 - Medications Medications: Current Medications Acetaminophen (Tylenol 325mg Tab) 650 mg PO Q4H PRN PRN Reason: Fever >100.4 F Last Admin: 12/16/17 17:01 Dose: 650 mg Acetaminophen (Tylenol 325mg Tab) 650 mg PO Q6H PRN PRN Reason: Pain, Mild (1-3) Last Admin: 12/18/17 01:52 Dose: 650 mg Albuterol/Ipratropium (Duoneb 3 Mg/0.5 Mg (3 Ml) Ud) 3 ml IH Q4H PRN PRN Reason: Shortness of Breath Last Admin: 12/14/17 05:05 Dose: 3 ml Albuterol/Ipratropium (Duoneb 3 Mg/0.5 Mg (3 Ml) Ud) 3 ml IH [id number] JEAN PAUL Last Admin: 12/19/17 13:49 Dose: Not Given Benzocaine/Menthol (Cepacol Sore Throat) 1 [address]ne MT Q2H PRN PRN Reason: Sore Throat Last Admin: 12/19/17 13:16 Dose: 1 wayne Bisacodyl (Dulcolax) 10 mg RC DAILY [facility] Last Admin: 12/19/17 10:20 Dose: 10 mg Emollient Ointment (Vaseline Oint) 5 gm TOP Q8 PRN PRN Reason: Dry skin Last Admin: 12/14/17 09:26 Dose: 5 gm Furosemide (Lasix) 20 mg IVP Q12 [facility] Last Admin: 12/19/17 13:17 Dose: 20 mg Sodium Chloride (Sodium Chloride 0.9%) 1,000 mls @ 100 mls/hr IV .Q10H [facility] Last Admin: 12/19/17 05:25 Dose: 100 mls/hr Doxycycline Hyclate 100 mg/ (Sodium Chloride) 100 mls @ 100 mls/hr IVPB Q12 JEAN PAUL PRN Reason: Protocol Last Admin: 12/19/17 10:21 Dose: 100 mls/hr Cefepime HCl (Maxipime 1gm) 1 gm in 100 mls @ 100 mls/hr IVPB Q8 JEAN PAUL PRN Reason: Protocol Stop: 12/27/17 14:01 Last Admin: 12/19/17 13:15 Dose: 100 mls/hr Insulin Detemir (Levemir) 8 unit SC DAILY [facility] Last Admin: 12/19/17 10:20 Dose: 8 unit Insulin Human Regular (Humulin R Med) 0 units SC ACHS [facility] PRN Reason: Protocol Last Admin: 12/19/17 13:15 Dose: 1 units Lidocaine (Lidoderm) 1 ea TD DAILY [facility] Last Admin: 12/19/17 10:21 Dose: 1 ea Lorazepam (Ativan) 0.25 mg IVP Q8H PRN; Protocol PRN Reason: Anxiety Last Admin: 12/19/17 02:51 Dose: 0.25 mg Methylprednisolone (Solu-Medrol) 20 mg IVP DAILY [facility] Last Admin: 12/19/17 10:18 Dose: 20 mg Oxycodone/Acetaminophen (Percocet 5/325 Mg Tab) 1 tab PO Q6H PRN PRN Reason: Pain, moderate (4-7) Stop: 03/21/18 09:22 Last Admin: 12/18/17 21:08 Dose: 1 tab Pantoprazole Sodium (Protonix Ec Tab) 40 mg PO ACB JEAN PAUL Last Admin: 12/19/17 10:20 Dose: 40 mg Polyethylene Glycol (Miralax) 17 gm PO DAILY JE[facility] PAUL Last Admin: 12/19/17 10:21 Dose: 17 gm Promethazine HCl/Codeine (Phenergan/Codeine Oral Syrup) 5 ml PO Q4H PRN PRN Reason: Cough and congestion Last Admin: 12/18/17 06:13 Dose: 5 ml Quetiapine Fumarate (Seroquel) 12.5 mg PO BID JEAN PAUL PRN Reason: Protocol Last Admin: 12/19/17 10:20 Dose: 12.5 mg - Labs Labs: 12/17/17 06:00 12/17/17 06:00 PT 14.7 SECONDS (9.4-12.5) H 12/13/17 00:30 INR 1.28 (0.93-1.08) H 12/13/17 00:30 APTT 29.9 Seconds (25.1-36.5) 12/13/17 00:30 - Constitutional Appears: No Acute Distress, Chronically Ill - Head Exam Head Exam: ATRAUMATIC, NORMAL INSPECTION, NORMOCEPHALIC - Eye Exam Eye Exam: EOMI, Normal appearance, PERRL Pupil Exam: NORMAL ACCOMODATION, PERRL - ENT Exam ENT Exam: Mucous Membranes Moist, Normal Exam - Neck Exam Neck Exam: Full ROM, Normal Inspection. absent: Lymphadenopathy - Respiratory Exam Respiratory Exam: Decreased Breath Sounds, NORMAL BREATHING PATTERN Additional comments: R chest wall dressing, c/d/I, serosanginous drainage from chest tube. moderate output. - Cardiovascular Exam Cardiovascular Exam: REGULAR RHYTHM, +S1, +S2. absent: Murmur - GI/Abdominal Exam GI & Abdominal Exam: Soft, Normal Bowel Sounds - Exam Exam: Scrotal Swelling - Extremities Exam Extremities Exam: Full ROM, Normal Capillary Refill, Normal Inspection. absent : Joint Swelling, Pedal Edema - Back Exam Back Exam: NORMAL INSPECTION - Neurological Exam Neurological Exam: Alert, Awake - Psychiatric Exam Psychiatric exam: Normal Affect, Normal Mood - Skin Skin Exam: Dry, Intact, Normal Color, Warm Assessment and Plan (1) Scrotal edema Status: Acute (2) Leukocytosis Status: Acute (3) Anemia Status: Acute (4) Malnutrition Status: Acute (5) Healthcare-associated pneumonia Status: Acute (6) Pneumothorax on right Status: Acute (7) Pneumonia Status: Acute - Assessment and Plan (Free Text) Plan: Consult wJaden Beck ordered. Consult w. Dr. Guevara ordered. UA & C+S ordered. IVP lasix ordered. IV solumedryl. IV doxycycline onboard. s/p IV cefepime & IV vancomycin. Culture: nares NEGATIVE, urine NEGATIVE, blood NEGATIVE. Possible change of chest tube per Dr. Luciano's notes. VTE/GI prophylaxis. PT/OT on board. Incentive spirometer. Pain management: lidocaine patch, percocet 5/325mg PO, i tab q 6hr, phenergan+codeine 5ml q4hr Consults: Urology - Dr. Beck Cardio - Dr. Guevara Pulmo - Dr. Luciano Surgery/Pulmo - Dr. Scruggs ID - Dr. Curtis Psych - Dr. Carvajal Surgery - Dr. Bharathi Henry Reviewed: ECHO = EF 64% ECG = ABNORMAL, NSR, L atrial enlargement, nonspecific T wave abnormality, prolonged QT CXR = 12/19 increasing R sided pneumothorax, chest tube in place CT chest = ? Xray R shoulder = large R sided pneumothorax Doppler BLE = NEGATIVE CXR = 12/13 diffuse alveolar infiltrate in R lung and patchy alveolar infiltrate in L lung. consistent w/ pneumonia <Ya Fields - Last Filed: 12/19/17 22:51> Objective - Vital Signs/Intake and Output Vital Signs (last 24 hours): Temp Pulse Resp BP Pulse Ox 97.1 F L 107 H 20 131/63 97 12/19/17 18:01 12/19/17 21:40 12/19/17 18:01 12/19/17 21:41 12/19/17 06:00 Intake and Output: 12/19/17 12/20/17 18:59 06:59 Intake Total 480 Balance 480 - Medications Medications: Current Medications Acetaminophen (Tylenol 325mg Tab) 650 mg PO Q4H PRN PRN Reason: Fever >100.4 F Last Admin: 12/16/17 17:01 Dose: 650 mg Acetaminophen (Tylenol 325mg Tab) 650 mg PO Q6H PRN PRN Reason: Pain, Mild (1-3) Last Admin: 12/18/17 01:52 Dose: 650 mg Albuterol/Ipratropium (Duoneb 3 Mg/0.5 Mg (3 Ml) Ud) 3 ml IH Q4H PRN PRN Reason: Shortness of Breath Last Admin: 12/14/17 05:05 Dose: 3 ml Albuterol/Ipratropium (Duoneb 3 Mg/0.5 Mg (3 Ml) Ud) 3 ml IH [id number] [facility] Last Admin: 12/19/17 20:51 Dose: 3 ml Benzocaine/Menthol (Cepacol Sore Throat) 1 wayne MT Q2H PRN PRN Reason: Sore Throat Last Admin: 12/19/17 13:16 Dose: 1 wayne Bisacodyl (Dulcolax) 10 mg RC DAILY [facility] Last Admin: 12/19/17 10:20 Dose: 10 mg Emollient Ointment (Vaseline Oint) 5 gm TOP Q8 PRN PRN Reason: Dry skin Last Admin: 12/14/17 09:26 Dose: 5 gm Furosemide (Lasix) 20 mg IVP Q12 JEAN PAUL Last Admin: 12/19/17 21:41 Dose: 20 mg Doxycycline Hyclate 100 mg/ (Sodium Chloride) 100 mls @ 100 mls/hr IVPB Q12 JEAN PAUL PRN Reason: Protocol Last Admin: 12/19/17 10:21 Dose: 100 mls/hr Cefepime HCl (Maxipime 1gm) 1 gm in 100 mls @ 100 mls/hr IVPB Q8 JEAN PAUL PRN Reason: Protocol Stop: 12/27/17 14:01 Last Admin: 12/19/17 13:15 Dose: 100 mls/hr Insulin Detemir (Levemir) 8 unit SC DAILY [facility] Last Admin: 12/19/17 10:20 Dose: 8 unit Insulin Human Regular (Humulin R Med) 0 units SC ACHS JEAN PAUL PRN Reason: Protocol Last Admin: 12/19/17 21:41 Dose: 2 units Lidocaine (Lidoderm) 1 ea TD DAILY [facility] Last Admin: 12/19/17 10:21 Dose: 1 ea Lorazepam (Ativan) 0.25 mg IVP Q8H PRN; Protocol PRN Reason: Anxiety Last Admin: 12/19/17 21:40 Dose: 0.25 mg Methylprednisolone (Solu-Medrol) 20 mg IVP DAILY [facility] Last Admin: 12/19/17 10:18 Dose: 20 mg Metoprolol Tartrate (Lopressor) 25 mg PO BID [facility] Last Admin: 12/19/17 21:40 Dose: 25 mg Oxycodone/Acetaminophen (Percocet 5/325 Mg Tab) 1 tab PO Q6H PRN PRN Reason: Pain, moderate (4-7) Stop: 12/21/17 09:22 Last Admin: 12/18/17 21:08 Dose: 1 tab Pantoprazole Sodium (Protonix Ec Tab) 40 mg PO ACB [facility] Last Admin: 12/19/17 10:20 Dose: 40 mg Polyethylene Glycol (Miralax) 17 gm PO DAILY [facility] Last Admin: 12/19/17 10:21 Dose: 17 gm Promethazine HCl/Codeine (Phenergan/Codeine Oral Syrup) 5 ml PO Q4H PRN PRN Reason: Cough and congestion Last Admin: 12/18/17 06:13 Dose: 5 ml Quetiapine Fumarate (Seroquel) 12.5 mg PO BID [facility] PRN Reason: Protocol Last Admin: 12/19/17 17:57 Dose: 12.5 mg - Labs Labs: 12/17/17 06:00 12/17/17 06:00 PT 14.7 SECONDS (9.4-12.5) H 12/13/17 00:30 INR 1.28 (0.93-1.08) H 12/13/17 00:30 APTT 29.9 Seconds (25.1-36.5) 12/13/17 00:30 Assessment and Plan - Assessment and Plan (Free Text) Plan: 77 yr male w/ history of COPD, HTN, DM II, CAD, bowel obstruction s/p colon resection, sepsis, pneumonia, and influenza B. Pt was transferred from [facility] following discharge there after being treated for pneumonia. Pt admitted to [facility] [place] with respiratory distress and transferred to ICU for sepsis. R chest wall chest tube inserted on 12/19/17. Pt is now on telemetry unit. Today, pt is seen at bedside with no complaints. Pt's nurse endorsed that patient has very large scrotal edema and his urine has been copious and malodorous. Pt denies any fever, chills, chest pain, shortness of breath, diarrhea, constipation, or urinary problems.pt is seen and examined at bed side , agreed all above , d/d with mat linker .and staff , will f/u
--- NOTE | 2017-12-19 15:12 | CT ---
PROCEDURE: CT Chest without contrast HISTORY: pneumo COMPARISON: None. TECHNIQUE: Contiguous axial images were obtained through the chest without intravenous contrast enhancement. Sagittal and coronal reconstructions were performed. Radiation dose (DLP): 195 mGy-cm. This CT exam was performed using one or more of the following dose reduction techniques: Automated exposure control, adjustment of the mA and/or kV according to patient size, and/or use of iterative reconstruction technique. FINDINGS: LUNGS: There is a chest tube in the right lung apex. There is a small residual pneumothorax. Bilateral infiltrates are seen. There is a small amount of subcutaneous emphysema in the right pectoral region. MEDIASTINUM: Unremarkable thoracic aorta. No aneurysm. Normal sized heart. Main pulmonary artery unremarkable. No vascular congestion. No lymphadenopathy. PLEURA: No pleural fluid. No pneumothorax. BONES: No fracture. No destructive lesion. UPPER ABDOMEN: Grossly unremarkable. OTHER FINDINGS: None. IMPRESSION: Chest tube in right lung apex. Small residual pneumothorax. Bilateral alveolar infiltrates
--- NOTE | 2017-12-19 16:03 | CP.PCM.PCO ---
Physician Communication Note - Physician Communication Note Physician Communication Note: pt will be seen tomorrow
--- NOTE | 2017-12-19 23:11 | PN ---
DATE: 12/19/2017 PULMONARY PROGRESS NOTE REFERRING PHYSICIAN: Dr. Fields. SUBJECTIVE: The patient is lying in the bed, head at 45 degrees, sleepy, arousable. Earlier today events noted, chest tube was replaced, a bigger chest tube with good result with decrease in pneumothorax, still have air leak. No nausea, no vomiting, no diarrhea, leg pain or leg swelling. OBJECTIVE: GENERAL: In no acute distress. VITAL SIGNS: Temperature is 98, heart rate is 96, respiratory is 20, blood pressure 103/57, pulse ox 96% on nasal cannula. HEENT: Moist mucous membranes. Small oral cavity. Crowded airway. NECK: Supple. No JVD. LUNGS: Has scattered rhonchi. HEART: S1 and S2. ABDOMEN: Soft, nontender. No organomegaly. EXTREMITIES: No edema. NEUROLOGICAL: Awake and alert. Follows simple commands. Chest tube still have air leak. MEDICATIONS: He is on Ativan 0.25 mg q. 8 hours p.r.n., Cepacol lozenges q. 2 hours p.r.n., doxycycline 100 mg twice a day, Dulcolax 10 mg rectally, DuoNeb q. 6 hours [id number], insulin coverage, Lasix 20 mg twice a day, Levemir 8 units subcutaneous daily, Lidocaine patch daily, metoprolol tartrate 25 mg twice a day, cefepime 1 g q. 8 hours, MiraLax 17 g daily, Percocet 5/325 one tablet q. 6 hours p.r.n., promethazine with codeine 5 mL q. 4 hours p.r.n., Protonix 40 mg daily, Seroquel 12.5 mg twice a day, Solu-Medrol 20 mg daily, Tylenol p.r.n. basis, Vaseline at affected area. LABORATORY DATA: Reviewed, noted blood sugar this morning is 213. Microbiology: Blood culture, urine culture, nares is unremarkable. Chest x-ray done after replacing the chest tube shows improvement of the right-sided pneumothorax after replacement of the large caliber tube. CAT scan of the chest also done yesterday, which shows chest tube in the right lung, small residual pneumothorax, bilateral alveolar infiltrate. IMPRESSION AND PLAN: Multi-lobe pneumonia, chronic obstructive lung disease, persistent pneumothorax requiring large bore chest tube, constipation, diabetes, hypertension, coronary artery disease. Pulmonary point of view, doing okay. Continue antibiotics, bronchodilator. Aspiration precaution. Surgical follow up. Still have air leak in the chest tube. Follow up chest x-ray in the morning and gastric prophylaxis, deep vein thrombosis prophylaxis. Thank you and we will follow with you. Eloisa Luciano MD
--- NOTE | 2017-12-20 01:46 | CP.PCM.PN ---
Subjective - Date & Time of Evaluation Date of Evaluation: 12/20/17 Time of Evaluation: 01:45 - Subjective Subjective: Nurse calls and tells that patient has airleak. Also needs heparin lock insertion for this 77 year old male who has been admitted for hyponatremia, hyperglycemia, uncontrolled DM. Has PMH of HTN,DM II, COPD, CAD, PNA, bowel obstruction, S/P colon resection, sepsis, Influenza, Patient was found to have small apical pneumothorax on right side. Objective - Vital Signs/Intake and Output Vital Signs (last 24 hours): Temp Pulse Resp BP Pulse Ox 98.7 F 98 H 17 150/72 95 12/20/17 00:00 12/20/17 00:00 12/20/17 00:00 12/20/17 00:00 12/20/17 00:00 Intake and Output: 12/19/17 12/20/17 18:59 06:59 Intake Total 480 Balance 480 - Medications Medications: Current Medications Acetaminophen (Tylenol 325mg Tab) 650 mg PO Q4H PRN PRN Reason: Fever >100.4 F Last Admin: 12/16/17 17:01 Dose: 650 mg Acetaminophen (Tylenol 325mg Tab) 650 mg PO Q6H PRN PRN Reason: Pain, Mild (1-3) Last Admin: 12/18/17 01:52 Dose: 650 mg Albuterol/Ipratropium (Duoneb 3 Mg/0.5 Mg (3 Ml) Ud) 3 ml IH Q4H PRN PRN Reason: Shortness of Breath Last Admin: 12/14/17 05:05 Dose: 3 ml Albuterol/Ipratropium (Duoneb 3 Mg/0.5 Mg (3 Ml) Ud) 3 ml IH [id number] JEAN PAUL Last Admin: 12/19/17 20:51 Dose: 3 ml Benzocaine/Menthol (Cepacol Sore Throat) 1 [place]ne MT Q2H PRN PRN Reason: Sore Throat Last Admin: 12/19/17 13:16 Dose: 1 wayne Bisacodyl (Dulcolax) 10 mg RC DAILY [facility] Last Admin: 12/19/17 10:20 Dose: 10 mg Emollient Ointment (Vaseline Oint) 5 gm TOP Q8 PRN PRN Reason: Dry skin Last Admin: 12/14/17 09:26 Dose: 5 gm Furosemide (Lasix) 20 mg IVP Q12 [facility] Last Admin: 12/19/17 21:41 Dose: 20 mg Doxycycline Hyclate 100 mg/ (Sodium Chloride) 100 mls @ 100 mls/hr IVPB Q12 JEAN PAUL PRN Reason: Protocol Last Admin: 12/19/17 22:42 Dose: 100 mls/hr Cefepime HCl (Maxipime 1gm) 1 gm in 100 mls @ 100 mls/hr IVPB Q8 JEAN PAUL PRN Reason: Protocol Stop: 12/27/17 14:01 Last Admin: 12/19/17 13:15 Dose: 100 mls/hr Insulin Detemir (Levemir) 8 unit SC DAILY [facility] Last Admin: 12/19/17 10:20 Dose: 8 unit Insulin Human Regular (Humulin R Med) 0 units SC ACHS [facility] PRN Reason: Protocol Last Admin: 12/19/17 21:41 Dose: 2 units Lidocaine (Lidoderm) 1 ea TD DAILY [facility] Last Admin: 12/19/17 10:21 Dose: 1 ea Lorazepam (Ativan) 0.25 mg IVP Q8H PRN; Protocol PRN Reason: Anxiety Last Admin: 12/19/17 21:40 Dose: 0.25 mg Methylprednisolone (Solu-Medrol) 20 mg IVP DAILY [facility] Last Admin: 12/19/17 10:18 Dose: 20 mg Metoprolol Tartrate (Lopressor) 25 mg PO BID [facility] Last Admin: 12/19/17 21:40 Dose: 25 mg Oxycodone/Acetaminophen (Percocet 5/325 Mg Tab) 1 tab PO Q6H PRN PRN Reason: Pain, moderate (4-7) Stop: 12/21/17 09:22 Last Admin: 12/18/17 21:08 Dose: 1 tab Pantoprazole Sodium (Protonix Ec Tab) 40 mg PO ACB [facility] Last Admin: 12/19/17 10:20 Dose: 40 mg Polyethylene Glycol (Miralax) 17 gm PO DAILY [facility] Last Admin: 12/19/17 10:21 Dose: 17 gm Promethazine HCl/Codeine (Phenergan/Codeine Oral Syrup) 5 ml PO Q4H PRN PRN Reason: Cough and congestion Last Admin: 12/18/17 06:13 Dose: 5 ml Quetiapine Fumarate (Seroquel) 12.5 mg PO BID JEAN PAUL PRN Reason: Protocol Last Admin: 12/19/17 17:57 Dose: 12.5 mg - Labs Labs: 12/17/17 06:00 12/17/17 06:00 PT 14.7 SECONDS (9.4-12.5) H 12/13/17 00:30 INR 1.28 (0.93-1.08) H 12/13/17 00:30 APTT 29.9 Seconds (25.1-36.5) 12/13/17 00:30 Micro Results 12/13/17 00:45 Blood Blood Culture - Final NO GROWTH AFTER 5 DAYS 12/13/17 00:45 Blood Gram Stain - Final TEST NOT PERFORMED 12/13/17 00:30 Blood Blood Culture - Final NO GROWTH AFTER 5 DAYS 12/13/17 00:30 Blood Gram Stain - Final TEST NOT PERFORMED 12/15/17 12:40 Naris MRSA Culture (Admit) - Final MRSA NOT DETECTED 12/13/17 08:28 Urine,Clean Catch Urine Culture - Final No Growth (<1,000 CFU/ML) Most Recent Lab Values WBC 17.5 10^3/ul (4.5-11.0) H D 12/17/17 06:00 RBC 3.39 10^6/uL (3.5-6.1) L 12/17/17 06:00 Hgb 10.3 g/dL (14.0-18.0) L 12/17/17 06:00 Hct 31.1 % (42.0-52.0) L 12/17/17 06:00 MCV 91.7 fl (80.0-105.0) 12/17/17 06:00 MCH 30.4 pg (25.0-35.0) 12/17/17 06:00 MCHC 33.1 g/dl (31.0-37.0) 12/17/17 06:00 RDW 13.8 % (11.5-14.5) 12/17/17 06:00 Plt Count 396 10^3/uL (120.0-450.0) 12/17/17 06:00 MPV 9.4 fl (7.0-11.0) 12/17/17 06:00 Gran % 82.1 % (50.0-68.0) H 12/13/17 00:30 Lymph % (Auto) 11.1 % (22.0-35.0) L 12/13/17 00:30 Simpson % (Auto) 5.4 % (1.0-6.0) 12/13/17 00:30 Eos % (Auto) 1.2 % (1.5-5.0) L 12/13/17 00:30 Baso % (Auto) 0.2 % (0.0-3.0) 12/13/17 00:30 Gran # 8.91 (1.4-6.5) H 12/13/17 00:30 Lymph # (Auto) 1.2 (1.2-3.4) 12/13/17 00:30 Simpson # (Auto) 0.6 (0.1-0.6) 12/13/17 00:30 Eos # (Auto) 0.1 (0.0-0.7) 12/13/17 00:30 Baso # (Auto) 0.02 K/mm3 (0.0-2.0) 12/13/17 00:30 PT 14.7 SECONDS (9.4-12.5) H 12/13/17 00:30 INR 1.28 (0.93-1.08) H 12/13/17 00:30 APTT 29.9 Seconds (25.1-36.5) 12/13/17 00:30 pCO2 32 mm/Hg (35-45) L 12/16/17 06:18 pO2 109.0 mm/Hg (80-100) H 12/16/17 06:18 HCO3 21.2 mmol/L (21-28) 12/16/17 06:18 ABG pH 7.43 (7.35-7.45) 12/16/17 06:18 ABG Total CO2 22.2 mmol.L (22-28) 12/16/17 06:18 ABG O2 Saturation 98.7 % (95-98) H 12/16/17 06:18 ABG O2 Content 15.9 ML/dl (15-23) 12/16/17 06:18 ABG Base Excess -2.4 mmol/L (-2.0-3.0) L 12/16/17 06:18 ABG Hemoglobin 11.6 g/dL (11.7-17.4) L 12/16/17 06:18 ABG Carboxyhemoglobin 1.2 % (0.5-1.5) 12/16/17 06:18 POC ABG HHb (Measured) 1.3 % (0-5) 12/16/17:18 ABG Methemoglobin 0.9 % (0.0-3.0) 12/16/17:18 ABG O2 Capacity 16.1 mL/dl (16-24) 12/16/17 06:18 VBG pH 7.39 (7.32-7.43) 12/13/17 00:30 VBG pCO2 47.0 (40-60) 12/13/17 00:30 VBG HCO3 28.5 mmol/l (21-28) H 12/13/17 00:30 VBG Total CO2 29.9 mmol.L (22-28) H 12/13/17 00:30 VBG O2 Sat (Calc) 70.0 % (40-65) H 12/13/17 00:30 VBG Base Excess 2.8 mmol/L (0.0-2.0) H 12/13/17 00:30 VBG Potassium 5.0 mmol/L (3.6-5.2) 12/13/17 00:30 Hgb O2 Saturation 96.6 % (95.0-98.0) 12/16/17 06:18 Sodium 127.0 mmol/L (132-148) L 12/13/17 00:30 Chloride 97.0 mmol/L (98-107) L 12/13/17 00:30 Glucose 119 mg/dl (75-110) H 12/13/17 00:30 Lactate 1.9 mmol/L (0.7-2.1) 12/13/17 00:30 FiO2 32.0 % 12/16/17:18 Sodium 135 mmol/L (132-148) 12/17/17 06:00 Potassium 4.7 mmol/L (3.6-5.0) 12/17/17 06:00 Chloride 105 mmol/L (98-107) 12/17/17 06:00 Carbon Dioxide 22 mmol/L (21-33) 12/17/17 06:00 Anion Gap 13 (10-20) 12/17/17 06:00 BUN 20 mg/dL (7-21) 12/17/17 06:00 Creatinine 0.7 mg/dl (0.8-1.5) L 12/17/17 06:00 Est GFR ( Amer) > 60 12/17/17 06:00 Est GFR (Non-Af Amer) > 60 12/17/17 06:00 POC Glucose (mg/dL) 302 mg/dL (65-110) H 12/20/17 02:06 Random Glucose 190 mg/dL (70-110) H 12/17/17 06:00 Hemoglobin A1c 8.5 % (4.2-6.5) H 12/13/17 00:30 Calcium 8.1 mg/dL (8.4-10.5) L 12/17/17 06:00 Iron 14 ug/dL (45-180) L 12/13/17 00:30 TIBC 177 ug/dL (261-462) L 12/13/17 00:30 % Saturation 8 % (20-55) L 12/13/17 00:30 Total Bilirubin 0.4 mg/dL (0.2-1.3) 12/17/17 06:00 AST 30 U/L (17-59) 12/17/17 06:00 ALT 70 U/L (7-56) H 12/17/17 06:00 Alkaline Phosphatase 93 U/L (38-126) 12/17/17 06:00 Troponin I < 0.01 ng/mL 12/13/17 03:00 NT-Pro-B Natriuret Pep 526 pg/mL (0-450) H 12/13/17 03:00 Total Protein 5.3 g/dL (5.8-8.3) L 12/17/17 06:00 Albumin 2.1 g/dL (3.0-4.8) L 12/17/17 06:00 Globulin 3.2 gm/dL 12/17/17 06:00 Albumin/Globulin Ratio 0.6 (1.1-1.8) L 12/17/17 06:00 Triglycerides 34 mg/dL (35-160) L 12/13/17 00:30 Cholesterol < 50 mg/dL (130-200) L 12/13/17 00:30 LDL Cholesterol Direct < 30 mg/dL (0-129) 12/13/17 00:30 HDL Cholesterol 22 mg/dL (29-60) L 12/13/17 00:30 Vitamin B12 966 pg/mL (239-931) H 12/13/17 00:30 Folate 14.3 ng/mL 12/13/17 00:30 Procalcitonin 0.40 NG/ML (0.19-0.49) 12/18/17 13:40 TSH 3rd Generation 1.90 mIU/mL (0.46-4.68) 12/14/17 06:00 Venous Blood Potassium 5.0 mmol/L (3.6-5.2) 12/13/17 00:30 Urine Color Yellow (YELLOW) 12/19/17 13:00 Urine Appearance Clear (CLEAR) 12/19/17 13:00 Urine pH 5.5 (4.7-8.0) 12/19/17 13:00 Ur Specific [place] 1.015 (1.005-1.035) 12/19/17 13:00 Urine Protein Negative mg/dL (<30 mg/dL) 12/19/17 13:00 Urine Glucose (UA) 100 mg/dL (NEGATIVE) H 12/19/17 13:00 Urine Ketones Negative mg/dL (NEGATIVE) 12/19/17 13:00 Urine Blood Small (NEGATIVE) H 12/19/17 13:00 Urine Nitrate Negative (NEGATIVE) 12/19/17 13:00 Urine Bilirubin Negative (NEGATIVE) 12/19/17 13:00 Urine Urobilinogen 0.2 E.U./dL (<1 E.U./dL) 12/19/17 13:00 Ur Leukocyte Esterase Negative Ab[place]han/uL (NEGATIVE) 12/19/17 13:00 Urine RBC 5 - 10 /hpf (0-2) 12/19/17 13:00 Urine WBC 0 - 2 /hpf (0-6) 12/19/17 13:00 Ur Epithelial Cells 0 - 2 /hpf (0-5) 12/19/17 13:00 Amorphous Sediment Moderate 12/19/17 13:00 Urine Bacteria Many (NEG) 12/19/17 13:00 Urine Other Uyeast 12/19/17 13:00 Influenza Typ A,B (EIA) Negative for flu a/b (NEGATIVE) 12/13/17 19:25 - Constitutional Appears: Well, No Acute Distress - Head Exam Head Exam: ATRAUMATIC, NORMAL INSPECTION, NORMOCEPHALIC - Eye Exam Eye Exam: Normal appearance - ENT Exam ENT Exam: Normal External Ear Exam - Neck Exam Neck Exam: Normal Inspection - Respiratory Exam Respiratory Exam: NORMAL BREATHING PATTERN Additional comments: Diminished air entry on right side. There is a Pneumovac on right side. When I clamped the tube connected between suction and pneumovac and asked patient to cough , I noticed no airbubbles. - Cardiovascular Exam Cardiovascular Exam: absent: JVD - GI/Abdominal Exam GI & Abdominal Exam: absent: Distended - Rectal Exam Rectal Exam: Deferred - Exam Additional comments: Deferred. - Extremities Exam Extremities Exam: Normal Inspection - Back Exam Back Exam: NORMAL INSPECTION - Neurological Exam Neurological Exam: Alert, Awake - Psychiatric Exam Psychiatric exam: Normal Affect, Normal Mood - Skin Skin Exam: Normal Color Assessment and Plan - Assessment and Plan (Free Text) Assessment: S/P right lung apical pneumothorax. Poor venous access. HTN. Non insulin dependent DM. CAD. PNA. History bowel obstruction/resection. Hisgtory of sepsis. Plan: Chest Xray(Potable)-Shows full expansion of lung on right side. # 24 angiocath was inserted in right hand.
[2017-12-20] MEDS: Cefepime 1gm in NS 100ml 1 GM/100 ML BAG IVPB SCH ×4 (01:59→22:47)
[2017-12-20] MEDS: Albuterol-Ipratrop 3 mg / 0.5 (3 ml) UD IH SCH ×4 (02:27→19:21)
[2017-12-20] MEDS: Oxycodone/Acetaminophen 5/325 mg Tab PO PRN (03:54)
--- NOTE | 2017-12-20 04:09 | CON ---
DATE: 12/19/2017 CARDIOLOGY CONSULTATION REASON FOR CONSULTATION: Abnormal EKG. BRIEF CLINICAL HISTORY: This is a 77-year-old male with past medical history significant for COPD, hypertension, diabetes, pneumonia, admitted with multilobar pneumonia,COPD, bowel obstruction. He is status post colon resection, admitted with multilobar pneumonia, pneumothorax persistent. Chest tube is placed. Cardiology consult was called for abnormal EKG, sinus tachycardia. The patient denies any chest pain. His niece is at the bedside. Information obtained from the niece. The patient is very weak and frail. PAST MEDICAL HISTORY: Significant for COPD, pneumonia, diabetes, multilobar pneumonia as well as pneumothorax FAMILY HISTORY: Noncontributory. SOCIAL HISTORY: Denies any smoking. Denies any history of alcohol abuse. ALLERGIES: NO KNOWN DRUG ALLERGY. CURRENT MEDICATION: The patient is taking now Ativan, doxycycline, Albuterol, cefepime, acetaminophen, Vaseline ointment, lidocaine. REVIEW OF SYSTEMS: As per HPI. PHYSICAL EXAMINATION VITAL SIGNS: As follows: Temperature afebrile, heart rate 96, blood pressure 103/57. HEENT: PERRLA. Extraocular muscles intact. NECK: Supple. No carotid bruit or thyromegaly. CHEST: Clear to auscultation. HEART: S1, S2, regular. ABDOMEN: Soft. EXTREMITIES: Clubbing and cyanosis negative. LABORATORY DATA: WBC 17.5, hemoglobin 10.3, hematocrit of 31.1, platelet count 396. Chemistry shows sodium 135, potassium 4.6, chloride 105, carbon dioxide 22, anion gap of 13, BUN 20, and creatinine 0.7. EKG showed sinus tachycardia. No acute ST-T changes noted. IMPRESSION: 1. Sinus tachycardia. 2. Pneumonia. 3. Chronic obstructive pulmonary disease. 4. Multilobar pneumonia. 5. Status post spontaneous pneumothorax. 6. Status post chest tube. 7. Diabetes. 8. Hypertension. 9. Tachycardia is multifactorial secondary to underlying condition. The patient is very frail, anemic as well as with severe protein calorie malnutrition. Serum albumin is 2.1, which was present on admission as well. RECOMMENDATION: Continue broad spectrum antibiotic. We will review the echo. The patient had an echocardiography done two days ago that showed ejection fraction normal, trace tricuspid regurgitation, mild mitral regurgitant noted. Calculated RV systolic pressure 39 and calculated ejection 64%. Recommend we will put low dose of beta mauricio and monitor closely. As mentioned multifactorial sinus tachycardia because of underlying condition as well as the pain and anemia. We will follow with you. Also the patient has persistently elevated WBC. So far, the blood culture is negative. We will start 25 b.i.d. first dose now. Thank you, Dr. Fields, for providing us the opportunity in taking care of the patient, Ifeoma El. Eloisa Montana MD
--- NOTE | 2017-12-20 07:13 | CP.PCM.PCO ---
Physician Communication Note - Physician Communication Note Physician Communication Note: Lung reexpanded/No leak/Incr Infiltrates
--- NOTE | 2017-12-20 07:42 | CP.PCM.PN ---
<Avani Roblero - Last Filed: 12/21/17 07:56> Subjective - Date & Time of Evaluation Date of Evaluation: 12/20/17 Time of Evaluation: 07:38 - Subjective Subjective: Surgery Progress Note for Dr Purdy: Patient seen and examined at bedside. No acute events overnight. Reports pain at the chest tube site, 2000 cc SS output from right chest tube, + air leak. Denies fever, chills, nausea, vomiting, abdominal pain, leg swelling. Saturating 96-98% on 2L NC. Objective - Vital Signs/Intake and Output Vital Signs (last 24 hours): Temp Pulse Resp BP Pulse Ox 99.8 F H 95 H 18 110/68 100 12/20/17 05:00 12/20/17 05:00 12/20/17 05:00 12/20/17 05:00 12/20/17 05:00 Intake and Output: 12/20/17 12/20/17 06:59 18:59 Intake Total 1940 Output Total 2130 Balance -190 - Medications Medications: Current Medications Acetaminophen (Tylenol 325mg Tab) 650 mg PO Q4H PRN PRN Reason: Fever >100.4 F Last Admin: 12/16/17 17:01 Dose: 650 mg Acetaminophen (Tylenol 325mg Tab) 650 mg PO Q6H PRN PRN Reason: Pain, Mild (1-3) Last Admin: 12/18/17 01:52 Dose: 650 mg Albuterol/Ipratropium (Duoneb 3 Mg/0.5 Mg (3 Ml) Ud) 3 ml IH Q4H PRN PRN Reason: Shortness of Breath Last Admin: 12/14/17 05:05 Dose: 3 ml Albuterol/Ipratropium (Duoneb 3 Mg/0.5 Mg (3 Ml) Ud) 3 ml IH [id number] JEAN PAUL Last Admin: 12/20/17 02:27 Dose: 3 ml Benzocaine/Menthol (Cepacol Sore Throat) 1 [place]ne MT Q2H PRN PRN Reason: Sore Throat Last Admin: 12/19/17 13:16 Dose: 1 wayne Bisacodyl (Dulcolax) 10 mg RC DAILY [facility] Last Admin: 12/19/17 10:20 Dose: 10 mg Emollient Ointment (Vaseline Oint) 5 gm TOP Q8 PRN PRN Reason: Dry skin Last Admin: 12/14/17 09:26 Dose: 5 gm Furosemide (Lasix) 20 mg IVP Q12 [facility] Last Admin: 12/19/17 21:41 Dose: 20 mg Doxycycline Hyclate 100 mg/ (Sodium Chloride) 100 mls @ 100 mls/hr IVPB Q12 EJAN PAUL PRN Reason: Protocol Last Admin: 12/19/17 22:42 Dose: 100 mls/hr Cefepime HCl (Maxipime 1gm) 1 gm in 100 mls @ 100 mls/hr IVPB Q8 JEAN PAUL PRN Reason: Protocol Stop: 12/27/17 14:01 Last Admin: 12/20/17 05:01 Dose: 100 mls/hr Insulin Detemir (Levemir) 8 unit SC DAILY [facility] Last Admin: 12/19/17 10:20 Dose: 8 unit Insulin Human Regular (Humulin R Med) 0 units SC ACHS JEAN PAUL PRN Reason: Protocol Last Admin: 12/19/17 21:41 Dose: 2 units Lidocaine (Lidoderm) 1 ea TD DAILY [facility] Last Admin: 12/19/17 10:21 Dose: 1 ea Lorazepam (Ativan) 0.25 mg IVP Q8H PRN; Protocol PRN Reason: Anxiety Last Admin: 12/19/17 21:40 Dose: 0.25 mg Methylprednisolone (Solu-Medrol) 20 mg IVP DAILY [facility] Last Admin: 12/19/17 10:18 Dose: 20 mg Metoprolol Tartrate (Lopressor) 25 mg PO BID [facility] Last Admin: 12/19/17 21:40 Dose: 25 mg Oxycodone/Acetaminophen (Percocet 5/325 Mg Tab) 1 tab PO Q6H PRN PRN Reason: Pain, moderate (4-7) Stop: 12/21/17 09:22 Last Admin: 12/20/17 03:54 Dose: 1 tab Pantoprazole Sodium (Protonix Ec Tab) 40 mg PO ACB [facility] Last Admin: 12/19/17 10:20 Dose: 40 mg Polyethylene Glycol (Miralax) 17 gm PO DAILY [facility] Last Admin: 12/19/17 10:21 Dose: 17 gm Promethazine HCl/Codeine (Phenergan/Codeine Oral Syrup) 5 ml PO Q4H PRN PRN Reason: Cough and congestion Last Admin: 12/18/17 06:13 Dose: 5 ml Quetiapine Fumarate (Seroquel) 12.5 mg PO BID JEAN PAUL PRN Reason: Protocol Last Admin: 12/19/17 17:57 Dose: 12.5 mg - Labs Labs: 12/17/17 06:00 12/17/17 06:00 PT 14.7 SECONDS (9.4-12.5) H 12/13/17 00:30 INR 1.28 (0.93-1.08) H 12/13/17 00:30 APTT 29.9 Seconds (25.1-36.5) 12/13/17 00:30 - Constitutional Appears: Toxic, No Acute Distress, Chronically Ill - Head Exam Head Exam: ATRAUMATIC, NORMOCEPHALIC - Eye Exam Eye Exam: EOMI, PERRL. absent: Conjunctival injection, Nystagmus, Scleral icterus Pupil Exam: NORMAL ACCOMODATION, PERRL. absent: Irregular, Unequal - ENT Exam ENT Exam: Mucous Membranes Moist - Respiratory Exam Respiratory Exam: Rales. absent: Accessory Muscle Use, Respiratory Distress Additional comments: chest tube site CDI with clean and dry dressing. Dressing tape reinforced. Saturating 96-98% on RA. - Cardiovascular Exam Cardiovascular Exam: RRR. absent: Murmur - GI/Abdominal Exam GI & Abdominal Exam: Soft, Normal Bowel Sounds. absent: Tenderness, Mass, Organomegaly - Extremities Exam Extremities Exam: Normal Inspection - Neurological Exam Neurological Exam: Alert, Awake - Psychiatric Exam Psychiatric exam: Normal Affect, Normal Mood - Skin Skin Exam: Dry, Normal Color, Warm Assessment and Plan - Assessment and Plan (Free Text) Assessment: 77 y/o male with pneumothorax s/p chest tube placement: -cont chest tube -monitor output -daily CXR -aggressive incentive spirometer use -further recs per Dr. Purdy <Faheem Purdy - Last Filed: 12/21/17 11:15> Objective - Vital Signs/Intake and Output Vital Signs (last 24 hours): Temp Pulse Resp BP Pulse Ox 97.6 F 108 H 20 117/59 L 98 12/21/17 06:00 12/21/17 10:00 12/21/17 10:00 12/21/17 10:00 12/21/17 10:00 Intake and Output: 12/21/17 12/21/17 06:59 18:59 Intake Total 780 Output Total 1700 Balance -920 - Medications Medications: Current Medications Acetaminophen (Tylenol 325mg Tab) 650 mg PO Q4H PRN PRN Reason: Fever >100.4 F Last Admin: 12/20/17 08:17 Dose: 650 mg Acetaminophen (Tylenol 325mg Tab) 650 mg PO Q6H PRN PRN Reason: Pain, Mild (1-3) Last Admin: 12/18/17 01:52 Dose: 650 mg Albuterol/Ipratropium (Duoneb 3 Mg/0.5 Mg (3 Ml) Ud) 3 ml IH Q4H PRN PRN Reason: Shortness of Breath Last Admin: 12/14/17 05:05 Dose: 3 ml Albuterol/Ipratropium (Duoneb 3 Mg/0.5 Mg (3 Ml) Ud) 3 ml IH [id number] JEAN PAUL Last Admin: 12/21/17 08:20 Dose: 3 ml Benzocaine/Menthol (Cepacol Sore Throat) 1 [place] MT Q2H PRN PRN Reason: Sore Throat Last Admin: 12/21/17 05:41 Dose: 1 wayne Bisacodyl (Dulcolax) 10 mg RC DAILY [facility] Last Admin: 12/21/17 10:00 Dose: Not Given Doxycycline Hyclate (Doryx) 100 mg PO Q12 JEAN PAUL PRN Reason: Protocol Last Admin: 12/21/17 09:34 Dose: 100 mg Emollient Ointment (Vaseline Oint) 5 gm TOP Q8 PRN PRN Reason: Dry skin Last Admin: 12/14/17 09:26 Dose: 5 gm Furosemide (Lasix) 20 mg IVP Q12 [facility] Last Admin: 12/21/17 09:21 Dose: 20 mg Cefepime HCl (Maxipime 1gm) 1 gm in 100 mls @ 100 mls/hr IVPB Q8 JEAN PAUL PRN Reason: Protocol Stop: 12/27/17 14:01 Last Admin: 12/21/17 05:36 Dose: 100 mls/hr Insulin Detemir (Levemir) 10 unit SC DAILY [facility] Last Admin: 12/21/17 09:39 Dose: 10 unit Insulin Human Regular (Humulin R Med) 0 units SC ACHS [facility] PRN Reason: Protocol Last Admin: 12/21/17 08:23 Dose: 5 units Ketorolac Tromethamine (Toradol) 15 mg IVP Q6 PRN PRN Reason: Pain, severe (8-10) Last Admin: 12/21/17 07:14 Dose: 15 mg Lidocaine (Lidoderm) 1 ea TD DAILY [facility] Last Admin: 12/21/17 09:40 Dose: 1 ea Lorazepam (Ativan) 0.25 mg IVP Q8H PRN; Protocol PRN Reason: Anxiety Last Admin: 12/21/17 01:23 Dose: 0.25 mg Methylprednisolone (Solu-Medrol) 20 mg IVP DAILY [facility] Last Admin: 12/21/17 09:20 Dose: 20 mg Metoprolol Tartrate (Lopressor) 50 mg PO BID [facility] Last Admin: 12/21/17 09:46 Dose: 50 mg Pantoprazole Sodium (Protonix Ec Tab) 40 mg PO ACB [facility] Last Admin: 12/21/17 08:22 Dose: 40 mg Polyethylene Glycol (Miralax) 17 gm PO DAILY [facility] Last Admin: 12/21/17 09:37 Dose: 17 gm Promethazine HCl/Codeine (Phenergan/Codeine Oral Syrup) 5 ml PO Q4H PRN PRN Reason: Cough and congestion Last Admin: 12/18/17 06:13 Dose: 5 ml Quetiapine Fumarate (Seroquel) 12.5 mg PO BID PRN; Protocol PRN Reason: agitation and confusion Last Admin: 12/20/17 17:32 Dose: 12.5 mg - Labs Labs: 12/21/17 06:00 12/21/17 06:00 PT 14.7 SECONDS (9.4-12.5) H 12/13/17 00:30 INR 1.28 (0.93-1.08) H 12/13/17 00:30 APTT 29.9 Seconds (25.1-36.5) 12/13/17 00:30 Assessment and Plan - Assessment and Plan (Free Text) Assessment: CT Leak/Sore throat(Cepacol Rx) CXR Lung Up-Stable Infiltrate This consult done under my direct supervision Waqas Purdy MD FACS
--- NOTE | 2017-12-20 08:02 | CP.PCM.PN ---
Subjective - Date & Time of Evaluation Date of Evaluation: 12/20/17 Time of Evaluation: 06:30 - Subjective Subjective: Seen and examined by me and Dr. Montana Reason for consultation and follow up: Abnormal EKG, admitted for pneumonia, history of hypertension,diabetes mellitus, COPD Subjective: denies chest pain or shortness of breath, doing okay Objective - Vital Signs/Intake and Output Vital Signs (last 24 hours): Temp Pulse Resp BP Pulse Ox 99.8 F H 95 H 18 110/68 100 12/20/17 05:00 12/20/17 05:00 12/20/17 05:00 12/20/17 05:00 12/20/17 05:00 Intake and Output: 12/20/17 12/20/17 06:59 18:59 Intake Total 1940 Output Total 2130 Balance -190 - Medications Medications: Current Medications Acetaminophen (Tylenol 325mg Tab) 650 mg PO Q4H PRN PRN Reason: Fever >100.4 F Last Admin: 12/16/17 17:01 Dose: 650 mg Acetaminophen (Tylenol 325mg Tab) 650 mg PO Q6H PRN PRN Reason: Pain, Mild (1-3) Last Admin: 12/18/17 01:52 Dose: 650 mg Albuterol/Ipratropium (Duoneb 3 Mg/0.5 Mg (3 Ml) Ud) 3 ml IH Q4H PRN PRN Reason: Shortness of Breath Last Admin: 12/14/17 05:05 Dose: 3 ml Albuterol/Ipratropium (Duoneb 3 Mg/0.5 Mg (3 Ml) Ud) 3 ml IH [id number] JEAN PAUL Last Admin: 12/20/17 02:27 Dose: 3 ml Benzocaine/Menthol (Cepacol Sore Throat) 1 awyne MT Q2H PRN PRN Reason: Sore Throat Last Admin: 12/19/17 13:16 Dose: 1 wayne Bisacodyl (Dulcolax) 10 mg RC DAILY [facility] Last Admin: 12/19/17 10:20 Dose: 10 mg Emollient Ointment (Vaseline Oint) 5 gm TOP Q8 PRN PRN Reason: Dry skin Last Admin: 12/14/17 09:26 Dose: 5 gm Furosemide (Lasix) 20 mg IVP Q12 JEAN PAUL Last Admin: 12/19/17 21:41 Dose: 20 mg Doxycycline Hyclate 100 mg/ (Sodium Chloride) 100 mls @ 100 mls/hr IVPB Q12 JEAN PAUL PRN Reason: Protocol Last Admin: 12/19/17 22:42 Dose: 100 mls/hr Cefepime HCl (Maxipime 1gm) 1 gm in 100 mls @ 100 mls/hr IVPB Q8 JEAN PAUL PRN Reason: Protocol Stop: 12/27/17 14:01 Last Admin: 12/20/17 05:01 Dose: 100 mls/hr Insulin Detemir (Levemir) 8 unit SC DAILY [facility] Last Admin: 12/19/17 10:20 Dose: 8 unit Insulin Human Regular (Humulin R Med) 0 units SC ACHS [facility] PRN Reason: Protocol Last Admin: 12/19/17 21:41 Dose: 2 units Lidocaine (Lidoderm) 1 ea TD DAILY [facility] Last Admin: 12/19/17 10:21 Dose: 1 ea Lorazepam (Ativan) 0.25 mg IVP Q8H PRN; Protocol PRN Reason: Anxiety Last Admin: 12/19/17 21:40 Dose: 0.25 mg Methylprednisolone (Solu-Medrol) 20 mg IVP DAILY [facility] Last Admin: 12/19/17 10:18 Dose: 20 mg Metoprolol Tartrate (Lopressor) 25 mg PO BID [facility] Last Admin: 12/19/17 21:40 Dose: 25 mg Oxycodone/Acetaminophen (Percocet 5/325 Mg Tab) 1 tab PO Q6H PRN PRN Reason: Pain, moderate (4-7) Stop: 12/21/17 09:22 Last Admin: 12/20/17 03:54 Dose: 1 tab Pantoprazole Sodium (Protonix Ec Tab) 40 mg PO ACB [facility] Last Admin: 12/19/17 10:20 Dose: 40 mg Polyethylene Glycol (Miralax) 17 gm PO DAILY [facility] Last Admin: 12/19/17 10:21 Dose: 17 gm Promethazine HCl/Codeine (Phenergan/Codeine Oral Syrup) 5 ml PO Q4H PRN PRN Reason: Cough and congestion Last Admin: 12/18/17 06:13 Dose: 5 ml Quetiapine Fumarate (Seroquel) 12.5 mg PO BID [facility] PRN Reason: Protocol Last Admin: 12/19/17 17:57 Dose: 12.5 mg - Labs Labs: 12/17/17 06:00 12/17/17 06:00 PT 14.7 SECONDS (9.4-12.5) H 12/13/17 00:30 INR 1.28 (0.93-1.08) H 12/13/17 00:30 APTT 29.9 Seconds (25.1-36.5) 12/13/17 00:30 - Constitutional Appears: No Acute Distress, Cachectic - Head Exam Head Exam: NORMAL INSPECTION - Eye Exam Eye Exam: Normal appearance Pupil Exam: NORMAL ACCOMODATION - ENT Exam ENT Exam: Mucous Membranes Dry, Normal Exam - Neck Exam Neck Exam: Normal Inspection - Respiratory Exam Respiratory Exam: Decreased Breath Sounds, Rhonchi, NORMAL BREATHING PATTERN Additional comments: right sided chest tube due to spontaneous pneumothorax - Cardiovascular Exam Cardiovascular Exam: REGULAR RHYTHM, +S1, +S2 Additional comments: No JVD - GI/Abdominal Exam GI & Abdominal Exam: Soft, Normal Bowel Sounds - Extremities Exam Extremities Exam: Normal Capillary Refill - Neurological Exam Neurological Exam: Alert, Awake, Oriented x3 - Psychiatric Exam Psychiatric exam: Normal Affect, Normal Mood - Skin Skin Exam: Intact, Normal Color, Warm Assessment and Plan - Assessment and Plan (Free Text) Assessment: IMPRESSION: Abnormal EKG (sinus tachycardia) admitted for pneumonia, history of hypertension,diabetes mellitus, COPD, spontaneous pneumothorax inserted chest tube right side, history of bowel obstruction Plan: Will manage conservatively, too frail to do invasive cardiac work up Started on Lopressor BP and heart rate stable Continue current medications Will follow up Plan and treatment discussed with Dr. Montana
--- NOTE | 2017-12-20 08:06 | CP.PCM.PCO ---
Physician Communication Note - Physician Communication Note Physician Communication Note: Air Leak Back/No Surgery(BilInfiltrates)-Cont Cons Rx(Sat 100%)
[2017-12-20] MEDS: Insulin Reg-MEDIUM-Coverage SC SCH ×4 (08:18→22:44)
[2017-12-20] MEDS: Pantoprazole 40 mg EC Tab PO SCH (08:19)
[2017-12-20] MEDS: Benzocaine/Menthol (Cepacol) Lozenge MT PRN ×4 (08:19→20:38)
--- NOTE | 2017-12-20 08:51 | RAD ---
HISTORY: right sided chest tube. COMPARISON: 12/19/2017 FINDINGS: LUNGS: The bilateral coalescent pulmonary infiltrates -similar-appearing PLEURA: No interval right pleural effusion. Interval decreased right pneumothorax now approximately 4 mm (long edge from lung apex CARDIOVASCULAR: Probable minimal cardiomegaly -similar-appearing. Concomitant mild pulmonary venous congestion in addition a pulmonary infiltrates not excluded OSSEOUS STRUCTURES: Normal VISUALIZED UPPER ABDOMEN: Normal. OTHER FINDINGS: Right chest tube tip lateral right mid lung zone New pneumothorax as before. Right subcutaneous emphysema-similar IMPRESSION: Decreasing size of right pneumothorax . Right chest tube position/tip unchanged. Right thoracic wall subcutaneous emphysema Patchy coalescent bilateral pulmonary infiltrates -similar
[2017-12-20] MEDS: MethylPREDNISolone 40 mg Vial IVP SCH (10:35)
[2017-12-20] MEDS: POLYETHYLENE GLYCOL 3350 17 GM/Dose PACKET PO SCH (10:52)
[2017-12-20] MEDS: Lidocaine 5% Patch TD SCH (10:52)
[2017-12-20] MEDS: Insulin Detemir 100 units/ml Vial (Levemir) SC SCH (10:52)
[2017-12-20] MEDS ORDERED: Bisacodyl 5mg EC Tab PO ONE (13:54)
--- NOTE | 2017-12-20 14:27 | CP.PCM.PN ---
Subjective - Date & Time of Evaluation Date of Evaluation: 12/20/17 Time of Evaluation: 10:35 - Subjective Subjective: Patient still with chest tube, no fevers, not in distress, still weak. Objective - Vital Signs/Intake and Output Vital Signs (last 24 hours): Temp Pulse Resp BP Pulse Ox 99.8 F H 95 H 18 110/68 100 12/20/17 05:00 12/20/17 05:00 12/20/17 05:00 12/20/17 05:00 12/20/17 05:00 Intake and Output: 12/20/17 12/20/17 06:59 18:59 Intake Total 1940 Output Total 2130 Balance -190 - Medications Medications: Current Medications Acetaminophen (Tylenol 325mg Tab) 650 mg PO Q4H PRN PRN Reason: Fever >100.4 F Last Admin: 12/20/17 08:17 Dose: 650 mg Acetaminophen (Tylenol 325mg Tab) 650 mg PO Q6H PRN PRN Reason: Pain, Mild (1-3) Last Admin: 12/18/17 01:52 Dose: 650 mg Albuterol/Ipratropium (Duoneb 3 Mg/0.5 Mg (3 Ml) Ud) 3 ml IH Q4H PRN PRN Reason: Shortness of Breath Last Admin: 12/14/17 05:05 Dose: 3 ml Albuterol/Ipratropium (Duoneb 3 Mg/0.5 Mg (3 Ml) Ud) 3 ml IH [id number] JEAN PAUL Last Admin: 12/20/17 07:59 Dose: 3 ml Benzocaine/Menthol (Cepacol Sore Throat) 1 [address]ne MT Q2H PRN PRN Reason: Sore Throat Last Admin: 12/20/17 08:19 Dose: 1 wayne Bisacodyl (Dulcolax) 10 mg RC DAILY [facility] Last Admin: 12/19/17 10:20 Dose: 10 mg Emollient Ointment (Vaseline Oint) 5 gm TOP Q8 PRN PRN Reason: Dry skin Last Admin: 12/14/17 09:26 Dose: 5 gm Furosemide (Lasix) 20 mg IVP Q12 JEAN PAUL Last Admin: 12/19/17 21:41 Dose: 20 mg Doxycycline Hyclate 100 mg/ (Sodium Chloride) 100 mls @ 100 mls/hr IVPB Q12 JEAN PAUL PRN Reason: Protocol Last Admin: 12/19/17 22:42 Dose: 100 mls/hr Cefepime HCl (Maxipime 1gm) 1 gm in 100 mls @ 100 mls/hr IVPB Q8 JEAN PAUL PRN Reason: Protocol Stop: 12/27/17 14:01 Last Admin: 12/20/17 05:01 Dose: 100 mls/hr Insulin Detemir (Levemir) 8 unit SC DAILY [facility] Last Admin: 12/19/17 10:20 Dose: 8 unit Insulin Human Regular (Humulin R Med) 0 units SC ACHS JEAN PAUL PRN Reason: Protocol Last Admin: 12/20/17 08:18 Dose: 5 units Lidocaine (Lidoderm) 1 ea TD DAILY [facility] Last Admin: 12/19/17 10:21 Dose: 1 ea Lorazepam (Ativan) 0.25 mg IVP Q8H PRN; Protocol PRN Reason: Anxiety Last Admin: 12/19/17 21:40 Dose: 0.25 mg Methylprednisolone (Solu-Medrol) 20 mg IVP DAILY [facility] Last Admin: 12/19/17 10:18 Dose: 20 mg Metoprolol Tartrate (Lopressor) 25 mg PO BID [facility] Last Admin: 12/19/17 21:40 Dose: 25 mg Oxycodone/Acetaminophen (Percocet 5/325 Mg Tab) 1 tab PO Q6H PRN PRN Reason: Pain, moderate (4-7) Stop: 12/21/17 09:22 Last Admin: 12/20/17 03:54 Dose: 1 tab Pantoprazole Sodium (Protonix Ec Tab) 40 mg PO ACB [facility] Last Admin: 12/20/17 08:19 Dose: 40 mg Polyethylene Glycol (Miralax) 17 gm PO DAILY [facility] Last Admin: 12/19/17 10:21 Dose: 17 gm Promethazine HCl/Codeine (Phenergan/Codeine Oral Syrup) 5 ml PO Q4H PRN PRN Reason: Cough and congestion Last Admin: 12/18/17 06:13 Dose: 5 ml Quetiapine Fumarate (Seroquel) 12.5 mg PO BID JEAN PAUL PRN Reason: Protocol Last Admin: 12/19/17 17:57 Dose: 12.5 mg - Labs Labs: 12/17/17 06:00 12/17/17 06:00 PT 14.7 SECONDS (9.4-12.5) H 12/13/17 00:30 INR 1.28 (0.93-1.08) H 12/13/17 00:30 APTT 29.9 Seconds (25.1-36.5) 12/13/17 00:30 - Constitutional Appears: Cachectic, Chronically Ill - Head Exam Head Exam: NORMAL INSPECTION - ENT Exam ENT Exam: Mucous Membranes Moist - Neck Exam Neck Exam: absent: Meningismus - Respiratory Exam Respiratory Exam: Decreased Breath Sounds Additional comments: right sided chest tube in place - Cardiovascular Exam Cardiovascular Exam: +S1, +S2 - GI/Abdominal Exam GI & Abdominal Exam: Soft. absent: Tenderness Assessment and Plan - Assessment and Plan (Free Text) Plan: Assessment Consider sepsis from multifocal healthcare-associated pneumonia, post-viral, now with right sided spontaneous pneumothorax S/P chest tube placement HTN DM CAD COPD history of bowel obstruction S/P colonic resection history of pneumonia Plan continue Doxycycline and Cefepime day 8 - january d/c after today will continue to monitor clinically
--- NOTE | 2017-12-20 18:13 | RAD ---
HISTORY: Shortness of breath COMPARISON: 12/20/2017 at 2:23 a.m.. FINDINGS: LUNGS: There is redemonstration of patchy airspace disease in the right lung. There is also hazy opacity in the left mid lung. PLEURA: Stable position of right pigtail catheter. There is a small right pneumothorax. CARDIOVASCULAR: Normal. OSSEOUS STRUCTURES: No significant abnormalities. VISUALIZED UPPER ABDOMEN: Normal. OTHER FINDINGS: Soft tissue emphysema along the right lateral chest wall. IMPRESSION: 1. Right chest tube remains stable position. Small right pneumothorax. 2. Redemonstration of multifocal airspace disease in the lungs, worse on the right which may represent multifocal consolidation or pulmonary edema.
--- NOTE | 2017-12-20 22:51 | PN ---
DATE: FOLLOWUP SUBJECTIVE: Patient is a 77-year-old male with multiple medical issues as well as a lot of losses in his life, most recently patient's . Patient has a history of multiple medical issues, was admitted for pneumonia, had pneumothorax. Patient had chest tube placement. Psych consult was called for evaluation of depressive symptoms. Patient was started on Seroquel because patient was found to be delirious. This administrative underwriter is following up. Patient was seen and examined today. Patient appears to be not healthy. Patient was breathing heavily. At the beginning of the interview, patient was sedated. Patient is easily arousable. Patient said that he wanted to drink his Ensure. Patient did not want to participate in interview and complained that he felt weak. Based on the history, patient needs very involved into the patient care. This administrative underwriter discussed case with nursing staff. As per nursing staff, patient takes medication, no agitation, no aggression. Takes medications. As per history, patient does not have history of being admitted to the psychiatric inpatient unit, but appear to be depressed and not himself since his . VITAL SIGNS: Reviewed. Patient had fever of 100.0, pulse is 90, blood pressure 138/65, respiration 19, oxygen saturation is 100. MEDICATIONS: Reviewed. Tylenol, DuoNeb, Cepacol. Patient is on Dulcolax, cefepime, doxycycline, Lasix, Levemir, Humulin, Lidoderm, Ativan p.r.n. IV push 0.25 mg, Solu-Medrol, Lopressor, Percocet, Protonix, MiraLax, Phenergan. Patient also is on Seroquel, but this administrative underwriter will change it to as-needed medication for agitation. LABORATORY DATA: Reviewed. WBC cells 17.5. Most recent was on . Chemistry also reviewed. Urinalysis reviewed. Serology reviewed. MENTAL STATUS EXAMINATION: As this administrative underwriter described above, patient appears to be withdrawn and sleepy. Speech is under productive. He has no answers. Patient did not want to participate in interview because of sleepiness. Patient does not have any episodes of agitation or aggression. Patient family involved. IMPRESSION: Most likely, patient has rule out major depressive disorder. Patient has delirium stage, which seems to be improving. Patient has multiple medical issues, pneumothorax, status post tube insertion. Patient has pneumonia, on 2 antibiotics. PLAN: Continue current management. Seroquel will be given as needed only. This administrative underwriter would evaluate patient every other day. This administrative underwriter cannot exclude patient will be improving from the medical standpoint. His mood and anxiety and confusion will be improving as well, so we will follow up on this patient and advise accordingly. Should you have any questions, give me a call back. Thank you very much. Desiree Umana MD
--- NOTE | 2017-12-21 00:57 | PN ---
DATE: SUBJECTIVE: Patient is a 77-year-old male. Patient is seen and examined at the bedside. Looking comfortable. While I see, he was trying to do bowel movement; but later on I heard he could not, and we gave him stool softener. Still has the chest tube. No fever, no chills. No nausea, vomiting, or diarrhea. No headache, no dizziness. PHYSICAL EXAMINATION: VITAL SIGNS: Temperature 99.8, pulse 95, respiratory rate 18, blood pressure 110/68 and pulse oximetry 100%. HEENT: Head, normocephalic and atraumatic. Eyes, PERRLA. Extraocular muscles intact. Conjunctivae clear. Nose, patent. NECK: Supple. No carotid bruit. No JVD or thyromegaly. LUNGS: Poor air entry. HEART: S1, S2 positive. ABDOMEN: Soft. Bowel sounds present. No organomegaly. EXTREMITIES: No edema. No cyanosis. NEUROLOGIC: The patient is awake and alert. Moving all four extremities. No focal deficits. LABORATORY DATA: White blood cells 17.5, hemoglobin 10.3, hematocrit 31.1, platelets of 396. Sodium 135, potassium 4.7, BUN 20, creatinine 0.7, glucose 190. MEDICATIONS: Acetaminophen, Cepacol lozenges, Dulcolax, Lasix, Lidoderm, Solu-Medrol, metoprolol, oxycodone, pantoprazole, promethazine, Seroquel. ASSESSMENT AND PLAN: Mr. Nikko Dia is a 77-year-old male with leukocytosis, anemia, hyperglycemia, has sepsis from multifactorial healthcare-associated pneumonia, post viral now with right-sided spontaneous pneumothorax status post chest tube placement, hypertension, diabetes mellitus, coronary artery disease, chronic obstructive pulmonary disease, history of bowel obstruction status post colonic resection, history of pneumonia. Patient is getting doxycycline and cefepime, day #8, may discontinue after today. We will continue monitoring the patient clinically as per Infectious Disease. Seen by the survey coordinator. Surgeon, Dr. Faheem Purdy, is on the case. Still has pain on the area of the chest tube, 2000 mL as output from the right chest tube, plus air leak. Continue chest tube monitoring output. Daily aggressive incentive spirometer use. As per Dr. Luciano, patient has persistent pneumothorax requiring large bore chest tube, coronary artery disease. Continue bronchodilator, aspiration precaution. Gastric and deep venous thrombosis prophylaxis. Repeat labs. We will follow up. Ya Fields MD
[2017-12-21] MEDS: Benzocaine/Menthol (Cepacol) Lozenge MT PRN ×6 (01:30→17:28)
[2017-12-21] MEDS: Albuterol-Ipratrop 3 mg / 0.5 (3 ml) UD IH SCH ×4 (01:35→19:40)
--- NOTE | 2017-12-21 03:32 | PN ---
DATE: 12/22/2017 PULMONARY PROGRESS NOTE REFERRING PHYSICIAN: Ya Fields MD SUBJECTIVE: The patient is sitting up in a reclining chair. Night was unremarkable. He has some right upper extremity discomfort. Still having air leak from the chest tube. Mild cough. No shortness of breath. No nausea, vomiting, or diarrhea. No leg pain or leg swelling. OBJECTIVE GENERAL: In no acute distress. VITAL SIGNS: Temperature is 98, heart rate is 101, respiratory rate is 20, blood pressure 146/85. HEENT: Moist mucous membrane. Small oral cavity. NECK: Supple. No JVD. LUNGS: Have scattered rhonchi. Right-sided chest tube. HEART: S1 and S2. ABDOMEN: Soft, nontender. No organomegaly. EXTREMITIES: No edema. NEUROLOGIC: Awake and alert. Follows simple commands. LABORATORY DATA: Reviewed, noted blood sugar this morning is 382. Microbiology: Blood culture, urine culture, and naris culture, all unremarkable. Chest x-ray done this evening shows right chest tube remains in stable position, small right pneumothorax, redemonstration of multifocal airspace disease in the lungs, worse in the right, which may represent multifocal consolidation. MEDICATIONS: He is on lorazepam 0.25 mg IV q. 8 hours p.r.n., Cepacol lozenges q. 2 hours p.r.n., doxycycline 100 mg twice a day, Dulcolax 10 mg rectally daily, DuoNeb q. 4 hours p.r.n., also DuoNeb q. 6 hours [id number], insulin coverage, Lasix 20 mg q. 12 hours, Levemir 10 units subcutaneously daily, lidocaine daily, metoprolol tartrate 25 mg twice a day, cefepime 1 g IV q. 8 hours, MiraLax 17 g daily, Percocet 5/325 mg one tablet q. 6 hours p.r.n., promethazine on a p.r.n. basis, Protonix 40 mg daily, Seroquel 12.5 mg twice a day, Solu-Medrol 20 mg daily, Toradol 50 mg IV q. 6 hours p.r.n., Tylenol on a p.r.n. basis, Vaseline ointment to the affected area. IMPRESSION AND PLAN: Multilobular pneumonia, chronic obstructive lung disease, persistent pneumothorax requiring large-bore chest tube, constipation, diabetes, hypertension, coronary artery disease, still having air leak. Continue chest tube on suction, IV and inhaled bronchodilator, oral hypoglycemic agent. Gastric prophylaxis. Followup chest x-ray. Surgical followup. Thank you and we will follow with you. Eloisa Luciano MD
[2017-12-21] MEDS: Cefepime 1gm in NS 100ml 1 GM/100 ML BAG IVPB SCH ×3 (05:36→21:03)
[2017-12-21 06:24] LABS: MEAN CELL VOLUME 89.9 fl (80.0-105.0); MEAN CORPUSCULAR HEMOGLOBIN 30.1 pg (25.0-35.0); MEAN CORPUSCULAR HGB CONC 33.4 g/dl (31.0-37.0); MEAN PLATELET VOLUME 9.6 fl (7.0-11.0); RBC 3.66 10^6/uL (3.5-6.1); RED CELL DISTRIBUTION WIDTH 13.9 % (11.5-14.5); WHITE BLOOD COUNT 20.3 10^3/ul (4.5-11.0)
[2017-12-21 06:41] LABS: BLOOD UREA NITROGEN 24 mg/dL (7-21); CALCIUM 8.9 mg/dL (8.4-10.5); GFR AFRICAN-AMERICAN > 60; GFR NON-AFRICAN AMERICAN > 60
[2017-12-21 06:51] LABS: B-TYPE NATRIURETIC PEPTIDE 487 pg/mL (0-450)
--- NOTE | 2017-12-21 06:57 | CP.PCM.PN ---
Subjective - Date & Time of Evaluation Date of Evaluation: 12/21/17 Time of Evaluation: 06:10 - Subjective Subjective: Seen and examined by me and Dr. Montana Reason for consult and follow up: Abnormal EKG (sinus tachycardia) admitted for pneumonia, history of hypertension,diabetes mellitus, COPD, spontaneous pneumothorax inserted chest tube right side, history of bowel obstruction Subjective:feels okay, sitting on chair,denies shortness of breath,denies chest pain. Objective - Vital Signs/Intake and Output Vital Signs (last 24 hours): Temp Pulse Resp BP Pulse Ox 97.6 F 107 H 20 135/69 96 12/21/17 06:00 12/21/17 06:00 12/21/17 06:00 12/21/17 06:00 12/21/17 06:00 Intake and Output: 12/20/17 12/21/17 18:59 06:59 Intake Total 780 Output Total 1700 Balance -920 - Medications Medications: Current Medications Acetaminophen (Tylenol 325mg Tab) 650 mg PO Q4H PRN PRN Reason: Fever >100.4 F Last Admin: 12/20/17 08:17 Dose: 650 mg Acetaminophen (Tylenol 325mg Tab) 650 mg PO Q6H PRN PRN Reason: Pain, Mild (1-3) Last Admin: 12/18/17 01:52 Dose: 650 mg Albuterol/Ipratropium (Duoneb 3 Mg/0.5 Mg (3 Ml) Ud) 3 ml IH Q4H PRN PRN Reason: Shortness of Breath Last Admin: 12/14/17 05:05 Dose: 3 ml Albuterol/Ipratropium (Duoneb 3 Mg/0.5 Mg (3 Ml) Ud) 3 ml IH [id number] JEAN PAUL Last Admin: 12/21/17 01:35 Dose: 3 ml Benzocaine/Menthol (Cepacol Sore Throat) 1 [address]ne MT Q2H PRN PRN Reason: Sore Throat Last Admin: 12/21/17 05:41 Dose: 1 wayne Bisacodyl (Dulcolax) 10 mg RC DAILY [facility] Last Admin: 12/20/17 10:53 Dose: 10 mg Doxycycline Hyclate (Doryx) 100 mg PO Q12 JEAN PAUL PRN Reason: Protocol Last Admin: 12/20/17 22:42 Dose: 100 mg Emollient Ointment (Vaseline Oint) 5 gm TOP Q8 PRN PRN Reason: Dry skin Last Admin: 12/14/17 09:26 Dose: 5 gm Furosemide (Lasix) 20 mg IVP Q12 [facility] [place] Last Admin: 12/20/17 22:44 Dose: 20 mg Cefepime HCl (Maxipime 1gm) 1 gm in 100 mls @ 100 mls/hr IVPB Q8 JEAN PAUL PRN Reason: Protocol Stop: 12/27/17 14:01 Last Admin: 12/21/17 05:36 Dose: 100 mls/hr Insulin Detemir (Levemir) 10 unit SC DAILY [facility] [place] Insulin Human Regular (Humulin R Med) 0 units SC ACHS JEAN PAUL PRN Reason: Protocol Last Admin: 12/20/17 22:44 Dose: 3 units Ketorolac Tromethamine (Toradol) 15 mg IVP Q6 PRN PRN Reason: Pain, severe (8-10) Lidocaine (Lidoderm) 1 ea TD DAILY [facility] [place] Last Admin: 12/20/17 10:52 Dose: 1 ea Lorazepam (Ativan) 0.25 mg IVP Q8H PRN; Protocol PRN Reason: Anxiety Last Admin: 12/21/17 01:23 Dose: 0.25 mg Methylprednisolone (Solu-Medrol) 20 mg IVP DAILY [facility] [place] Last Admin: 12/20/17 10:35 Dose: 20 mg Metoprolol Tartrate (Lopressor) 25 mg PO BID [facility] [place] Last Admin: 12/20/17 17:32 Dose: 25 mg Oxycodone/Acetaminophen (Percocet 5/325 Mg Tab) 1 tab PO Q6H PRN PRN Reason: Pain, moderate (4-7) Stop: 12/21/17 09:22 Last Admin: 12/20/17 03:54 Dose: 1 tab Pantoprazole Sodium (Protonix Ec Tab) 40 mg PO ACB [facility] [place] Last Admin: 12/20/17 08:19 Dose: 40 mg Polyethylene Glycol (Miralax) 17 gm PO DAILY [facility] [place] Last Admin: 12/20/17 10:52 Dose: 17 gm Promethazine HCl/Codeine (Phenergan/Codeine Oral Syrup) 5 ml PO Q4H PRN PRN Reason: Cough and congestion Last Admin: 12/18/17 06:13 Dose: 5 ml Quetiapine Fumarate (Seroquel) 12.5 mg PO BID PRN; Protocol PRN Reason: agitation and confusion Last Admin: 12/20/17 17:32 Dose: 12.5 mg - Labs Labs: 12/21/17 06:00 12/21/17 06:00 PT 14.7 SECONDS (9.4-12.5) H 12/13/17 00:30 INR 1.28 (0.93-1.08) H 12/13/17 00:30 APTT 29.9 Seconds (25.1-36.5) 12/13/17 00:30 - Constitutional Appears: No Acute Distress, Cachectic - Eye Exam Eye Exam: Normal appearance Pupil Exam: NORMAL ACCOMODATION - ENT Exam ENT Exam: Mucous Membranes Dry - Neck Exam Neck Exam: Normal Inspection - Respiratory Exam Respiratory Exam: Decreased Breath Sounds, Rhonchi Additional comments: right pleural chest tube with some air leak, on nasal cannula - Cardiovascular Exam Cardiovascular Exam: REGULAR RHYTHM, +S1, +S2 Additional comments: no JVD - GI/Abdominal Exam GI & Abdominal Exam: Soft, Normal Bowel Sounds - Extremities Exam Extremities Exam: Normal Capillary Refill - Neurological Exam Neurological Exam: Alert, Awake - Skin Skin Exam: Intact, Normal Color, Warm Assessment and Plan - Assessment and Plan (Free Text) Assessment: IMPRESSION: Abnormal EKG (sinus tachycardia) admitted for pneumonia, history of hypertension,diabetes mellitus, COPD, spontaneous pneumothorax inserted chest tube right side, history of bowel obstruction Plan: Cardiac status stable BP and heart rate stable Continue current medications Will manage conservatively Right pleural chest tube with minimal air leak Will follow up Plan and treatment discussed with Dr. [place]
--- NOTE | 2017-12-21 07:55 | CP.PCM.PN ---
Subjective - Date & Time of Evaluation Date of Evaluation: 12/21/17 Time of Evaluation: 07:52 - Subjective Subjective: Surgery Progress Note: Patient seen and examined at bedside. YANI. Pt reports right arm and pain at chest tube site. Bedside nurse made aware. No fever, chills, nausea, vomiting. Objective - Vital Signs/Intake and Output Vital Signs (last 24 hours): Temp Pulse Resp BP Pulse Ox 97.6 F 107 H 20 135/69 96 12/21/17 06:00 12/21/17 06:00 12/21/17 06:00 12/21/17 06:00 12/21/17 06:00 Intake and Output: 12/21/17 12/21/17 06:59 18:59 Intake Total 780 Output Total 1700 Balance -920 - Medications Medications: Current Medications Acetaminophen (Tylenol 325mg Tab) 650 mg PO Q4H PRN PRN Reason: Fever >100.4 F Last Admin: 12/20/17 08:17 Dose: 650 mg Acetaminophen (Tylenol 325mg Tab) 650 mg PO Q6H PRN PRN Reason: Pain, Mild (1-3) Last Admin: 12/18/17 01:52 Dose: 650 mg Albuterol/Ipratropium (Duoneb 3 Mg/0.5 Mg (3 Ml) Ud) 3 ml IH Q4H PRN PRN Reason: Shortness of Breath Last Admin: 12/14/17 05:05 Dose: 3 ml Albuterol/Ipratropium (Duoneb 3 Mg/0.5 Mg (3 Ml) Ud) 3 ml IH [id number] [facility] Last Admin: 12/21/17 01:35 Dose: 3 ml Benzocaine/Menthol (Cepacol Sore Throat) 1 [address]ne MT Q2H PRN PRN Reason: Sore Throat Last Admin: 12/21/17 05:41 Dose: 1 wayne Bisacodyl (Dulcolax) 10 mg RC DAILY [facility] Last Admin: 12/20/17 10:53 Dose: 10 mg Doxycycline Hyclate (Doryx) 100 mg PO Q12 JEAN PAUL PRN Reason: Protocol Last Admin: 12/20/17 22:42 Dose: 100 mg Emollient Ointment (Vaseline Oint) 5 gm TOP Q8 PRN PRN Reason: Dry skin Last Admin: 12/14/17 09:26 Dose: 5 gm Furosemide (Lasix) 20 mg IVP Q12 [facility] Last Admin: 12/20/17 22:44 Dose: 20 mg Cefepime HCl (Maxipime 1gm) 1 gm in 100 mls @ 100 mls/hr IVPB Q8 JEAN PAUL PRN Reason: Protocol Stop: 12/27/17 14:01 Last Admin: 12/21/17 05:36 Dose: 100 mls/hr Insulin Detemir (Levemir) 10 unit SC DAILY [facility] Insulin Human Regular (Humulin R Med) 0 units SC ACHS JEAN PAUL PRN Reason: Protocol Last Admin: 12/20/17 22:44 Dose: 3 units Ketorolac Tromethamine (Toradol) 15 mg IVP Q6 PRN PRN Reason: Pain, severe (8-10) Last Admin: 12/21/17 07:14 Dose: 15 mg Lidocaine (Lidoderm) 1 ea TD DAILY [facility] Last Admin: 12/20/17 10:52 Dose: 1 ea Lorazepam (Ativan) 0.25 mg IVP Q8H PRN; Protocol PRN Reason: Anxiety Last Admin: 12/21/17 01:23 Dose: 0.25 mg Methylprednisolone (Solu-Medrol) 20 mg IVP DAILY [facility] Last Admin: 12/20/17 10:35 Dose: 20 mg Metoprolol Tartrate (Lopressor) 25 mg PO BID [facility] Last Admin: 12/20/17 17:32 Dose: 25 mg Oxycodone/Acetaminophen (Percocet 5/325 Mg Tab) 1 tab PO Q6H PRN PRN Reason: Pain, moderate (4-7) Stop: 12/21/17 09:22 Last Admin: 12/20/17 03:54 Dose: 1 tab Pantoprazole Sodium (Protonix Ec Tab) 40 mg PO ACB [facility] Last Admin: 12/20/17 08:19 Dose: 40 mg Polyethylene Glycol (Miralax) 17 gm PO DAILY [facility] Last Admin: 12/20/17 10:52 Dose: 17 gm Promethazine HCl/Codeine (Phenergan/Codeine Oral Syrup) 5 ml PO Q4H PRN PRN Reason: Cough and congestion Last Admin: 12/18/17 06:13 Dose: 5 ml Quetiapine Fumarate (Seroquel) 12.5 mg PO BID PRN; Protocol PRN Reason: agitation and confusion Last Admin: 12/20/17 17:32 Dose: 12.5 mg - Labs Labs: 12/21/17 06:00 12/21/17 06:00 PT 14.7 SECONDS (9.4-12.5) H 12/13/17 00:30 INR 1.28 (0.93-1.08) H 12/13/17 00:30 APTT 29.9 Seconds (25.1-36.5) 12/13/17 00:30 - Constitutional Appears: Non-toxic, No Acute Distress, Chronically Ill - Head Exam Head Exam: ATRAUMATIC, NORMOCEPHALIC - Eye Exam Eye Exam: EOMI, PERRL. absent: Conjunctival injection, Periorbital tenderness, Scleral icterus Pupil Exam: NORMAL ACCOMODATION, PERRL. absent: Fixed, Irregular, Unequal - ENT Exam ENT Exam: Mucous Membranes Moist - Neck Exam Neck Exam: Full ROM - Respiratory Exam Respiratory Exam: Rales. absent: Accessory Muscle Use, Rhonchi, Wheezes, Stridor Additional comments: right sided chest tube in place, minimal air leak present. - Cardiovascular Exam Cardiovascular Exam: +S1, +S2. absent: Murmur - GI/Abdominal Exam GI & Abdominal Exam: Soft, Normal Bowel Sounds. absent: Rigid, Tenderness, Mass , Organomegaly, Rebound - Extremities Exam Extremities Exam: Normal Inspection. absent: Calf Tenderness, Pedal Edema - Back Exam Back Exam: NORMAL INSPECTION - Neurological Exam Neurological Exam: Alert, Awake, Oriented x3 - Skin Skin Exam: Dry, Normal Color, Warm Assessment and Plan - Assessment and Plan (Free Text) Assessment: 77 y/o male with pneumothorax s/p chest tube placement: -cont chest tube to suction, 25 mmhg -monitor output -daily CXR -aggressive incentive spirometer use -further recs per Dr. Purdy
[2017-12-21] MEDS: Pantoprazole 40 mg EC Tab PO SCH (08:22)
[2017-12-21] MEDS: Insulin Reg-MEDIUM-Coverage SC SCH ×4 (08:23→22:00)
[2017-12-21] MEDS: MethylPREDNISolone 40 mg Vial IVP SCH (09:20)
[2017-12-21] MEDS: POLYETHYLENE GLYCOL 3350 17 GM/Dose PACKET PO SCH (09:37)
[2017-12-21] MEDS: Insulin Detemir 100 units/ml Vial (Levemir) SC SCH (09:39)
[2017-12-21] MEDS: Lidocaine 5% Patch TD SCH (09:40)
--- NOTE | 2017-12-21 09:44 | PCM.URO ---
Urology Progress Note - Objective Lab Studies: Reviewed (full note to be dictated plans: elevation) Lab Results Last 24 Hours: Laboratory Results - last 24 hr 12/20/17 12/20/17 12/20/17 11:01 15:48 21:22 WBC RBC Hgb Hct MCV MCH MCHC RDW Plt Count MPV Sodium Potassium Chloride Carbon Dioxide Anion Gap BUN Creatinine Est GFR ( Amer) Est GFR (Non-Af Amer) POC Glucose (mg/dL) 248 H 438 H* 382 H Random Glucose Calcium NT-Pro-B Natriuret Pep 12/21/17 12/21/17 12/21/17 02:44 06:00 06:00 WBC 20.3 H RBC 3.66 Hgb 11.0 L Hct 32.9 L MCV 89.9 MCH 30.1 MCHC 33.4 RDW 13.9 Plt Count 454 H MPV 9.6 Sodium 132 Potassium 4.5 Chloride 92 L Carbon Dioxide 32 Anion Gap 12 BUN 24 H Creatinine 0.8 Est GFR ( Amer) > 60 Est GFR (Non-Af Amer) > 60 POC Glucose (mg/dL) 322 H Random Glucose 280 H Calcium 8.9 NT-Pro-B Natriuret Pep 487 H 12/21/17 07:14 WBC RBC Hgb Hct MCV MCH MCHC RDW Plt Count MPV Sodium Potassium Chloride Carbon Dioxide Anion Gap BUN Creatinine Est GFR ( Amer) Est GFR (Non-Af Amer) POC Glucose (mg/dL) 289 H Random Glucose Calcium NT-Pro-B Natriuret Pep Intake & Output: Intake & Output 12/20/17 12/21/17 12/21/17 18:59 06:59 18:59 Intake Total 780 Output Total 1700 Balance -920 Weight 120 lb Intake: IV 300 Left Hand 300 Oral 480 Output: Chest Tube Drainage 50 Right Upper Anterior 50 Chest Urine 1650 Urine, Voided 1650 Other: # Voids Urine, Voided 3 # Bowel Movements 0 Vital Signs: Vital Signs - 24 hr 12/20/17 12/20/17 12/20/17 10:00 10:35 10:53 Temperature Pulse Rate 109 H 92 H Respiratory Rate Blood Pressure 135/68 135/68 O2 Sat by Pulse Oximetry 12/20/17 12/20/17 12/20/17 12:00 14:00 17:32 Temperature 100.0 F H Pulse Rate 90 97 H 101 H Respiratory 19 Rate Blood Pressure 138/65 146/85 O2 Sat by Pulse Oximetry 12/20/17 12/20/17 12/20/17 17:44 18:00 22:00 Temperature 97.8 F Pulse Rate 101 H 106 H 86 Respiratory 20 Rate Blood Pressure 146/85 O2 Sat by Pulse Oximetry 12/20/17 12/20/17 12/21/17 22:44 23:59 02:00 Temperature 97.4 F L Pulse Rate 86 103 H Respiratory 20 Rate Blood Pressure 133/66 133/66 O2 Sat by Pulse 98 Oximetry 12/21/17 12/21/17 04:49 06:00 Temperature 97.6 F Pulse Rate 108 H 107 H Respiratory 20 Rate Blood Pressure 135/69 O2 Sat by Pulse 96 Oximetry
--- NOTE | 2017-12-21 10:27 | RAD ---
HISTORY: pneumothorax COMPARISON: Multiple serial examinations preceding the most recent study: December 20, 2017. FINDINGS: LUNGS: Stable infiltrates right lung and left upper lobe. PLEURA: No significant pneumothorax. Partially and quite pigtail catheter position unchanged. CARDIOVASCULAR: No radiographic findings to suggest acute or significant cardiovascular disease. OSSEOUS STRUCTURES: No significant abnormalities. VISUALIZED UPPER ABDOMEN: Normal. OTHER FINDINGS: Stable subcutaneous emphysema IMPRESSION: Stable bilateral infiltrates right larger than left. No interval change in findings right pleural space.
--- NOTE | 2017-12-21 16:41 | CP.PCM.PN ---
Subjective - Date & Time of Evaluation Date of Evaluation: 12/21/17 Time of Evaluation: 10:15 - Subjective Subjective: Still with occasional pain along the chest tube site, breathing better, no fevers. Objective - Vital Signs/Intake and Output Vital Signs (last 24 hours): Temp Pulse Resp BP Pulse Ox 97.6 F 107 H 20 135/69 96 12/21/17 06:00 12/21/17 06:00 12/21/17 06:00 12/21/17 06:00 12/21/17 06:00 Intake and Output: 12/21/17 12/21/17 06:59 18:59 Intake Total 780 Output Total 1700 Balance -920 - Medications Medications: Current Medications Acetaminophen (Tylenol 325mg Tab) 650 mg PO Q4H PRN PRN Reason: Fever >100.4 F Last Admin: 12/20/17 08:17 Dose: 650 mg Acetaminophen (Tylenol 325mg Tab) 650 mg PO Q6H PRN PRN Reason: Pain, Mild (1-3) Last Admin: 12/18/17 01:52 Dose: 650 mg Albuterol/Ipratropium (Duoneb 3 Mg/0.5 Mg (3 Ml) Ud) 3 ml IH Q4H PRN PRN Reason: Shortness of Breath Last Admin: 12/14/17 05:05 Dose: 3 ml Albuterol/Ipratropium (Duoneb 3 Mg/0.5 Mg (3 Ml) Ud) 3 ml IH [id number] [facility] PAUL Last Admin: 12/21/17 08:20 Dose: 3 ml Benzocaine/Menthol (Cepacol Sore Throat) 1 [address]ne MT Q2H PRN PRN Reason: Sore Throat Last Admin: 12/21/17 05:41 Dose: 1 wayne Bisacodyl (Dulcolax) 10 mg RC DAILY [facility] Last Admin: 12/20/17 10:53 Dose: 10 mg Doxycycline Hyclate (Doryx) 100 mg PO Q12 JEAN PAUL PRN Reason: Protocol Last Admin: 12/20/17 22:42 Dose: 100 mg Emollient Ointment (Vaseline Oint) 5 gm TOP Q8 PRN PRN Reason: Dry skin Last Admin: 12/14/17 09:26 Dose: 5 gm Furosemide (Lasix) 20 mg IVP Q12 [facility] PAUL Last Admin: 12/20/17 22:44 Dose: 20 mg Cefepime HCl (Maxipime 1gm) 1 gm in 100 mls @ 100 mls/hr IVPB Q8 JEAN PAUL PRN Reason: Protocol Stop: 12/27/17 14:01 Last Admin: 12/21/17 05:36 Dose: 100 mls/hr Insulin Detemir (Levemir) 10 unit SC DAILY [facility] Insulin Human Regular (Humulin R Med) 0 units SC ACHS JEAN PAUL PRN Reason: Protocol Last Admin: 12/21/17 08:23 Dose: 5 units Ketorolac Tromethamine (Toradol) 15 mg IVP Q6 PRN PRN Reason: Pain, severe (8-10) Last Admin: 12/21/17 07:14 Dose: 15 mg Lidocaine (Lidoderm) 1 ea TD DAILY [facility] Last Admin: 12/20/17 10:52 Dose: 1 ea Lorazepam (Ativan) 0.25 mg IVP Q8H PRN; Protocol PRN Reason: Anxiety Last Admin: 12/21/17 01:23 Dose: 0.25 mg Methylprednisolone (Solu-Medrol) 20 mg IVP DAILY [facility] Last Admin: 12/20/17 10:35 Dose: 20 mg Metoprolol Tartrate (Lopressor) 50 mg PO BID [facility] Pantoprazole Sodium (Protonix Ec Tab) 40 mg PO ACB [facility] Last Admin: 12/21/17 08:22 Dose: 40 mg Polyethylene Glycol (Miralax) 17 gm PO DAILY [facility] Last Admin: 12/20/17 10:52 Dose: 17 gm Promethazine HCl/Codeine (Phenergan/Codeine Oral Syrup) 5 ml PO Q4H PRN PRN Reason: Cough and congestion Last Admin: 12/18/17 06:13 Dose: 5 ml Quetiapine Fumarate (Seroquel) 12.5 mg PO BID PRN; Protocol PRN Reason: agitation and confusion Last Admin: 12/20/17 17:32 Dose: 12.5 mg - Labs Labs: 12/21/17 06:00 12/21/17 06:00 PT 14.7 SECONDS (9.4-12.5) H 12/13/17 00:30 INR 1.28 (0.93-1.08) H 12/13/17 00:30 APTT 29.9 Seconds (25.1-36.5) 12/13/17 00:30 - Constitutional Appears: Chronically Ill - Head Exam Head Exam: NORMAL INSPECTION - Neck Exam Neck Exam: absent: Meningismus - Respiratory Exam Respiratory Exam: Decreased Breath Sounds Additional comments: right-sided chest tube in place - Cardiovascular Exam Cardiovascular Exam: +S1, +S2 - GI/Abdominal Exam GI & Abdominal Exam: Soft. absent: Tenderness Assessment and Plan - Assessment and Plan (Free Text) Plan: Assessment Consider sepsis from multifocal healthcare-associated pneumonia, post-viral, now with right sided spontaneous pneumothorax S/P chest tube placement HTN DM CAD COPD history of bowel obstruction S/P colonic resection history of pneumonia Plan continue Doxycycline and Cefepime day 9 - complete 7-10 days of antibiotics continue to trend WBC count will continue to monitor clinically
--- NOTE | 2017-12-21 16:57 | PN ---
DATE: 12/21/2017 REFERRING PHYSICIAN: Dr. Fields. SUBJECTIVE: He is out of bed to a reclining chair, having on and off discomfort at the chest tube area. No headache, no rhinitis, no nausea, no vomiting. Trace upper extremity swelling. PHYSICAL EXAMINATION GENERAL: In no acute distress. VITAL SIGNS: Temperature is 98, heart rate is 81, respiratory rate is 20, blood pressure 135/68, pulse ox 98% on 3 liters nasal cannula. HEENT: Small oral cavity. Crowded airway. NECK: Supple. No JVD. LUNGS: Has a scattered rhonchi. Right-sided chest tube with air leak. HEART: S1 and S2. ABDOMEN: Soft, nontender. No organomegaly. LOWER EXTREMITIES: There is no edema. NEUROLOGIC: Awake, alert and follows simple command. MEDICATIONS: He is on Ativan 0.25 mg every 8 hours p.r.n., Cepacol lozenges every 2 hours p.r.n., doxycycline 100 mg twice a day, Dulcolax 10 mg rectally daily, DuoNeb every 6 hours [id number], Duragesic patch every 72 hours, insulin coverage, Lasix 20 mg every 12 hours, Levemir 10 units subcu daily, lidocaine on affected area, metoprolol tartrate 50 mg twice a day, cefepime 1 g every 8 hours, MiraLax 17 g daily, promethazine with codeine every 4 hours p.r.n., Protonix 40 mg daily, Seroquel 12.5 mg twice a day, Solu-Medrol 20 mg daily, Toradol 15 mg IV every 6 hours p.r.n., Tylenol on p.r.n. basis, Vaseline ointment to the affected area. LABORATORY DATA: Shows hemoglobin 11.0, hematocrit 32.9, WBC 20,000, platelet count is 454. Sodium 132, potassium 4.5, chloride 92, bicarbonate is 32, BUN 24, creatinine 0.8, glucose 280, calcium is 8.9. ProBNP 487. Procalcitonin is 0.9. Microbiology: Blood culture, urine culture, nares culture is unremarkable. Chest x-ray this morning shows stable bilateral infiltrate, right larger than left infiltrate, no interval changes. No change in the finding of the right pleural space. IMPRESSION AND PLAN: Multilobar infiltrate, chronic obstructive lung disease, persistent pneumothorax with air leak, constipation, diabetes, hypertension, coronary artery disease. Pulmonary point of view, he is doing okay, has a persistent air leak being followed by Surgery. We will try to taper off steroids. Antibiotics as per Infectious Diseases. Gastric prophylaxis, DVT prophylaxis, fall precaution, pain management. Case discussed with Dr. Fields. Also, there is a component of dementia, I believe. Thank you and we will follow with you. Eloisa Luciano MD
[2017-12-21] MEDS: Promethazine/Cod 6.25mg-10mg/5ml Syr UD PO PRN (21:02)
[2017-12-22] MEDS: Benzocaine/Menthol (Cepacol) Lozenge MT PRN ×5 (00:14→18:55)
[2017-12-22] MEDS: Albuterol-Ipratrop 3 mg / 0.5 (3 ml) UD IH SCH ×4 (01:23→20:02)
[2017-12-22] MEDS: Cefepime 1gm in NS 100ml 1 GM/100 ML BAG IVPB SCH ×3 (05:20→21:36)
[2017-12-22] MEDS: Promethazine/Cod 6.25mg-10mg/5ml Syr UD PO PRN ×2 (05:20→22:01)
[2017-12-22] MEDS: Pantoprazole 40 mg EC Tab PO SCH (06:49)
--- NOTE | 2017-12-22 08:37 | RAD ---
HISTORY: pneumothorax COMPARISON: 12/21/2017 FINDINGS: LUNGS: Patchy bilateral infiltrates PLEURA: Right-sided chest tube. No visible pneumothorax. CARDIOVASCULAR: Normal. OSSEOUS STRUCTURES: No significant abnormalities. VISUALIZED UPPER ABDOMEN: Normal. OTHER FINDINGS: None. IMPRESSION: Patchy bilateral infiltrates. No visible pneumothorax. Chest tube remains in place
--- NOTE | 2017-12-22 08:49 | PN ---
DATE: 12/21/2017 SUBJECTIVE: The patient is 77-year-old male. The patient is seen and examined at the bedside early in the morning, sitting on the chair, complaining of pain on the right side, going to right shoulder. Discussion was done with the nursing staff. No fever, no chills. No nausea, vomiting, diarrhea. No hematuria or hematochezia. No swelling of the leg. No headache or dizziness. PHYSICAL EXAMINATION: VITAL SIGNS: Temperature 97.6, pulse of 107, respiratory rate 20, blood pressure 135/69, pulse oximeter 96. HEENT: Head normocephalic, atraumatic. Eyes: PERRLA. Extraocular muscles intact. Conjunctivae clear. Nose: Patent. Mucous membrane moist. NECK: Supple. No carotid bruit. No JVD or thyromegaly. CHEST: Bilaterally symmetrical. HEART: S1 and S2 positive. LUNGS: Clear to auscultation. ABDOMEN: Soft. Bowel sounds present. No organomegaly. EXTREMITIES: No edema. No cyanosis. NEUROLOGICAL: The patient is awake, alert, follows simple commands. MEDICATIONS: Tylenol, DuoNeb, Cepacol lozenges, bisacodyl, doxycycline, Lasix, cefepime, insulin, Toradol, Lidoderm, Ativan, Solu-Medrol, Lopressor, oxycodone, Protonix, MiraLax, Phenergan with codeine, Seroquel. LABORATORY DATA: White blood cells 20.3, hemoglobin 11.0, hematocrit 32.9, platelets 454. Sodium 132, potassium 4.5, BUN 24, creatinine 0.8, glucose 280. ASSESSMENT: Mr. Ifeoma Sanabria is a 77-year-old male with leukocytosis, anemia, thrombocytosis, hyperglycemia, has spontaneous pneumothorax, status post chest tube placement, chest tube is still on suction on 25 mmHg , aggressive incentive spirometer. Discussion done with Dr. Luciano, pattern marking supervisor, critical care. Reviewed Dr. Faheem Matamoros's note and Dr. Titi Beck's note. Chest x-ray reviewed. Reviewed nurse practitioner of Dr. Guevara. History of abnormal EKG, sinus tachycardia, multi-lobe pneumonia, hypertension, chronic obstructive pulmonary disease, history of bowel obstruction. According to Cardiology, cardiac status is stable. They are planning to manage conservatively. Due to persistent pneumothorax, requiring a large-bore chest tube. Constipation, coronary artery disease, still having air leakage. PLAN: Continue present treatment, comfort care. GI and DVT prophylaxis. Repeat labs. We will follow up. Ya Fields MD STEVEN
[2017-12-22] MEDS: Insulin Reg-MEDIUM-Coverage SC SCH ×4 (09:04→22:45)
--- NOTE | 2017-12-22 10:34 | CP.PCM.PCO ---
Physician Communication Note - Physician Communication Note Physician Communication Note: Lung up/No PTX/Cont Rx
--- NOTE | 2017-12-22 10:39 | CP.PCM.PN ---
Subjective - Date & Time of Evaluation Date of Evaluation: 12/22/17 Time of Evaluation: 10:36 - Subjective Subjective: Surgery Pt s&e. NAEON. C/O R arm and chest wall pain. Denies F/C/N/V. Resting on chair. Objective - Vital Signs/Intake and Output Vital Signs (last 24 hours): Temp Pulse Resp BP Pulse Ox 98 F 100 H 20 148/80 97 12/22/17 06:00 12/22/17 06:00 12/22/17 06:00 12/22/17 06:00 12/22/17 06:00 Intake and Output: 12/22/17 12/22/17 06:59 18:59 Intake Total 420 Output Total 850 Balance -430 - Medications Medications: Current Medications Acetaminophen (Tylenol 325mg Tab) 650 mg PO Q6H PRN PRN Reason: Pain, Mild (1-3) Last Admin: 12/18/17 01:52 Dose: 650 mg Acetaminophen (Tylenol 325mg Tab) 650 mg PO Q6H PRN PRN Reason: Headache Last Admin: 12/21/17 19:22 Dose: 650 mg Albuterol/Ipratropium (Duoneb 3 Mg/0.5 Mg (3 Ml) Ud) 3 ml IH Q4H PRN PRN Reason: Shortness of Breath Last Admin: 12/14/17 05:05 Dose: 3 ml Albuterol/Ipratropium (Duoneb 3 Mg/0.5 Mg (3 Ml) Ud) 3 ml IH O3ARRHR [facility] Last Admin: 12/22/17 07:21 Dose: 3 ml Benzocaine/Menthol (Cepacol Sore Throat) 1 [address]ne MT Q2H PRN PRN Reason: Sore Throat Last Admin: 12/22/17 09:14 Dose: 1 wayne Bisacodyl (Dulcolax) 10 mg RC DAILY [facility] Last Admin: 12/21/17 10:00 Dose: Not Given Doxycycline Hyclate (Doryx) 100 mg PO Q12 JEAN PAUL PRN Reason: Protocol Last Admin: 12/21/17 21:03 Dose: 100 mg Emollient Ointment (Vaseline Oint) 5 gm TOP Q8 PRN PRN Reason: Dry skin Last Admin: 12/14/17 09:26 Dose: 5 gm Fentanyl (Duragesic) 1 patch TD Q72H [facility] Last Admin: 12/21/17 13:46 Dose: 1 patch Furosemide (Lasix) 20 mg IVP Q12 [facility] Last Admin: 12/21/17 21:02 Dose: 20 mg Cefepime HCl (Maxipime 1gm) 1 gm in 100 mls @ 100 mls/hr IVPB Q8 JEAN PAUL PRN Reason: Protocol Stop: 12/27/17 14:01 Last Admin: 12/22/17 05:20 Dose: 100 mls/hr Insulin Detemir (Levemir) 10 unit SC DAILY [facility] Last Admin: 12/21/17 09:39 Dose: 10 unit Insulin Human Regular (Humulin R Med) 0 units SC ACHS JEAN PAUL PRN Reason: Protocol Last Admin: 12/22/17 09:04 Dose: 3 units Ketorolac Tromethamine (Toradol) 15 mg IVP Q6 PRN PRN Reason: Pain, severe (8-10) Last Admin: 12/22/17 09:15 Dose: 15 mg Lidocaine (Lidoderm) 1 ea TD DAILY [facility] Last Admin: 12/21/17 09:40 Dose: 1 ea Lorazepam (Ativan) 0.25 mg IVP Q8H PRN; Protocol PRN Reason: Anxiety Last Admin: 12/22/17 00:28 Dose: 0.25 mg Metoprolol Tartrate (Lopressor) 50 mg PO BID [facility] Last Admin: 12/21/17 17:28 Dose: 50 mg Pantoprazole Sodium (Protonix Ec Tab) 40 mg PO ACB [facility] Last Admin: 12/22/17 06:49 Dose: 40 mg Polyethylene Glycol (Miralax) 17 gm PO DAILY [facility] Last Admin: 12/21/17 09:37 Dose: 17 gm Prednisone (Prednisone Tab) 10 mg PO DAILY [facility] Promethazine HCl/Codeine (Phenergan/Codeine Oral Syrup) 5 ml PO Q4H PRN PRN Reason: Cough and congestion Last Admin: 12/22/17 05:20 Dose: 5 ml Quetiapine Fumarate (Seroquel) 12.5 mg PO BID PRN; Protocol PRN Reason: agitation and confusion Last Admin: 12/21/17 21:03 Dose: 12.5 mg - Labs Labs: 12/21/17 06:00 12/21/17 06:00 PT 14.7 SECONDS (9.4-12.5) H 12/13/17 00:30 INR 1.28 (0.93-1.08) H 12/13/17 00:30 APTT 29.9 Seconds (25.1-36.5) 12/13/17 00:30 - Constitutional Appears: No Acute Distress - Head Exam Head Exam: ATRAUMATIC, NORMAL INSPECTION, NORMOCEPHALIC - Eye Exam Eye Exam: EOMI, Normal appearance, PERRL Pupil Exam: NORMAL ACCOMODATION, PERRL - ENT Exam ENT Exam: Mucous Membranes Moist, Normal Exam - Neck Exam Neck Exam: Full ROM, Normal Inspection. absent: Lymphadenopathy - Respiratory Exam Respiratory Exam: Decreased Breath Sounds Additional comments: crackles b/l. R chest tube in place. No air leak - Cardiovascular Exam Cardiovascular Exam: REGULAR RHYTHM - GI/Abdominal Exam GI & Abdominal Exam: Soft, Normal Bowel Sounds. absent: Distended, Tenderness - Extremities Exam Extremities Exam: Full ROM, Normal Inspection - Back Exam Back Exam: NORMAL INSPECTION - Neurological Exam Neurological Exam: Alert, Awake, CN II-XII Intact, Normal Gait, Oriented x3 - Psychiatric Exam Psychiatric exam: Normal Affect, Normal Mood - Skin Skin Exam: Dry, Intact, Normal Color, Warm Assessment and Plan - Assessment and Plan (Free Text) Assessment: 77 y/o male with pneumothorax s/p chest tube placement: CXR: no pneumothorax Leukocytosis likely 2/2 steroids -cont chest tube to suction, 25 mmhg -monitor output -daily CXR -aggressive incentive spirometer use -RAGINI Purdy
[2017-12-22] MEDS: Lidocaine 5% Patch TD SCH (14:23)
[2017-12-22] MEDS: POLYETHYLENE GLYCOL 3350 17 GM/Dose PACKET PO SCH (14:23)
[2017-12-22] MEDS: Insulin Detemir 100 units/ml Vial (Levemir) SC SCH (14:28)
--- NOTE | 2017-12-22 14:41 | CP.PCM.PN ---
Subjective - Date & Time of Evaluation Date of Evaluation: 12/22/17 Time of Evaluation: 10:35 - Subjective Subjective: Comfortable, no fevers, less pain along the chest tube site. Objective - Vital Signs/Intake and Output Vital Signs (last 24 hours): Temp Pulse Resp BP Pulse Ox 98.9 F 101 H 18 126/67 97 12/22/17 12:00 12/22/17 12:00 12/22/17 12:00 12/22/17 14:24 12/22/17 06:00 Intake and Output: 12/22/17 12/22/17 06:59 18:59 Intake Total 420 Output Total 850 Balance -430 - Medications Medications: Current Medications Acetaminophen (Tylenol 325mg Tab) 650 mg PO Q6H PRN PRN Reason: Pain, Mild (1-3) Last Admin: 12/18/17 01:52 Dose: 650 mg Acetaminophen (Tylenol 325mg Tab) 650 mg PO Q6H PRN PRN Reason: Headache Last Admin: 12/21/17 19:22 Dose: 650 mg Albuterol/Ipratropium (Duoneb 3 Mg/0.5 Mg (3 Ml) Ud) 3 ml IH Q4H PRN PRN Reason: Shortness of Breath Last Admin: 12/14/17 05:05 Dose: 3 ml Albuterol/Ipratropium (Duoneb 3 Mg/0.5 Mg (3 Ml) Ud) 3 ml IH [id number] [facility] Last Admin: 12/22/17 13:06 Dose: 3 ml Benzocaine/Menthol (Cepacol Sore Throat) [address] MT Q2H PRN PRN Reason: Sore Throat Last Admin: 12/22/17 14:24 Dose: 1 wayne Benzocaine/Menthol (Cepacol Sore Throat) 1 wayne MT Q2H PRN PRN Reason: Sore Throat Bisacodyl (Dulcolax) 10 mg RC DAILY [facility] Last Admin: 12/22/17 14:28 Dose: Not Given Doxycycline Hyclate (Doryx) 100 mg PO Q12 [facility] PRN Reason: Protocol Last Admin: 12/22/17 14:23 Dose: 100 mg Emollient Ointment (Vaseline Oint) 5 gm TOP Q8 PRN PRN Reason: Dry skin Last Admin: 12/14/17 09:26 Dose: 5 gm Fentanyl (Duragesic) 1 patch TD Q72H [facility] Last Admin: 12/21/17 13:46 Dose: 1 patch Furosemide (Lasix) 20 mg IVP Q12 [facility] Last Admin: 12/22/17 14:24 Dose: 20 mg Cefepime HCl (Maxipime 1gm) 1 gm in 100 mls @ 100 mls/hr IVPB Q8 [facility] PRN Reason: Protocol Stop: 12/27/17 14:01 Last Admin: 12/22/17 14:23 Dose: 100 mls/hr Insulin Detemir (Levemir) 10 unit SC DAILY [facility] Last Admin: 12/22/17 14:28 Dose: 10 unit Insulin Human Regular (Humulin R Med) 0 units SC ACHS [facility] PRN Reason: Protocol Last Admin: 12/22/17 14:25 Dose: 3 units Ketorolac Tromethamine (Toradol) 15 mg IVP Q6 PRN PRN Reason: Pain, severe (8-10) Last Admin: 12/22/17 09:15 Dose: 15 mg Lidocaine (Lidoderm) 1 ea TD DAILY [facility] Last Admin: 12/22/17 14:23 Dose: 1 ea Lorazepam (Ativan) 0.25 mg IVP Q8H PRN; Protocol PRN Reason: Anxiety Last Admin: 12/22/17 10:34 Dose: 0.25 mg Metoprolol Tartrate (Lopressor) 50 mg PO BID [facility] Last Admin: 12/22/17 14:24 Dose: 50 mg Pantoprazole Sodium (Protonix Ec Tab) 40 mg PO ACB [facility] Last Admin: 12/22/17 06:49 Dose: 40 mg Polyethylene Glycol (Miralax) 17 gm PO DAILY [facility] Last Admin: 12/22/17 14:23 Dose: 17 gm Prednisone (Prednisone Tab) 10 mg PO DAILY [facility] Last Admin: 12/22/17 14:24 Dose: 10 mg Promethazine HCl/Codeine (Phenergan/Codeine Oral Syrup) 5 ml PO Q4H PRN PRN Reason: Cough and congestion Last Admin: 12/22/17 05:20 Dose: 5 ml Quetiapine Fumarate (Seroquel) 12.5 mg PO BID PRN; Protocol PRN Reason: agitation and confusion Last Admin: 12/21/17 21:03 Dose: 12.5 mg - Labs Labs: 12/21/17 06:00 12/21/17 06:00 PT 14.7 SECONDS (9.4-12.5) H 12/13/17 00:30 INR 1.28 (0.93-1.08) H 12/13/17 00:30 APTT 29.9 Seconds (25.1-36.5) 12/13/17 00:30 - Constitutional Appears: Chronically Ill - Head Exam Head Exam: NORMAL INSPECTION - Respiratory Exam Respiratory Exam: Decreased Breath Sounds Additional comments: right chest tube in place - Cardiovascular Exam Cardiovascular Exam: +S1, +S2 - GI/Abdominal Exam GI & Abdominal Exam: Soft. absent: Tenderness Assessment and Plan - Assessment and Plan (Free Text) Plan: Assessment Consider sepsis from multifocal healthcare-associated pneumonia, post-viral, now with right sided spontaneous pneumothorax S/P chest tube placement HTN DM CAD COPD history of bowel obstruction S/P colonic resection history of pneumonia Plan continue Doxycycline and Cefepime day 10 - complete 7-10 days of antibiotics - january d/c after today continue to trend WBC count will continue to monitor clinically
--- NOTE | 2017-12-22 16:39 | PN ---
DATE: SUBJECTIVE: The patient was followed up. There are no new changes with the patient presentation. The patient has multiple medical issues, sepsis from multifactorial healthcare-associated pneumonia, post viral. The patient is also status post spontaneous pneumothorax, status post chest tube placement, hypertension, diabetes, coronary artery disease, COPD, history of bowel obstruction, colon resection, history of pneumonia. The patient was in delirium stage, which slowly is improving. The patient is on antibiotics. Psychiatric services involved because of the delirium. The patient was seen today. The patient appears to be sleepy and hard to arouse. The patient reported that he feels comfortable, was tired during the interview. Vital signs seem to be stable. Temperature 98, pulse is 101, blood pressure 126/67, respirations 18, oxygen saturation is 97. Medications reviewed. The patient is on Seroquel 12.5 mg twice a day as needed, the patient got dose yesterday at the evening time; Ativan 0.25 mg IV push every 6 hours as needed for anxiety and agitation. MENTAL STATUS EXAMINATION: The patient was not able to participate in interview, was falling asleep. Expressed no new symptoms. Psychotic symptoms and delirium symptoms slowly improving. IMPRESSION: Delirium seems to be improving. No agitation, no aggression. Rule out adjustment disorder with depressed and anxious mood. Of note, the patient's recently. Since that time, the patient was feeling more depressed and withdrawn. PLAN: Continue current management. Continue current medications. form worker is working on discharge plan for the patient. Meanwhile, continue everything as it is. Will follow up on this patient every other day. Should you have any questions, give me a call back. Thank you very much for letting me participate in care of your patient. Desiree Umana MD
--- NOTE | 2017-12-22 18:11 | PN ---
DATE: 12/22/2017 REASON FOR CONSULTATION: Followup abnormal EKG status post pneumothorax status post chest tube. Patient denies any chest pain, shortness of breath, any palpitation. Patient is not in apparent distress. PHYSICAL EXAMINATION VITAL SIGNS: Temperature afebrile, heart rate 101, blood pressure 135/75. HEENT: PERRLA. Extraocular muscles are intact. NECK: Supple. No carotid bruits or thyromegaly. CHEST: Clear to auscultation. HEART: S1 and S2, regular. ABDOMEN: Soft. EXTREMITIES: Clubbing and cyanosis negative. LABORATORY DATA: Blood workup as follows; WBC 20.3, hemoglobin 11, hematocrit 32.9, platelet count 454. Chemistry shows sodium 130, potassium 4.5, chloride 92, carbon dioxide 32, anion gap of 12, BUN 24, creatinine 0.5. IMPRESSION: Sinus tachycardia, pneumonia, chronic obstructive pulmonary disease, multilobar pneumonia status post pneumothorax status post chest tube, diabetes, hypertension, hyperlipidemia. Tachycardia is multifactorial secondary to underlying condition as well as pneumothorax as well as pain and anemia. Severe protein-calorie malnutrition, which was present on admission, but was moderate to severe, now it is severe. RECOMMENDATIONS: Increase nutritional support. Patient complains of sore throat. I gave him Cepacol lozenges. Continue gentle diuretics, continue chest tube, continue broad spectrum antibiotics, consider discontinue telemetry. We will follow with you. Thank you, Dr. Fields, for providing us the opportunity in taking care of the patient, Nikko Dia. My yesterday's progress note did yesterday, I have not transcribed as yet, waiting for the counselor education professor since yesterday to be completed. Eloisa Montana MD
--- NOTE | 2017-12-23 01:04 | PN ---
DATE: 12/22/2017 PULMONARY PROGRESS NOTE REFERRING PHYSICIAN: Ya Fields MD. SUBJECTIVE: The patient is sitting up in a reclining chair, has a right-sided chest tube with air leak. Family is at bedside. He feels better. Family is helping him with the dinner. Right shoulder, chest pain is a little better. No nausea. No vomiting. No diarrhea. No leg pain. No leg swelling. OBJECTIVE: GENERAL: In no acute distress. VITAL SIGNS: Temp is 98, heart rate is 87, respiratory rate is 18 and blood pressure is 159/83, pulse ox 96% on nasal cannula. HEENT: Moist mucous membrane. No ulcer or thrush noted. NECK: Supple. No JVD. LUNGS: Have scattered rhonchi. He has a right-sided chest tube. HEART: S1 and S2. ABDOMEN: Soft, nontender. No organomegaly. EXTREMITIES: There is no edema. NEUROLOGIC: Awake, alert. Follows simple command. MEDICATIONS: He is on Ativan 0.25 mg q.8 hours p.r.n., Cepacol lozenges q. 2 hours p.r.n., doxycycline 100 mg twice a day, Dulcolax 100 mg rectally daily, DuoNeb q.4 hours p.r.n. and q.6 hours [id number], fentanyl patch q.72 hours, insulin coverage, Lasix 20 mg twice a day, Levemir 10 units subcu daily, Lidoderm patch daily, metoprolol tartrate 50 mg twice a day, cefepime 1 g q.8 hours, MiraLax 17 g daily, promethazine 5 mL q.4 hours p.r.n., prednisone 10 mg daily, Protonix 40 mg a.c.b., Seroquel 12.5 mg twice a day, Toradol 50 mg q.6 hours p.r.n., Tylenol p.r.n. basis and Vaseline ointment to affected area. LABORATORY DATA: Shows hemoglobin 11.0, blood sugar 198. Chest x-ray from this morning showed bilateral infiltrate, no obvious pneumothorax noted, right-sided chest tube. IMPRESSION AND PLAN: Multilobar infiltrate, chronic obstructive lung disease, persistent air leak from the chest tube, constipation, diabetes, hypertension and coronary artery disease. Pulmonary point of view, doing well. Continue chest tube on suction as long as there is air leak. Keep head elevated at 45 degrees. Antibiotics as per Infectious Diseases and taper off steroids. Gastric prophylaxis, deep vein thrombosis prophylaxis. Pain management. Fall precaution. Follow up labs in the morning. Thank you and we will follow with you. Eloisa Luciano MD
[2017-12-23] MEDS: Albuterol-Ipratrop 3 mg / 0.5 (3 ml) UD IH SCH ×4 (01:24→20:20)
[2017-12-23] MEDS: Cefepime 1gm in NS 100ml 1 GM/100 ML BAG IVPB SCH ×2 (05:20→13:27)
[2017-12-23 05:23] LABS: ARTERIAL BLOOD GAS HCO3 33.5 mmol/L (21-28); ARTERIAL BLOOD GAS HEMOGLOBIN 11.2 g/dL (11.7-17.4); ARTERIAL BLOOD GAS O2 CAPACITY 15.5 mL/dl (16-24); ARTERIAL BLOOD GAS O2 CONTENT 15.3 ML/dl (15-23); ARTERIAL BLOOD GAS O2 SAT 98.6 % (95-98); ARTERIAL BLOOD GAS PCO2 42 mm/Hg (35-45); ARTERIAL BLOOD GAS PH 7.51 (7.35-7.45); ARTERIAL BLOOD GAS TCO2 34.8 mmol.L (22-28)
[2017-12-23 06:25] LABS: HEMOGLOBIN 11.1 g/dL (14.0-18.0); MEAN CELL VOLUME 91.6 fl (80.0-105.0); MEAN CORPUSCULAR HEMOGLOBIN 30.2 pg (25.0-35.0); MEAN PLATELET VOLUME 9.8 fl (7.0-11.0); RBC 3.67 10^6/uL (3.5-6.1)
[2017-12-23] MEDS: Promethazine/Cod 6.25mg-10mg/5ml Syr UD PO PRN (06:27)
[2017-12-23 07:26] LABS: ALB/GLOB RATIO 0.7 (1.1-1.8); ALBUMIN 2.8 g/dL (3.0-4.8); ALT/SGPT 82 U/L (7-56); AST/SGOT 54 U/L (17-59); BLOOD UREA NITROGEN 31 mg/dL (7-21); CALCIUM 9.1 mg/dL (8.4-10.5); GFR AFRICAN-AMERICAN > 60; GFR NON-AFRICAN AMERICAN > 60
[2017-12-23] MEDS: Insulin Reg-MEDIUM-Coverage SC SCH ×4 (07:45→22:34)
[2017-12-23] MEDS: Pantoprazole 40 mg EC Tab PO SCH (08:05)
--- NOTE | 2017-12-23 08:18 | CP.PCM.PN ---
Subjective - Date & Time of Evaluation Date of Evaluation: 12/23/17 Time of Evaluation: 08:05 - Subjective Subjective: Surgery Progress Note: Patient seen and examined at bedside. No acute events overnight. Pt complains of sore throat and dry cough. Denies fever, chills, nausea vomiting. Objective - Vital Signs/Intake and Output Vital Signs (last 24 hours): Temp Pulse Resp BP Pulse Ox 97.4 F L 107 H 18 107/46 L 97 12/23/17 06:00 12/23/17 06:00 12/23/17 06:00 12/23/17 06:00 12/23/17 06:00 Intake and Output: 12/23/17 12/23/17 06:59 18:59 Intake Total 790 Output Total 2300 Balance -1510 - Medications Medications: Current Medications Acetaminophen (Tylenol 325mg Tab) 650 mg PO Q6H PRN PRN Reason: Pain, Mild (1-3) Last Admin: 12/18/17 01:52 Dose: 650 mg Acetaminophen (Tylenol 325mg Tab) 650 mg PO Q6H PRN PRN Reason: Headache Last Admin: 12/21/17 19:22 Dose: 650 mg Albuterol/Ipratropium (Duoneb 3 Mg/0.5 Mg (3 Ml) Ud) 3 ml IH Q4H PRN PRN Reason: Shortness of Breath Last Admin: 12/14/17 05:05 Dose: 3 ml Albuterol/Ipratropium (Duoneb 3 Mg/0.5 Mg (3 Ml) Ud) 3 ml IH [id number] [facility] Last Admin: 12/23/17 07:49 Dose: 3 ml Benzocaine/Menthol (Cepacol Sore Throat) 1 [address] MT Q2H PRN PRN Reason: Sore Throat Last Admin: 12/22/17 18:55 Dose: 1 wayne Benzocaine/Menthol (Cepacol Sore Throat) 1 [place]ne MT Q2H PRN PRN Reason: Sore Throat Bisacodyl (Dulcolax) 10 mg RC DAILY [facility] Last Admin: 12/22/17 14:28 Dose: Not Given Doxycycline Hyclate (Doryx) 100 mg PO Q12 [facility] PRN Reason: Protocol Last Admin: 12/22/17 21:36 Dose: 100 mg Emollient Ointment (Vaseline Oint) 5 gm TOP Q8 PRN PRN Reason: Dry skin Last Admin: 12/14/17 09:26 Dose: 5 gm Fentanyl (Duragesic) 1 patch TD Q72H [facility] Last Admin: 12/21/17 13:46 Dose: 1 patch Furosemide (Lasix) 20 mg IVP Q12 [facility] Last Admin: 12/22/17 21:37 Dose: 20 mg Cefepime HCl (Maxipime 1gm) 1 gm in 100 mls @ 100 mls/hr IVPB Q8 [facility] PRN Reason: Protocol Stop: 12/27/17 14:01 Last Admin: 12/23/17 05:20 Dose: 100 mls/hr Insulin Detemir (Levemir) 10 unit SC DAILY [facility] Last Admin: 12/22/17 14:28 Dose: 10 unit Insulin Human Regular (Humulin R Med) 0 units SC ACHS [facility] PRN Reason: Protocol Last Admin: 12/23/17 07:45 Dose: Not Given Ketorolac Tromethamine (Toradol) 15 mg IVP Q6 PRN PRN Reason: Pain, severe (8-10) Last Admin: 12/22/17 09:15 Dose: 15 mg Lidocaine (Lidoderm) 1 ea TD DAILY [facility] Last Admin: 12/22/17 14:23 Dose: 1 ea Lorazepam (Ativan) 0.25 mg IVP Q8H PRN; Protocol PRN Reason: Anxiety Last Admin: 12/22/17 10:34 Dose: 0.25 mg Metoprolol Tartrate (Lopressor) 50 mg PO BID [facility] Last Admin: 12/22/17 19:38 Dose: 50 mg Pantoprazole Sodium (Protonix Ec Tab) 40 mg PO ACB [facility] Last Admin: 12/22/17 06:49 Dose: 40 mg Polyethylene Glycol (Miralax) 17 gm PO DAILY [facility] Last Admin: 12/22/17 14:23 Dose: 17 gm Prednisone (Prednisone Tab) 10 mg PO DAILY [facility] Last Admin: 12/22/17 14:24 Dose: 10 mg Promethazine HCl/Codeine (Phenergan/Codeine Oral Syrup) 5 ml PO Q4H PRN PRN Reason: Cough and congestion Last Admin: 12/23/17 06:27 Dose: 5 ml Quetiapine Fumarate (Seroquel) 12.5 mg PO BID PRN; Protocol PRN Reason: agitation and confusion Last Admin: 12/21/17 21:03 Dose: 12.5 mg - Labs Labs: 12/23/17 05:30 12/23/17 05:30 PT 14.7 SECONDS (9.4-12.5) H 12/13/17 00:30 INR 1.28 (0.93-1.08) H 12/13/17 00:30 APTT 29.9 Seconds (25.1-36.5) 12/13/17 00:30 - Constitutional Appears: Non-toxic, No Acute Distress - Head Exam Head Exam: ATRAUMATIC, NORMOCEPHALIC - Eye Exam Eye Exam: EOMI, PERRL. absent: Conjunctival injection, Scleral icterus Pupil Exam: NORMAL ACCOMODATION, PERRL. absent: Irregular, Unequal - ENT Exam ENT Exam: Mucous Membranes Moist - Neck Exam Neck Exam: Full ROM - Respiratory Exam Respiratory Exam: Rales. absent: Wheezes, Stridor Additional comments: Right chest tube in place, no air leak. - Cardiovascular Exam Cardiovascular Exam: RRR, +S1, +S2. absent: Murmur - GI/Abdominal Exam GI & Abdominal Exam: Soft, Normal Bowel Sounds. absent: Firm, Tenderness, Mass , Organomegaly, Rebound - Extremities Exam Extremities Exam: Normal Inspection. absent: Calf Tenderness, Pedal Edema - Back Exam Back Exam: NORMAL INSPECTION - Neurological Exam Neurological Exam: Alert, Awake, Oriented x3 - Psychiatric Exam Psychiatric exam: Normal Affect, Normal Mood - Skin Skin Exam: Dry, Normal Color, Warm Assessment and Plan - Assessment and Plan (Free Text) Assessment: 77 y/o male with pneumothorax s/p chest tube placement: CXR: no pneumothorax Leukocytosis likely 2/2 steroids -cont chest tube to suction, 25 mmhg -monitor output -daily CXR -aggressive incentive spirometer use -Will discuss with Dr. Purdy
--- NOTE | 2017-12-23 08:28 | PN ---
DATE: 12/22/2017 SUBJECTIVE: Patient is seen and examined on the bedside, looking comfortable. No nausea, vomiting, or diarrhea. No hematuria or hematochezia. Sleepy, arousable, moving all 4 extremities, no focal deficits, still having chest tube. No fever, no chills. PHYSICAL EXAMINATION: VITAL SIGNS: Temperature 98.8, pulse 101, respiratory rate 18, blood pressure 120/67, pulse oximetry 97. HEENT: Head is normocephalic and atraumatic. Eyes, PERRLA. Extraocular muscles are intact. Conjunctivae are clear. Nose is patent. Mucous membranes are moist. NECK: Supple. No carotid bruits. No JVD or thyromegaly. CHEST: Bilaterally symmetrical. HEART: S1 and S2 positive. LUNGS: Clear to auscultation. ABDOMEN: Soft. Bowel sounds present. No organomegaly. EXTREMITIES: No edema. No cyanosis. NEUROLOGIC: Patient is sleepy, arousable. Follows simple commands. MEDICATIONS: Acetaminophen, DuoNeb, Cepacol, Dulcolax, doxycycline, Vaseline, Duragesic patch, Lasix, Levemir, insulin, Toradol, Lidoderm, Ativan, Lopressor, Protonix, MiraLax, Prednisone, Phenergan, Seroquel. LABORATORY DATA: White blood cells 20.3, hemoglobin 11.0, hematocrit 32.9, platelets noted Sodium 132, potassium 4.5, BUN 24, creatinine 0.8, glucose 280. ASSESSMENT: Mr. Nikko Dia is a 77-year-old male with leukocytosis, anemia, thrombocytosis, hyperglycemia, has sepsis with multifocal healthcare-associated pneumonia, post viral syndrome, has right-sided spontaneous pneumothorax, status post chest tube placement, history of hypertension, diabetes mellitus, coronary artery disease, chronic obstructive pulmonary disease, history of bowel obstruction, status post colonic resection, history of degenerative joint disease. We will continue doxycycline, cefepime day 10. Complete 10 days of antibiotics. According to ID, may be discontinue antibiotics. We will continue monitoring the patient, discussion done with Dr. Matamoros. Reviewed Dr. Desiree Umana's notes and Cardiology notes also. Patient is getting steroids of tapering doses. Chest x-ray showed no more pneumothorax. We will follow up. Ya Fields MD [facility]
[2017-12-23] MEDS: Insulin Detemir 100 units/ml Vial (Levemir) SC SCH (09:18)
[2017-12-23] MEDS: Lidocaine 5% Patch TD SCH (09:19)
[2017-12-23] MEDS: Benzocaine/Menthol (Cepacol) Lozenge MT PRN ×4 (09:19→22:04)
[2017-12-23] MEDS: POLYETHYLENE GLYCOL 3350 17 GM/Dose PACKET PO SCH (09:19)
--- NOTE | 2017-12-23 09:24 | RAD ---
HISTORY: chest tube comparison COMPARISON: No prior. FINDINGS: LUNGS: Stable multifocal infiltrates. PLEURA: Stable position of chest tube in the right pleural space. No significant pneumothorax. CARDIOVASCULAR: No radiographic findings to suggest acute or significant cardiovascular disease. OSSEOUS STRUCTURES: No significant abnormalities. VISUALIZED UPPER ABDOMEN: Normal. OTHER FINDINGS: None. IMPRESSION: Stable bilateral infiltrates. Stable position of chest tube in the right pleural space. Overall no interval change.
--- NOTE | 2017-12-23 12:05 | CP.PCM.PN ---
Subjective - Date & Time of Evaluation Date of Evaluation: 12/23/17 Time of Evaluation: 10:30 - Subjective Subjective: Patient is breathing a little better today, no fevers, not in distress, no pain along the chest tube site. Objective - Vital Signs/Intake and Output Vital Signs (last 24 hours): Temp Pulse Resp BP Pulse Ox 97.4 F L 107 H 18 107/46 L 97 12/23/17 06:00 12/23/17 06:00 12/23/17 06:00 12/23/17 06:00 12/23/17 06:00 Intake and Output: 12/23/17 12/23/17 06:59 18:59 Intake Total 790 Output Total 2300 Balance -1510 - Medications Medications: Current Medications Acetaminophen (Tylenol 325mg Tab) 650 mg PO Q6H PRN PRN Reason: Pain, Mild (1-3) Last Admin: 12/18/17 01:52 Dose: 650 mg Acetaminophen (Tylenol 325mg Tab) 650 mg PO Q6H PRN PRN Reason: Headache Last Admin: 12/21/17 19:22 Dose: 650 mg Albuterol/Ipratropium (Duoneb 3 Mg/0.5 Mg (3 Ml) Ud) 3 ml IH Q4H PRN PRN Reason: Shortness of Breath Last Admin: 12/14/17 05:05 Dose: 3 ml Albuterol/Ipratropium (Duoneb 3 Mg/0.5 Mg (3 Ml) Ud) 3 ml IH [id number] [facility] Last Admin: 12/23/17 07:49 Dose: 3 ml Benzocaine/Menthol (Cepacol Sore Throat) 1 [address] MT Q2H PRN PRN Reason: Sore Throat Last Admin: 12/22/17 18:55 Dose: 1 wayne Benzocaine/Menthol (Cepacol Sore Throat) 1 wayne MT Q2H PRN PRN Reason: Sore Throat Bisacodyl (Dulcolax) 10 mg RC DAILY [facility] Last Admin: 12/22/17 14:28 Dose: Not Given Doxycycline Hyclate (Doryx) 100 mg PO Q12 [facility] PRN Reason: Protocol Last Admin: 12/22/17 21:36 Dose: 100 mg Emollient Ointment (Vaseline Oint) 5 gm TOP Q8 PRN PRN Reason: Dry skin Last Admin: 12/14/17 09:26 Dose: 5 gm Fentanyl (Duragesic) 1 patch TD Q72H [facility] Last Admin: 12/21/17 13:46 Dose: 1 patch Furosemide (Lasix) 20 mg IVP Q12 [facility] Last Admin: 12/22/17 21:37 Dose: 20 mg Cefepime HCl (Maxipime 1gm) 1 gm in 100 mls @ 100 mls/hr IVPB Q8 [facility] PRN Reason: Protocol Stop: 12/27/17 14:01 Last Admin: 12/23/17 05:20 Dose: 100 mls/hr Insulin Detemir (Levemir) 10 unit SC DAILY [facility] Last Admin: 12/22/17 14:28 Dose: 10 unit Insulin Human Regular (Humulin R Med) 0 units SC ACHS [facility] PRN Reason: Protocol Last Admin: 12/23/17 07:45 Dose: Not Given Ketorolac Tromethamine (Toradol) 15 mg IVP Q6 PRN PRN Reason: Pain, severe (8-10) Last Admin: 12/22/17 09:15 Dose: 15 mg Lidocaine (Lidoderm) 1 ea TD DAILY [facility] Last Admin: 12/22/17 14:23 Dose: 1 ea Lorazepam (Ativan) 0.25 mg IVP Q8H PRN; Protocol PRN Reason: Anxiety Last Admin: 12/22/17 10:34 Dose: 0.25 mg Metoprolol Tartrate (Lopressor) 50 mg PO BID [facility] Last Admin: 12/22/17 19:38 Dose: 50 mg Pantoprazole Sodium (Protonix Ec Tab) 40 mg PO ACB [facility] Last Admin: 12/23/17 08:05 Dose: 40 mg Polyethylene Glycol (Miralax) 17 gm PO DAILY [facility] Last Admin: 12/22/17 14:23 Dose: 17 gm Prednisone (Prednisone Tab) 10 mg PO DAILY [facility] Last Admin: 12/22/17 14:24 Dose: 10 mg Promethazine HCl/Codeine (Phenergan/Codeine Oral Syrup) 5 ml PO Q4H PRN PRN Reason: Cough and congestion Last Admin: 12/23/17 06:27 Dose: 5 ml Quetiapine Fumarate (Seroquel) 12.5 mg PO BID PRN; Protocol PRN Reason: agitation and confusion Last Admin: 12/21/17 21:03 Dose: 12.5 mg - Labs Labs: 12/23/17 05:30 12/23/17 05:30 PT 14.7 SECONDS (9.4-12.5) H 12/13/17 00:30 INR 1.28 (0.93-1.08) H 12/13/17 00:30 APTT 29.9 Seconds (25.1-36.5) 12/13/17 00:30 - Constitutional Appears: Cachectic, Chronically Ill - Head Exam Head Exam: NORMAL INSPECTION - ENT Exam ENT Exam: Mucous Membranes Moist - Neck Exam Neck Exam: absent: Meningismus - Respiratory Exam Respiratory Exam: Decreased Breath Sounds Additional comments: right sided chest tube in place - Cardiovascular Exam Cardiovascular Exam: +S1, +S2 - GI/Abdominal Exam GI & Abdominal Exam: Soft. absent: Tenderness Assessment and Plan - Assessment and Plan (Free Text) Plan: Assessment sepsis from multifocal healthcare-associated pneumonia, post-viral, now with right sided spontaneous pneumothorax S/P chest tube placement, S/P treatment for antibiotics HTN DM CAD COPD history of bowel obstruction S/P colonic resection history of pneumonia Plan will d/c Doxycycline and Cefepime and he has completed 10 days of therapy - will monitor since he is at high risk for nosocomial infections continue to trend WBC count will continue to monitor clinically
--- NOTE | 2017-12-23 13:16 | PN ---
DATE: REASON FOR THE CONSULTATION: Sinus tachycardia, cardiac evaluation, assess multilobar pneumonia and pneumothorax. SUBJECTIVE: The patient is complaining of sore throat. No chest pain. No shortness of breath. No palpitation. OBJECTIVE GENERAL: Not in apparent distress, sitting at the bedside. VITAL SIGNS: Temperature afebrile, heart rate 92, blood pressure 107/46. HEENT: PERRLA. Extraocular muscles intact. NECK: Supple. No carotid bruit. No thyromegaly. CHEST: Clear to auscultation. HEART: S1 and S2, regular. ABDOMEN: Soft. EXTREMITIES: Clubbing and cyanosis, negative. LABORATORY DATA: Blood workup as follows: WBC 22, hemoglobin 11.2, hematocrit 33.6, platelet count 476,000. Chemistry shows sodium 133, potassium 4.2, chloride 94, carbon dioxide 33, anion gap of 11, BUN 31, creatinine 1. IMPRESSION: Status post chemotherapy; multilobar pneumonia; status post chest tube; sinus tachycardia, improved; leukocytosis; thrombocytopenia; pneumonia. Tachycardia is multifactorial secondary to underlying condition as well as pneumothorax. Severe protein-calorie malnutrition was present on admission, but it was moderate, now it is severe. RECOMMENDATIONS: started Cepacol lozenges every 2 hours. Continue broad-spectrum antibiotics. Continue chest tube. Consider discontinue telemetry. CVS status is stable. Continue low-dose beta mauricio as ordered, as tolerated. We will increase metoprolol to 50 mg [address].i.d. Thank you Dr. Fields for providing us the opportunity in taking care of the patient, Nikko Dia. Eloisa Montana MD
--- NOTE | 2017-12-23 19:57 | PN ---
DATE: 12/23/2017 REFERRING PHYSICIAN: Ya Fields MD SUBJECTIVE: He is out of bed to a reclining chair, much more awake and alert, still have persistent air leak, mild cough. No sputum production. No nausea, no vomiting, no diarrhea, leg pain or leg swelling. PHYSICAL EXAMINATION: GENERAL: In no acute distress. VITAL SIGNS: Temperature is 98, heart rate is 92, respiratory rate is 22, blood pressure 126/76, pulse ox 97% on 3 liters nasal cannula. HEENT: Moist mucous membranes. Small oral cavity. NECK: Supple. No JVD. LUNGS: Scattered rhonchi and crackles. HEART: S1 and S2. ABDOMEN: Soft, nontender, no organomegaly. EXTREMITIES: There is no edema. NEUROLOGIC: Awake, alert and follows simple command. MEDICATIONS: He is on Ativan 0.25 mg IV q.8 hour p.r.n., Cepacol lozenges p.r.n. basis, doxycycline 100 mg twice a day, Dulcolax p.r.n. basis, DuoNeb q.6 hours [id number], Duragesic patch q.72 hour, Lasix 20 mg twice a day, Levemir 10 units subcutaneous daily, lidocaine patch at affected area, metoprolol tartrate 50 mg twice a day, MiraLAX 17 gm p.o. daily, promethazine with codeine q.4 hour p.r.n., prednisone 10 mg daily, Protonix 40 mg daily, Seroquel 12.5 mg twice a day p.r.n., Toradol 50 mg q.6 hour p.r.n., Tylenol p.r.n. basis, Vaseline ointment to affected area. LABORATORY DATA: Shows hemoglobin 11.1, hematocrit 33.6, WBC 22,000, platelet is 475. Blood gases shows pH 7.51, pCO2 of 42, O2 is 93, this is on nasal cannula. Chest x-ray shows bilateral infiltrate, no pneumothorax noted on the chest x-ray. IMPRESSION AND PLAN: Multilobar infiltrate, chronic obstructive lung disease, persistent air leak with a chest tube, constipation, diabetes, hypertension, coronary artery disease, probably dementia. Pulmonary point of view, doing okay. I spoke to nursing staff. Continue inhaled bronchodilator, antibiotics. Taper off steroids. Continue chest tube on suction. Incentive spirometer, bedside physical therapy. Fall precaution. Thank you and we will follow with you. Eloisa Luciano MD
[2017-12-24] MEDS: Promethazine/Cod 6.25mg-10mg/5ml Syr UD PO PRN (00:38)
[2017-12-24] MEDS: Albuterol-Ipratrop 3 mg / 0.5 (3 ml) UD IH SCH ×4 (02:18→19:36)
[2017-12-24] MEDS: Benzocaine/Menthol (Cepacol) Lozenge MT PRN ×4 (05:24→18:12)
[2017-12-24 07:19] LABS: MEAN CELL VOLUME 91.1 fl (80.0-105.0); MEAN CORPUSCULAR HEMOGLOBIN 29.6 pg (25.0-35.0); MEAN CORPUSCULAR HGB CONC 32.5 g/dl (31.0-37.0); MEAN PLATELET VOLUME 9.9 fl (7.0-11.0); RBC 3.71 10^6/uL (3.5-6.1); RED CELL DISTRIBUTION WIDTH 13.8 % (11.5-14.5); WHITE BLOOD COUNT 19.7 10^3/ul (4.5-11.0)
[2017-12-24 07:41] LABS: BLOOD UREA NITROGEN 34 mg/dL (7-21); GFR AFRICAN-AMERICAN > 60; GFR NON-AFRICAN AMERICAN > 60
--- NOTE | 2017-12-24 08:20 | CP.PCM.PN ---
Subjective - Date & Time of Evaluation Date of Evaluation: 12/24/17 Time of Evaluation: 08:17 - Subjective Subjective: Surgery P s&e. NAEON. CT in place. 100cc serous ouput/24hrs. Air leak when cough. Breathing better today. c/o R arm /shoulder pain. Resting on chair Objective - Vital Signs/Intake and Output Vital Signs (last 24 hours): Temp Pulse Resp BP Pulse Ox 98.3 F 110 H 20 136/70 99 12/24/17 05:52 12/24/17 05:52 12/24/17 05:52 12/24/17 05:52 12/24/17 05:52 Intake and Output: 12/24/17 12/24/17 06:59 18:59 Intake Total 240 Output Total 1000 70 Balance -760 -70 - Medications Medications: Current Medications Acetaminophen (Tylenol 325mg Tab) 650 mg PO Q6H PRN PRN Reason: Pain, Mild (1-3) Last Admin: 12/18/17 01:52 Dose: 650 mg Acetaminophen (Tylenol 325mg Tab) 650 mg PO Q6H PRN PRN Reason: Headache Last Admin: 12/21/17 19:22 Dose: 650 mg Albuterol/Ipratropium (Duoneb 3 Mg/0.5 Mg (3 Ml) Ud) 3 ml IH Q4H PRN PRN Reason: Shortness of Breath Last Admin: 12/14/17 05:05 Dose: 3 ml Albuterol/Ipratropium (Duoneb 3 Mg/0.5 Mg (3 Ml) Ud) 3 ml IH [id number] [facility] Last Admin: 12/24/17 07:32 Dose: 3 ml Benzocaine/Menthol (Cepacol Sore Throat) 1 [address]ne MT Q2H PRN PRN Reason: Sore Throat Last Admin: 12/24/17 05:24 Dose: 1 wayne Bisacodyl (Dulcolax) 10 mg RC DAILY [facility] Last Admin: 12/23/17 09:19 Dose: Not Given Doxycycline Hyclate (Doryx) 100 mg PO Q12 JEAN PAUL PRN Reason: Protocol Last Admin: 12/23/17 22:04 Dose: 100 mg Emollient Ointment (Vaseline Oint) 5 gm TOP Q8 PRN PRN Reason: Dry skin Last Admin: 12/14/17 09:26 Dose: 5 gm Fentanyl (Duragesic) 1 patch TD Q72H [facility] Last Admin: 12/21/17 13:46 Dose: 1 patch Furosemide (Lasix) 20 mg IVP Q12 [facility] Last Admin: 12/23/17 21:57 Dose: 20 mg Insulin Detemir (Levemir) 10 unit SC DAILY [facility] Last Admin: 12/23/17 09:18 Dose: 10 unit Insulin Human Regular (Humulin R Med) 0 units SC ACHS [facility] PRN Reason: Protocol Last Admin: 12/23/17 22:34 Dose: Not Given Ketorolac Tromethamine (Toradol) 15 mg IVP Q6 PRN PRN Reason: Pain, severe (8-10) Last Admin: 12/22/17 09:15 Dose: 15 mg Lidocaine (Lidoderm) 1 ea TD DAILY [facility] Last Admin: 12/23/17 09:19 Dose: 1 ea Lorazepam (Ativan) 0.25 mg IVP Q8H PRN; Protocol PRN Reason: Anxiety Last Admin: 12/23/17 14:27 Dose: 0.25 mg Metoprolol Tartrate (Lopressor) 50 mg PO BID [facility] Last Admin: 12/23/17 17:32 Dose: Not Given Pantoprazole Sodium (Protonix Ec Tab) 40 mg PO ACB [facility] Last Admin: 12/23/17 08:05 Dose: 40 mg Polyethylene Glycol (Miralax) 17 gm PO DAILY [facility] Last Admin: 12/23/17 09:19 Dose: 17 gm Prednisone (Prednisone Tab) 10 mg PO DAILY [facility] Last Admin: 12/23/17 09:20 Dose: 10 mg Promethazine HCl/Codeine (Phenergan/Codeine Oral Syrup) 5 ml PO Q4H PRN PRN Reason: Cough and congestion Last Admin: 12/24/17 00:38 Dose: 5 ml Quetiapine Fumarate (Seroquel) 12.5 mg PO BID PRN; Protocol PRN Reason: agitation and confusion Last Admin: 12/23/17 22:02 Dose: 12.5 mg - Labs Labs: 12/24/17 06:45 12/24/17 06:45 PT 14.7 SECONDS (9.4-12.5) H 12/13/17 00:30 INR 1.28 (0.93-1.08) H 12/13/17 00:30 APTT 29.9 Seconds (25.1-36.5) 12/13/17 00:30 - Constitutional Appears: No Acute Distress, Cachectic, Chronically Ill - Head Exam Head Exam: ATRAUMATIC, NORMAL INSPECTION, NORMOCEPHALIC - Eye Exam Eye Exam: EOMI, Normal appearance, PERRL Pupil Exam: NORMAL ACCOMODATION, PERRL - ENT Exam ENT Exam: Mucous Membranes Moist, Normal Exam - Neck Exam Neck Exam: Full ROM, Normal Inspection. absent: Lymphadenopathy - Respiratory Exam Respiratory Exam: Decreased Breath Sounds Additional comments: crackles. R CT in place - Cardiovascular Exam Cardiovascular Exam: REGULAR RHYTHM - GI/Abdominal Exam GI & Abdominal Exam: Soft, Normal Bowel Sounds. absent: Distended, Tenderness - Extremities Exam Extremities Exam: Full ROM, Normal Capillary Refill, Normal Inspection. absent : Joint Swelling, Pedal Edema - Back Exam Back Exam: NORMAL INSPECTION - Neurological Exam Neurological Exam: Alert, Awake, CN II-XII Intact, Normal Gait, Oriented x3 - Psychiatric Exam Psychiatric exam: Normal Affect, Normal Mood - Skin Skin Exam: Dry, Intact, Normal Color, Warm Assessment and Plan - Assessment and Plan (Free Text) Assessment: 77 y/o male with pneumothorax s/p chest tube placement: CXR: no pneumothorax Leukocytosis likely 2/2 steroids -cont chest tube to suction, 25 mmhg -monitor output -daily CXR -aggressive incentive spirometer use -Will discuss with Dr. Purdy
[2017-12-24] MEDS: Insulin Reg-MEDIUM-Coverage SC SCH ×4 (08:29→23:26)
[2017-12-24] MEDS: Pantoprazole 40 mg EC Tab PO SCH (08:30)
[2017-12-24] MEDS: Insulin Detemir 100 units/ml Vial (Levemir) SC SCH (09:40)
[2017-12-24] MEDS: POLYETHYLENE GLYCOL 3350 17 GM/Dose PACKET PO SCH (09:40)
[2017-12-24] MEDS: Lidocaine 5% Patch TD SCH (09:41)
[2017-12-24] MEDS ORDERED: POLYETHYLENE GLYCOL 3350 17 GM/Dose PACKET PO ONE ×2 (10:09→10:11)
--- NOTE | 2017-12-24 11:32 | RAD ---
HISTORY: chest tube comparison COMPARISON: Portable chest 12/23/2017. FINDINGS: LUNGS: Mild heterogeneous infiltrates are stable and Premarin primarily the bilateral upper lung zones and minimally at the right base once again. PLEURA: Trace right pneumothorax not completely excluded with right pleural catheter again identified in position. No left pneumothorax. No pleural effusion bilaterally. CARDIOVASCULAR: Cardiomediastinal silhouette appears stable. OSSEOUS STRUCTURES: No significant abnormalities. VISUALIZED UPPER ABDOMEN: Normal. OTHER FINDINGS: None. IMPRESSION: Trace right pneumothorax is in question though this is not definite. Right chest tube unchanged in position. Limited bilateral infiltrates unchanged.
--- NOTE | 2017-12-24 13:00 | CP.PCM.PN ---
Subjective - Date & Time of Evaluation Date of Evaluation: 12/24/17 Time of Evaluation: 10:45 - Subjective Subjective: denies chest pain, mild SOB Objective - Vital Signs/Intake and Output Vital Signs (last 24 hours): Temp Pulse Resp BP Pulse Ox 98.3 F 120 H 20 145/78 99 12/24/17 05:52 12/24/17 09:39 12/24/17 05:52 12/24/17 09:40 12/24/17 05:52 Intake and Output: 12/24/17 12/24/17 06:59 18:59 Intake Total 240 Output Total 1000 70 Balance -760 -70 - Medications Medications: Current Medications Acetaminophen (Tylenol 325mg Tab) 650 mg PO Q6H PRN PRN Reason: Pain, Mild (1-3) Last Admin: 12/18/17 01:52 Dose: 650 mg Acetaminophen (Tylenol 325mg Tab) 650 mg PO Q6H PRN PRN Reason: Headache Last Admin: 12/21/17 19:22 Dose: 650 mg Albuterol/Ipratropium (Duoneb 3 Mg/0.5 Mg (3 Ml) Ud) 3 ml IH Q4H PRN PRN Reason: Shortness of Breath Last Admin: 12/14/17 05:05 Dose: 3 ml Albuterol/Ipratropium (Duoneb 3 Mg/0.5 Mg (3 Ml) Ud) 3 ml IH [id number] [facility] Last Admin: 12/24/17 07:32 Dose: 3 ml Benzocaine/Menthol (Cepacol Sore Throat) 1 wayne MT Q2H PRN PRN Reason: Sore Throat Last Admin: 12/24/17 10:14 Dose: 1 wayne Bisacodyl (Dulcolax) 10 mg RC DAILY [facility] Last Admin: 12/24/17 09:42 Dose: Not Given Doxycycline Hyclate (Doryx) 100 mg PO Q12 JEAN PAUL PRN Reason: Protocol Last Admin: 12/24/17 09:39 Dose: 100 mg Emollient Ointment (Vaseline Oint) 5 gm TOP Q8 PRN PRN Reason: Dry skin Last Admin: 12/14/17 09:26 Dose: 5 gm Fentanyl (Duragesic) 1 patch TD Q72H [facility] Last Admin: 12/21/17 13:46 Dose: 1 patch Furosemide (Lasix) 20 mg IVP Q12 [facility] Last Admin: 12/24/17 09:40 Dose: 20 mg Insulin Detemir (Levemir) 10 unit SC DAILY [facility] Last Admin: 12/24/17 09:40 Dose: 10 unit Insulin Human Regular (Humulin R Med) 0 units SC ACHS JEAN PAUL PRN Reason: Protocol Last Admin: 12/24/17 08:29 Dose: 1 units Ketorolac Tromethamine (Toradol) 15 mg IVP Q6 PRN PRN Reason: Pain, severe (8-10) Last Admin: 12/22/17 09:15 Dose: 15 mg Lidocaine (Lidoderm) 1 ea TD DAILY [facility] Last Admin: 12/24/17 09:41 Dose: 1 ea Lorazepam (Ativan) 0.25 mg IVP Q8H PRN; Protocol PRN Reason: Anxiety Last Admin: 12/23/17 14:27 Dose: 0.25 mg Metoprolol Tartrate (Lopressor) 50 mg PO BID [facility] Last Admin: 12/24/17 09:39 Dose: 50 mg Pantoprazole Sodium (Protonix Ec Tab) 40 mg PO ACB [facility] Last Admin: 12/24/17 08:30 Dose: 40 mg Polyethylene Glycol (Miralax) 17 gm PO DAILY [facility] Prednisone (Prednisone Tab) 5 mg PO DAILY [facility] Promethazine HCl/Codeine (Phenergan/Codeine Oral Syrup) 5 ml PO Q4H PRN PRN Reason: Cough and congestion Last Admin: 12/24/17 00:38 Dose: 5 ml Quetiapine Fumarate (Seroquel) 12.5 mg PO BID PRN; Protocol PRN Reason: agitation and confusion Last Admin: 12/23/17 22:02 Dose: 12.5 mg - Labs Labs: 12/24/17 06:45 12/24/17 06:45 PT 14.7 SECONDS (9.4-12.5) H 12/13/17 00:30 INR 1.28 (0.93-1.08) H 12/13/17 00:30 APTT 29.9 Seconds (25.1-36.5) 12/13/17 00:30 - Respiratory Exam Respiratory Exam: Rhonchi Additional comments: chest tube intact - Cardiovascular Exam Cardiovascular Exam: Tachycardia, REGULAR RHYTHM - GI/Abdominal Exam GI & Abdominal Exam: Soft, Normal Bowel Sounds - Back Exam Back Exam: NORMAL INSPECTION - Neurological Exam Neurological Exam: Alert, Awake - Skin Skin Exam: Dry, Warm Assessment and Plan (1) Pneumonia Status: Acute (2) Pneumothorax on right Status: Acute (3) COPD (chronic obstructive pulmonary disease) Status: Acute - Assessment and Plan (Free Text) Plan: continue UV Abx, pulmonary follow-up
--- NOTE | 2017-12-24 18:07 | PN ---
DATE: 12/24/2017 SUBJECTIVE: The patient is in bed, in no acute distress, nontoxic. PHYSICAL EXAMINATION: VITAL SIGNS: Temperature is 98, blood pressure is 140/70, respiratory rate of 16. HEENT: Unremarkable. NECK: Supple. LUNGS: Have decreased breath sounds. HEART: Normal S1 and S2. ABDOMEN: Soft, nontender. LABORATORY DATA: Reveals a white count of 19,700; hemoglobin of 11; platelets of 448. Chemistries reveal a BUN of 34, creatinine of 1.0. Urinalysis is noted. Serology is noted. Microbiology reveals the blood cultures are negative. Chest x-ray from today is reviewed as noted. Dr. José's notes from this morning is reviewed. Dr. Wagner's note is reviewed. ASSESSMENT AND PLAN: This is a 77-year-old male who was seen earlier this morning in room 264, bed 2 with possible change of today. Sepsis with multifactorial, multifocal healthcare-associated pneumonia, post-viral with a right-sided spontaneous pneumothorax with chest tube placement and was treated with antibiotics for 10 days, in a patient with hypertension, diabetes, coronary artery disease, chronic obstructive lung disease, history of pneumonia, and history of bowel obstruction and currently now, the patient is on p.o. doxycycline, on prednisone. The patient with a white count of 19,700; however, he has been afebrile, we will continue to monitor closely. The patient is at high risk for developing nosocomial infections. Isacc Curtis MD
--- NOTE | 2017-12-24 21:25 | CON ---
DATE: HISTORY OF PRESENT ILLNESS: The patient is a 77-year-old who has been seen by Psychiatry due to reports of depression as well as confusion, delirium, which is slowly improving. Psychiatry, , then have met with patient on prior occasions and again with him at bedside this morning. Patient does not appear to recognize me from prior interviews, however. He does appear to be much improved regarding his orientation, focus and consistency of responses during my visit with him. Patient consistently indicated that he is not depressed and he is aware that he was admitted for medical issues and for confusion. Patient is aware that this is 12/2017. He reports that he is hopeful about the future. He has concerns and indicates that he is "not so good" because he feels that his medical team does not give him enough information. Patient repeatedly attempts to get his medical status from this provider and requests to this provider to feel his medical treatment with him, but seemed discouraged when this provider reminded him that I was consulting him for psychiatric issues. Patient specifically requests that this provider speak with him about his current treatment and his diagnoses, and "not branch out after few seconds." Patient reports "I am not ." Patient does not appear to be hallucinating. He denies having hallucinations. He does not appear to be overly enthusiastic about discussing his mental health. He seems more concerned about his medical treatment. Regardless, he denies having any suicidal thoughts and does appear equivocal when he speaks for his future. Again, he is much better oriented and he is denying depression and he does not appear too danger to himself in this regard. Insight and judgment is improving. VITAL SIGNS AND LABORATORY DATA: Were reviewed by this provider. MEDICATIONS: Relevant psychiatric medications include Ativan 0.25 mg IV every 8 hour p.r.n., Seroquel 12.5 mg p.o. b.i.d. p.r.n. IMPRESSION: Adjustment disorder with depression and anxiety, appears to be improving. Delirium seems to be improving as well. RECOMMENDATIONS: At this time, plan is to continue with current medications and there is no acute indication for changes at this time. Psychiatry will sign off at this time. Please reconsult if there are any changes in patient's presentation. Ariel Pina MD [facility] # [phone]
[2017-12-25] MEDS: Benzocaine/Menthol (Cepacol) Lozenge MT PRN ×3 (01:09→18:06)
[2017-12-25] MEDS: Albuterol-Ipratrop 3 mg / 0.5 (3 ml) UD IH SCH ×4 (01:48→19:31)
[2017-12-25] MEDS: Insulin Reg-MEDIUM-Coverage SC SCH ×4 (08:21→22:04)
--- NOTE | 2017-12-25 08:24 | CP.PCM.PN ---
Subjective - Date & Time of Evaluation Date of Evaluation: 12/25/17 Time of Evaluation: 08:20 - Subjective Subjective: Surgery Pt s&e. NAEON. Breathing bettter. Denies F/C/N/V/D. Shoulder pain improved. Air leak. CT dressing changed. Objective - Vital Signs/Intake and Output Vital Signs (last 24 hours): Temp Pulse Resp BP Pulse Ox 99 F 90 20 145/67 96 12/24/17 17:23 12/24/17 22:10 12/24/17 22:10 12/24/17 22:46 12/24/17 22:10 Intake and Output: 12/25/17 12/25/17 06:59 18:59 Intake Total 980 Output Total 500 Balance 480 - Medications Medications: Current Medications Acetaminophen (Tylenol 325mg Tab) 650 mg PO Q6H PRN PRN Reason: Pain, Mild (1-3) Last Admin: 12/18/17 01:52 Dose: 650 mg Acetaminophen (Tylenol 325mg Tab) 650 mg PO Q6H PRN PRN Reason: Headache Last Admin: 12/21/17 19:22 Dose: 650 mg Albuterol/Ipratropium (Duoneb 3 Mg/0.5 Mg (3 Ml) Ud) 3 ml IH Q4H PRN PRN Reason: Shortness of Breath Last Admin: 12/14/17 05:05 Dose: 3 ml Albuterol/Ipratropium (Duoneb 3 Mg/0.5 Mg (3 Ml) Ud) 3 ml IH [id number] [facility] Last Admin: 12/25/17 07:29 Dose: 3 ml Benzocaine/Menthol (Cepacol Sore Throat) 1 wayne MT Q2H PRN PRN Reason: Sore Throat Last Admin: 12/25/17 01:09 Dose: 1 wayne Bisacodyl (Dulcolax) 10 mg RC DAILY [facility] Last Admin: 12/24/17 09:42 Dose: Not Given Doxycycline Hyclate (Doryx) 100 mg PO Q12 JEAN PAUL PRN Reason: Protocol Last Admin: 12/24/17 22:49 Dose: 100 mg Emollient Ointment (Vaseline Oint) 5 gm TOP Q8 PRN PRN Reason: Dry skin Last Admin: 12/14/17 09:26 Dose: 5 gm Fentanyl (Duragesic) 1 patch TD Q72H [facility] Last Admin: 12/24/17 14:30 Dose: 1 patch Furosemide (Lasix) 20 mg IVP Q12 [facility] Last Admin: 12/24/17 22:46 Dose: 20 mg Insulin Detemir (Levemir) 10 unit SC DAILY [facility] Last Admin: 12/24/17 09:40 Dose: 10 unit Insulin Human Regular (Humulin R Med) 0 units SC ACHS JEAN PAUL PRN Reason: Protocol Last Admin: 12/24/17 23:26 Dose: Not Given Ketorolac Tromethamine (Toradol) 15 mg IVP Q6 PRN PRN Reason: Pain, severe (8-10) Last Admin: 12/22/17 09:15 Dose: 15 mg Lidocaine (Lidoderm) 1 ea TD DAILY [facility] Last Admin: 12/24/17 09:41 Dose: 1 ea Lorazepam (Ativan) 0.25 mg IVP Q8H PRN; Protocol PRN Reason: Anxiety Last Admin: 12/23/17 14:27 Dose: 0.25 mg Metoprolol Tartrate (Lopressor) 50 mg PO BID [facility] Last Admin: 12/24/17 17:13 Dose: 50 mg Pantoprazole Sodium (Protonix Ec Tab) 40 mg PO ACB [facility] Last Admin: 12/24/17 08:30 Dose: 40 mg Polyethylene Glycol (Miralax) 17 gm PO DAILY [facility] Prednisone (Prednisone Tab) 5 mg PO DAILY [facility] Promethazine HCl/Codeine (Phenergan/Codeine Oral Syrup) 5 ml PO Q4H PRN PRN Reason: Cough and congestion Last Admin: 12/24/17 00:38 Dose: 5 ml Quetiapine Fumarate (Seroquel) 12.5 mg PO BID PRN; Protocol PRN Reason: agitation and confusion Last Admin: 12/23/17 22:02 Dose: 12.5 mg - Labs Labs: 12/24/17 06:45 12/24/17 06:45 PT 14.7 SECONDS (9.4-12.5) H 12/13/17 00:30 INR 1.28 (0.93-1.08) H 12/13/17 00:30 APTT 29.9 Seconds (25.1-36.5) 12/13/17 00:30 - Constitutional Appears: No Acute Distress, Cachectic, Chronically Ill - Head Exam Head Exam: ATRAUMATIC, NORMAL INSPECTION, NORMOCEPHALIC - ENT Exam ENT Exam: Mucous Membranes Dry, Normal Exam - Respiratory Exam Respiratory Exam: absent: NORMAL BREATHING PATTERN Additional comments: R CT in place: Air leak . 100cc/24hrs serous fluids. - GI/Abdominal Exam GI & Abdominal Exam: Soft, Normal Bowel Sounds. absent: Tenderness - Extremities Exam Extremities Exam: Full ROM, Normal Capillary Refill, Normal Inspection. absent : Joint Swelling, Pedal Edema - Back Exam Back Exam: NORMAL INSPECTION - Neurological Exam Neurological Exam: Alert, Awake, CN II-XII Intact, Normal Gait, Oriented x3 - Psychiatric Exam Psychiatric exam: Normal Affect, Normal Mood - Skin Skin Exam: Dry, Intact, Normal Color, Warm Assessment and Plan - Assessment and Plan (Free Text) Assessment: Persistent R Pneumothorax with leak CXR: small Apical pneumo -CT to low cont suction -May consult thoracic surgeon if continues to leak DW Dr. Charles
--- NOTE | 2017-12-25 08:51 | RAD ---
HISTORY: chest tube comparison COMPARISON: Portable chest 11/26/2017. FINDINGS: LUNGS: Increase patchy density seen at the left lungs on the periphery with heterogeneous infiltrate again seen the right apex and right base. Diminished penetration accentuates these findings somewhat however there is likely interval worsening bilaterally nevertheless. PLEURA: Small right apical pneumothorax is unchanged with right pleural tube unchanged in position grossly. No pleural effusion bilaterally or left pneumothorax. Emphysematous change have increased in the chest wall but appearing greater at the right side, with new emphysema identified along the left chest wall and bilateral supraclavicular fossae. CARDIOVASCULAR: Normal. OSSEOUS STRUCTURES: No significant abnormalities. VISUALIZED UPPER ABDOMEN: Normal. OTHER FINDINGS: None. IMPRESSION: Small right apical pneumothorax not significantly changed. Increased emphysematous change are seen along the chest wall as discussed above, right greater than left. Infiltrates are mildly increased bilaterally as per above.
--- NOTE | 2017-12-25 09:09 | CP.PCM.PCO ---
Physician Communication Note - Physician Communication Note Physician Communication Note: Persistent Air leak/Infiltrates-Osman Dias( Thoracic consult)
[2017-12-25] MEDS: POLYETHYLENE GLYCOL 3350 17 GM/Dose PACKET PO SCH (09:20)
[2017-12-25] MEDS: Insulin Detemir 100 units/ml Vial (Levemir) SC SCH (09:21)
[2017-12-25] MEDS: Lidocaine 5% Patch TD SCH (09:22)
[2017-12-25] MEDS: Pantoprazole 40 mg EC Tab PO SCH (09:24)
[2017-12-25] MEDS: Promethazine/Cod 6.25mg-10mg/5ml Syr UD PO PRN (09:46)
--- NOTE | 2017-12-25 16:21 | CP.PCM.PN ---
Subjective - Date & Time of Evaluation Date of Evaluation: 12/25/17 Time of Evaluation: 15:00 - Subjective Subjective: NAD, denies chest pain, no SOB Objective - Vital Signs/Intake and Output Vital Signs (last 24 hours): Temp Pulse Resp BP Pulse Ox 98.5 F 94 H 18 123/67 99 12/25/17 15:52 12/25/17 15:52 12/25/17 15:52 12/25/17 15:52 12/25/17 15:52 Intake and Output: 12/25/17 12/25/17 06:59 18:59 Intake Total 980 Output Total 500 Balance 480 - Medications Medications: Current Medications Acetaminophen (Tylenol 325mg Tab) 650 mg PO Q6H PRN PRN Reason: Pain, Mild (1-3) Last Admin: 12/18/17 01:52 Dose: 650 mg Acetaminophen (Tylenol 325mg Tab) 650 mg PO Q6H PRN PRN Reason: Headache Last Admin: 12/21/17 19:22 Dose: 650 mg Albuterol/Ipratropium (Duoneb 3 Mg/0.5 Mg (3 Ml) Ud) 3 ml IH Q4H PRN PRN Reason: Shortness of Breath Last Admin: 12/14/17 05:05 Dose: 3 ml Albuterol/Ipratropium (Duoneb 3 Mg/0.5 Mg (3 Ml) Ud) 3 ml IH [id number] [facility] Last Admin: 12/25/17 13:40 Dose: 3 ml Benzocaine/Menthol (Cepacol Sore Throat) 1 [place] MT Q2H PRN PRN Reason: Sore Throat Last Admin: 12/25/17 09:21 Dose: 1 wayne Bisacodyl (Dulcolax) 10 mg RC DAILY [facility] Last Admin: 12/25/17 09:41 Dose: Not Given Doxycycline Hyclate (Doryx) 100 mg PO Q12 [facility] PRN Reason: Protocol Last Admin: 12/25/17 09:21 Dose: 100 mg Emollient Ointment (Vaseline Oint) 5 gm TOP Q8 PRN PRN Reason: Dry skin Last Admin: 12/14/17 09:26 Dose: 5 gm Furosemide (Lasix) 20 mg IVP Q12 [facility] Last Admin: 12/25/17 09:20 Dose: 20 mg Insulin Detemir (Levemir) 10 unit SC DAILY [facility] Last Admin: 12/25/17 09:21 Dose: 10 unit Insulin Human Regular (Humulin R Med) 0 units SC ACHS [facility] PRN Reason: Protocol Last Admin: 12/25/17 12:30 Dose: Not Given Ketorolac Tromethamine (Toradol) 15 mg IVP Q6 PRN PRN Reason: Pain, severe (8-10) Last Admin: 12/22/17 09:15 Dose: 15 mg Lidocaine (Lidoderm) 1 ea TD DAILY [facility] Last Admin: 12/25/17 09:22 Dose: 1 ea Lorazepam (Ativan) 0.25 mg IVP Q8H PRN; Protocol PRN Reason: Anxiety Last Admin: 12/23/17 14:27 Dose: 0.25 mg Metoprolol Tartrate (Lopressor) 50 mg PO BID [facility] Last Admin: 12/25/17 09:21 Dose: 50 mg Pantoprazole Sodium (Protonix Ec Tab) 40 mg PO ACB [facility] Last Admin: 12/25/17 09:24 Dose: 40 mg Polyethylene Glycol (Miralax) 17 gm PO DAILY [facility] Last Admin: 12/25/17 09:20 Dose: 17 gm Prednisone (Prednisone Tab) 5 mg PO DAILY [facility] Last Admin: 12/25/17 09:21 Dose: 5 mg Promethazine HCl/Codeine (Phenergan/Codeine Oral Syrup) 5 ml PO Q4H PRN PRN Reason: Cough and congestion Last Admin: 12/25/17 09:46 Dose: 5 ml Quetiapine Fumarate (Seroquel) 12.5 mg PO BID PRN; Protocol PRN Reason: agitation and confusion Last Admin: 12/23/17 22:02 Dose: 12.5 mg - Labs Labs: 12/24/17 06:45 12/24/17 06:45 PT 14.7 SECONDS (9.4-12.5) H 12/13/17 00:30 INR 1.28 (0.93-1.08) H 12/13/17 00:30 APTT 29.9 Seconds (25.1-36.5) 12/13/17 00:30 - Respiratory Exam Respiratory Exam: Rhonchi Additional comments: R chest tube intact - GI/Abdominal Exam GI & Abdominal Exam: Soft, Normal Bowel Sounds - Neurological Exam Neurological Exam: Alert, Awake - Skin Skin Exam: Dry, Warm Assessment and Plan (1) Pneumonia Status: Acute (2) Pneumothorax on right Status: Acute (3) COPD (chronic obstructive pulmonary disease) Status: Acute - Assessment and Plan (Free Text) [facility] Dr. Fields to resume care of patient in am
--- NOTE | 2017-12-25 17:18 | CP.PCM.CON ---
History of Present Illness - History of Present Illness History of Present Illness: Thoracic: Dr. Teixeira CC: R side PTX HPI: 77M with pmh of HTN, COPD, DM, and CAD who was admitted on 12/13 for HCAP and COPD exacerbation and subsequently developed R side PTX. Initially 8Fr pigtail catheter was placed and PTX resolved. When CT was placed on H2O seal on 12/16, PTX returned. 8Fr pigtail was exchanged to 14Fr and CT was placed back to suction. The lung re-expanded significantly, however, a residual apical PTX persists and the pt has had a continuous air leak. Pt has complaints of difficulty breathing, however RR has been WNL and pt is satting mid to upper 90s. PMH: See above PSH: colectomy, colostomy, colostomy reversal Meds: MAR reviewed NKDA Social: No ETOH/tobacc/drugs Fhx: non-contributory Review of Systems - Review of Systems All systems: reviewed and no additional remarkable complaints except (HPI) Past Patient History - Past Social History Smoking Status: Never Smoked - CARDIAC Hx Hypertension: Yes Other/Comment: CAD - PULMONARY Hx Chronic Obstructive Pulmonary Disease (COPD): Yes Hx Pneumonia: Yes - HEENT Hx Glaucoma: Yes - ENDOCRINE/METABOLIC Hx Diabetes Mellitus Type 2: Yes - MUSCULOSKELETAL/RHEUMATOLOGICAL Hx Falls: Yes - PSYCHIATRIC Hx Substance Use: No - SURGICAL HISTORY Hx Surgeries: Yes Hx Coronary Stent: Yes Other/Comment: Colon Resection Meds Allergies/Adverse Reactions: Allergies Allergy/AdvReac Type Severity Reaction Status Date / Time No Known Allergies Allergy Verified 12/12/17 23:06 - Medications Medications: Current Medications Acetaminophen (Tylenol 325mg Tab) 650 mg PO Q6H PRN PRN Reason: Pain, Mild (1-3) Last Admin: 12/18/17 01:52 Dose: 650 mg Acetaminophen (Tylenol 325mg Tab) 650 mg PO Q6H PRN PRN Reason: Headache Last Admin: 12/21/17 19:22 Dose: 650 mg Albuterol/Ipratropium (Duoneb 3 Mg/0.5 Mg (3 Ml) Ud) 3 ml IH Q4H PRN PRN Reason: Shortness of Breath Last Admin: 12/14/17 05:05 Dose: 3 ml Albuterol/Ipratropium (Duoneb 3 Mg/0.5 Mg (3 Ml) Ud) 3 ml IH [id number] [facility] Last Admin: 12/25/17 13:40 Dose: 3 ml Benzocaine/Menthol (Cepacol Sore Throat) 1 wayne MT Q2H PRN PRN Reason: Sore Throat Last Admin: 12/25/17 09:21 Dose: 1 wayne Bisacodyl (Dulcolax) 10 mg RC DAILY [facility] Last Admin: 12/25/17 09:41 Dose: Not Given Doxycycline Hyclate (Doryx) 100 mg PO Q12 [facility] PRN Reason: Protocol Last Admin: 12/25/17 09:21 Dose: 100 mg Emollient Ointment (Vaseline Oint) 5 gm TOP Q8 PRN PRN Reason: Dry skin Last Admin: 12/14/17 09:26 Dose: 5 gm Furosemide (Lasix) 20 mg IVP Q12 [facility] Last Admin: 12/25/17 09:20 Dose: 20 mg Insulin Detemir (Levemir) 10 unit SC DAILY [facility] Last Admin: 12/25/17 09:21 Dose: 10 unit Insulin Human Regular (Humulin R Med) 0 units SC ACHS [facility] PRN Reason: Protocol Last Admin: 12/25/17 16:20 Dose: Not Given Ketorolac Tromethamine (Toradol) 15 mg IVP Q6 PRN PRN Reason: Pain, severe (8-10) Last Admin: 12/22/17 09:15 Dose: 15 mg Lidocaine (Lidoderm) 1 ea TD DAILY [facility] Last Admin: 12/25/17 09:22 Dose: 1 ea Lorazepam (Ativan) 0.25 mg IVP Q8H PRN; Protocol PRN Reason: Anxiety Last Admin: 12/23/17 14:27 Dose: 0.25 mg Metoprolol Tartrate (Lopressor) 50 mg PO BID [facility] Last Admin: 12/25/17 09:21 Dose: 50 mg Pantoprazole Sodium (Protonix Ec Tab) 40 mg PO ACB [facility] Last Admin: 12/25/17 09:24 Dose: 40 mg Polyethylene Glycol (Miralax) 17 gm PO DAILY [facility] Last Admin: 12/25/17 09:20 Dose: 17 gm Prednisone (Prednisone Tab) 5 mg PO DAILY [facility] Last Admin: 12/25/17 09:21 Dose: 5 mg Promethazine HCl/Codeine (Phenergan/Codeine Oral Syrup) 5 ml PO Q4H PRN PRN Reason: Cough and congestion Last Admin: 12/25/17 09:46 Dose: 5 ml Quetiapine Fumarate (Seroquel) 12.5 mg PO BID PRN; Protocol PRN Reason: agitation and confusion Last Admin: 12/23/17 22:02 Dose: 12.5 mg Physical Exam - Constitutional Appears: Non-toxic, No Acute Distress, Cachectic - Head Exam Head Exam: ATRAUMATIC, NORMOCEPHALIC - Eye Exam Eye Exam: EOMI. absent: Scleral icterus - ENT Exam ENT Exam: Mucous Membranes Moist, Normal External Ear Exam - Neck Exam Neck exam: Positive for: Full Rom - Respiratory Exam Respiratory Exam: NORMAL BREATHING PATTERN. absent: Accessory Muscle Use, Respiratory Distress Additional comments: coarse breath sounds R pigtail in place, CT tidling, + air leak - GI/Abdominal Exam GI & Abdominal Exam: Soft. absent: Distended, Tenderness - Extremities Exam Extremities exam: Negative for: calf tenderness, pedal edema - Neurological Exam Neurological exam: Alert, Oriented x3 Results - Vital Signs Recent Vital Signs: Last Vital Signs Temp 98.5 F 12/25/17 15:52 Pulse 94 H 12/25/17 15:52 Resp 18 12/25/17 15:52 BP 123/67 12/25/17 15:52 Pulse Ox 99 12/25/17 15:52 - Labs Result Diagrams: 12/24/17 06:45 12/24/17 06:45 Labs: Laboratory Results - last 24 hr 12/24/17 12/25/17 12/25/17 21:35 06:50 11:06 POC Glucose (mg/dL) 85 111 H 170 H 12/25/17 15:56 POC Glucose (mg/dL) 108 Assessment & Plan - Assessment and Plan (Free Text) Assessment: 77M w. R side PTX and air leak Plan: -Keep chest tube to suction -will get CT of chest in AM to r/o blebs -further management pending CT results -d/w attending Bartitis PGY3
--- NOTE | 2017-12-25 21:53 | CP.PCM.PN ---
Subjective - Date & Time of Evaluation Date of Evaluation: 12/25/17 Time of Evaluation: 21:51 - Subjective Subjective: Patient was seen at bedside. He complained of right hand numbness for 2 days. Upon further asking admits to have numbness in left hand and both feet. Has no other complaints. Denies to have had numbness in the past. No weakness. Medical record was reviewed. 77 year old male who has been admitted for hyperglycemia, hyponatremia, uncontrolled DM. PMH of COPD, CAD, HTN,DM II, PNA, bowel obstruction, S/P colon resection, sepsis, Influenza, Patient was found to have small apical pneumothorax on right side. Objective - Vital Signs/Intake and Output Vital Signs (last 24 hours): Temp Pulse Resp BP Pulse Ox 97.8 F 76 18 123/64 99 12/25/17 21:33 12/25/17 21:33 12/25/17 21:33 12/25/17 21:33 12/25/17 21:33 Intake and Output: 12/25/17 12/26/17 18:59 06:59 Intake Total 220 Balance 220 - Medications Medications: Current Medications Acetaminophen (Tylenol 325mg Tab) 650 mg PO Q6H PRN PRN Reason: Pain, Mild (1-3) Last Admin: 12/18/17 01:52 Dose: 650 mg Acetaminophen (Tylenol 325mg Tab) 650 mg PO Q6H PRN PRN Reason: Headache Last Admin: 12/21/17 19:22 Dose: 650 mg Albuterol/Ipratropium (Duoneb 3 Mg/0.5 Mg (3 Ml) Ud) 3 ml IH Q4H PRN PRN Reason: Shortness of Breath Last Admin: 12/14/17 05:05 Dose: 3 ml Albuterol/Ipratropium (Duoneb 3 Mg/0.5 Mg (3 Ml) Ud) 3 ml IH [id number] [facility] Last Admin: 12/25/17 19:31 Dose: 3 ml Benzocaine/Menthol (Cepacol Sore Throat) 1 [place]ne MT Q2H PRN PRN Reason: Sore Throat Last Admin: 12/25/17 18:06 Dose: 1 wayne Bisacodyl (Dulcolax) 10 mg RC DAILY [facility] Last Admin: 12/25/17 09:41 Dose: Not Given Doxycycline Hyclate (Doryx) 100 mg PO Q12 [facility] PRN Reason: Protocol Last Admin: 12/25/17 09:21 Dose: 100 mg Emollient Ointment (Vaseline Oint) 5 gm TOP Q8 PRN PRN Reason: Dry skin Last Admin: 12/14/17 09:26 Dose: 5 gm Furosemide (Lasix) 20 mg IVP Q12 [facility] Last Admin: 12/25/17 09:20 Dose: 20 mg Insulin Detemir (Levemir) 10 unit SC DAILY [facility] Last Admin: 12/25/17 09:21 Dose: 10 unit Insulin Human Regular (Humulin R Med) 0 units SC ACHS [facility] PRN Reason: Protocol Last Admin: 12/25/17 16:20 Dose: Not Given Ketorolac Tromethamine (Toradol) 15 mg IVP Q6 PRN PRN Reason: Pain, severe (8-10) Last Admin: 12/22/17 09:15 Dose: 15 mg Lidocaine (Lidoderm) 1 ea TD DAILY [facility] Last Admin: 12/25/17 09:22 Dose: 1 ea Lorazepam (Ativan) 0.25 mg IVP Q8H PRN; Protocol PRN Reason: Anxiety Last Admin: 12/23/17 14:27 Dose: 0.25 mg Metoprolol Tartrate (Lopressor) 50 mg PO BID [facility] Last Admin: 12/25/17 18:06 Dose: 50 mg Pantoprazole Sodium (Protonix Ec Tab) 40 mg PO ACB [facility] Last Admin: 12/25/17 09:24 Dose: 40 mg Polyethylene Glycol (Miralax) 17 gm PO DAILY [facility] Last Admin: 12/25/17 09:20 Dose: 17 gm Prednisone (Prednisone Tab) 5 mg PO DAILY [facility] Last Admin: 12/25/17 09:21 Dose: 5 mg Promethazine HCl/Codeine (Phenergan/Codeine Oral Syrup) 5 ml PO Q4H PRN PRN Reason: Cough and congestion Last Admin: 12/25/17 09:46 Dose: 5 ml Quetiapine Fumarate (Seroquel) 12.5 mg PO BID PRN; Protocol PRN Reason: agitation and confusion Last Admin: 12/23/17 22:02 Dose: 12.5 mg - Labs Labs: 12/24/17 06:45 12/24/17 06:45 PT 14.7 SECONDS (9.4-12.5) H 12/13/17 00:30 INR 1.28 (0.93-1.08) H 12/13/17 00:30 APTT 29.9 Seconds (25.1-36.5) 03 00:30 Micro Results 12/19/17 13:00 Urine Urine Culture - Final No Growth (<1,000 CFU/ML) 12/13/17 00:45 Blood Blood Culture - Final NO GROWTH AFTER 5 DAYS 12/13/17 00:45 Blood Gram Stain - Final TEST NOT PERFORMED 12/13/17 00:30 Blood Blood Culture - Final NO GROWTH AFTER 5 DAYS 12/13/17 00:30 Blood Gram Stain - Final TEST NOT PERFORMED 12/15/17 12:40 Naris MRSA Culture (Admit) - Final MRSA NOT DETECTED 12/13/17 08:28 Urine,Clean Catch Urine Culture - Final No Growth (<1,000 CFU/ML) Most Recent Lab Values WBC 19.7 10^3/ul (4.5-11.0) H 12/24/17 06:45 RBC 3.71 10^6/uL (3.5-6.1) 12/24/17 06:45 Hgb 11.0 g/dL (14.0-18.0) L 12/24/17 06:45 Hct 33.8 % (42.0-52.0) L 12/24/17 06:45 MCV 91.1 fl (80.0-105.0) 12/24/17 06:45 MCH 29.6 pg (25.0-35.0) 12/24/17 06:45 MCHC 32.5 g/dl (31.0-37.0) 12/24/17 06:45 RDW 13.8 % (11.5-14.5) 12/24/17 06:45 Plt Count 448 10^3/uL (120.0-450.0) 12/24/17 06:45 MPV 9.9 fl (7.0-11.0) 12/24/17 06:45 Gran % 82.1 % (50.0-68.0) H 12/13/17 00:30 Lymph % (Auto) 11.1 % (22.0-35.0) L 12/13/17 00:30 [place] % (Auto) 5.4 % (1.0-6.0) 12/13/17 00:30 Eos % (Auto) 1.2 % (1.5-5.0) L 12/13/17 00:30 Baso % (Auto) 0.2 % (0.0-3.0) 12/13/17 00:30 Gran # 8.91 (1.4-6.5) H 12/13/17 00:30 Lymph # (Auto) 1.2 (1.2-3.4) 12/13/17 00:30 [place] # (Auto) 0.6 (0.1-0.6) 12/13/17 00:30 Eos # (Auto) 0.1 (0.0-0.7) 12/13/17 00:30 Baso # (Auto) 0.02 K/mm3 (0.0-2.0) 12/13/17 00:30 PT 14.7 SECONDS (9.4-12.5) H 12/13/17 00:30 INR 1.28 (0.93-1.08) H 12/13/17 00:30 APTT 29.9 Seconds (25.1-36.5) 12/13/17 00:30 pCO2 42 mm/Hg (35-45) 12/23/17 05:15 pO2 93.0 mm/Hg (80-100) 12/23/17 05:15 HCO3 33.5 mmol/L (21-28) H 12/23/17 05:15 ABG pH 7.51 (7.35-7.45) H 12/23/17 05:15 ABG Total CO2 34.8 mmol.L (22-28) H 12/23/17 05:15 ABG O2 Saturation 98.6 % (95-98) H 12/23/17 05:15 ABG O2 Content 15.3 ML/dl (15-23) 12/23/17 05:15 ABG Base Excess 9.5 mmol/L (-2.0-3.0) H 12/23/17 05:15 ABG Hemoglobin 11.2 g/dL (11.7-17.4) L 12/23/17 05:15 ABG Carboxyhemoglobin 1.6 % (0.5-1.5) H 12/23/17 05:15 POC ABG HHb (Measured) 1.4 % (0-5) 12/23/17 05:15 ABG Methemoglobin 0.9 % (0.0-3.0) 12/23/17 05:15 ABG O2 Capacity 15.5 mL/dl (16-24) L 12/23/17 05:15 VBG pH 7.39 (7.32-7.43) 12/13/17 00:30 VBG pCO2 47.0 (40-60) 12/13/17 00:30 VBG HCO3 28.5 mmol/l (21-28) H 12/13/17 00:30 VBG Total CO2 29.9 mmol.L (22-28) H 12/13/17 00:30 VBG O2 Sat (Calc) 70.0 % (40-65) H 12/13/17 00:30 VBG Base Excess 2.8 mmol/L (0.0-2.0) H 12/13/17 00:30 VBG Potassium 5.0 mmol/L (3.6-5.2) 12/13/17 00:30 Hgb O2 Saturation 96.2 % (95.0-98.0) 12/23/17 05:15 Sodium 127.0 mmol/L (132-148) L 12/13/17 00:30 Chloride 97.0 mmol/L (98-107) L 12/13/17 00:30 Glucose 119 mg/dl (75-110) H 12/13/17 00:30 Lactate 1.9 mmol/L (0.7-2.1) 12/13/17 00:30 FiO2 32.0 % 12/23/17 05:15 Sodium 131 mmol/L (132-148) L 12/24/17 06:45 Potassium 4.6 mmol/L (3.6-5.0) 12/24/17 06:45 Chloride 91 mmol/L (98-107) L 12/24/17 06:45 Carbon Dioxide 35 mmol/L (21-33) H 12/24/17 06:45 Anion Gap 10 (10-20) 12/24/17 06:45 BUN 34 mg/dL (7-21) H 12/24/17 06:45 Creatinine 1.0 mg/dl (0.8-1.5) 12/24/17 06:45 Est GFR ( Amer) > 60 12/24/17 06:45 Est GFR (Non-Af Amer) > 60 12/24/17 06:45 POC Glucose (mg/dL) 108 mg/dL (65-110) 12/25/17 15:56 Random Glucose 154 mg/dL (70-110) H 12/24/17 06:45 Hemoglobin A1c 8.5 % (4.2-6.5) H 12/13/17 00:30 Calcium 9.0 mg/dL (8.4-10.5) 12/24/17 06:45 Iron 14 ug/dL (45-180) L 12/13/17 00:30 TIBC 177 ug/dL (261-462) L 12/13/17 00:30 % Saturation 8 % (20-55) L 12/13/17 00:30 Total Bilirubin 0.7 mg/dL (0.2-1.3) 12/23/17 05:30 AST 54 U/L (17-59) 12/23/17 05:30 ALT 82 U/L (7-56) H 12/23/17 05:30 Alkaline Phosphatase 137 U/L (38-126) H D 12/23/17 05:30 Troponin I < 0.01 ng/mL 12/13/17 03:00 NT-Pro-B Natriuret Pep 487 pg/mL (0-450) H 12/21/17 06:00 Total Protein 7.1 g/dL (5.8-8.3) 12/23/17 05:30 Albumin 2.8 g/dL (3.0-4.8) L 12/23/17 05:30 Globulin 4.2 gm/dL 12/23/17 05:30 Albumin/Globulin Ratio 0.7 (1.1-1.8) L 12/23/17 05:30 Triglycerides 34 mg/dL (35-160) L 12/13/17 00:30 Cholesterol < 50 mg/dL (130-200) L 12/13/17 00:30 LDL Cholesterol Direct < 30 mg/dL (0-129) 12/13/17 00:30 HDL Cholesterol 22 mg/dL (29-60) L 12/13/17 00:30 Vitamin B12 966 pg/mL (239-931) H 12/13/17 00:30 Folate 14.3 ng/mL 12/13/17 00:30 Procalcitonin 0.95 NG/ML (0.19-0.49) H 12/21/17 06:00 TSH 3rd Generation 1.90 mIU/mL (0.46-4.68) 12/14/17 06:00 Venous Blood Potassium 5.0 mmol/L (3.6-5.2) 12/13/17 00:30 Urine Color Yellow (YELLOW) 12/19/17 13:00 Urine Appearance Clear (CLEAR) 12/19/17 13:00 Urine pH 5.5 (4.7-8.0) 12/19/17 13:00 Ur Specific [place] 1.015 (1.005-1.035) 12/19/17 13:00 Urine Protein Negative mg/dL (<30 mg/dL) 12/19/17 13:00 Urine Glucose (UA) 100 mg/dL (NEGATIVE) H 12/19/17 13:00 Urine Ketones Negative mg/dL (NEGATIVE) 12/19/17 13:00 Urine Blood Small (NEGATIVE) H 12/19/17 13:00 Urine Nitrate Negative (NEGATIVE) 12/19/17 13:00 Urine Bilirubin Negative (NEGATIVE) 12/19/17 13:00 Urine Urobilinogen 0.2 E.U./dL (<1 E.U./dL) 12/19/17 13:00 Ur Leukocyte Esterase Negative [place]/uL (NEGATIVE) 12/19/17 13:00 Urine RBC 5 - 10 /hpf (0-2) 12/19/17 13:00 Urine WBC 0 - 2 /hpf (0-6) 12/19/17 13:00 Ur Epithelial Cells 0 - 2 /hpf (0-5) 12/19/17 13:00 Amorphous Sediment Moderate 12/19/17 13:00 Urine Bacteria Many (NEG) 12/19/17 13:00 Urine Other Uyeast 12/19/17 13:00 Influenza Typ A,B (EIA) Negative for flu a/b (NEGATIVE) 12/13/17 19:25 - Constitutional Appears: Well, No Acute Distress - Head Exam Head Exam: ATRAUMATIC, NORMAL INSPECTION, NORMOCEPHALIC - Eye Exam Eye Exam: Normal appearance - ENT Exam ENT Exam: Normal External Ear Exam - Neck Exam Neck Exam: Normal Inspection - Respiratory Exam Respiratory Exam: NORMAL BREATHING PATTERN Additional comments: Right sided pneumovac + - Cardiovascular Exam Cardiovascular Exam: absent: JVD - GI/Abdominal Exam GI & Abdominal Exam: absent: Distended - Rectal Exam Rectal Exam: Deferred - Exam Additional comments: Deferred. - Extremities Exam Extremities Exam: Normal Inspection - Back Exam Back Exam: NORMAL INSPECTION - Neurological Exam Neurological Exam: Alert, Awake, Oriented x3 - Psychiatric Exam Psychiatric exam: Normal Affect, Normal Mood - Skin Skin Exam: Normal Color Assessment and Plan - Assessment and Plan (Free Text) Assessment: Diabetic neuropathy. Right sided pneumothorax. COPD. CAD. HTN. DM II. PNA. Plan: Neurontin 300 mg PO x 1. Continue present management.
--- NOTE | 2017-12-26 00:20 | PN ---
DATE: 12/25/2017 PULMONARY PROGRESS NOTE REFERRING PHYSICIAN: Ya Fields MD. SUBJECTIVE: He is out of bed to chair, much more awake and alert. Subcutaneous emphysema is increased to the right upper extremity and chest area, still has a large air leak. Cough is better. No hemoptysis. No hematemesis or hematuria. No diarrhea or leg swelling reported. OBJECTIVE: GENERAL: In no acute distress. VITAL SIGNS: Temp is 98, heart rate is 94, respiratory rate is 18, blood pressure 123/67, pulse 99% on nasal cannula. HEENT: Moist mucous membranes. Small oral cavity. Crowded airway. NECK: Supple. No JVD. LUNGS: Have scattered rhonchi. Has subcutaneous emphysema of the right chest, shoulder, and arm. Chest tube still leaking air. HEART: S1 and S2. ABDOMEN: Soft and nontender. No organomegaly. EXTREMITIES: There is no edema. NEUROLOGIC: Awake, alert. Follows simple command. MEDICATIONS: He is on Ativan 0.25 mg IV every 8 hour p.r.n., Cepacol lozenges every 2 hour p.r.n., doxycycline 100 mg twice a day, Dulcolax 10 mg rectally daily, DuoNeb every 4 hour p.r.n. and every 6 hour around the clock, insulin coverage, Lasix 20 mg every 12 hour, Levemir 10 units subcu daily, Lidoderm patch to the affected area, metoprolol tartrate 50 mg twice a day, MiraLax 17 g daily, promethazine 5 mL every 4 hour p.r.n., prednisone 5 mg daily, Protonix 40 mg daily, quetiapine 12.5 mg twice a day, Toradol mg every 6 hour p.r.n., Tylenol p.r.n. basis. LABORATORY DATA: Showed blood sugar this morning 108. Chest x-ray this morning shows small pneumothorax and also has increased subcutaneous emphysema. IMPRESSION AND PLAN: Multilobe pneumonia; chronic obstructive lung disease; pneumothorax, requiring chest tube, persistent air leak, now has subcutaneous emphysema; diabetes; hypertension; coronary artery disease; history of dementia. Surgical note appreciated, suggested thoracic surgery consult . Thoracic surgery is called. For now, continue bronchodilator. Keep chest tube to suction. Pain management. Gastric prophylaxis. Deep venous thrombosis prophylaxis. Stool softener. Fall precaution. Antibiotics as per Infectious Diseases. Thank you and we will follow with you. Eloisa Luciano MD
[2017-12-26] MEDS: Albuterol-Ipratrop 3 mg / 0.5 (3 ml) UD IH SCH ×4 (01:29→20:34)
[2017-12-26] MEDS: Promethazine/Cod 6.25mg-10mg/5ml Syr UD PO PRN ×2 (02:13→12:00)
--- NOTE | 2017-12-26 02:22 | PN ---
DATE: 12/25/2017 SUBJECTIVE: The patient is in bed, in no acute distress, nontoxic. PHYSICAL EXAMINATION: VITAL SIGNS: Temperature is 98, blood pressure is 120/60, respiratory rate of 18. HEENT: Unremarkable. NECK: Supple. LUNGS: Have decreased breath sounds. HEART: Normal S1 and S2. ABDOMEN: Soft. LABORATORY DATA: Reveals white count is 19,700, hemoglobin of 11. Chemistries are noted. The patient's creatinine is 1.0. ASSESSMENT AND PLAN: This is a 77-year-old male who was seen earlier this morning in room 575, bed 1, was admitted with sepsis and multifocal healthcare-associated pneumonia with post-viral right-sided spontaneous pneumothorax with a chest tube, treated with antibiotics in a patient with hypertension, diabetes and current medications include patient to be on p.o. doxycycline, p.o. prednisone which may the leukocytosis. We will follow closely with you. sIacc Curtis MD
--- NOTE | 2017-12-26 06:41 | PN ---
DATE: PULMONARY PROGRESS NOTE REFERRING PHYSICIAN: Ya Fields MD SUBJECTIVE: The patient is sitting up in a recliner chair, night was unremarkable, much more awake and alert. Has a right-sided chest tube, still having air leak. Mild cough, constipated. No nausea. No leg pain or leg swelling. OBJECTIVE: GENERAL: Not in acute distress. VITAL SIGNS: Temperature is 98, heart rate is 110, respiratory rate is 20, blood pressure 136/70, pulse ox 99% on 3 liters nasal cannula. HEENT: Moist mucous membrane. Crowded airway. NECK: Supple. No JVD. LUNGS: Had a few scattered rhonchi. HEART: S1 and S2. ABDOMEN: Soft, nontender. No organomegaly. EXTREMITIES: There is no edema. NEUROLOGIC: Awake and alert. Follows simple command. MEDICATIONS: He is on Ativan 0.25 mg every 8 hours p.r.n., Cepacol lozenges every 2 hours p.r.n., doxycycline 1 mg twice a day, Dulcolax 10 mg rectally daily, DuoNeb every 4 hours p.r.n. and every 6 hours [id number], Fentanyl patch every 72 hours, insulin coverage, Lasix 20 mg every 12 hours, Levemir 10 units subcutaneous daily, lidocaine patch to affected area, metoprolol tartrate 50 mg twice a day, MiraLax 17 g daily, promethazine with codeine every 4 hours p.r.n., prednisone 10 mg daily, Protonix 40 mg a.c.b., Seroquel 12.5 mg twice a day p.r.n., tramadol 50 mg every 6 hours p.r.n., Tylenol p.r.n. basis, Vaseline to affected area. LABORATORY DATA: Shows hemoglobin 11.0, hematocrit of 33.8, WBC 19.7, platelets is 448. Sodium 131, potassium 4.6, chloride 91, bicarbonate 35, BUN 34, creatinine 1.0, glucose 154, calcium is 9. IMPRESSION AND PLAN: Multilobar infiltrate, chronic obstructive lung disease, persistent air leak from the chest tube, constipation, diabetes, hypertension, coronary artery disease, dementia. Pulmonary point of view, doing okay. We will continue chest tube on suction, may give MiraLax 2 packs now for constipation; patient refused to take Dulcolax. Continue antibiotics, taper off steroids slowly. Gastric prophylaxis. Thank you and we will follow with you. Eloisa Luciano MD
[2017-12-26] MEDS ORDERED: Iohexol 350 MG/100 ML VIAL ONE (07:43)
--- NOTE | 2017-12-26 07:53 | PN ---
DATE: SUBJECTIVE: Patient is seen and examined at the bedside, looking comfortable. No fever, no chills. Still coughing, heavy shortness of breath. Chest pain is a little bit better. No headache, no dizziness. Do not look like in distress. No pain along the chest tube site. PHYSICAL EXAMINATION: VITAL SIGNS: Temperature 97.4, pulse 107, respiratory rate 18, blood pressure 107/46, and pulse oximetry 97. HEENT: Head: Normocephalic, atraumatic. Eyes: PERRLA. Extraocular muscles are intact. Conjunctivae are clear. Nose: Patent. Mucous membrane moist. NECK: Supple. No carotid bruit, JVD, or thyromegaly. CHEST: Bilaterally symmetrical. HEART: S1, S2 positive. LUNGS: Clear to auscultation. ABDOMEN: Soft. Bowel sounds present. No organomegaly. EXTREMITIES: No edema. No cyanosis. NEUROLOGIC: Patient is awake and alert. Moving all four extremities. No focal deficit. MEDICATIONS: Tylenol, DuoNeb, Cepacol, doxycycline, emollient ointment, fentanyl patch, Lasix, Maxipime, Levemir, Toradol, Lidoderm, Ativan, Lopressor, Protonix, MiraLax, prednisone tapering doses, Phenergan with Codeine, Seroquel. LABORATORY DATA: White blood cells 22, hemoglobin 11.1, hematocrit 33.6, platelets 475. Sodium 133, potassium 4.2, BUN 31, creatinine 1.0, glucose 111. ASSESSMENT AND PLAN: Mr. Guido Dia is a 77-year-old male with leukocytosis; anemia; thrombocytosis; hyperglycemia; hyperchloremia; has sepsis from multifocal healthcare-associated pneumonia; viral syndrome; right-sided spontaneous pneumothorax, status post chest tube placement, got antibiotics; hypertension; diabetes mellitus; coronary artery disease; chronic obstructive pulmonary disease; history of bowel obstruction, status post colonic resection. I did discontinue the doxycycline and cefepime as has completed the 10 days of therapy, so many , since the patient off the antibiotics. Continue monitoring white blood cell trend. Patient is on steroid; we will cut down, actually . different on steroid. Seen by Dr. [place], heel compressor. Reviewed Dr. Luciano's and Dr. still; Dr. Desiree Umana's notes also. Gastrointestinal and deep venous thrombosis prophylaxis. Repeat labs. We will follow up. Ya Fields MD STEVEN
[2017-12-26] MEDS: Insulin Reg-MEDIUM-Coverage SC SCH ×3 (08:10→22:43)
[2017-12-26] MEDS: Pantoprazole 40 mg EC Tab PO SCH (08:10)
--- NOTE | 2017-12-26 08:32 | CP.PCM.PN ---
Subjective - Date & Time of Evaluation Date of Evaluation: 12/26/17 Time of Evaluation: 08:29 - Subjective Subjective: Surgery Progress Note: Patient seen and examined at bedside. No acute events overnight. Denies fever, chill, nausea, vomiting. Resting comfortably in chair. Objective - Vital Signs/Intake and Output Vital Signs (last 24 hours): Temp Pulse Resp BP Pulse Ox 99 F 107 H 22 163/84 H 94 L 12/26/17 07:39 12/26/17 07:39 12/26/17 07:39 12/26/17 07:39 12/26/17 07:39 Intake and Output: 12/26/17 12/26/17 06:59 18:59 Intake Total 400 Output Total 700 Balance -300 - Medications Medications: Current Medications Acetaminophen (Tylenol 325mg Tab) 650 mg PO Q6H PRN PRN Reason: Pain, Mild (1-3) Last Admin: 12/18/17 01:52 Dose: 650 mg Acetaminophen (Tylenol 325mg Tab) 650 mg PO Q6H PRN PRN Reason: Headache Last Admin: 12/21/17 19:22 Dose: 650 mg Albuterol/Ipratropium (Duoneb 3 Mg/0.5 Mg (3 Ml) Ud) 3 ml IH Q4H PRN PRN Reason: Shortness of Breath Last Admin: 12/14/17 05:05 Dose: 3 ml Albuterol/Ipratropium (Duoneb 3 Mg/0.5 Mg (3 Ml) Ud) 3 ml IH [id number] JEAN PAUL Last Admin: 12/26/17 07:23 Dose: 3 ml Benzocaine/Menthol (Cepacol Sore Throat) 1 [address]ne MT Q2H PRN PRN Reason: Sore Throat Last Admin: 12/25/17 18:06 Dose: 1 wayne Bisacodyl (Dulcolax) 10 mg RC DAILY [facility] Last Admin: 12/25/17 09:41 Dose: Not Given Doxycycline Hyclate (Doryx) 100 mg PO Q12 JEAN PAUL PRN Reason: Protocol Last Admin: 12/25/17 22:03 Dose: 100 mg Emollient Ointment (Vaseline Oint) 5 gm TOP Q8 PRN PRN Reason: Dry skin Last Admin: 12/14/17 09:26 Dose: 5 gm Furosemide (Lasix) 20 mg IVP Q12 [facility] Last Admin: 12/25/17 22:03 Dose: 20 mg Insulin Detemir (Levemir) 10 unit SC DAILY [facility] Last Admin: 12/25/17 09:21 Dose: 10 unit Insulin Human Regular (Humulin R Med) 0 units SC ACHS JEAN PAUL PRN Reason: Protocol Last Admin: 12/26/17 08:10 Dose: 1 units Lidocaine (Lidoderm) 1 ea TD DAILY [facility] Last Admin: 12/25/17 09:22 Dose: 1 ea Lorazepam (Ativan) 0.25 mg IVP Q8H PRN; Protocol PRN Reason: Anxiety Last Admin: 12/23/17 14:27 Dose: 0.25 mg Metoprolol Tartrate (Lopressor) 50 mg PO BID [facility] Last Admin: 12/25/17 18:06 Dose: 50 mg Pantoprazole Sodium (Protonix Ec Tab) 40 mg PO ACB [facility] Last Admin: 12/26/17 08:10 Dose: 40 mg Polyethylene Glycol (Miralax) 17 gm PO DAILY [facility] Last Admin: 12/25/17 09:20 Dose: 17 gm Prednisone (Prednisone Tab) 5 mg PO DAILY [facility] Last Admin: 12/25/17 09:21 Dose: 5 mg Promethazine HCl/Codeine (Phenergan/Codeine Oral Syrup) 5 ml PO Q4H PRN PRN Reason: Cough and congestion Last Admin: 12/26/17 02:13 Dose: 5 ml Quetiapine Fumarate (Seroquel) 12.5 mg PO BID PRN; Protocol PRN Reason: agitation and confusion Last Admin: 12/23/17 22:02 Dose: 12.5 mg - Labs Labs: 12/24/17 06:45 12/24/17 06:45 PT 14.7 SECONDS (9.4-12.5) H 12/13/17 00:30 INR 1.28 (0.93-1.08) H 12/13/17 00:30 APTT 29.9 Seconds (25.1-36.5) 12/13/17 00:30 - Constitutional Appears: Non-toxic, No Acute Distress - Head Exam Head Exam: ATRAUMATIC, NORMOCEPHALIC - Eye Exam Eye Exam: EOMI, PERRL. absent: Conjunctival injection, Nystagmus, Scleral icterus Pupil Exam: NORMAL ACCOMODATION, PERRL. absent: Fixed, Irregular, Unequal - ENT Exam ENT Exam: Mucous Membranes Moist - Neck Exam Neck Exam: Full ROM - Respiratory Exam Respiratory Exam: Rales, NORMAL BREATHING PATTERN. absent: Accessory Muscle Use , Respiratory Distress, Stridor Additional comments: R pigtail in place, CT tidling, + air leak - Cardiovascular Exam Cardiovascular Exam: +S1, +S2. absent: Murmur - GI/Abdominal Exam GI & Abdominal Exam: Soft, Normal Bowel Sounds. absent: Tenderness - Extremities Exam Extremities Exam: Normal Inspection. absent: Calf Tenderness, Pedal Edema - Back Exam Back Exam: NORMAL INSPECTION - Neurological Exam Neurological Exam: Alert, Awake, Oriented x3 - Psychiatric Exam Psychiatric exam: Normal Affect, Normal Mood - Skin Skin Exam: Dry, Normal Color, Warm Assessment and Plan - Assessment and Plan (Free Text) Assessment: 77 year old male with right sided pneumothorax and air leak: -Continue to keep chest tube to suction -F/u results CT of chest -further management pending CT results -will discuss with attending
[2017-12-26] MEDS: POLYETHYLENE GLYCOL 3350 17 GM/Dose PACKET PO SCH (09:27)
[2017-12-26] MEDS: Lidocaine 5% Patch TD SCH (09:27)
[2017-12-26] MEDS: Insulin Detemir 100 units/ml Vial (Levemir) SC SCH (09:28)
--- NOTE | 2017-12-26 12:35 | CT ---
PROCEDURE: CT Chest with contrast HISTORY: R PTX r/o blebs COMPARISON: 12/19/2017 TECHNIQUE: Contiguous axial images were obtained through the chest with intravenous contrast enhancement. Sagittal and coronal reconstructions were performed. IV contrast: 100 cc of Omni 350 Radiation dose (DLP): 206 mGy-cm. This CT exam was performed using one or more of the following dose reduction techniques: Automated exposure control, adjustment of the mA and/or kV according to patient size, and/or use of iterative reconstruction technique. FINDINGS: LUNGS: There is a moderate size right pneumothorax which is unchanged. A chest tube remains in place. There is increased subcutaneous edema which now crosses over to the left side of the chest. There is no obvious pulmonary bleb or bulla on the right side. There is a persistent infiltrate in the left upper lobe with a cavitary lesion. The patchy infiltrate is seen in the left lower lobe MEDIASTINUM: Unremarkable thoracic aorta. No aneurysm or dissection. Normal sized heart. Main pulmonary artery unremarkable. No vascular congestion. No lymphadenopathy. PLEURA: No pleural fluid. No pneumothorax. BONES: No fracture. No destructive lesion. UPPER ABDOMEN: Grossly unremarkable. OTHER FINDINGS: None. IMPRESSION: There is a moderate size right pneumothorax which is unchanged. A chest tube remains in place. There is increased subcutaneous edema which now crosses over to the left side of the chest. There is no obvious pulmonary bleb or bulla on the right side. There is a persistent infiltrate in the left upper lobe with a cavitary lesion. The patchy infiltrate is seen in the left lower lobe
--- NOTE | 2017-12-26 13:03 | RAD ---
HISTORY: chest tube comparison COMPARISON: Chest x-ray 12/25/[address] earlier same day FINDINGS: LUNGS: There is a small right apical pneumothorax. The pneumothorax appears much larger on the chest CT. Bilateral infiltrates are unchanged. There is a cavitary lesion in the left upper lobe also better demonstrated on CT. There is a moderate amount of subcutaneous emphysema PLEURA: No significant pleural effusion identified, no pneumothorax apparent. CARDIOVASCULAR: Normal. OSSEOUS STRUCTURES: No significant abnormalities. VISUALIZED UPPER ABDOMEN: Normal. OTHER FINDINGS: None. IMPRESSION: There is a small right apical pneumothorax. The pneumothorax appears much larger on the chest CT. Bilateral infiltrates are unchanged. There is a cavitary lesion in the left upper lobe also better demonstrated on CT. There is a moderate amount of subcutaneous emphysema
--- NOTE | 2017-12-26 16:47 | PN ---
DATE: 12/26/2017 LOCATION: The patient in room 575, bed 1. REASON FOR CONSULTATION AND FOLLOWUP: Sinus tachycardia, multilobar pneumonia, pneumothorax, COPD. SUBJECTIVE: The patient is sitting in chair without respiratory distress and still complaining of sore throat and sometime difficulty with swallowing due to pain in the throat. PHYSICAL EXAMINATION: VITAL SIGNS: Blood pressure 163/84, yesterday it was 123/64; respirations 22; pulse about 100; temperature 99. HEENT: Head is normocephalic. Eyes: Pupils normal. Conjunctivae slightly pale. NECK: JVP low. Carotids equal. THORAX: AP diameter normal. LUNGS: No significant rales. CARDIOVASCULAR: S1 and S2. ABDOMEN: Soft. No tenderness. No organomegaly. Bowel sounds normal. EXTREMITIES: No clubbing, no cyanosis. LABORATORY DATA: WBC 19.7, hemoglobin 11, hematocrit 33.8, and platelets 448. Sodium 131, potassium 4.6, BUN 34, creatinine 1. Random glucose 154. Calcium 9. The patient had a repeat chest CT today that showed moderate-sized right pneumothorax, which is unchanged from previous. Chest tube present, increased subcutaneous emphysema, persistent infiltrates in the left upper lobe with cavitary lesion, patchy infiltrate also seen in the left lower lobe. DIAGNOSES: Multilobar pneumonia, pneumothorax, subcutaneous emphysema, sinus tachycardia multifactorial including anemia and underlying lung conditions, severe protein-calorie malnutrition. PLAN: The patient requested pureed diet, so we ordered pureed cautious diet for the patient . Family present at bedside. I discussed with the family. The patient is getting furosemide 20 IV every 12 hour, insulin as ordered, metoprolol 50 b.i.d., prednisone 5 mg daily, Seroquel 12.5 mg p.o. b.i.d. p.r.n. Sinus tachycardia, multifactorial as mentioned above, we will continue present therapy and we will follow with you. Eloisa Guevara MD
--- NOTE | 2017-12-26 19:16 | CP.PCM.PN ---
Subjective - Date & Time of Evaluation Date of Evaluation: 12/26/17 Time of Evaluation: 12:15 - Subjective Subjective: Had CT scan done this morning, still with chest tube on the right, still with cough but a little better, no fevers. Objective - Vital Signs/Intake and Output Vital Signs (last 24 hours): Temp Pulse Resp BP Pulse Ox 99 F 100 H 22 163/84 H 94 L 12/26/17 07:39 12/26/17 09:26 12/26/17 07:39 12/26/17 09:27 12/26/17 07:39 Intake and Output: 12/26/17 12/26/17 06:59 18:59 Intake Total 400 Output Total 700 Balance -300 - Medications Medications: Current Medications Acetaminophen (Tylenol 325mg Tab) 650 mg PO Q6H PRN PRN Reason: Pain, Mild (1-3) Last Admin: 12/18/17 01:52 Dose: 650 mg Acetaminophen (Tylenol 325mg Tab) 650 mg PO Q6H PRN PRN Reason: Headache Last Admin: 12/21/17 19:22 Dose: 650 mg Albuterol/Ipratropium (Duoneb 3 Mg/0.5 Mg (3 Ml) Ud) 3 ml IH Q4H PRN PRN Reason: Shortness of Breath Last Admin: 12/14/17 05:05 Dose: 3 ml Albuterol/Ipratropium (Duoneb 3 Mg/0.5 Mg (3 Ml) Ud) 3 ml IH [id number] JEAN PAUL Last Admin: 12/26/17 07:23 Dose: 3 ml Benzocaine/Menthol (Cepacol Sore Throat) 1 wayne MT Q2H PRN PRN Reason: Sore Throat Last Admin: 12/25/17 18:06 Dose: 1 wayne Bisacodyl (Dulcolax) 10 mg RC DAILY [facility] Last Admin: 12/25/17 09:41 Dose: Not Given Doxycycline Hyclate (Doryx) 100 mg PO Q12 JEAN PAUL PRN Reason: Protocol Last Admin: 12/26/17 09:26 Dose: 100 mg Emollient Ointment (Vaseline Oint) 5 gm TOP Q8 PRN PRN Reason: Dry skin Last Admin: 12/14/17 09:26 Dose: 5 gm Furosemide (Lasix) 20 mg IVP Q12 JEAN PAUL Last Admin: 12/26/17 09:27 Dose: 20 mg Insulin Detemir (Levemir) 10 unit SC DAILY [facility] Last Admin: 12/26/17 09:28 Dose: 10 unit Insulin Human Regular (Humulin R Med) 0 units SC ACHS JEAN PAUL PRN Reason: Protocol Last Admin: 12/26/17 08:10 Dose: 1 units Lidocaine (Lidoderm) 1 ea TD DAILY [facility] Last Admin: 12/26/17 09:27 Dose: 1 ea Lorazepam (Ativan) 0.25 mg IVP Q8H PRN; Protocol PRN Reason: Anxiety Last Admin: 12/23/17 14:27 Dose: 0.25 mg Metoprolol Tartrate (Lopressor) 50 mg PO BID [facility] Last Admin: 12/26/17 09:26 Dose: 50 mg Pantoprazole Sodium (Protonix Ec Tab) 40 mg PO ACB [facility] Last Admin: 12/26/17 08:10 Dose: 40 mg Polyethylene Glycol (Miralax) 17 gm PO DAILY [facility] Last Admin: 12/26/17 09:27 Dose: 17 gm Prednisone (Prednisone Tab) 5 mg PO DAILY [facility] Last Admin: 12/26/17 09:27 Dose: 5 mg Promethazine HCl/Codeine (Phenergan/Codeine Oral Syrup) 5 ml PO Q4H PRN PRN Reason: Cough and congestion Last Admin: 12/26/17 02:13 Dose: 5 ml Quetiapine Fumarate (Seroquel) 12.5 mg PO BID PRN; Protocol PRN Reason: agitation and confusion Last Admin: 12/23/17 22:02 Dose: 12.5 mg - Labs Labs: 12/24/17 06:45 12/24/17 06:45 PT 14.7 SECONDS (9.4-12.5) H 12/13/17 00:30 INR 1.28 (0.93-1.08) H 12/13/17 00:30 APTT 29.9 Seconds (25.1-36.5) 12/13/17 00:30 - Constitutional Appears: Cachectic, Chronically Ill - Head Exam Head Exam: NORMAL INSPECTION - Respiratory Exam Respiratory Exam: Decreased Breath Sounds, Rales Additional comments: right side chest tube in place - Cardiovascular Exam Cardiovascular Exam: +S1, +S2 - GI/Abdominal Exam GI & Abdominal Exam: Soft. absent: Tenderness Assessment and Plan - Assessment and Plan (Free Text) Plan: Assessment sepsis from multifocal healthcare-associated pneumonia, post-viral, now with right sided spontaneous pneumothorax S/P chest tube placement HTN DM CAD COPD history of bowel obstruction S/P colonic resection history of pneumonia Plan continue Doxycycline day 13 and will follow up results of the repeat CT scan continue to trend WBC count will continue to monitor clinically overall prognosis is poor
[2017-12-26] MEDS: Benzocaine/Menthol (Cepacol) Lozenge MT PRN ×2 (19:49→21:35)
--- NOTE | 2017-12-26 23:22 | CP.PCM.PN ---
<Kayli Murphy - Last Filed: 12/26/17 23:18> Subjective - Date & Time of Evaluation Date of Evaluation: 12/26/17 Time of Evaluation: 11:40 - Subjective Subjective: Chief Complaint: R sided chest tube, pneumothorax, air leak 77 yr male w/ history of COPD, HTN, DM II, CAD, bowel obstruction s/p colon resection, sepsis, pneumonia, and influenza B. Pt was transferred from [facility] following discharge there after being treated for pneumonia. Pt admitted to [facility] with respiratory distress and transferred to ICU for sepsis. R chest wall chest tube inserted on 12/19/17. Pt is now on telemetry unit. Today, pt is seen out of bed to chair with R sided chest tube. Pt has difficulty communicating at this time, questionable aphasia. Pt denies any fever , chills, chest pain, shortness of breath, diarrhea, constipation, or urinary problems. Objective - Vital Signs/Intake and Output Vital Signs (last 24 hours): Temp Pulse Resp BP Pulse Ox 99 F 100 H 20 128/65 100 12/26/17 07:39 12/26/17 17:58 12/26/17 14:00 12/26/17 22:45 12/26/17 14:00 Intake and Output: 12/26/17 12/27/17 18:59 06:59 Output Total 500 Balance -500 - Medications Medications: Current Medications Acetaminophen (Tylenol 325mg Tab) 650 mg PO Q6H PRN PRN Reason: Pain, Mild (1-3) Last Admin: 12/18/17 01:52 Dose: 650 mg Acetaminophen (Tylenol 325mg Tab) 650 mg PO Q6H PRN PRN Reason: Headache Last Admin: 12/21/17 19:22 Dose: 650 mg Albuterol/Ipratropium (Duoneb 3 Mg/0.5 Mg (3 Ml) Ud) 3 ml IH Q4H PRN PRN Reason: Shortness of Breath Last Admin: 12/14/17 05:05 Dose: 3 ml Albuterol/Ipratropium (Duoneb 3 Mg/0.5 Mg (3 Ml) Ud) 3 ml IH [id number] JEAN PAUL Last Admin: 12/26/17 20:34 Dose: 3 ml Benzocaine/Menthol (Cepacol Sore Throat) 1 wayne MT Q2H PRN PRN Reason: Sore Throat Last Admin: 12/26/17 21:35 Dose: 1 wayne Bisacodyl (Dulcolax) 10 mg RC DAILY [facility] Last Admin: 12/25/17 09:41 Dose: Not Given Doxycycline Hyclate (Doryx) 100 mg PO Q12 JEAN PAUL PRN Reason: Protocol Last Admin: 12/26/17 22:45 Dose: 100 mg Emollient Ointment (Vaseline Oint) 5 gm TOP Q8 PRN PRN Reason: Dry skin Last Admin: 12/14/17 09:26 Dose: 5 gm Furosemide (Lasix) 20 mg IVP Q12 [facility] Last Admin: 12/26/17 22:45 Dose: 20 mg Insulin Detemir (Levemir) 10 unit SC DAILY [facility] Last Admin: 12/26/17 09:28 Dose: 10 unit Insulin Human Regular (Humulin R Med) 0 units SC ACHS JEAN PAUL PRN Reason: Protocol Last Admin: 12/26/17 22:43 Dose: Not Given Lidocaine (Lidoderm) 1 ea TD DAILY [facility] Last Admin: 12/26/17 09:27 Dose: 1 ea Lorazepam (Ativan) 0.25 mg IVP Q8H PRN; Protocol PRN Reason: Anxiety Last Admin: 12/23/17 14:27 Dose: 0.25 mg Metoprolol Tartrate (Lopressor) 50 mg PO BID [facility] Last Admin: 12/26/17 17:58 Dose: 50 mg Pantoprazole Sodium (Protonix Ec Tab) 40 mg PO ACB [facility] Last Admin: 12/26/17 08:10 Dose: 40 mg Polyethylene Glycol (Miralax) 17 gm PO DAILY [facility] Last Admin: 12/26/17 09:27 Dose: 17 gm Promethazine HCl/Codeine (Phenergan/Codeine Oral Syrup) 5 ml PO Q4H PRN PRN Reason: Cough and congestion Last Admin: 12/26/17 12:00 Dose: 5 ml Quetiapine Fumarate (Seroquel) 12.5 mg PO BID PRN; Protocol PRN Reason: agitation and confusion Last Admin: 12/23/17 22:02 Dose: 12.5 mg - Labs Labs: 12/24/17 06:45 12/24/17 06:45 PT 14.7 SECONDS (9.4-12.5) H 03/13/18 00:30 INR 1.28 (0.93-1.08) H 12/13/17 00:30 APTT 29.9 Seconds (25.1-36.5) 12/13/17 00:30 - Constitutional Appears: Older Than Stated Age, Chronically Ill - Head Exam Head Exam: ATRAUMATIC, NORMAL INSPECTION, NORMOCEPHALIC - Eye Exam Eye Exam: Normal appearance Pupil Exam: NORMAL ACCOMODATION - ENT Exam ENT Exam: Mucous Membranes Moist - Neck Exam Neck Exam: Full ROM, Normal Inspection - Respiratory Exam Respiratory Exam: Decreased Breath Sounds Additional comments: R chest wall dressing, c/d/I, green drainage from chest tube. moderate output. - Cardiovascular Exam Cardiovascular Exam: REGULAR RHYTHM, +S1, +S2. absent: Murmur - GI/Abdominal Exam GI & Abdominal Exam: Soft, Normal Bowel Sounds. absent: Tenderness - Extremities Exam Extremities Exam: Full ROM, Normal Capillary Refill, Normal Inspection. absent : Joint Swelling, Pedal Edema - Back Exam Back Exam: NORMAL INSPECTION - Neurological Exam Neurological Exam: Alert, Awake, Oriented x3 - Psychiatric Exam Psychiatric exam: Normal Affect, Normal Mood - Skin Skin Exam: Dry, Intact, Normal Color, Warm Assessment and Plan (1) Scrotal edema Status: Acute (2) Leukocytosis Status: Acute (3) Anemia Status: Acute (4) Malnutrition Status: Acute (5) Healthcare-associated pneumonia Status: Acute (6) Pneumothorax on right Status: Acute (7) Pneumonia Status: Acute - Assessment and Plan (Free Text) Plan: Pt tolerating diet well. IVP lasix ordered. PO doxycycline onboard. s/p IV solumedryl. s/p IV cefepime & IV vancomycin. Culture: nares NEGATIVE, urine NEGATIVE, blood NEGATIVE. Possible change of chest tube per Dr. Luciano's notes. VTE/GI prophylaxis. PT/OT on board. Incentive spirometer. Pain management: lidocaine patch, phenergan+codeine 5ml q4hr Consults: Urology - Dr. Beck Cardio - Dr. Guevara Pulmo - Dr. Luciano Surgery/Pulmo - Dr. Scruggs ID - Dr. Curtis Psych - Dr. Umana Surgery - Dr. Bharathi Henry Reviewed: CT chest = 3/26 mod R pneumothorax, unchanged, chest tube in place, increased subcutaneous edema now crosses over to L side of chest, persistent infiltrate in MONSE w. a cavity lesion, patchy infiltrate in LLL ECHO = EF 64% ECG = ABNORMAL, NSR, L atrial enlargement, nonspecific T wave abnormality, prolonged QT CXR = 12/19 increasing R sided pneumothorax, chest tube in place CT chest = ? Xray R shoulder = large R sided pneumothorax Doppler BLE = NEGATIVE CXR = 12/13 diffuse alveolar infiltrate in R lung and patchy alveolar infiltrate in L lung. consistent w/ pneumonia <Ya Fields - Last Filed: 12/29/17 08:34> Objective - Vital Signs/Intake and Output Vital Signs (last 24 hours): Temp Pulse Resp BP Pulse Ox 97.9 F 92 H 20 125/69 100 12/28/17 22:00 12/28/17 22:00 12/28/17 22:00 12/28/17 22:00 12/28/17 22:00 Intake and Output: 12/29/17 12/29/17 06:59 18:59 Intake Total 240 Output Total 1101 Balance -861 - Medications Medications: Current Medications Acetaminophen (Tylenol 325mg Tab) 650 mg PO Q6H PRN PRN Reason: Pain, Mild (1-3)/HEADACHE Last Admin: 12/28/17 21:42 Dose: 650 mg Albuterol/Ipratropium (Duoneb 3 Mg/0.5 Mg (3 Ml) Ud) 3 ml IH Q4H PRN PRN Reason: Shortness of Breath Last Admin: 12/14/17 05:05 Dose: 3 ml Albuterol/Ipratropium (Duoneb 3 Mg/0.5 Mg (3 Ml) Ud) 3 ml IH [id number] [facility] Last Admin: 12/29/17 07:34 Dose: 3 ml Benzocaine/Menthol (Cepacol Sore Throat) 1 [place]ne MT Q2H PRN PRN Reason: Sore Throat Bisacodyl (Dulcolax) 10 mg RC DAILY [facility] Last Admin: 12/28/17 10:22 Dose: Not Given Emollient Ointment (Vaseline Oint) 5 gm TOP Q8 PRN PRN Reason: Dry skin Last Admin: 12/14/17 09:26 Dose: 5 gm Furosemide (Lasix) 20 mg IVP Q12 [facility] Last Admin: 12/28/17 21:45 Dose: 20 mg Insulin Detemir (Levemir) 10 unit SC DAILY [facility] Last Admin: 12/28/17 10:20 Dose: 10 unit Insulin Human Regular (Humulin R Med) 0 units SC ACHS JEAN PAUL PRN Reason: Protocol Last Admin: 12/28/17 22:56 Dose: Not Given Lidocaine (Lidoderm) 1 ea TD DAILY [facility] Last Admin: 12/28/17 10:21 Dose: 1 ea Lorazepam (Ativan) 0.25 mg IVP Q8H PRN; Protocol PRN Reason: Anxiety Last Admin: 12/23/17 14:27 Dose: 0.25 mg Metoprolol Tartrate (Lopressor) 50 mg PO BID [facility] Last Admin: 12/28/17 19:05 Dose: 50 mg Pantoprazole Sodium (Protonix Ec Tab) 40 mg PO ACB [facility] Last Admin: 12/28/17 08:04 Dose: 40 mg Phenol/Menthol (Phenaseptic 1.4% Throat Elroy) 0 ml MT Q2H PRN PRN Reason: Sore Throat Last Admin: 12/29/17 06:36 Dose: 3 spr Polyethylene Glycol (Miralax) 17 gm PO DAILY [facility] Last Admin: 12/28/17 10:21 Dose: 17 gm Promethazine HCl/Codeine (Phenergan/Codeine Oral Syrup) 5 ml PO Q4H PRN PRN Reason: Cough and congestion Last Admin: 12/29/17 04:31 Dose: 5 ml Quetiapine Fumarate (Seroquel) 12.5 mg PO BID PRN; Protocol PRN Reason: agitation and confusion Last Admin: 12/23/17 22:02 Dose: 12.5 mg Sodium Chloride ([place] Nasal [place]) 0 ml NS QID [facility] Last Admin: 12/28/17 21:43 Dose: 1 spr - Labs Labs: 12/28/17 07:00 12/29/17 06:40 PT 14.7 SECONDS (9.4-12.5) H 12/13/17 00:30 INR 1.28 (0.93-1.08) H 12/13/17 00:30 APTT 29.9 Seconds (25.1-36.5) 12/13/17 00:30 Assessment and Plan - Assessment and Plan (Free Text) Plan: 77 yr male w/ history of COPD, HTN, DM II, CAD, bowel obstruction s/p colon resection, sepsis, pneumonia, and influenza B. Pt was transferred from [facility] following discharge there after being treated for pneumonia. Pt admitted to [facility] with respiratory distress and transferred to ICU for sepsis. R chest wall chest tube inserted on 12/19/17. Pt is now on telemetry unit. Today, pt is seen out of bed to chair with R sided chest tube. Pt has difficulty communicating at this time, questionable aphasia. Pt denies any fever , chills, chest pain, shortness of breath, diarrhea, constipation, or urinary problems.pt is seen and examined at bed side . looking comfortable agreed all above . chart , meds and labs noted , will f/u
--- NOTE | 2017-12-27 01:55 | PN ---
DATE: 12/26/2017 PULMONARY PROGRESS NOTE REFERRING PHYSICIAN: Ya Fields MD SUBJECTIVE: He is out of bed to chair, family is at bedside, still have right-sided chest tube with air leak with extending subcutaneous emphysema, mild cough and sputum production. No nausea, no vomiting, no diarrhea. Has trace leg swelling. OBJECTIVE: GENERAL: In no acute distress. VITAL SIGNS: Temperature is 99, heart rate 100, respiratory rate is 22, blood pressure 125/80, pulse ox are 94% on nasal cannula. HEENT: Moist mucous membrane. Small oral cavity. NECK: Supple. No JVD. LUNGS: Has a scattered rhonchi. Has right chest skin crepitus with subcutaneous emphysema. HEART: S1 and S2. ABDOMEN: Soft, nontender. No organomegaly. EXTREMITIES: There is no edema. NEUROLOGIC: Awake, alert, and follows simple command. MEDICATIONS: He is on Ativan 0.25 mg IV every 8 hours p.r.n., Cepacol lozenges every 2 hours p.r.n., doxycycline 100 mg twice a day, Dulcolax 20 mg rectally, DuoNeb every 4 hours p.r.n., every 6 hours round the clock, insulin coverage, Lasix 20 mg twice a day, Levemir 10 units subcutaneously daily, lidocaine is daily, metoprolol tartrate 50 mg twice a day, MiraLax 17 g daily, promethazine every 4 hours p.r.n., prednisone 5 mg daily, Protonix 40 mg daily, Seroquel 12.5 mg twice a day, Tylenol p.r.n., Vaseline ointment affected area. LABORATORY DATA: Shows blood sugar today 102. CAT scan of the chest done today shows moderate size right pneumothorax. The chest tube remains in place. Presently, there is increased subcutaneous emphysema, which is now crossing the left side of the chest with bilateral infiltrate though. IMPRESSION AND PLAN: Multi-lobe pneumonia, chronic obstructive lung disease, persistent right-sided pneumothorax with air leak in the chest tube, but unable to keep up with the air leak, has a subcutaneous emphysema, diabetes, hypertension, coronary artery disease, dementia. I spoke to nursing staff. Thoracic surgery consult has been called since yesterday. So, for et al did not see the patient, so nursing going to follow up and make . We can have Surgery to take a look at him. From Pulmonary point of view, continue bronchodilator, keep head at 45 degrees, gastric prophylaxis, SCDs to lower extremity. Follow up labs in the morning. Continue antibiotics. Discontinue prednisone. Thank you and we will follow with you. Eloisa Luciano MD
[2017-12-27] MEDS: Promethazine/Cod 6.25mg-10mg/5ml Syr UD PO PRN (02:04)
[2017-12-27] MEDS: Albuterol-Ipratrop 3 mg / 0.5 (3 ml) UD IH SCH ×4 (02:53→22:00)
[2017-12-27 07:22] LABS: HEMOGLOBIN 10.1 g/dL (14.0-18.0); MEAN CELL VOLUME 90.5 fl (80.0-105.0); MEAN CORPUSCULAR HEMOGLOBIN 29.2 pg (25.0-35.0); MEAN CORPUSCULAR HGB CONC 32.3 g/dl (31.0-37.0); MEAN PLATELET VOLUME 9.6 fl (7.0-11.0); RBC 3.46 10^6/uL (3.5-6.1); RED CELL DISTRIBUTION WIDTH 13.9 % (11.5-14.5); WHITE BLOOD COUNT 14.4 10^3/ul (4.5-11.0)
[2017-12-27 07:47] LABS: ALB/GLOB RATIO 0.6 (1.1-1.8); ALBUMIN 2.5 g/dL (3.0-4.8); ALT/SGPT 85 U/L (7-56); AST/SGOT 65 U/L (17-59); BLOOD UREA NITROGEN 27 mg/dL (7-21); CALCIUM 8.6 mg/dL (8.4-10.5); GFR AFRICAN-AMERICAN > 60; GFR NON-AFRICAN AMERICAN > 60
[2017-12-27] MEDS: Insulin Reg-MEDIUM-Coverage SC SCH ×4 (08:14→23:52)
--- NOTE | 2017-12-27 10:04 | CP.PCM.PN ---
Subjective - Date & Time of Evaluation Date of Evaluation: 12/27/17 Time of Evaluation: 07:00 - Subjective Subjective: Patient seen and examined. Continuous to have persistent air leak. Reports lack of sleep. Patient O2 sat 99% on room air. Objective - Vital Signs/Intake and Output Vital Signs (last 24 hours): Temp Pulse Resp BP Pulse Ox 98.8 F 105 H 18 128/72 100 12/27/17 07:30 12/27/17 07:30 12/27/17 07:30 12/27/17 07:30 12/27/17 07:30 Intake and Output: 12/27/17 12/27/17 06:59 18:59 Intake Total 180 Output Total 500 Balance -320 - Medications Medications: Current Medications Acetaminophen (Tylenol 325mg Tab) 650 mg PO Q6H PRN PRN Reason: Pain, Mild (1-3) Last Admin: 12/18/17 01:52 Dose: 650 mg Acetaminophen (Tylenol 325mg Tab) 650 mg PO Q6H PRN PRN Reason: Headache Last Admin: 12/21/17 19:22 Dose: 650 mg Albuterol/Ipratropium (Duoneb 3 Mg/0.5 Mg (3 Ml) Ud) 3 ml IH Q4H PRN PRN Reason: Shortness of Breath Last Admin: 12/14/17 05:05 Dose: 3 ml Albuterol/Ipratropium (Duoneb 3 Mg/0.5 Mg (3 Ml) Ud) 3 ml IH [id number] JEAN PAUL Last Admin: 12/27/17 07:16 Dose: 3 ml Benzocaine/Menthol (Cepacol Sore Throat) 1 wayne MT Q2H PRN PRN Reason: Sore Throat Last Admin: 12/26/17 21:35 Dose: 1 wayne Bisacodyl (Dulcolax) 10 mg RC DAILY [facility] Last Admin: 12/25/17 09:41 Dose: Not Given Doxycycline Hyclate (Doryx) 100 mg PO Q12 JEAN PAUL PRN Reason: Protocol Last Admin: 12/26/17 22:45 Dose: 100 mg Emollient Ointment (Vaseline Oint) 5 gm TOP Q8 PRN PRN Reason: Dry skin Last Admin: 12/14/17 09:26 Dose: 5 gm Furosemide (Lasix) 20 mg IVP Q12 JEAN PAUL Last Admin: 12/26/17 22:45 Dose: 20 mg Insulin Detemir (Levemir) 10 unit SC DAILY [facility] Last Admin: 12/26/17 09:28 Dose: 10 unit Insulin Human Regular (Humulin R Med) 0 units SC ACHS JEAN PAUL PRN Reason: Protocol Last Admin: 12/27/17 08:14 Dose: 3 units Lidocaine (Lidoderm) 1 ea TD DAILY [facility] Last Admin: 12/26/17 09:27 Dose: 1 ea Lorazepam (Ativan) 0.25 mg IVP Q8H PRN; Protocol PRN Reason: Anxiety Last Admin: 12/23/17 14:27 Dose: 0.25 mg Metoprolol Tartrate (Lopressor) 50 mg PO BID [facility] Last Admin: 12/26/17 17:58 Dose: 50 mg Pantoprazole Sodium (Protonix Ec Tab) 40 mg PO ACB [facility] Last Admin: 12/26/17 08:10 Dose: 40 mg Polyethylene Glycol (Miralax) 17 gm PO DAILY [facility] Last Admin: 12/26/17 09:27 Dose: 17 gm Promethazine HCl/Codeine (Phenergan/Codeine Oral Syrup) 5 ml PO Q4H PRN PRN Reason: Cough and congestion Last Admin: 12/27/17 02:04 Dose: 5 ml Quetiapine Fumarate (Seroquel) 12.5 mg PO BID PRN; Protocol PRN Reason: agitation and confusion Last Admin: 12/23/17 22:02 Dose: 12.5 mg - Labs Labs: 12/27/17 07:00 12/27/17 07:00 PT 14.7 SECONDS (9.4-12.5) H 12/13/17 00:30 INR 1.28 (0.93-1.08) H 12/13/17 00:30 APTT 29.9 Seconds (25.1-36.5) 12/13/17 00:30 - Constitutional Appears: No Acute Distress - Head Exam Head Exam: NORMOCEPHALIC - Eye Exam Eye Exam: EOMI, Normal appearance - ENT Exam ENT Exam: Mucous Membranes Moist - Respiratory Exam Respiratory Exam: absent: Accessory Muscle Use, Respiratory Distress Additional comments: subQ emphysema - Cardiovascular Exam Cardiovascular Exam: +S1, +S2 - GI/Abdominal Exam GI & Abdominal Exam: Soft - Neurological Exam Neurological Exam: Alert, Awake, Oriented x3 - Psychiatric Exam Psychiatric exam: Normal Mood - Skin Skin Exam: Dry, Intact, Warm Assessment and Plan - Assessment and Plan (Free Text) Assessment: 77M w. R side PTX and air leak Plan: -Will replace chest tube with 28Fr chest tube -If air leak does not resolve after exchange patient will need VATS -D/w Dr. Lluvia Hardy PGY 2
[2017-12-27] MEDS: Pantoprazole 40 mg EC Tab PO SCH (10:07)
[2017-12-27] MEDS: Lidocaine 5% Patch TD SCH (10:07)
[2017-12-27] MEDS: POLYETHYLENE GLYCOL 3350 17 GM/Dose PACKET PO SCH (10:08)
[2017-12-27] MEDS: Insulin Detemir 100 units/ml Vial (Levemir) SC SCH (10:18)
--- NOTE | 2017-12-27 10:19 | CP.PCM.PN ---
Subjective - Date & Time of Evaluation Date of Evaluation: 12/27/17 Time of Evaluation: 07:00 - Subjective Subjective: Patient seen and examined. No acute events over night. Persist right sided air leak . Objective - Vital Signs/Intake and Output Vital Signs (last 24 hours): Temp Pulse Resp BP Pulse Ox 98.8 F 105 H 18 128/72 100 12/27/17 07:30 12/27/17 07:30 12/27/17 07:30 12/27/17 07:30 12/27/17 07:30 Intake and Output: 12/27/17 12/27/17 06:59 18:59 Intake Total 180 Output Total 500 Balance -320 - Medications Medications: Current Medications Acetaminophen (Tylenol 325mg Tab) 650 mg PO Q6H PRN PRN Reason: Pain, Mild (1-3) Last Admin: 12/18/17 01:52 Dose: 650 mg Acetaminophen (Tylenol 325mg Tab) 650 mg PO Q6H PRN PRN Reason: Headache Last Admin: 12/21/17 19:22 Dose: 650 mg Albuterol/Ipratropium (Duoneb 3 Mg/0.5 Mg (3 Ml) Ud) 3 ml IH Q4H PRN PRN Reason: Shortness of Breath Last Admin: 12/14/17 05:05 Dose: 3 ml Albuterol/Ipratropium (Duoneb 3 Mg/0.5 Mg (3 Ml) Ud) 3 ml IH [id number] JEAN PAUL Last Admin: 12/27/17 07:16 Dose: 3 ml Benzocaine/Menthol (Cepacol Sore Throat) 1 [address]ne MT Q2H PRN PRN Reason: Sore Throat Last Admin: 12/26/17 21:35 Dose: 1 wayne Bisacodyl (Dulcolax) 10 mg RC DAILY [facility] Last Admin: 12/25/17 09:41 Dose: Not Given Doxycycline Hyclate (Doryx) 100 mg PO Q12 JEAN PAUL PRN Reason: Protocol Last Admin: 12/26/17 22:45 Dose: 100 mg Emollient Ointment (Vaseline Oint) 5 gm TOP Q8 PRN PRN Reason: Dry skin Last Admin: 12/14/17 09:26 Dose: 5 gm Furosemide (Lasix) 20 mg IVP Q12 JEAN PAUL Last Admin: 12/26/17 22:45 Dose: 20 mg Insulin Detemir (Levemir) 10 unit SC DAILY [facility] Last Admin: 12/26/17 09:28 Dose: 10 unit Insulin Human Regular (Humulin R Med) 0 units SC ACHS [facility] PRN Reason: Protocol Last Admin: 12/27/17 08:14 Dose: 3 units Lidocaine (Lidoderm) 1 ea TD DAILY [facility] Last Admin: 12/26/17 09:27 Dose: 1 ea Lorazepam (Ativan) 0.25 mg IVP Q8H PRN; Protocol PRN Reason: Anxiety Last Admin: 12/23/17 14:27 Dose: 0.25 mg Metoprolol Tartrate (Lopressor) 50 mg PO BID [facility] Last Admin: 12/26/17 17:58 Dose: 50 mg Pantoprazole Sodium (Protonix Ec Tab) 40 mg PO ACB [facility] Last Admin: 12/26/17 08:10 Dose: 40 mg Polyethylene Glycol (Miralax) 17 gm PO DAILY [facility] Last Admin: 12/26/17 09:27 Dose: 17 gm Promethazine HCl/Codeine (Phenergan/Codeine Oral Syrup) 5 ml PO Q4H PRN PRN Reason: Cough and congestion Last Admin: 12/27/17 02:04 Dose: 5 ml Quetiapine Fumarate (Seroquel) 12.5 mg PO BID PRN; Protocol PRN Reason: agitation and confusion Last Admin: 12/23/17 22:02 Dose: 12.5 mg - Labs Labs: 12/27/17 07:00 12/27/17 07:00 PT 14.7 SECONDS (9.4-12.5) H 12/13/17 00:30 INR 1.28 (0.93-1.08) H 12/13/17 00:30 APTT 29.9 Seconds (25.1-36.5) 12/13/17 00:30 - Head Exam Head Exam: NORMOCEPHALIC - Eye Exam Eye Exam: Normal appearance - ENT Exam ENT Exam: Mucous Membranes Moist - Respiratory Exam Respiratory Exam: NORMAL BREATHING PATTERN - Cardiovascular Exam Cardiovascular Exam: +S1, +S2 - GI/Abdominal Exam GI & Abdominal Exam: Soft. absent: Tenderness - Neurological Exam Neurological Exam: Alert, Awake, Oriented x3 - Psychiatric Exam Psychiatric exam: Normal Mood - Skin Skin Exam: Dry, Intact, Warm Assessment and Plan - Assessment and Plan (Free Text) Assessment: 77M w/ R sided pneumothorax and persistent air leak Plan: -F/u CT surgery recs -F/u CXR -Further recs per Dr. Gurwinder Hardy PGY 2
[2017-12-27] MEDS ORDERED: Lidocaine 1% Inj (20ml) IJ STA (11:52)
--- NOTE | 2017-12-27 12:40 | PCM.PROC ---
Procedures Attestation:: I certify that I have explained the specified Operation(s) or Procedure(s), risks, benefits and reasonable alternatives to the Patient and/or other person responsible. The opportunity was given to ask questions and all questions answered - Chest Tube Chest Tube Location: Mid-Axillary Right Size of Tube (cm): 28 Chest Tube Procedure: Chlorhexidine Tube Sutured to Skin: Yes Sterile Dressing Applied: Yes Anesthesia: Lidocaine 1% Volume Anesthetic (mls): 20 Incision Made With: #10 blade Post Procedure: sutured to skin, sterile dressing applied, air occlusive dressing Villatoro of Air [place]: Yes Tube Drainage: other (10cc serosanguinous) Amount of Initial Drainage: 10 Post Procedure CXR?: Yes Patient Tolerated Procedure: Yes Progress: Date:12/27/17 Time: 1225 Indication: Pneumothorax Resident: Dr. Bello PGY2 Attending:Dr. Teixeira A time-out was completed verifying correct patient, procedure, site, and positioning. 1% Lidocaine was used to anesthetize the surrounding skin area. A ~2cm skin incision was made in the mid-axillary line at the inframammary crease. Utilizing blunt dissection a subcutaneous tunnel was created cephalad just adjacent to the superior rib. The pleural space was entered bluntly and gush of air was heard. A finger was inserted into the pleural space to check for anatomy and guide tube insertion. A 28F thoracostomy tube was inserted using a Francisca clamp and positioned appropriately. The chest tube was sutured securely to the skin and a sterile dressing applied. A pleuravac was attached to the chest tube and a chest x-ray obtained. Estimated Blood Loss: <10cc The patient tolerated the procedure well and there were no complications.
[2017-12-27] MEDS ORDERED: Benzocaine/Menthol (Cepacol) Lozenge MT PRN (12:53)
[2017-12-27] MEDS: Benzocaine/Menthol (Cepacol) Lozenge MT PRN ×2 (12:53→16:07)
--- NOTE | 2017-12-27 13:12 | RAD ---
HISTORY: s/p chest tube placement COMPARISON: 12/26/2017 FINDINGS: LUNGS: Small right apical pneumothorax persists. Right apical chest tube noted. Extensive subcutaneous emphysema seen over right lateral chest wall. Vaguely rounded right apical opacity. Large rounded left suprahilar opacity corresponding to a cavitary lesion seen on chest CT examination of 12/26/2017. . Suspicious for neoplasm. PLEURA: Small right apical pneumothorax. No pleural effusion. CARDIOVASCULAR: Normal. OSSEOUS STRUCTURES: No significant abnormalities. VISUALIZED UPPER ABDOMEN: Normal. OTHER FINDINGS: None. IMPRESSION: Small right apical pneumothorax persists. Right apical chest tube. Left suprahilar rounded opacity. Possible small right apical rounded opacity. Extensive subcutaneous emphysema over right lateral chest wall.
--- NOTE | 2017-12-27 15:00 | CP.PCM.PCO ---
Physician Communication Note - Physician Communication Note Physician Communication Note: New CT(28)-Lung up/NB L Chest Cavity(?etiology)
--- NOTE | 2017-12-27 15:54 | PN ---
DATE: REASON FOR CONSULTATION: Sinus tachycardia, multilobar pneumonia, pneumothorax, COPD. SUBJECTIVE: The patient denies any chest pain, shortness of breath, or any palpitation. Complaining of some sore throat and difficulty swallowing. OBJECTIVE: GENERAL: Not in apparent distress. VITAL SIGNS: Temperature afebrile, heart rate 108, blood pressure 128/72. HEENT: PERRLA, intact. NECK: Supple. No carotid bruit or thyromegaly. CHEST: Scattered rhonchi noted. Subcutaneous emphysema noted. ABDOMEN: Soft. EXTREMITIES: Clubbing and cyanosis negative. IMPRESSION: Multilobar pneumonia; chronic obstructive pulmonary disease; status post pneumothorax; status post chest tube; subcutaneous emphysema; altered mental status, improved; severe protein-calorie malnutrition. since admission. RECOMMENDATIONS: Continue chest tube. Continue treatment for COPD. Continue insulin. Continue lidocaine. Continue metoprolol 50 p.o. b.i.d. We will follow with you. Monitor electrolytes and supplement as needed. His hemoglobin A1c is 8.9, suggestive of poor compliance of the medication. As mentioned, sinus tachycardia is multifactorial secondary to underlying condition, irritation on the chest tube, anemia, and treatment of COPD. Thank you, Dr. Fields for providing us the opportunity in taking care of the patient, Ifeoma El. Eloisa Montana MD
--- NOTE | 2017-12-28 00:43 | PN ---
DATE: SUBJECTIVE: Patient is a 77-year-old male. Patient is seen and examined at the bedside, looking comfortable. No acute event overnight. Persistent right-sided air leak. Dr. Matamoros did the procedure, stitching of the tube to the skin. No nausea or vomiting. The patient is a very poor historian. No fever, no chills. No headache, no dizziness. PHYSICAL EXAMINATION VITAL SIGNS: Temperature 98.8, pulse 105, respiratory rate 18, blood pressure 120/72, and pulse oximetry 100%. HEENT: Head: Normocephalic, atraumatic. Eyes: PERRLA. Extraocular muscles are intact. Conjunctivae are clear. Nose: Patent. Mucous membrane moist. NECK: Supple. No carotid bruit. No JVD or thyromegaly. CHEST: Bilaterally symmetrical. HEART: S1, S2 positive. LUNGS: Clear to auscultation. ABDOMEN: Soft. Bowel sounds present. No organomegaly. EXTREMITIES: No edema. No cyanosis. NEUROLOGIC: Patient is awake and alert. Moving all four extremities. No focal deficit. MEDICATIONS: Acetaminophen, DuoNeb, Cepacol lozenges, Dulcolax, doxycycline, emollient ointment, Lasix, Levemir, insulin, Lidoderm, Ativan, Lopressor, Protonix, MiraLax, Phenergan, Seroquel. LABORATORY DATA: White blood cells 14.4, hemoglobin 10.1, hematocrit 31.3, platelets 382. Sodium 131, potassium 3.9, BUN 27, creatinine 0.9, glucose 235. ASSESSMENT AND PLAN: Mr. Nikko Dia is a 77-year-old male with leukocytosis, anemia, hyponatremia, hyperglycemia, has right-sided pneumothorax and persistent air leak, multilobar pneumonia, chronic obstructive lung disease, has subcutaneous emphysema, diabetes mellitus, hypertension, coronary artery disease, dementia. Plastic surgery consult called. Sequential compression device to lower extremities. Dr. Luciano discontinued the prednisone. Continue the antibiotics. Appreciated surgical input. Gastrointestinal and deep venous thrombosis prophylaxis. Repeat labs. We will follow up. Ya Fields MD [facility] # [id number]
--- NOTE | 2017-12-28 01:12 | PN ---
DATE: 12/27/2017 PULMONARY PROGRESS NOTE REFERRING PHYSICIAN: Dr. Fields. SUBJECTIVE: He is sitting up in a bed. Last 24-hour events noted. Spoke to Dr. Purdy from surgery, who spoke to Thoracic Surgery. Patient has a persistent pneumothorax. No nausea, no vomiting. No diarrhea. Does have leg swelling. Has some cough and sputum production. OBJECTIVE: GENERAL: Mild distress secondary to cough and shortness of breath. VITAL SIGNS: Temperature is 98, heart rate is 96, respiratory is 20, blood pressure 123/58, pulse ox 98% on 2 liters nasal cannula. HEENT: Moist mucous membrane. Crowded airway. NECK: Supple. No JVD. LUNGS: Has a right-sided chest tube with air leak. Has a subcutaneous emphysema over the right side of chest in right arm. HEART: S1 and S2. ABDOMEN: Soft, nontender. No organomegaly. EXTREMITIES: There is no edema. NEUROLOGIC: Awake, alert, and follows simple command. MEDICATIONS: He is on Ativan 0.25 mg every 8 hours p.r.n.,Cepacol lozenges every 2 hours p.r.n., doxycycline 100 mg twice a day, Dulcolax 10 mg rectally, DuoNeb every 4 hours p.r.n. and every 6 hours round the clock, Lasix 20 mg twice a day, Levemir 10 units subcutaneously daily, Lidoderm patch daily, metoprolol tartrate 50 mg twice a day, MiraLax 17 g daily, promethazine every 4 hours p.r.n., Protonix 40 mg a.c.b., Seroquel 12.5 mg twice a day p.r.n., Tylenol p.r.n., Vaseline ointment to affected area every 8 hours. LABORATORY DATA: Shows hemoglobin 10.1, hematocrit 31.3, WBC 14.4, platelet is 382. Sodium 131, potassium 3.9, chloride 92, bicarbonate 33, BUN 27, creatinine 0.9, glucose 235. Calcium 8.6. AST 65, ALT 85, alk phos is 122. Albumin is 2.5. Microbiology: Blood culture, nares culture, urine culture, so far there is no growth. Chest x-ray done this afternoon shows a small right apical pneumothorax persist, right apical chest tube, suprahilar rounded opacity, possible small right apical rounded opacity, extensive subcutaneous emphysema noted, right lateral chest tube noted. IMPRESSION AND PLAN: Multilobar pneumonia, cavitary lesion, right persistent pneumothorax, obstructive lung disease, diabetes, hypertension, coronary artery disease, dementia. Case discussed with surgery, Dr. Purdy, who spoke to Thoracic Surgery, was recommended to place a bigger bore tube, so 28-Bengali tube been placed by surgical team. Has a large air leak at present time with subcutaneous emphysema. Also, patient being followed by Infectious Disease, of course bothersome is cavitary lesion. Patient on doxycycline, treated with broad-spectrum antibiotics. Agree with sending sputum for culture, sensitivity and AFB. Follow up x-ray in the morning. Continue bronchodilator, incentive spirometer, out of bed to chair, bedside physical therapy. Follow up labs in the morning. Thank you and we will follow with you. Eloisa Luciano MD
[2017-12-28] MEDS: Albuterol-Ipratrop 3 mg / 0.5 (3 ml) UD IH SCH ×4 (03:32→19:34)
--- NOTE | 2017-12-28 04:09 | PN ---
DATE: SUBJECTIVE: The patient is in bed, in no acute distress, nontoxic. No fevers and chills. PHYSICAL EXAMINATION: VITAL SIGNS: Temperature is 98, blood pressure is 114/60, respiratory rate of 20, heart rate of 105. HEENT: Unremarkable. NECK: Supple. HEART: Normal S1 and S2. LUNGS: Have decreased breath sounds. ABDOMEN: Soft, nontender. LABORATORY DATA: Laboratory examination reveals the patient has a white count of 14,400, hemoglobin of 10. Chemistries are noted: BUN of 27, creatinine of 0.9. Urinalysis is noted. Serology is noted. Microbiology is noted. Blood cultures are negative. The patient had a chest x-ray today and results are reviewed. Dr. Matamoros's - report is noted. ASSESSMENT AND PLAN: This is a 77-year-old male seen earlier this morning in 575, bed 1, with sepsis multifocal healthcare-associated pneumonia post viral with spontaneous pneumothorax, status post chest tube placement in a patient with chronic obstructive pulmonary disease, diabetes, hypertension, bowel obstruction, and bowel resection, on day #14 of doxycycline, who is afebrile; however, the white count is 14,400. We will follow with you. Isacc Curtis MD
[2017-12-28 07:42] LABS: HEMOGLOBIN 9.9 g/dL (14.0-18.0); MEAN CELL VOLUME 90.8 fl (80.0-105.0); MEAN CORPUSCULAR HEMOGLOBIN 29.5 pg (25.0-35.0); MEAN CORPUSCULAR HGB CONC 32.5 g/dl (31.0-37.0); RBC 3.36 10^6/uL (3.5-6.1); RED CELL DISTRIBUTION WIDTH 13.9 % (11.5-14.5); WHITE BLOOD COUNT 13.8 10^3/ul (4.5-11.0)
[2017-12-28 07:53] LABS: ALB/GLOB RATIO 0.6 (1.1-1.8); ALBUMIN 2.4 g/dL (3.0-4.8); ALT/SGPT 84 U/L (7-56); AST/SGOT 74 U/L (17-59); BLOOD UREA NITROGEN 23 mg/dL (7-21); CALCIUM 8.4 mg/dL (8.4-10.5); GFR AFRICAN-AMERICAN > 60; GFR NON-AFRICAN AMERICAN > 60
[2017-12-28] MEDS: Insulin Reg-MEDIUM-Coverage SC SCH ×4 (08:03→22:56)
[2017-12-28] MEDS: Pantoprazole 40 mg EC Tab PO SCH (08:04)
--- NOTE | 2017-12-28 10:14 | RAD ---
HISTORY: pneumo COMPARISON: 12/27/2017 FINDINGS: LUNGS: There is a right-sided chest tube terminating in the lung apex. There is a small residual pneumothorax. The edge of the lung is 16 mm from the chest wall. There is a 6 cm cavitary lesion in the left upper lobe. PLEURA: No significant pleural effusion identified, no pneumothorax apparent. CARDIOVASCULAR: Normal. OSSEOUS STRUCTURES: No significant abnormalities. VISUALIZED UPPER ABDOMEN: Normal. OTHER FINDINGS: There is a slight decrease in the amount of subcutaneous emphysema IMPRESSION: Small right-sided pneumothorax. See comments
[2017-12-28] MEDS: Insulin Detemir 100 units/ml Vial (Levemir) SC SCH (10:20)
[2017-12-28] MEDS: Lidocaine 5% Patch TD SCH (10:21)
[2017-12-28] MEDS: POLYETHYLENE GLYCOL 3350 17 GM/Dose PACKET PO SCH (10:21)
--- NOTE | 2017-12-28 11:42 | CP.PCM.PCO ---
Physician Communication Note - Physician Communication Note Physician Communication Note: Still leaking/Trouble swallowing
--- NOTE | 2017-12-28 12:19 | CP.PCM.PN ---
Subjective - Date & Time of Evaluation Date of Evaluation: 12/28/17 Time of Evaluation: 10:00 - Subjective Subjective: Patient seen and examined this morning. Complaining of cough. Still has air leak. Objective - Vital Signs/Intake and Output Vital Signs (last 24 hours): Temp Pulse Resp BP Pulse Ox 98.6 F 86 20 141/60 100 12/28/17 08:00 12/28/17 10:21 12/28/17 08:00 12/28/17 10:21 12/28/17 08:00 Intake and Output: 12/28/17 12/28/17 06:59 18:59 Intake Total 540 Output Total 510 Balance 30 - Medications Medications: Current Medications Acetaminophen (Tylenol 325mg Tab) 650 mg PO Q6H PRN PRN Reason: Pain, Mild (1-3)/HEADACHE Last Admin: 12/27/17 22:31 Dose: 650 mg Albuterol/Ipratropium (Duoneb 3 Mg/0.5 Mg (3 Ml) Ud) 3 ml IH Q4H PRN PRN Reason: Shortness of Breath Last Admin: 12/14/17 05:05 Dose: 3 ml Albuterol/Ipratropium (Duoneb 3 Mg/0.5 Mg (3 Ml) Ud) 3 ml IH [id number] [facility] Last Admin: 12/28/17 07:32 Dose: 3 ml Benzocaine/Menthol (Cepacol Sore Throat) 1 [address] Q2H PRN PRN Reason: Sore Throat Bisacodyl (Dulcolax) 10 mg RC DAILY [facility] Last Admin: 12/28/17 10:22 Dose: Not Given Doxycycline Hyclate (Doryx) 100 mg PO Q12 [facility] PRN Reason: Protocol Last Admin: 12/28/17 10:21 Dose: 100 mg Emollient Ointment (Vaseline Oint) 5 gm TOP Q8 PRN PRN Reason: Dry skin Last Admin: 12/14/17 09:26 Dose: 5 gm Furosemide (Lasix) 20 mg IVP Q12 [facility] Last Admin: 12/28/17 10:20 Dose: 20 mg Insulin Detemir (Levemir) 10 unit SC DAILY [facility] Last Admin: 12/28/17 10:20 Dose: 10 unit Insulin Human Regular (Humulin R Med) 0 units SC ACHS [facility] PRN Reason: Protocol Last Admin: 12/28/17 08:03 Dose: Not Given Lidocaine (Lidoderm) 1 ea TD DAILY [facility] Last Admin: 12/28/17 10:21 Dose: 1 ea Lorazepam (Ativan) 0.25 mg IVP Q8H PRN; Protocol PRN Reason: Anxiety Last Admin: 12/23/17 14:27 Dose: 0.25 mg Metoprolol Tartrate (Lopressor) 50 mg PO BID [facility] Last Admin: 12/28/17 10:21 Dose: 50 mg Pantoprazole Sodium (Protonix Ec Tab) 40 mg PO ACB [facility] Last Admin: 12/28/17 08:04 Dose: 40 mg Phenol/Menthol (Phenaseptic 1.4% Throat [place]) 0 ml MT Q2H PRN PRN Reason: Sore Throat Polyethylene Glycol (Miralax) 17 gm PO DAILY [facility] Last Admin: 12/28/17 10:21 Dose: 17 gm Promethazine HCl/Codeine (Phenergan/Codeine Oral Syrup) 5 ml PO Q4H PRN PRN Reason: Cough and congestion Last Admin: 12/27/17 02:04 Dose: 5 ml Quetiapine Fumarate (Seroquel) 12.5 mg PO BID PRN; Protocol PRN Reason: agitation and confusion Last Admin: 12/23/17 22:02 Dose: 12.5 mg - Labs Labs: 12/28/17 07:00 12/28/17 07:00 PT 14.7 SECONDS (9.4-12.5) H 12/13/17 00:30 INR 1.28 (0.93-1.08) H 12/13/17 00:30 APTT 29.9 Seconds (25.1-36.5) 12/13/17 00:30 - Constitutional Appears: No Acute Distress - Head Exam Head Exam: NORMOCEPHALIC - Eye Exam Eye Exam: EOMI, Normal appearance - ENT Exam ENT Exam: Mucous Membranes Moist - Respiratory Exam Respiratory Exam: NORMAL BREATHING PATTERN - Cardiovascular Exam Cardiovascular Exam: +S1, +S2 - GI/Abdominal Exam GI & Abdominal Exam: Soft - Neurological Exam Neurological Exam: Alert, Awake, Oriented x3 - Psychiatric Exam Psychiatric exam: Normal Mood - Skin Skin Exam: Dry, Intact, Warm Assessment and Plan - Assessment and Plan (Free Text) Assessment: 77M w. R side PTX and air leak Plan: -C/w chest tube to wall suction -CXR demonstrating persistent right sided pneumothorax -If air leak does not resolve patient will need VATS -D/w Dr. Lluvia Hardy PGY 2
[2017-12-28] MEDS: Phenol Topical 1.4% Throat Spray (180 ml) MT PRN (13:10)
--- NOTE | 2017-12-28 13:10 | PN ---
DATE: 12/28/2017 LOCATION: The patient in room 575, bed 1. REASON FOR CONSULTATION AND FOLLOWUP: Sinus tachycardia, multilobar pneumonia, pneumothorax, COPD, subcutaneous emphysema, chest tube insertion. SUBJECTIVE: The patient sitting in chair. Denies chest pain. Shortness of breath is improving. Denies any palpitation. Patient complaining of difficulty swallowing, sore throat. PHYSICAL EXAMINATION: VITAL SIGNS: Blood pressure 141/60, respirations 20, pulse 86, temperature 98.6. HEENT: Head is normocephalic. Eyes: Pupils normal. Conjunctivae slightly pale. NECK: JVP low. Carotids equal. THORAX: AP diameter normal. LUNGS: No significant rales. CARDIOVASCULAR: S1, S2. ABDOMEN: Soft, nontender. There is no organomegaly. EXTREMITIES: No clubbing, no cyanosis LABORATORY DATA: Shows WBC 13.8, hemoglobin 9.9, hematocrit 30.5, platelet 363. Sodium 132, potassium 3.5, BUN 23, creatinine 0.9, random sugar 151, AST 74, ALT 84, total protein 6.4, albumin 2.4. Chest x-ray repeated today, right-sided chest tube in the lung apex, small residual pneumothorax, 6 cm cavitary lesion in the left upper lobe, subcutaneous emphysema decreasing. DIAGNOSES: Multilobar pneumonia, chronic obstructive pulmonary disease, status post pneumothorax, status post chest tube insertion, subcutaneous emphysema, severe protein-calorie malnutrition, anemia, hypokalemia. PLAN: We will give K therapy and repeat labs in the morning. Patient on doxycycline hyclate 100 mg every 12 hours, DuoNeb hand nebulizer therapy, insulin as ordered, furosemide 20 mg IV every 12 hours, metoprolol tartrate 50 mg b.i.d., Protonix 40 daily. We will follow with you. Eloisa Guevara MD
--- NOTE | 2017-12-28 17:10 | CP.PCM.CON ---
History of Present Illness - History of Present Illness History of Present Illness: 77y/o male admitted to [facility] [place] for Pneumonia/COPD exacerbation and bowel obstruction. The patient had a chest tube placement and a bowel resection during the hospitalization. The patient has been reported to be dysphonic and to have dysphagia. Nursing also reports the patient to have hemoptysis recently. The patient was seen and examined with agreement. The pateint was not able to answer much questioning. He did attest to neck pain. The patient motioned that he is hard of hearing. The patient was not able to phonate many words during the physical examination. Review of Systems - Review of Systems Review of Systems: Review of systems limited to patient not being able to phonate during the examination - Constitutional Constitutional: As Per HPI - EENT Eyes: As Per HPI Ears: As Per HPI Nose/Mouth/Throat: As Per HPI - Cardiovascular Cardiovascular: As Per HPI - Respiratory Respiratory: As Per HPI - Gastrointestinal Gastrointestinal: As Per HPI - Genitourinary Genitourinary: As Per HPI - Reproductive: Male Reproductive:Male: As Per HPI - Musculoskeletal Musculoskeletal: As Per HPI - Integumentary Integumentary: As Per HPI - Neurological Neurological: As Per HPI - Psychiatric Psychiatric: As Per HPI - Endocrine Endocrine: As Per HPI - Hematologic/Lymphatic Hematologic: As Per HPI Past Patient History - Past Social History Smoking Status: Never Smoked - CARDIAC Hx Cardiac Disorders: Yes Hx Hypertension: Yes - PULMONARY Hx Chronic Obstructive Pulmonary Disease (COPD): Yes Hx Pneumonia: Yes - HEENT Hx Glaucoma: Yes - ENDOCRINE/METABOLIC Hx Diabetes Mellitus Type 2: Yes - MUSCULOSKELETAL/RHEUMATOLOGICAL Hx Falls: Yes - PSYCHIATRIC Hx Substance Use: No - SURGICAL HISTORY Hx Surgeries: Yes Hx Coronary Stent: Yes Other/Comment: Colon Resection Meds Allergies/Adverse Reactions: Allergies Allergy/AdvReac Type Severity Reaction Status Date / Time No Known Allergies Allergy Verified 12/12/17 23:06 - Medications Medications: Current Medications Acetaminophen (Tylenol 325mg Tab) 650 mg PO Q6H PRN PRN Reason: Pain, Mild (1-3)/HEADACHE Last Admin: 12/27/17 22:31 Dose: 650 mg Albuterol/Ipratropium (Duoneb 3 Mg/0.5 Mg (3 Ml) Ud) 3 ml IH Q4H PRN PRN Reason: Shortness of Breath Last Admin: 12/14/17 05:05 Dose: 3 ml Albuterol/Ipratropium (Duoneb 3 Mg/0.5 Mg (3 Ml) Ud) 3 ml IH [id number] [facility] Last Admin: 12/28/17 13:34 Dose: 3 ml Benzocaine/Menthol (Cepacol Sore Throat) 1 [address] MT Q2H PRN PRN Reason: Sore Throat Bisacodyl (Dulcolax) 10 mg RC DAILY [facility] Last Admin: 12/28/17 10:22 Dose: Not Given Doxycycline Hyclate (Doryx) 100 mg PO Q12 [facility] PRN Reason: Protocol Last Admin: 12/28/17 10:21 Dose: 100 mg Emollient Ointment (Vaseline Oint) 5 gm TOP Q8 PRN PRN Reason: Dry skin Last Admin: 12/14/17 09:26 Dose: 5 gm Furosemide (Lasix) 20 mg IVP Q12 [facility] Last Admin: 12/28/17 10:20 Dose: 20 mg Insulin Detemir (Levemir) 10 unit SC DAILY [facility] Last Admin: 12/28/17 10:20 Dose: 10 unit Insulin Human Regular (Humulin R Med) 0 units SC ACHS [facility] PRN Reason: Protocol Last Admin: 12/28/17 12:18 Dose: 1 units Lidocaine (Lidoderm) 1 ea TD DAILY [facility] Last Admin: 12/28/17 10:21 Dose: 1 ea Lorazepam (Ativan) 0.25 mg IVP Q8H PRN; Protocol PRN Reason: Anxiety Last Admin: 12/23/17 14:27 Dose: 0.25 mg Metoprolol Tartrate (Lopressor) 50 mg PO BID [facility] Last Admin: 12/28/17 10:21 Dose: 50 mg Pantoprazole Sodium (Protonix Ec Tab) 40 mg PO ACB [facility] Last Admin: 12/28/17 08:04 Dose: 40 mg Phenol/Menthol (Phenaseptic 1.4% Throat [place]) 0 ml MT Q2H PRN PRN Reason: Sore Throat Last Admin: 12/28/17 13:10 Dose: 3 spr Polyethylene Glycol (Miralax) 17 gm PO DAILY [facility] Last Admin: 12/28/17 10:21 Dose: 17 gm Promethazine HCl/Codeine (Phenergan/Codeine Oral Syrup) 5 ml PO Q4H PRN PRN Reason: Cough and congestion Last Admin: 12/27/17 02:04 Dose: 5 ml Quetiapine Fumarate (Seroquel) 12.5 mg PO BID PRN; Protocol PRN Reason: agitation and confusion Last Admin: 12/23/17 22:02 Dose: 12.5 mg Physical Exam - Constitutional Appears: Well, Non-toxic, No Acute Distress - Head Exam Head Exam: ATRAUMATIC, NORMAL INSPECTION, NORMOCEPHALIC - Eye Exam Eye Exam: EOMI, Normal appearance, PERRL Pupil Exam: NORMAL ACCOMODATION - ENT Exam Additional comments: PROCEDURE: Flexible fiberoptic examination performed: After verbal consent the fiberoptic nasolaryngoscope was inserted through the patient's left nares. The mucosa of the nose was excoriated with sign of recent bleeding (O2 nasal canula) . The scope was further advanced through the nose to the supraglottis: Findings as follows: Supraglottis: within normal limits Glottis: mild erythema Glottic Movement: vocal cord movement was within normal limits bilaterally. Pt was able to bring cords together with saying EEE Hypopharynx: wnl post cricoid: mild edema Patient tolerated the procedure well - Expanded ENT Exam Expanded TM/Canal Exam: Perforation: Bilateral (bilateral TM perforations) Mouth exam: normal external inspection Teeth exam: normal external inspection Throat exam: Normal Inspection - Neck Exam Neck exam: Positive for: Normal Inspection - Respiratory Exam Respiratory Exam: NORMAL BREATHING PATTERN - Psychiatric Exam Additional comments: pt unable to answer questions appropriately Results - Vital Signs Recent Vital Signs: Last Vital Signs Temp 97.7 F 12/28/17 14:00 Pulse 105 H 12/28/17 14:00 Resp 20 12/28/17 14:00 BP 143/62 12/28/17 14:00 Pulse Ox 95 12/28/17 14:00 - Labs Result Diagrams: 12/28/17 07:00 12/28/17 07:00 Labs: Laboratory Results - last 24 hr 12/27/17 12/28/17 12/28/17 22:18 06:39 07:00 WBC 13.8 H RBC 3.36 L Hgb 9.9 L Hct 30.5 L MCV 90.8 MCH 29.5 MCHC 32.5 RDW 13.9 Plt Count 363 MPV 10.0 Sodium Potassium Chloride Carbon Dioxide Anion Gap BUN Creatinine Est GFR ( Amer) Est GFR (Non-Af Amer) POC Glucose (mg/dL) 110 133 H Random Glucose Calcium Total Bilirubin AST ALT Alkaline Phosphatase Total Protein Albumin Globulin Albumin/Globulin Ratio 12/28/17 12/28/17 12/28/17 07:00 10:39 11:29 WBC RBC Hgb Hct MCV MCH MCHC RDW Plt Count MPV Sodium 132 Potassium 3.5 L Chloride 92 L Carbon Dioxide 33 Anion Gap 10 BUN 23 H Creatinine 0.9 Est GFR ( Amer) > 60 Est GFR (Non-Af Amer) > 60 POC Glucose (mg/dL) 137 H 151 H Random Glucose 115 H Calcium 8.4 Total Bilirubin 0.6 AST 74 H ALT 84 H Alkaline Phosphatase 121 Total Protein 6.4 Albumin 2.4 L Globulin 4.0 Albumin/Globulin Ratio 0.6 L 12/28/17 16:06 WBC RBC Hgb Hct MCV MCH MCHC RDW Plt Count MPV Sodium Potassium Chloride Carbon Dioxide Anion Gap BUN Creatinine Est GFR ( Amer) Est GFR (Non-Af Amer) POC Glucose (mg/dL) 129 H Random Glucose Calcium Total Bilirubin AST ALT Alkaline Phosphatase Total Protein Albumin Globulin Albumin/Globulin Ratio Assessment & Plan (1) Anemia Status: Acute (2) COPD (chronic obstructive pulmonary disease) Status: Acute (3) Healthcare-associated pneumonia Status: Acute (4) Leukocytosis Status: Acute (5) Malnutrition Status: Acute (6) Pneumonia Status: Acute (7) Pneumothorax on right Status: Acute (8) Scrotal edema Status: Acute - Assessment and Plan (Free Text) Assessment: dysphonia oropharyngeal dysphagia epistaxis hemoptysis psychiatric disorder\ hearing loss bilaterally tympanic membrane perforations bilaterally Plan: humidify O2, saline to nose, psychiatry eval to continue, speech therapy, will follow - Date & Time Date: 12/28/17 Time: 17:08
--- NOTE | 2017-12-28 19:16 | PN ---
DATE: 12/28/2017 PULMONARY PROGRESS NOTE REFERRING PHYSICIAN: Ya Fields MD SUBJECTIVE: He is out of bed to reclining chair, family at the bedside, has a right-sided chest discomfort, subcutaneous emphysema. Still has cough with sputum production. No nausea, no vomiting, no diarrhea. No leg pain, no leg swelling. OBJECTIVE: GENERAL: Mild distress secondary to pain and discomfort. VITAL SIGNS: Temperature is 98, heart rate is 86, respiratory rate is 20, blood pressure 141/60, pulse ox 99% on nasal cannula. HEENT: Moist mucous membranes. Small oral cavity. NECK: Supple. No JVD. LUNGS: Scattered rhonchi with few wheezing. Right-sided subcutaneous emphysema. HEART: S1 and S2. ABDOMEN: Soft, nontender. There is no organomegaly. EXTREMITIES: There is no edema. NEUROLOGIC: Awake and alert. Follows simple command. MEDICATIONS: He is on Ativan 0.25 mg IV every 8 hours p.r.n., Cepacol lozenges every 2 hours p.r.n., doxycycline 100 mg twice a day, Dulcolax 10 mg rectally daily, DuoNeb every 4 hours p.r.n. and every 6 hours round the clock, Lasix 20 mg twice a day, Levemir 10 units subq daily, Lidoderm patch to affected area, metoprolol tartrate 50 mg twice a day, MiraLax 17 g daily, Phenergan with Codeine on p.r.n. basis, Protonix 40 mg daily, Seroquel 12.5 mg twice a day p.r.n., Tylenol p.r.n., Vaseline ointment to affected area. LABORATORY DATA: Shows hemoglobin 9.9, hematocrit 30.5, WBC 13.8, platelet s 363. Sodium 132, potassium 2.5, chloride 92, bicarbonate 33. BUN 23, creatinine 0.9. Glucose is 115. Calcium is 8.4. AST 74, ALT 84, alkaline phosphatase is 121, albumin is 2.4. Chest x-ray shows a right-sided chest tube with right small pneumothorax, subcutaneous emphysema. IMPRESSION AND PLAN: Multilevel pneumonia, cavitary lesions, right side persistent pneumothorax with an air leak, obstructive lung disease, diabetes, hypertension, coronary artery disease, and dementia. Case discussed with the family at bedside. All the questions answered. We will continue CT on suction. Follow up serial x-rays. If does not improve, need to consider thoracic surgery consult, possible VATS, Dr. Kitchen has been consulted. So far, I do not see any note from the thoracic surgery, appreciated Dr. Matamoros's help. Also, being followed by Infectious Disease. So far, his sputum has been no growth. Follow up x-ray and labs in the morning. Eloisa Luciano MD
--- NOTE | 2017-12-28 21:42 | CP.PCM.PN ---
Subjective - Date & Time of Evaluation Date of Evaluation: 12/28/17 Time of Evaluation: 11:40 - Subjective Subjective: Chief Complaint: dysphonia from dry mucus membrane, R sided chest tube, pneumothorax, air leak 77 yr male w/ history of COPD, HTN, DM II, CAD, bowel obstruction s/p colon resection, sepsis, pneumonia, and influenza B. Pt was transferred from [facility] following discharge there after being treated for pneumonia. Pt admitted to [facility] [place] with respiratory distress and transferred to ICU for sepsis. R chest wall chest tube inserted on 12/19/17. Pt is now on telemetry unit. Today, pt is seen out of bed to chair with R sided chest tube. Pt has difficulty communicating at this time which is dysphonia due to dry mucus membranes from mouth breathing. Despite all medications offered, pt has been noncompliant with taking analgesics for his throat. Pt points to a piece of paper to call his niece at [phone]. Pt's recently and he is now living alone. Pt denies any fever, chills, chest pain, shortness of breath, diarrhea, constipation, or urinary problems. Objective - Vital Signs/Intake and Output Vital Signs (last 24 hours): Temp Pulse Resp BP Pulse Ox 97.7 F 105 H 20 143/62 95 12/28/17 14:00 12/28/17 19:05 12/28/17 14:00 12/28/17 19:05 12/28/17 14:00 Intake and Output: 12/28/17 12/29/17 18:59 06:59 Intake Total 240 120 Output Total 901 Balance 240 -781 - Medications Medications: Current Medications Acetaminophen (Tylenol 325mg Tab) 650 mg PO Q6H PRN PRN Reason: Pain, Mild (1-3)/HEADACHE Last Admin: 12/27/17 22:31 Dose: 650 mg Albuterol/Ipratropium (Duoneb 3 Mg/0.5 Mg (3 Ml) Ud) 3 ml IH Q4H PRN PRN Reason: Shortness of Breath Last Admin: 12/14/17 05:05 Dose: 3 ml Albuterol/Ipratropium (Duoneb 3 Mg/0.5 Mg (3 Ml) Ud) 3 ml IH [id number] JEAN PAUL Last Admin: 03/28/18 19:34 Dose: 3 ml Benzocaine/Menthol (Cepacol Sore Throat) 1 [address] Q2H PRN PRN Reason: Sore Throat Bisacodyl (Dulcolax) 10 mg RC DAILY [facility] Last Admin: 12/28/17 10:22 Dose: Not Given Emollient Ointment (Vaseline Oint) 5 gm TOP Q8 PRN PRN Reason: Dry skin Last Admin: 12/14/17 09:26 Dose: 5 gm Furosemide (Lasix) 20 mg IVP Q12 [facility] Last Admin: 12/28/17 10:20 Dose: 20 mg Insulin Detemir (Levemir) 10 unit SC DAILY [facility] Last Admin: 12/28/17 10:20 Dose: 10 unit Insulin Human Regular (Humulin R Med) 0 units SC ACHS [facility] PRN Reason: Protocol Last Admin: 12/28/17 16:40 Dose: Not Given Lidocaine (Lidoderm) 1 ea TD DAILY [facility] Last Admin: 12/28/17 10:21 Dose: 1 ea Lorazepam (Ativan) 0.25 mg IVP Q8H PRN; Protocol PRN Reason: Anxiety Last Admin: 12/23/17 14:27 Dose: 0.25 mg Metoprolol Tartrate (Lopressor) 50 mg PO BID [facility] Last Admin: 12/28/17 19:05 Dose: 50 mg Pantoprazole Sodium (Protonix Ec Tab) 40 mg PO ACB [facility] Last Admin: 12/28/17 08:04 Dose: 40 mg Phenol/Menthol (Phenaseptic 1.4% Throat [place]) 0 ml MT Q2H PRN PRN Reason: Sore Throat Last Admin: 12/28/17 13:10 Dose: 3 spr Polyethylene Glycol (Miralax) 17 gm PO DAILY [facility] Last Admin: 12/28/17 10:21 Dose: 17 gm Promethazine HCl/Codeine (Phenergan/Codeine Oral Syrup) 5 ml PO Q4H PRN PRN Reason: Cough and congestion Last Admin: 12/27/17 02:04 Dose: 5 ml Quetiapine Fumarate (Seroquel) 12.5 mg PO BID PRN; Protocol PRN Reason: agitation and confusion Last Admin: 12/23/17 22:02 Dose: 12.5 mg Sodium Chloride ([place] Nasal [place]) 0 ml NS QID [facility] Last Admin: 12/28/17 19:05 Dose: 1 spr - Labs Labs: 12/28/17 07:00 12/28/17 07:00 PT 14.7 SECONDS (9.4-12.5) H 12/13/17 00:30 INR 1.28 (0.93-1.08) H 12/13/17 00:30 APTT 29.9 Seconds (25.1-36.5) 12/13/17 00:30 - Constitutional Appears: No Acute Distress, Chronically Ill - Head Exam Head Exam: ATRAUMATIC - Eye Exam Eye Exam: EOMI, Normal appearance, PERRL Pupil Exam: NORMAL ACCOMODATION, PERRL - ENT Exam ENT Exam: Mucous Membranes Dry Additional comments: pt is nonverbal at this time - Neck Exam Neck Exam: Full ROM, Normal Inspection - Respiratory Exam Respiratory Exam: NORMAL BREATHING PATTERN Additional comments: R chest wall dressing, c/d/I, green drainage from chest tube. moderate output. - Cardiovascular Exam Cardiovascular Exam: REGULAR RHYTHM, +S1, +S2. absent: Murmur - GI/Abdominal Exam GI & Abdominal Exam: Soft, Normal Bowel Sounds. absent: Tenderness - Extremities Exam Extremities Exam: Full ROM, Normal Capillary Refill, Normal Inspection. absent : Joint Swelling, Pedal Edema - Back Exam Back Exam: NORMAL INSPECTION - Neurological Exam Neurological Exam: Alert, Awake, Oriented x3 - Psychiatric Exam Psychiatric exam: Depressed, Flat Affect - Skin Skin Exam: Dry, Intact, Warm Assessment and Plan (1) Scrotal edema Status: Acute (2) Leukocytosis Status: Acute (3) Anemia Status: Acute (4) Malnutrition Status: Acute (5) Healthcare-associated pneumonia Status: Acute (6) Pneumothorax on right Status: Acute (7) Pneumonia Status: Acute (8) Dysphonia Status: Acute (9) Delirium Status: Acute (10) Hard of hearing Status: Acute (11) Symptoms of depression Status: Acute (12) COPD (chronic obstructive pulmonary disease) Status: Acute - Assessment and Plan (Free Text) Plan: Labs ordered. ENT for pharyngitis, dry oral membranes. Pt tolerating diet well. IVP lasix ordered. s/p IV solumedryl.s/p PO doxycycline. s/p IV cefepime & IV vancomycin. Culture: nares NEGATIVE, urine NEGATIVE, blood NEGATIVE. Possible change of chest tube per Dr. Luciano's notes. VTE/GI prophylaxis. PT/OT on board. Incentive spirometer. Pain management: oral spray menthol, lidocaine patch, phenergan+codeine 5ml q4hr Consults: Urology - Dr. Beck Cardio - Dr. Guevara Pulmo - Dr. Luciano Surgery/Pulmo - Dr. Scruggs ID - Dr. Curtis Psych - Dr. Umana Surgery - Dr. Bharathi Henry ENT - Dr. Hever Reinoso / Dr. Trejo Reviewed: CXR = 12/28 small R sided pneumothorax CT chest = 12/26 mod R pneumothorax, unchanged, chest tube in place, increased subcutaneous edema now crosses over to L side of chest, persistent infiltrate in MONSE w. a cavity lesion, patchy infiltrate in LLL ECHO = EF 64% ECG = ABNORMAL, NSR, L atrial enlargement, nonspecific T wave abnormality, prolonged QT CXR = 12/19 increasing R sided pneumothorax, chest tube in place CT chest = ? Xray R shoulder = large R sided pneumothorax Doppler BLE = NEGATIVE CXR = 12/13 diffuse alveolar infiltrate in R lung and patchy alveolar infiltrate in L lung. consistent w/ pneumonia
--- NOTE | 2017-12-28 22:27 | PN ---
DATE: 12/28/2017 SUBJECTIVE: The patient is in bed, in no acute distress, nontoxic. PHYSICAL EXAMINATION: VITAL SIGNS: Temperature is 98, blood pressure is 140/60, respiratory rate 20, heart rate of 105. HEENT: Unremarkable. NECK: Supple. LUNGS: Decreased breath sounds. HEART: Normal S1, S2. ABDOMEN: Soft, nontender. LABORATORY DATA: [place] [address], hemoglobin of 9, platelets of 363. BUN of 23, creatinine of 0.9. Urinalysis is noted. Serology is noted. Blood cultures are negative. Chest x-ray show right-sided chest tube the lung apex. Dr. Purdy' communication report is reviewed. progress note is reviewed. ASSESSMENT AND PLAN: A 77-year-old male seen earlier this morning with sepsis, multifocal healthcare-associated pneumonia, post-viral spontaneous pneumothorax, status post chest tube placement in a patient with chronic obstructive lung disease, diabetes, hypertension, completed 14 days of doxycycline. We will discontinue the antibiotic. [place] [address]. We will continue to monitor the labs off of antibiotics. Isacc Curtis MD
[2017-12-29] MEDS: Phenol Topical 1.4% Throat Spray (180 ml) MT PRN ×6 (02:54→21:51)
[2017-12-29] MEDS: Albuterol-Ipratrop 3 mg / 0.5 (3 ml) UD IH SCH ×4 (03:00→20:55)
[2017-12-29] MEDS: Promethazine/Cod 6.25mg-10mg/5ml Syr UD PO PRN (04:31)
--- NOTE | 2017-12-29 07:03 | CP.PCM.PN ---
Subjective - Date & Time of Evaluation Date of Evaluation: 12/29/17 Time of Evaluation: 07:03 - Subjective Subjective: Patient seen and examined. Air leak still present. Patient is out of bed to chair. Complains of cough. Denies fever/chills. Objective - Vital Signs/Intake and Output Vital Signs (last 24 hours): Temp Pulse Resp BP Pulse Ox 97.9 F 92 H 20 125/69 100 12/28/17 22:00 12/28/17 22:00 12/28/17 22:00 12/28/17 22:00 12/28/17 22:00 Intake and Output: 12/29/17 12/29/17 06:59 18:59 Intake Total 240 Output Total 1101 Balance -861 - Medications Medications: Current Medications Acetaminophen (Tylenol 325mg Tab) 650 mg PO Q6H PRN PRN Reason: Pain, Mild (1-3)/HEADACHE Last Admin: 12/28/17 21:42 Dose: 650 mg Albuterol/Ipratropium (Duoneb 3 Mg/0.5 Mg (3 Ml) Ud) 3 ml IH Q4H PRN PRN Reason: Shortness of Breath Last Admin: 12/14/17 05:05 Dose: 3 ml Albuterol/Ipratropium (Duoneb 3 Mg/0.5 Mg (3 Ml) Ud) 3 ml IH [id number] [facility] Last Admin: 12/29/17 03:00 Dose: 3 ml Benzocaine/Menthol (Cepacol Sore Throat) 1 [address] Q2H PRN PRN Reason: Sore Throat Bisacodyl (Dulcolax) 10 mg RC DAILY [facility] Last Admin: 12/28/17 10:22 Dose: Not Given Emollient Ointment (Vaseline Oint) 5 gm TOP Q8 PRN PRN Reason: Dry skin Last Admin: 12/14/17 09:26 Dose: 5 gm Furosemide (Lasix) 20 mg IVP Q12 [facility] Last Admin: 12/28/17 21:45 Dose: 20 mg Insulin Detemir (Levemir) 10 unit SC DAILY [facility] Last Admin: 12/28/17 10:20 Dose: 10 unit Insulin Human Regular (Humulin R Med) 0 units SC ACHS [facility] PRN Reason: Protocol Last Admin: 03/28/18 22:56 Dose: Not Given Lidocaine (Lidoderm) 1 ea TD DAILY [facility] Last Admin: 12/28/17 10:21 Dose: 1 ea Lorazepam (Ativan) 0.25 mg IVP Q8H PRN; Protocol PRN Reason: Anxiety Last Admin: 12/23/17 14:27 Dose: 0.25 mg Metoprolol Tartrate (Lopressor) 50 mg PO BID [facility] Last Admin: 12/28/17 19:05 Dose: 50 mg Pantoprazole Sodium (Protonix Ec Tab) 40 mg PO ACB [facility] Last Admin: 12/28/17 08:04 Dose: 40 mg Phenol/Menthol (Phenaseptic 1.4% Throat [place]) 0 ml MT Q2H PRN PRN Reason: Sore Throat Last Admin: 12/29/17 06:36 Dose: 3 spr Polyethylene Glycol (Miralax) 17 gm PO DAILY [facility] Last Admin: 12/28/17 10:21 Dose: 17 gm Promethazine HCl/Codeine (Phenergan/Codeine Oral Syrup) 5 ml PO Q4H PRN PRN Reason: Cough and congestion Last Admin: 12/29/17 04:31 Dose: 5 ml Quetiapine Fumarate (Seroquel) 12.5 mg PO BID PRN; Protocol PRN Reason: agitation and confusion Last Admin: 12/23/17 22:02 Dose: 12.5 mg Sodium Chloride ([place] Nasal [place]) 0 ml NS QID [facility] Last Admin: 12/28/17 21:43 Dose: 1 spr - Labs Labs: 12/28/17 07:00 12/28/17 07:00 PT 14.7 SECONDS (9.4-12.5) H 12/13/17 00:30 INR 1.28 (0.93-1.08) H 12/13/17 00:30 APTT 29.9 Seconds (25.1-36.5) 12/13/17 00:30 - Constitutional Appears: No Acute Distress - Head Exam Head Exam: NORMOCEPHALIC - Eye Exam Eye Exam: Normal appearance Pupil Exam: NORMAL ACCOMODATION - ENT Exam ENT Exam: Mucous Membranes Moist - Respiratory Exam Respiratory Exam: NORMAL BREATHING PATTERN - Cardiovascular Exam Cardiovascular Exam: +S1, +S2 - GI/Abdominal Exam GI & Abdominal Exam: Soft. absent: Tenderness - Neurological Exam Neurological Exam: Alert, Awake - Psychiatric Exam Psychiatric exam: Normal Mood - Skin Skin Exam: Dry, Normal Color, Warm Assessment and Plan - Assessment and Plan (Free Text) Assessment: 77M with R pneumothorax with air leak present on expiration -C/w chest tube to wall suction -F/u CXR -Will plan for VATS early next week -D/w Dr. Lluvia Hardy PGY 2
[2017-12-29 07:31] LABS: BLOOD UREA NITROGEN 21 mg/dL (7-21); CALCIUM 8.7 mg/dL (8.4-10.5); GFR AFRICAN-AMERICAN > 60; GFR NON-AFRICAN AMERICAN > 60
[2017-12-29] MEDS: Insulin Reg-MEDIUM-Coverage SC SCH ×5 (08:04→22:55)
[2017-12-29] MEDS: Pantoprazole 40 mg EC Tab PO SCH (08:43)
--- NOTE | 2017-12-29 09:09 | RAD ---
HISTORY: pneumo COMPARISON: Portable chest 12/28/2017 FINDINGS: LUNGS: Right chest tube unchanged in position with mild right pneumothorax again appreciated slightly increased in the interval. Cavitary lesion superior to mid left lung zone again evident. No new infiltrate bilaterally or left pneumothorax. No pleural effusion bilaterally. PLEURA: As above. CARDIOVASCULAR: Normal. OSSEOUS STRUCTURES: No significant abnormalities. VISUALIZED UPPER ABDOMEN: Normal. OTHER FINDINGS: Emphysematous changes appear diminished at the right chest wall and supraclavicular fossa soft tissues. IMPRESSION: Slight increase in right pneumothorax with chest tube again noted in position. Cavitary lesion again seen left upper lung. Mild decrease in right chest wall and supraclavicular emphysematous soft tissue changes.
--- NOTE | 2017-12-29 11:56 | CP.PCM.PCO ---
Physician Communication Note - Physician Communication Note Physician Communication Note: VAT 12/30
[2017-12-29] MEDS: Insulin Detemir 100 units/ml Vial (Levemir) SC SCH (12:08)
[2017-12-29] MEDS: Lidocaine 5% Patch TD SCH (12:10)
[2017-12-29] MEDS: POLYETHYLENE GLYCOL 3350 17 GM/Dose PACKET PO SCH (12:10)
--- NOTE | 2017-12-29 15:25 | PN ---
DATE: 12/29/2017 LOCATION: The patient in room 575, bed 1. REASON FOR CONSULTATION AND FOLLOWUP: Sinus tachycardia, multilobar pneumonia, pneumothorax, COPD, subcutaneous emphysema, status post chest tube insertion. SUBJECTIVE: The patient is sitting in the chair. Denies chest pain. Denies palpitation. Complains of difficulty swallowing and sore throat. OBJECTIVE: VITAL SIGNS: Blood pressure 150/75, respirations 20, pulse 104, temperature 99. HEENT: Head is normocephalic. Eyes: Pupils normal. Conjunctivae slightly pale. NECK: JVP low. Carotid equal. LUNGS: Few rhonchi. Subcutaneous emphysema. CARDIOVASCULAR: S1, S2. No rub. ABDOMEN: Soft, nontender. No organomegaly. EXTREMITIES: no clubbing, no cyanosis. LABORATORY DATA: WBC 13.8, hemoglobin 9.9, hematocrit 30.5, platelet 363. Sodium 133, potassium 3.8, BUN 21, creatinine 0.9, random glucose 120, calcium 8.7, phosphorous , magnesium 2.1. DIAGNOSES: Multilobar pneumonia, chronic obstructive pulmonary disease, status post pneumothorax, status post chest tube insertion, subcutaneous emphysema, severe protein-calorie malnutrition, anemia. PLAN: Patient's sinus tachycardia is multifactorial including anemia and lung pathology. We will continue metoprolol 50 b.i.d. Given him a nebulizer therapy. Insulin as ordered. Furosemide 20 IV every 12 hour. Yesterday potassium was 3.5, IV potassium 10 mEq was given, today potassium 3.8. Patient is being followed by Dr. Luciano, Pulmonary. We will continue present therapy. We will follow. Eloisa Guevara MD
--- NOTE | 2017-12-29 18:58 | CP.PCM.PN ---
Subjective - Date & Time of Evaluation Date of Evaluation: 12/29/17 Time of Evaluation: 17:00 - Subjective Subjective: Patient remains dysphonic. Suspect multifactorial etiology. He has complete understanding although unable to phonate properly. Objective - Vital Signs/Intake and Output Vital Signs (last 24 hours): Temp Pulse Resp BP Pulse Ox 97.9 F 92 H 20 152/70 H 93 L 12/29/17 14:05 12/29/17 17:15 12/29/17 14:05 12/29/17 17:15 12/29/17 14:05 Intake and Output: 12/29/17 12/29/17 06:59 18:59 Intake Total 240 120 Output Total 1101 Balance -861 120 - Medications Medications: Current Medications Acetaminophen (Tylenol 325mg Tab) 650 mg PO Q6H PRN PRN Reason: Pain, Mild (1-3)/HEADACHE Last Admin: 12/28/17 21:42 Dose: 650 mg Albuterol/Ipratropium (Duoneb 3 Mg/0.5 Mg (3 Ml) Ud) 3 ml IH Q4H PRN PRN Reason: Shortness of Breath Last Admin: 12/14/17 05:05 Dose: 3 ml Albuterol/Ipratropium (Duoneb 3 Mg/0.5 Mg (3 Ml) Ud) 3 ml IH [id number] [facility] Last Admin: 12/29/17 13:33 Dose: 3 ml Benzocaine/Menthol (Cepacol Sore Throat) 1 [place] MT Q2H PRN PRN Reason: Sore Throat Bisacodyl (Dulcolax) 10 mg RC DAILY [facility] Last Admin: 12/29/17 12:10 Dose: Not Given Emollient Ointment (Vaseline Oint) 5 gm TOP Q8 PRN PRN Reason: Dry skin Last Admin: 12/14/17 09:26 Dose: 5 gm Fentanyl (Duragesic) 1 patch TD Q72H [facility] Last Admin: 12/29/17 17:57 Dose: 1 patch Furosemide (Lasix) 20 mg IVP Q12 [facility] Last Admin: 12/29/17 12:10 Dose: 20 mg Insulin Detemir (Levemir) 10 unit SC DAILY [facility] Last Admin: 12/29/17 12:08 Dose: 10 unit Insulin Human Regular (Humulin R Med) 0 units SC ACHS [facility] PRN Reason: Protocol Last Admin: 12/29/17 17:16 Dose: 3 units Lidocaine (Lidoderm) 1 ea TD DAILY [facility] Last Admin: 12/29/17 12:10 Dose: 1 ea Lorazepam (Ativan) 0.25 mg IVP Q8H PRN; Protocol PRN Reason: Anxiety Last Admin: 12/23/17 14:27 Dose: 0.25 mg Metoprolol Tartrate (Lopressor) 50 mg PO BID [facility] Last Admin: 12/29/17 17:15 Dose: 50 mg Pantoprazole Sodium (Protonix Ec Tab) 40 mg PO ACB [facility] Last Admin: 12/29/17 08:43 Dose: 40 mg Phenol/Menthol (Phenaseptic 1.4% Throat [place]) 0 ml MT Q2H PRN PRN Reason: Sore Throat Last Admin: 12/29/17 18:01 Dose: 2 spr Polyethylene Glycol (Miralax) 17 gm PO DAILY [facility] Last Admin: 12/29/17 12:10 Dose: 17 gm Promethazine HCl/Codeine (Phenergan/Codeine Oral Syrup) 5 ml PO Q4H PRN PRN Reason: Cough and congestion Last Admin: 12/29/17 04:31 Dose: 5 ml Quetiapine Fumarate (Seroquel) 12.5 mg PO BID PRN; Protocol PRN Reason: agitation and confusion Last Admin: 12/29/17 18:16 Dose: 12.5 mg Sodium Chloride ([place] Nasal [place]) 0 ml NS QID [facility] Last Admin: 12/29/17 18:00 Dose: 2 spr - Labs Labs: 12/28/17 07:00 12/29/17 06:40 PT 14.7 SECONDS (9.4-12.5) H 12/13/17 00:30 INR 1.28 (0.93-1.08) H 12/13/17 00:30 APTT 29.9 Seconds (25.1-36.5) 12/13/17 00:30 - Head Exam Head Exam: ATRAUMATIC, NORMAL INSPECTION, NORMOCEPHALIC - Eye Exam Eye Exam: PERRL Pupil Exam: NORMAL ACCOMODATION - ENT Exam ENT Exam: Mucous Membranes Moist - Neck Exam Neck Exam: Normal Inspection - Respiratory Exam Respiratory Exam: NORMAL BREATHING PATTERN - Neurological Exam Neurological Exam: Alert, Awake - Skin Skin Exam: Normal Color, Warm Assessment and Plan (1) Anemia Status: Acute (2) COPD (chronic obstructive pulmonary disease) Status: Acute (3) Healthcare-associated pneumonia Status: Acute (4) Leukocytosis Status: Acute (5) Malnutrition Status: Acute (6) Pneumonia Status: Acute (7) Pneumothorax on right Status: Acute (8) Scrotal edema Status: Acute (9) Other voice and resonance disorders Status: Acute (10) Delirium Status: Acute (11) Dysphonia Status: Acute (12) Hard of hearing Status: Acute - Assessment and Plan (Free Text) Plan: continue to work with speech therapy, thoracic surgery/pulmonology, medicine and psychiatry
--- NOTE | 2017-12-30 01:11 | PN ---
DATE: SUBJECTIVE: Patient is in bed, in no acute distress, nontoxic. PHYSICAL EXAMINATION: VITAL SIGNS: Temperature is 97, blood pressure is 150/70, respiratory rate of 20, heart rate of 92. HEENT: Unremarkable. NECK: Supple. LUNGS: Have decreased breath sounds. HEART: Normal S1, S2. ABDOMEN: Soft, nontender. LABORATORY EXAMINATION: Reveals a white count of 13,800, hemoglobin of 9. Chemistry reveals a BUN of 29, creatinine of 0.9. REVIEW OF ORDERS: Reveals the patient to be off of antibiotics. ASSESSMENT AND PLAN: A 77-year-old male with sepsis, multifocal healthcare-associated pneumonia, post-viral spontaneous pneumothorax, chest tube, chronic obstructive lung disease, diabetes, hypertension, and completed the antibiotics. Currently, off of antibiotics. We will continue to monitor the white blood cell count. We will order a CBC for a.m. We will follow with you. Isacc Curtis MD
[2017-12-30] MEDS: Albuterol-Ipratrop 3 mg / 0.5 (3 ml) UD IH SCH ×4 (01:35→19:37)
--- NOTE | 2017-12-30 04:11 | PN ---
DATE: 12/29/2017 PULMONARY PROGRESS NOTE REFERRING PHYSICIAN: Ya Fields MD SUBJECTIVE: He is sitting up in the bed, had some cough, right-sided chest tube with big air leak. Still has some cough, sputum production. No nausea. No vomiting, diarrhea, leg pain, or leg swelling. OBJECTIVE: GENERAL: In no acute distress. VITAL SIGNS: Temp is 98, T-max 100.9, heart rate is 92, respiratory rate is 20, blood pressure is 125/65, pulse ox 93% on nasal cannula. HEENT: Moist mucous membranes. Small oral cavity. NECK: Supple. No JVD. LUNGS: Have scattered rhonchi. Right-sided chest tube with air leak. Still has subcutaneous emphysema. HEART: S1 and S2. ABDOMEN: Soft and nontender. No organomegaly. EXTREMITIES: No edema. NEUROLOGIC: Awake, alert. Follows simple command. MEDICATIONS: He is on Ativan 0.25 mg every 8 hour p.r.n., Cepacol lozenges every 2 hours p.r.n., Dulcolax 10 mg rectally daily, DuoNeb every 4 hour p.r.n. and DuoNeb every 6 hour around the clock, fentanyl patch to affected area every 72 hour, insulin coverage, Lasix 20 mg twice a day, Levemir 10 units subcu daily, lidocaine patch to the affected area, metoprolol tartrate 50 mg twice a day, MiraLax 17 g daily, Mycelex Elaina 10 mg five times a day, promethazine with codeine every 4 hour p.r.n., Protonix 40 mg a.c.b., Seroquel 12.5 mg twice a day, Tylenol p.r.n. basis, Vaseline ointment to affected to area as needed. LABORATORY DATA: Shows sodium 133, potassium 3.8, chloride 92, bicarbonate 33, BUN 21, creatinine 0.9, glucose 120, calcium is 8.7, phosphorus 3.5, magnesium 2.1. Microbiology: Mycobacterium. There is no acid-fast bacilli in the sputum. Chest x-ray showed persistent pneumothorax, right-sided chest tube. IMPRESSION AND PLAN: Multi-lobe pneumonia with cavitary infiltrate; persistent right pneumothorax; subcutaneous emphysema, requiring chest tube; failed to stop early obstructive lung disease; diabetes; hypertension; coronary artery disease; dementia. Being followed by Infectious Disease. Appreciated Dr. Matamoros's schedule for video-assisted thoracoscopic surgery tomorrow. Antibiotics as per Infectious Diseases. Bronchodilator. Medically optimized for possible video-assisted thoracoscopic surgery. We will order labs for the morning. Thank you and we will follow with you. Eloisa Lucaino MD
[2017-12-30] MEDS: Pantoprazole 40 mg EC Tab PO SCH (07:00)
[2017-12-30] MEDS ORDERED: Dextrose 5%/Lactated Ringer's 1,000 ML IV SCH (07:00)
[2017-12-30] MEDS: Insulin Reg-MEDIUM-Coverage SC SCH ×4 (07:00→22:21)
[2017-12-30 07:25] LABS: HEMOGLOBIN 10.5 g/dL (14.0-18.0); MEAN CELL VOLUME 90.2 fl (80.0-105.0); MEAN CORPUSCULAR HEMOGLOBIN 29.5 pg (25.0-35.0); MEAN CORPUSCULAR HGB CONC 32.7 g/dl (31.0-37.0); MEAN PLATELET VOLUME 9.8 fl (7.0-11.0); RBC 3.56 10^6/uL (3.5-6.1); RED CELL DISTRIBUTION WIDTH 14.3 % (11.5-14.5); WHITE BLOOD COUNT 19.7 10^3/ul (4.5-11.0)
[2017-12-30 08:15] LABS: INR 1.59 (0.93-1.08); PARTIAL THROMBOPLASTIN TIME 29.9 Seconds (25.1-36.5); PROTHROMBIN TIME 18.4 SECONDS (9.4-12.5)
--- NOTE | 2017-12-30 09:08 | PN ---
DATE: 12/29/2017 SUBJECTIVE: The patient is a 77-year-old male. The patient was seen and examined at the bedside, sitting on the chair, still remains dysphonic, suspect multifactorial etiology as per ENT. He has complete understanding, although unable to phonate properly. No nausea or vomiting. No fever, no chills. No headache. No dizziness. Still having shortness of breath. PHYSICAL EXAMINATION: VITAL SIGNS: Temperature 97.9, pulse 92, respiratory rate 20, blood pressure 115/70, pulse oximetry of 93. HEENT: Head normocephalic, atraumatic. Eyes PERRLA. Extraocular muscles intact. Conjunctivae clear. Nose patent. Mucous membrane moist. NECK: Supple. No carotid bruit. No JVD. No thyromegaly. CHEST: Bilaterally symmetrical. HEART: S1 and S2 positive. LUNGS: Positive wheezing bilaterally. ABDOMEN: Soft. Bowel sounds present. No organomegaly. EXTREMITIES: No edema. No cyanosis. NEUROLOGICAL: Patient is awake and alert. Follow simple commands. MEDICATIONS: DuoNeb, Cepacol lozenges, Dulcolax, Duragesic patch, Lasix, Levemir, Lidoderm, Ativan, Lopressor, Protonix, MiraLax, Seroquel, LABORATORY DATA: White blood cell 13.8, hemoglobin 9.9, hematocrit 30.5, and platelet 353. Sodium 133, potassium 3.8, BUN 21, creatinine 0.9, glucose 120. ASSESSMENT AND PLAN: Mr. Nikko Dia is a 77-year-old male with leukocytosis, anemia, hyperglycemia, hyperchloremia, chronic obstructive pulmonary disease, healthcare-associated multilobe pneumonia, malnutrition, pneumothorax on the right side, delirium and dysphagia, hard of hearing, continue speech therapy, physical therapy. Plastic Surgery is on the case. Appreciated ENT Dr. Trejo's input. Seen by staff sonographer Dr. Guevara. Appreciated surgical notes. According to Dr. Teixeira, cardiothoracic surgeon, the patient will be scheduled for right VATS tomorrow. The patient need to be medically optimized as per surgeon, needs cardiac clearance, staff sonographer is already on the case, Dr. [place]. I hope they will give cardiac clearance. The patient had air leak, persistent on expiration. followup chest x-rays. May be oral thrush. We will give some Mycelex Troches. Appreciated Dr. Faheem Purdy' input, Dr. Curtis's input, Dr. Luciano's input. Repeat labs. We will follow up. Ya Fields MD STEVEN
[2017-12-30] MEDS: POLYETHYLENE GLYCOL 3350 17 GM/Dose PACKET PO SCH (09:32)
[2017-12-30] MEDS: Insulin Detemir 100 units/ml Vial (Levemir) SC SCH (09:32)
[2017-12-30] MEDS: Lidocaine 5% Patch TD SCH (09:45)
--- NOTE | 2017-12-30 11:26 | CP.PCM.PN ---
Subjective - Date & Time of Evaluation Date of Evaluation: 12/30/17 Time of Evaluation: 10:00 - Subjective Subjective: Chief Complaint: air leak, R sided chest tube s/t pneumothorax 77 yr male w/ history of COPD, HTN, DM II, CAD, bowel obstruction s/p colon resection, sepsis, pneumonia, and influenza B. Pt was transferred from [facility] following discharge there after being treated for pneumonia. Pt admitted to [facility] [place] with respiratory distress and transferred to ICU for sepsis. R chest wall chest tube inserted on 12/19/17. Pt is now on telemetry unit. Today, pt is seen in bed resting with R sided chest tube. Pt is NPO for cardiothoracic procedure, R VATS. Dysphonia continues; niece can be contacted at [phone]. Pt denies any fever, chills, chest pain, shortness of breath, diarrhea, constipation, or urinary problems. Objective - Vital Signs/Intake and Output Vital Signs (last 24 hours): Temp Pulse Resp BP Pulse Ox 98.2 F 90 22 115/68 92 L 12/30/17 08:11 12/30/17 09:34 12/30/17 08:11 12/30/17 09:45 12/30/17 08:11 Intake and Output: 12/30/17 12/30/17 06:59 18:59 Intake Total 200 Output Total 60 Balance 140 - Medications Medications: Current Medications Acetaminophen (Tylenol 325mg Tab) 650 mg PO Q6H PRN PRN Reason: Pain, Mild (1-3)/HEADACHE Last Admin: 12/29/17 21:53 Dose: 650 mg Albuterol/Ipratropium (Duoneb 3 Mg/0.5 Mg (3 Ml) Ud) 3 ml IH Q4H PRN PRN Reason: Shortness of Breath Last Admin: 12/14/17 05:05 Dose: 3 ml Albuterol/Ipratropium (Duoneb 3 Mg/0.5 Mg (3 Ml) Ud) 3 ml IH [id number] [facility] Last Admin: 12/30/17 08:06 Dose: 3 ml Benzocaine/Menthol (Cepacol Sore Throat) 1 [address]ne MT Q2H PRN PRN Reason: Sore Throat Bisacodyl (Dulcolax) 10 mg RC DAILY [facility]UL Last Admin: 12/30/17 09:32 Dose: Not Given Clotrimazole (Mycelex Elaina) 10 mg MT 5XD [facility] Last Admin: 12/30/17 09:32 Dose: Not Given Emollient Ointment (Vaseline Oint) 5 gm TOP Q8 PRN PRN Reason: Dry skin Last Admin: 12/14/17 09:26 Dose: 5 gm Fentanyl (Duragesic) 1 patch TD Q72H [facility] Last Admin: 12/29/17 17:57 Dose: 1 patch Furosemide (Lasix) 20 mg IVP Q12 [facility] Last Admin: 12/30/17 09:45 Dose: Not Given Dextrose/Lactated Ringer's (Dextrose 5%/Lactated Ringer's) 1,000 mls @ 75 mls/ hr IV .[id number] [facility] Last Admin: 12/30/17 08:47 Dose: 75 mls/hr Meropenem (Merrem Iv 1 Gm Premix) 50 mls @ 100 mls/hr IVPB Q8 [facility] PRN Reason: Protocol Vancomycin HCl (Vancomycin 1gm) 1 gm in 250 mls @ 167 mls/hr IVPB Q12H [facility] PRN Reason: Protocol Insulin Detemir (Levemir) 10 unit SC DAILY [facility] Last Admin: 12/30/17 09:32 Dose: Not Given Insulin Human Regular (Humulin R Med) 0 units SC ACHS [facility] PRN Reason: Protocol Last Admin: 12/30/17 10:53 Dose: Not Given Lidocaine (Lidoderm) 1 ea TD DAILY [facility] Last Admin: 12/30/17 09:45 Dose: Not Given Lorazepam (Ativan) 0.25 mg IVP Q8H PRN; Protocol PRN Reason: Anxiety Last Admin: 12/23/17 14:27 Dose: 0.25 mg Metoprolol Tartrate (Lopressor) 50 mg PO BID [facility] Last Admin: 12/30/17 09:34 Dose: Not Given Pantoprazole Sodium (Protonix Ec Tab) 40 mg PO ACB [facility] Last Admin: 12/30/17 07:00 Dose: Not Given Phenol/Menthol (Phenaseptic 1.4% Throat [place]) 0 ml MT Q2H PRN PRN Reason: Sore Throat Last Admin: 12/29/17 21:51 Dose: 3 spr Polyethylene Glycol (Miralax) 17 gm PO DAILY [facility] Last Admin: 12/30/17 09:32 Dose: Not Given Promethazine HCl/Codeine (Phenergan/Codeine Oral Syrup) 5 ml PO Q4H PRN PRN Reason: Cough and congestion Last Admin: 12/29/17 04:31 Dose: 5 ml Quetiapine Fumarate (Seroquel) 12.5 mg PO BID PRN; Protocol PRN Reason: agitation and confusion Last Admin: 12/29/17 18:16 Dose: 12.5 mg Sodium Chloride ([place] Nasal [place]) 0 ml NS QID [facility] Last Admin: 12/30/17 09:35 Dose: Not Given - Labs Labs: 12/30/17 07:00 12/29/17 06:40 PT 18.4 SECONDS (9.4-12.5) H 12/30/17 07:00 INR 1.59 (0.93-1.08) H 12/30/17 07:00 APTT 29.9 Seconds (25.1-36.5) 12/30/17 07:00 - Constitutional Appears: No Acute Distress, Chronically Ill - Head Exam Head Exam: ATRAUMATIC, NORMAL INSPECTION, NORMOCEPHALIC - Eye Exam Eye Exam: EOMI, Normal appearance, PERRL Pupil Exam: NORMAL ACCOMODATION, PERRL - ENT Exam ENT Exam: Mucous Membranes Dry Additional comments: dysphonia - Neck Exam Neck Exam: Normal Inspection. absent: Lymphadenopathy - Respiratory Exam Respiratory Exam: Decreased Breath Sounds, Rhonchi Additional comments: R chest wall dressing, c/d/I, green drainage from chest tube. moderate output. - Cardiovascular Exam Cardiovascular Exam: REGULAR RHYTHM, +S1, +S2. absent: Murmur - GI/Abdominal Exam GI & Abdominal Exam: Soft, Normal Bowel Sounds. absent: Tenderness - Extremities Exam Extremities Exam: Normal Capillary Refill, Normal Inspection. absent: Joint Swelling, Pedal Edema - Back Exam Back Exam: tenderness - Neurological Exam Neurological Exam: Alert, Awake, Oriented x3 - Psychiatric Exam Psychiatric exam: Depressed, Flat Affect - Skin Skin Exam: Dry, Normal Color, Warm Assessment and Plan (1) Scrotal edema Status: Acute (2) Leukocytosis Status: Acute (3) Anemia Status: Acute (4) Malnutrition Status: Acute (5) Healthcare-associated pneumonia Status: Acute (6) Pneumothorax on right Status: Acute (7) Pneumonia Status: Acute (8) Dysphonia Status: Acute (9) Delirium Status: Acute (10) Hard of hearing Status: Acute (11) Symptoms of depression Status: Acute (12) COPD (chronic obstructive pulmonary disease) Status: Acute (13) Candidiasis of mouth Status: Acute - Assessment and Plan (Free Text) Plan: Pt is NPO. IVP lasix ordered. s/p IV solumedryl. IV vancomycin, IV merrem onboard. s/p PO doxycycline. s/p IV cefepime. TB specimens (quantiferon/ mycobacterium) collected and awaiting final results. Culture: nares NEGATIVE, urine NEGATIVE, blood NEGATIVE. Possible change of chest tube per Dr. Luciano's notes. VTE/GI prophylaxis. PT/OT on board. Incentive spirometer. Pain management: fentanyl patch, oral spray menthol, lidocaine patch, phenergan+codeine 5ml q4hr Consults: CardioThoracic Surgeon - Dr. Teixeira Urology - Dr. Beck Cardio - Dr. Guevara Pulmo - Dr. Luciano Surgery/Pulmo - Dr. Scruggs ID - Dr. Curtis Psych - Dr. Umana Surgery - Dr. Bharathi Henry ENT - Dr. Hever Reinoso / Dr. Trejo Reviewed: CXR = 12/29 sight increas in R pneumothorax, cavitary lesion MONSE, mild decrease in R chest wall & supraclavicular emphysematous soft tissue changes CXR = 12/28 small R sided pneumothorax CT chest = 12/26 mod R pneumothorax, unchanged, chest tube in place, increased subcutaneous edema now crosses over to L side of chest, persistent infiltrate in MONSE w. a cavity lesion, patchy infiltrate in LLL ECHO = EF 64% ECG = ABNORMAL, NSR, L atrial enlargement, nonspecific T wave abnormality, prolonged QT CXR = 12/19 increasing R sided pneumothorax, chest tube in place CT chest = ? Xray R shoulder = large R sided pneumothorax Doppler BLE = NEGATIVE CXR = 12/13 diffuse alveolar infiltrate in R lung and patchy alveolar infiltrate in L lung. consistent w/ pneumonia
[2017-12-30] MEDS ORDERED: Bupivacaine 0.5% Inj(30mL) ONE (11:29)
[2017-12-30] MEDS ORDERED: Vancomycin 1 g Inj ONE (11:29)
[2017-12-30] MEDS ORDERED: Midazolam 2 MG/2 ML VIAL ONE ×2 (11:39→13:23)
[2017-12-30] MEDS ORDERED: Propofol 10 mg/ml Inj (20 ML) ONE (11:39)
[2017-12-30] MEDS: Vancomycin 1gm in NS 250ml 1 GM/250 ML BAG IVPB SCH ×2 (11:50→22:25)
[2017-12-30] MEDS ORDERED: Rocuronium 10 mg/ml (5 ml) ONE (11:53)
[2017-12-30] MEDS ORDERED: Etomidate 20 mg/10ml Inj IV ONE (11:53)
[2017-12-30] MEDS ORDERED: Succinylcholine 200 mg/10 ml Inj IV ONE (11:53)
[2017-12-30] MEDS ORDERED: Bupivacaine Liposomal Inj 20 ml ONE (12:40)
[2017-12-30] MEDS ORDERED: ePHEDrine 50 mg/ml Inj ONE (12:42)
[2017-12-30] MEDS ORDERED: Phenylephrine 10 mg/ml Inj ONE (12:48)
[2017-12-30] MEDS ORDERED: Neostigmine Methylsulfate 3mg/3ml Syringe IV ONE ×2 (13:06→13:19)
--- NOTE | 2017-12-30 13:46 | PCM.SURG1 ---
Surgeon's Initial Post Op Note - Surgeon's Notes Surgeon: Lluvai Exhaust And Muffler Repairer: Noe PGY3, Homero PGY3 Type of Anesthesia: General Endo, Local Anesthesia Administered By: John Pre-Operative Diagnosis: R pneumothorax w. air leak Operative Findings: Fibrinous exudate, entrapped lung, necrotic perforation Post-Operative Diagnosis: R PTX, entrapped lung 2/2 necrotic perforation Operation Performed: R thoracotomy w. pledgeted suture repair Specimen/Specimens Removed: Pleural fluid Estimated Blood Loss: EBL {In ML}: 30 Blood Products Given: N/A Drains Used: Chest Tubes (R) Post-Op Condition: Poor Date of Surgery/Procedure: 12/30/17 Time of Surgery/Procedure: 13:46
[2017-12-30] MEDS ORDERED: Midazolam 2 MG/2 ML VIAL IVP ONE ×3 (13:55→14:59)
[2017-12-30] MEDS: Dexmedetomidine 400mcg/100mL 400 MCG/100 ML BOTTLE IV PRN ×3 (14:04→22:25)
[2017-12-30] MEDS ORDERED: Lactated Ringer's 1,000 ML IV SCH (14:15)
[2017-12-30] MEDS: Lactated Ringer's 1,000 ML IV SCH ×3 (14:32→15:44)
--- NOTE | 2017-12-30 14:33 | CP.PCM.PN ---
Subjective - Date & Time of Evaluation Date of Evaluation: 12/30/17 Time of Evaluation: 14:24 - Subjective Subjective: CRTICAL CARE FOLLOW UP NOTE Patient known to MICU service from before, previous stay in MICU on this admission. Patient is 77yo male with PMHx HTN, COPD, DM, CAD admitted with HCAP to the floor earlier this month, developed a spontaneous PTX, right sided, with CT placed by surgery. Pt had persistent air leak, PTx, s/p VATS, open thoracotomy, by CTS. Pt with poor tidal volumes as per anesthesia, post op, therefore kept intubated. Pt transferred to MICU. In MICU upon arrival, MAP ranging 50-60, given 1L LR bolus, with improvement in MAP 65. Currently intubated, sedated on Precedex, CXR done. Objective - Vital Signs/Intake and Output Vital Signs (last 24 hours): Temp Pulse Resp BP Pulse Ox 100.5 F H 103 H 22 137/79 94 L 12/30/17 10:50 12/30/17 10:50 12/30/17 10:50 12/30/17 10:50 12/30/17 10:50 Intake and Output: 12/30/17 12/30/17 06:59 18:59 Intake Total 200 0 Output Total 60 Balance 140 0 - Medications Medications: Current Medications Acetaminophen (Tylenol 325mg Tab) 650 mg PO Q6H PRN PRN Reason: Pain, Mild (1-3)/HEADACHE Last Admin: 12/29/17 21:53 Dose: 650 mg Albuterol/Ipratropium (Duoneb 3 Mg/0.5 Mg (3 Ml) Ud) 3 ml IH Q4H PRN PRN Reason: Shortness of Breath Last Admin: 12/14/17 05:05 Dose: 3 ml Albuterol/Ipratropium (Duoneb 3 Mg/0.5 Mg (3 Ml) Ud) 3 ml IH [id number] JEAN PAUL Last Admin: 12/30/17 14:06 Dose: Not Given Benzocaine/Menthol (Cepacol Sore Throat) 1 [address] MT Q2H PRN PRN Reason: Sore Throat Bisacodyl (Dulcolax) 10 mg RC DAILY [facility] PAUL Last Admin: 12/30/17 09:32 Dose: Not Given Clotrimazole (Mycelex Elaina) 10 mg MT 5XD [facility] Last Admin: 12/30/17 09:32 Dose: Not Given Emollient Ointment (Vaseline Oint) 5 gm TOP Q8 PRN PRN Reason: Dry skin Last Admin: 12/14/17 09:26 Dose: 5 gm Enoxaparin Sodium (Lovenox) 30 mg SC DAILY [facility] PRN Reason: Protocol Fentanyl (Duragesic) 1 patch TD Q72H [facility] Last Admin: 12/29/17 17:57 Dose: 1 patch Furosemide (Lasix) 20 mg IVP Q12 [facility] Last Admin: 12/30/17 09:45 Dose: Not Given Meropenem (Merrem Iv 1 Gm Premix) 50 mls @ 100 mls/hr IVPB Q8 [facility] PRN Reason: Protocol Vancomycin HCl (Vancomycin 1gm) 1 gm in 250 mls @ 167 mls/hr IVPB Q12H [facility] PRN Reason: Protocol Last Admin: 12/30/17 11:50 Dose: 167 mls/hr Fentanyl Citrate (Fentanyl Citrate/Sodium Chloride 1 Mg/100 Ml) 1,000 mcg in 100 mls @ 2 mls/hr IV .Q24H PRN; Protocol; 20 MCG/HR PRN Reason: TITRATE PER MD ORDER Lactated Ringer's (Lactated Ringer's) 1,000 mls @ 75 mls/hr IV .[id number] [facility] Dexmedetomidine HCl (Precedex 400mcg/100ml) 400 mcg in 100 mls @ 2.722 mls/hr IV .Q24H PRN; Protocol; 0.2 MCG/KG/HR PRN Reason: Sedation Last Admin: 12/30/17 14:04 Dose: 0.2 mcg/kg/hr, 2.722 mls/hr Lactated Ringer's (Lactated Ringer's) 1,000 mls @ 999 mls/hr IV .Q1H1M [facility] Lactated Ringer's (Lactated Ringer's) 1,000 mls @ 999 mls/hr IV .Q1H1M [facility] Insulin Detemir (Levemir) 10 unit SC DAILY [facility] Last Admin: 12/30/17 09:32 Dose: Not Given Insulin Human Regular (Humulin R Med) 0 units SC ACHS [facility] PRN Reason: Protocol Last Admin: 12/30/17 10:53 Dose: Not Given Lidocaine (Lidoderm) 1 ea TD DAILY [facility] Last Admin: 12/30/17 09:45 Dose: Not Given Lorazepam (Ativan) 0.25 mg IVP Q8H PRN; Protocol PRN Reason: Anxiety Last Admin: 12/23/17 14:27 Dose: 0.25 mg Metoprolol Tartrate (Lopressor) 50 mg PO BID [facility] Last Admin: 12/30/17 09:34 Dose: Not Given Pantoprazole Sodium (Protonix Ec Tab) 40 mg PO ACB [facility] Last Admin: 12/30/17 07:00 Dose: Not Given Phenol/Menthol (Phenaseptic 1.4% Throat [place]) 0 ml MT Q2H PRN PRN Reason: Sore Throat Last Admin: 12/29/17 21:51 Dose: 3 spr Polyethylene Glycol (Miralax) 17 gm PO DAILY [facility] Last Admin: 12/30/17 09:32 Dose: Not Given Promethazine HCl/Codeine (Phenergan/Codeine Oral Syrup) 5 ml PO Q4H PRN PRN Reason: Cough and congestion Last Admin: 12/29/17 04:31 Dose: 5 ml Quetiapine Fumarate (Seroquel) 12.5 mg PO BID PRN; Protocol PRN Reason: agitation and confusion Last Admin: 12/29/17 18:16 Dose: 12.5 mg Sodium Chloride ([place] Nasal [place]) 0 ml NS QID [facility] Last Admin: 12/30/17 09:35 Dose: Not Given - Labs Labs: 12/30/17 07:00 12/29/17 06:40 PT 18.4 SECONDS (9.4-12.5) H 12/30/17 07:00 INR 1.59 (0.93-1.08) H 12/30/17 07:00 APTT 29.9 Seconds (25.1-36.5) 12/30/17 07:00 - Constitutional Appears: Non-toxic, No Acute Distress, Cachectic - Eye Exam Eye Exam: Normal appearance - ENT Exam ENT Exam: Mucous Membranes Moist - Respiratory Exam Respiratory Exam: Clear to Ausculation Bilateral, NORMAL BREATHING PATTERN Additional comments: R CHEST TUBE - Cardiovascular Exam Cardiovascular Exam: REGULAR RHYTHM, +S1, +S2 - GI/Abdominal Exam GI & Abdominal Exam: Soft, Normal Bowel Sounds - Extremities Exam Extremities Exam: Full ROM Assessment and Plan - Assessment and Plan (Free Text) Assessment: Patient is 77yo male with PMhx of HTN, COPD, DM, CAD, admitted with large R pneumothorax, s/p CT, with persistent air leak, s/p VATS/open thoracotomy, with R CT. Currently intubated, sedated on Precedex. . PTX s/p open thoracotomy, s/p CT PNA HTN COPD CAD - bedside Sono, hyperdynamic LV, IVF 2.0cm, receiving IVF bolus - CXR noted Recommend: - cont with vent support, low tidal vol ventilation, daily CXR, ABG, sedation vacation - follow up CT surgery - antibiotics as per ID - IVF fluids bolus, LR - monitor HH - follow up pulm - GI ppx - DVT ppx - monitor in MICU
--- NOTE | 2017-12-30 14:37 | RAD ---
HISTORY: s/p thoracotomy w. chest tube COMPARISON: 12/29/2017 FINDINGS: LUNGS: Surgical clips are seen along the right chest wall. A chest tube remains in the right lung apex. There is no visible pneumothorax. No change in bilateral infiltrates PLEURA: No significant pleural effusion identified, no pneumothorax apparent. CARDIOVASCULAR: Normal. OSSEOUS STRUCTURES: No significant abnormalities. VISUALIZED UPPER ABDOMEN: Normal. OTHER FINDINGS: None. IMPRESSION: Surgical clips are seen along the right chest wall. A chest tube remains in the right lung apex. There is no visible pneumothorax
[2017-12-30] MEDS: Meropenem IV 1 gm in NS 50 ML IVPB SCH ×2 (15:05→22:24)
[2017-12-30 15:13] LABS: VENOUS BLOOD GAS BASE EXCESS 1.3 mmol/L (0.0-2.0); VENOUS BLOOD GAS PO2 35 mm/Hg (30-55); VENOUS BLOOD PH 7.37 (7.32-7.43)
[2017-12-30 15:17] LABS: MEAN CELL VOLUME 91.5 fl (80.0-105.0); MEAN CORPUSCULAR HEMOGLOBIN 29.7 pg (25.0-35.0); MEAN CORPUSCULAR HGB CONC 32.4 g/dl (31.0-37.0); MEAN PLATELET VOLUME 9.7 fl (7.0-11.0); RBC 2.46 10^6/uL (3.5-6.1); RED CELL DISTRIBUTION WIDTH 14.3 % (11.5-14.5); WHITE BLOOD COUNT 10.9 10^3/ul (4.5-11.0)
[2017-12-30 15:26] LABS: BLOOD UREA NITROGEN 23 mg/dL (7-21); CALCIUM 7.2 mg/dL (8.4-10.5); GFR AFRICAN-AMERICAN > 60; GFR NON-AFRICAN AMERICAN > 60
[2017-12-30 15:28] LABS: HEMOGLOBIN 7.3 g/dL (14.0-18.0)
[2017-12-30] MEDS ORDERED: NOREPINEPHRINE BIT/0.9 % NACL 4 MG/250 ML BAG IV ONE (15:35)
[2017-12-30] MEDS: NOREPINEPHRINE BIT/0.9 % NACL 4 MG/250 ML BAG IV PRN ×2 (15:45→22:26)
--- NOTE | 2017-12-30 16:03 | PCM.PROC ---
Procedures Attestation:: I certify that I have explained the specified Operation(s) or Procedure(s), risks, benefits and reasonable alternatives to the Patient and/or other person responsible. The opportunity was given to ask questions and all questions answered - Central Line Placement Right Internal Jugular Triple Lumen Catheter Aseptic technique was employed throughout the procedure: Hand Hygiene done prior to procedure, Full sterile barriers (mask, hair cover, sterile gown, sterile gloves), Chloraprep Antiseptic: 2 minute prep for Femoral CVP Time Out Performed: Yes Central Line Prep: Chlorhexidine-Alcohol Combination Local Anesthesia Used: Lidocaine 1% Ultrasound Used for Placement: Yes Central Line Lumen Inserted: triple Central Line Length: 20 cm Post Procedure: Sutured in Place, Good Blood Return, All Ports Aspirated, Flushed, Capped, Sterile Dressing Applied Secured by: Suture Post procedure dressing: Chlorhexidine disc (Biopatch) Patient Tolerated Procedure: Well
--- NOTE | 2017-12-30 16:33 | RAD ---
HISTORY: s/p central line COMPARISON: Multiple serial examinations preceding the most recent study: December 30, 2017. Time of the most recent examination: 13:57 FINDINGS: LUNGS: Stable multifocal infiltrates. Cavitary mass left upper lobe this measures approximately 5 x 6 cm. . PLEURA: Stable position of chest tube in the right pleural space. No appreciable pneumothorax. CARDIOVASCULAR: Venous access catheter in satisfactory position. OSSEOUS STRUCTURES: No significant abnormalities. VISUALIZED UPPER ABDOMEN: Normal. OTHER FINDINGS: Satisfactory position of endotracheal tube. IMPRESSION: No adverse findings following right IJ catheter placement. The catheter tip is at the cavoatrial junction.
[2017-12-30 20:01] LABS: VENOUS BLOOD GAS BASE EXCESS 3.5 mmol/L (0.0-2.0); VENOUS BLOOD GAS PO2 55 mm/Hg (30-55); VENOUS BLOOD PH 7.45 (7.32-7.43)
--- NOTE | 2017-12-30 20:18 | PN ---
DATE: 12/30/2017 LOCATION: Room 575, bed 1. REASON FOR CONSULTATION AND FOLLOWUP: Sinus tachycardia, multilobar pneumonia, pneumothorax, COPD, subcutaneous emphysema, chest tube insertion. The patient continued to have leak from the chest tube, so a thoracotomy is planned for today. SUBJECTIVE: The patient is still complaining about sore throat, unable to swallow. Denies chest pain at this moment and denies palpitation. Off and on complaining shortness of breath. PHYSICAL EXAMINATION: VITAL SIGNS: Blood pressure 137/79, respirations 22, pulse 90, patient afebrile. HEENT: Head is normocephalic. Eyes: Pupils normal. Conjunctivae slightly pale. NECK: JVP low. Carotids equal. THORAX: AP diameter normal. The patient has chest tube. LUNGS: Few rhonchi. CARDIOVASCULAR: S1, S2. ABDOMEN: Soft, nontender. No organomegaly. EXTREMITIES: No clubbing or cyanosis. LABORATORY DATA: WBC 19.7, hemoglobin 10.5, hematocrit 32.1, platelet 439. Random sugar 110. Sodium 132, potassium 3.5 on 12/28/2017, BUN 23, creatinine 0.9. AST 74, ALT 84, total protein 6.4, albumin 2.4. DIAGNOSES: Multilobar pneumonia, chronic obstructive pulmonary disease, status post pneumothorax, status post chest tube insertion, subcutaneous emphysema, severe protein-calorie malnutrition, anemia, throat pain, difficulty to swallow, and sinus tachycardia, multifactorial due to lung problem and anemia. PLAN: The patient is scheduled for thoracotomy today. Initially, to be started as video assisted thoracotomy and if needed, the patient will have open thoracotomy. Due to generalized poor condition, the patient is high risk for any procedure. With that understanding, patient can go for thoracotomy. The patient is on DuoNeb hand nebulizer therapy, furosemide 20 mg IV every 12 hours, insulin as ordered, metoprolol 50 mg b.i.d., Lovenox 30 mg subcu daily, meropenem 50 mL IV piggyback every 8 hours. We will continue present therapy and will follow closely with you. Eloisa Guevara MD [facility] # [id number]
--- NOTE | 2017-12-30 21:52 | CP.PCM.PN ---
Subjective - Date & Time of Evaluation Date of Evaluation: 12/30/17 Time of Evaluation: 08:40 - Subjective Subjective: Patient for VATS procedure today, still with cough and SOB at rest. Also developed fever last night. Objective - Vital Signs/Intake and Output Vital Signs (last 24 hours): Temp Pulse Resp BP Pulse Ox 97 F L 65 17 124/65 99 12/30/17 20:08 12/30/17 20:08 12/30/17 20:08 12/30/17 20:08 12/30/17 16:44 Intake and Output: 12/30/17 12/31/17 18:59 06:59 Intake Total 3945 740 Output Total 970 Balance 2975 740 - Medications Medications: Current Medications Acetaminophen (Tylenol 325mg Tab) 650 mg PO Q6H PRN PRN Reason: Pain, Mild (1-3)/HEADACHE Last Admin: 12/29/17 21:53 Dose: 650 mg Albuterol/Ipratropium (Duoneb 3 Mg/0.5 Mg (3 Ml) Ud) 3 ml IH [id number] [facility] Last Admin: 12/30/17 19:37 Dose: 3 ml Benzocaine/Menthol (Cepacol Sore Throat) 1 [place]ne MT Q2H PRN PRN Reason: Sore Throat Bisacodyl (Dulcolax) 10 mg RC DAILY [facility] Last Admin: 12/30/17 09:32 Dose: Not Given Clotrimazole (Mycelex Elaina) 10 mg MT 5XD [facility] Last Admin: 12/30/17 17:13 Dose: Not Given Emollient Ointment (Vaseline Oint) 5 gm TOP Q8 PRN PRN Reason: Dry skin Last Admin: 12/14/17 09:26 Dose: 5 gm Enoxaparin Sodium (Lovenox) 30 mg SC DAILY [facility] PRN Reason: Protocol Fentanyl (Duragesic) 1 patch TD Q72H [facility] Last Admin: 12/29/17 17:57 Dose: 1 patch Furosemide (Lasix) 20 mg IVP Q12 [facility] Last Admin: 12/30/17 09:45 Dose: Not Given Meropenem (Merrem Iv 1 Gm Premix) 50 mls @ 100 mls/hr IVPB Q8 [facility] PRN Reason: Protocol Last Admin: 12/30/17 15:05 Dose: 100 mls/hr Vancomycin HCl (Vancomycin 1gm) 1 gm in 250 mls @ 167 mls/hr IVPB Q12H [facility] PRN Reason: Protocol Last Admin: 12/30/17 11:50 Dose: 167 mls/hr Fentanyl Citrate (Fentanyl Citrate/Sodium Chloride 1 Mg/100 Ml) 1,000 mcg in 100 mls @ 2 mls/hr IV .Q24H PRN; Protocol; 20 MCG/HR PRN Reason: TITRATE PER MD ORDER Lactated Ringer's (Lactated Ringer's) 1,000 mls @ 75 mls/hr IV .[id number] [facility] Last Admin: 12/30/17 15:44 Dose: 75 mls/hr Dexmedetomidine HCl (Precedex 400mcg/100ml) 400 mcg in 100 mls @ 2.722 mls/hr IV .Q24H PRN; Protocol; 0.2 MCG/KG/HR PRN Reason: Sedation Last Admin: 12/30/17 20:13 Dose: 1.2 mcg/kg/hr, 16.329 mls/hr NOREPINEPHRINE BIT/0.9 % NACL (Levophed 4 Mg/ 250 Ml Ns Premixed) 4 mg in 250 mls @ 15 mls/hr IV .[id number] PRN; Protocol; 4 MCG/MIN PRN Reason: TITRATE PER MD ORDER Last Titration: 12/30/17 17:34 Dose: 6 mcg/min, 22.5 mls/hr Acetaminophen (Ofirmev) 1,000 mg in 100 mls @ 400 mls/hr IVPB Q6H PRN PRN Reason: Pain, moderate (4-7) Stop: 01/01/18 20:23 Insulin Detemir (Levemir) 10 unit SC DAILY [facility] Last Admin: 12/30/17 09:32 Dose: Not Given Insulin Human Regular (Humulin R Med) 0 units SC ACHS [facility] PRN Reason: Protocol Last Admin: 12/30/17 16:30 Dose: Not Given Lidocaine (Lidoderm) 1 ea TD DAILY [facility] Last Admin: 12/30/17 09:45 Dose: Not Given Lorazepam (Ativan) 0.25 mg IVP Q8H PRN; Protocol PRN Reason: Anxiety Last Admin: 12/23/17 14:27 Dose: 0.25 mg Metoprolol Tartrate (Lopressor) 50 mg PO BID [facility] Last Admin: 12/30/17 17:13 Dose: Not Given Pantoprazole Sodium (Protonix Inj) 40 mg IVP DAILY [facility] Phenol/Menthol (Phenaseptic 1.4% Throat [place]) 0 ml MT Q2H PRN PRN Reason: Sore Throat Last Admin: 12/29/17 21:51 Dose: 3 spr Polyethylene Glycol (Miralax) 17 gm PO DAILY [facility] Last Admin: 12/30/17 09:32 Dose: Not Given Promethazine HCl/Codeine (Phenergan/Codeine Oral Syrup) 5 ml PO Q4H PRN PRN Reason: Cough and congestion Last Admin: 12/29/17 04:31 Dose: 5 ml Quetiapine Fumarate (Seroquel) 12.5 mg PO BID PRN; Protocol PRN Reason: agitation and confusion Last Admin: 12/29/17 18:16 Dose: 12.5 mg Sodium Chloride ([place] Nasal [place]) 0 ml NS QID [facility] Last Admin: 12/30/17 17:14 Dose: Not Given - Labs Labs: 12/30/17 15:07 12/30/17 15:07 PT 18.4 SECONDS (9.4-12.5) H 12/30/17 07:00 INR 1.59 (0.93-1.08) H 12/30/17 07:00 APTT 29.9 Seconds (25.1-36.5) 12/30/17 07:00 - Constitutional Appears: Cachectic, Chronically Ill - Head Exam Head Exam: NORMAL INSPECTION - Respiratory Exam Respiratory Exam: Decreased Breath Sounds Additional comments: right sided chest tube in place - Cardiovascular Exam Cardiovascular Exam: +S1, +S2 - GI/Abdominal Exam GI & Abdominal Exam: Soft. absent: Tenderness Assessment and Plan - Assessment and Plan (Free Text) Plan: Assessment sepsis from multifocal healthcare-associated pneumonia, post-viral, now with right sided spontaneous pneumothorax S/P chest tube placement, with continued air leak from the chest tube, also with cavitation associated with pneumonia HTN DM CAD COPD history of bowel obstruction S/P colonic resection history of pneumonia Plan will restart Vancomycin and start Merrem as well because of the fever and increased WBC count - will repeat blood cx and follow up results of the VATS, including cultures taken from the lung will continue to monitor clinically overall prognosis is poor
[2017-12-30] MEDS: Fentanyl 1000mcg/100ml NS 1,000 MCG/100 ML BAG IV PRN (22:20)
--- NOTE | 2017-12-30 23:24 | OP ---
PROCEDURE DATE: 12/29/2017 PREOPERATIVE DIAGNOSIS: Persistent air leak in the right lung. SECONDARY DIAGNOSES: Pneumonia and bronchitis. PROCEDURE: Right thoracotomy, closure of air leak of the right lower lobe. TYPE OF ANESTHESIA: General. INDICATIONS FOR SURGERY: This is a 77-year-old, chronic lung disease, had been admitted with pneumonia on the left upper lobe and also pneumothorax on the right initially IR had placed the tube. That went well, but continued to worsen over time. He developed subcutaneous emphysema and a large pneumothorax. Another chest tube was placed percutaneously and it was well placed and the lung did not reexpand. For that reason, we opted for surgery for this high risk patient. He was only about 100 pounds, he was short of breath, anemic, overall cachectic and high risk, but he understood and the family understood the nature of the surgery and the reason that we offered and is to try to improve expansion of the right lung. FINDINGS: There was a thickened peel throughout the entire lung, upper and lower lobe. The chest tube had been well placed. There were no blebs, but there was a small 3 to 4 mm opening with fibrinous debris in the lower lobe and this was spouting air significantly. DESCRIPTION OF PROCEDURE: After general endotracheal anesthesia was applied, the right side up, all pressure points were cushioned. A small right thoracotomy was performed, entered between the 5th and 6th rib, we had access to the entire chest because he was a small man. We inspected the entire lung. As I mentioned, there was fibrinous debris throughout. We cultured the wound and pleural fluid and with pledgeted Prolene and silk sutures, we attempted to close the hole in the lower lobe. Due to the necrotic nature, it was difficult to close this completely. Still was leaking a little air around the suture lines. We used topical agent in order to try to fibrin seal or glue the hole and this made some improvement. The chest was then closed with heavy PDS and the wound was closed in 3 layers. Patient tolerated the procedure well and was sent to the ICU in stable condition. Mushtaq Teixeira MD
--- NOTE | 2017-12-31 00:05 | PN ---
DATE: 12/30/2017 PULMONARY CRITICAL CARE PROGRESS NOTE REFERRING PHYSICIAN: Dr. Fields. SUBJECTIVE: Patient had thoracotomy done, I believe, to have VATS with pleurectomy and repair of pneumothorax hole, presently intubated and sedated. He had a right-sided chest tube with no air leak. No hemoptysis. No emesis. No hematuria. No diarrhea. No leg swelling reported. OBJECTIVE: GENERAL: He is on ventilator and sedated. VITAL SIGNS: Temperature is 98, heart rate is 65, respiratory rate is 17, blood pressure 124/65, pulse ox is 98% on ventilator. HEENT: Moist mucous membrane. ET tube, no secretion. NECK: Supple. Still has subcutaneous emphysema, right-sided chest tube. LUNGS: Scattered rhonchi. HEART: S1 and S2. ABDOMEN: Soft, nontender. No organomegaly. EXTREMITIES: No edema. NEUROLOGIC: Intubated and sedated. MEDICATIONS: He is on Ativan 0.25 mg IV every 8 hours p.r.n., Cepacol lozenges which is on hold, Dulcolax p.r.n., DuoNeb every 6 hours, Fentanyl patch every 72 hour, with IV Fentanyl, insulin coverage, Lasix 20 mg twice a day, Levemir 10 units subcutaneous daily, Lidoderm patch to affected area, metoprolol tartrate 50 mg twice a day, Lovenox 30 mg subcu daily, meropenem 1 g IV every 8 hours, MiraLax 17 g daily, Mycelex Elaina 5 times a day, Tylenol p.r.n., also on IV Precedex, Protonix 40 mg daily, Seroquel 12.5 mg twice a day p.r.n., Tylenol p.r.n., vancomycin 1 g IV every 12 hours, Vaseline Gauze to affected area. LABORATORY DATA: Shows hemoglobin 7.3, hematocrit 22.5, WBC 10.9, platelets 232. INR 1.59, PTT 30. VBG was done, shows pH 7.45, pCO2 of 40. Chemistry shows sodium 132, potassium 4, chloride 98, bicarbonate 25, BUN 26, creatinine 0.9, glucose 117, calcium is 7.2, phosphorus 4, magnesium is 1.8. Chest x-ray done postop shows right IJ catheter tip in the cavoatrial junction, multifocal infiltrate, cavitary mass in the left upper lobe measuring 5 to 6 cm, stable position on the right chest tube. No pneumothorax. IMPRESSION AND PLAN: Chronic lung disease with cavitary lesions, chronic obstructive lung disease, diabetes, coronary artery disease, hypertension, malnourished, persistent pneumothorax requiring video-assisted thoracoscopic surgery/open thoracotomy with repair of persistent hole in the lung. Appreciated surgical followup. I spoke to nursing staff. We will get GI consult when stable. G-tube placement. Patient is malnourished and no p.o. intake. Continue bronchodilator. Follow up ABG, chest x-ray, CBC, and CMP in the morning. Being followed by Infectious Diseases. Continue antibiotics as per Infectious Diseases. Critical care time, more than 35 minutes. Thank you and we will follow with you. Eloisa Luciano MD
[2017-12-31] MEDS: Albuterol-Ipratrop 3 mg / 0.5 (3 ml) UD IH SCH ×4 (02:02→21:00)
[2017-12-31] MEDS: Lactated Ringer's 1,000 ML IV SCH (04:00)
--- NOTE | 2017-12-31 04:23 | CON ---
DATE:12/30/2017 REASON FOR CONSULTATION: Evaluation for PEG tube placement. HISTORY OF PRESENT ILLNESS: This 77-year-old patient was transferred from the [facility] to [facility] [place] [facility] on 12/13/2017, for continuation of the management of the pneumonia. Patient was treated in [facility] for pneumonia and flu. Patient was found to have multilobar pneumonia and COPD. Patient had right-sided pneumothorax. Initially, he had a pigtail catheter placement for pneumothorax, then subsequently a chest tube was placed on 12/16/2017. Patient also had lung expanded, but continued to have air leak and small apical pneumothorax. He also had some difficulty in breathing. Patient had a thoracotomy in view of this persistent leak. Postoperatively, he was found to have hypotensive, had fluid resuscitation given. Patient was also found to have dropped hemoglobin from 10.5 to 7.3, and 2 units ordered for the transfusion. GI consult was requested, feeding tube placement in the view of the poor intake, with nutritional status. PAST MEDICAL HISTORY: Other past medical history significant as above. History of diabetes mellitus. Had a colon resection done in the past. FAMILY HISTORY: Noncontributory. SOCIAL HISTORY: Denies smoking or alcohol use. ALLERGIES: NO KNOWN DRUG ALLERGY. REVIEW OF SYSTEMS: Patient is on vent. PHYSICAL EXAMINATION: VITAL SIGNS: Temperature is 97.4, pulse 65, blood pressure 124/67, respirations 17. HEENT: Atraumatic, anicteric. NECK: Supple. HEART: S1 and S2 heard. LUNGS: Bilateral air entry present. Has a chest tube in place. ABDOMEN: Soft. Multiple surgical scars seen. EXTREMITIES: No cyanosis, no clubbing, no edema. NEUROLOGIC: Patient is on vent, sedated. LABORATORY DATA: Hemoglobin 7.3, hematocrit 22.5, WBC 10.9, platelets 232. Hemoglobin was 10.5 before. Chemistry showed BUN 23, creatinine 0.9. Albumin was 2.4 on 12/28/2017. IMPRESSION AND PLAN: This 77-year-old patient admitted with multilobar pneumonia, had pneumothorax status post chest tube placement early, underwent thoracotomy today for closure of the air leak, hypotensive, and drop in blood count, being transfused. Patient was found to have a poor nutritional status, requested for gastrostomy tube placement. Patient has multiple abdominal scars. The feasibility of the feeding tube by endoscopy placement can be only assessed after the initial esophagogastroduodenoscopy evaluation. We will await for further optimization of the patient's condition before scheduling the patient for endoscopic evaluation for feeding tube placement. Patient has anemia, drop in blood count postop. Patient has no bleeding per rectum or obvious GI blood loss noticed. Other comorbidities include pneumonia, pneumothorax, status post thoracotomy, chest tube placement, diabetes mellitus, chronic obstructive pulmonary disease. We will continue to closely monitor his care and suggest further management based on the clinical course. Discussed with the nursing staff in the ICU. Misti Ayala MD [facility]
[2017-12-31 05:46] LABS: ARTERIAL BLOOD GAS HEMOGLOBIN 14.3 g/dL (11.7-17.4); ARTERIAL BLOOD GAS O2 CAPACITY 19.4 mL/dl (16-24); ARTERIAL BLOOD GAS O2 CONTENT 18.4 ML/dl (15-23); ARTERIAL BLOOD GAS O2 SAT 94.7 % (95-98); ARTERIAL BLOOD GAS PCO2 33 mm/Hg (35-45); ARTERIAL BLOOD GAS PH 7.47 (7.35-7.45)
[2017-12-31] MEDS: Meropenem IV 1 gm in NS 50 ML IVPB SCH ×3 (06:04→22:25)
--- NOTE | 2017-12-31 07:29 | CP.PCM.PN ---
Subjective - Date & Time of Evaluation Date of Evaluation: 12/31/17 Time of Evaluation: 07:00 - Subjective Subjective: Surgery: Dr. Teixeira Patient remains intubated in ICU. Post op Hgb 7.6 so patient received 2 unit PRBC. Blood pressure hypotensive and requiring Levophed to maintain MAPS > 65. Urine output has been 2100cc/20hrs (since OR). Patient with some agitation overnight, most likely secondary to pain. Improved with pain medication. Objective - Vital Signs/Intake and Output Vital Signs (last 24 hours): Temp Pulse Resp BP Pulse Ox 98.1 F 76 30 H 90/55 L 92 L 12/31/17 06:30 12/31/17 06:30 12/31/17 06:30 12/31/17 06:30 12/31/17 06:30 Intake and Output: 12/31/17 12/31/17 06:59 18:59 Intake Total 3515 Output Total 1400 Balance 2115 - Medications Medications: Current Medications Acetaminophen (Tylenol 325mg Tab) 650 mg PO Q6H PRN PRN Reason: Pain, Mild (1-3)/HEADACHE Last Admin: 12/29/17 21:53 Dose: 650 mg Albuterol/Ipratropium (Duoneb 3 Mg/0.5 Mg (3 Ml) Ud) 3 ml IH [id number] [facility] Last Admin: 12/31/17 02:02 Dose: 3 ml Benzocaine/Menthol (Cepacol Sore Throat) 1 wayne MT Q2H PRN PRN Reason: Sore Throat Bisacodyl (Dulcolax) 10 mg RC DAILY [facility] Last Admin: 12/30/17 09:32 Dose: Not Given Clotrimazole (Mycelex Elaina) 10 mg MT 5XD [facility] Last Admin: 12/31/17 05:58 Dose: Not Given Emollient Ointment (Vaseline Oint) 5 gm TOP Q8 PRN PRN Reason: Dry skin Last Admin: 12/14/17 09:26 Dose: 5 gm Enoxaparin Sodium (Lovenox) 30 mg SC DAILY [facility] PRN Reason: Protocol Furosemide (Lasix) 20 mg IVP Q12 [facility] Last Admin: 12/30/17 22:24 Dose: 20 mg Meropenem (Merrem Iv 1 Gm Premix) 50 mls @ 100 mls/hr IVPB Q8 [facility] PRN Reason: Protocol Last Admin: 12/31/17 06:04 Dose: 100 mls/hr Vancomycin HCl (Vancomycin 1gm) 1 gm in 250 mls @ 167 mls/hr IVPB Q12H JEAN PAUL PRN Reason: Protocol Last Admin: 12/30/17 22:25 Dose: 167 mls/hr Fentanyl Citrate (Fentanyl Citrate/Sodium Chloride 1 Mg/100 Ml) 1,000 mcg in 100 mls @ 2 mls/hr IV .Q24H PRN; Protocol; 20 MCG/HR PRN Reason: TITRATE PER MD ORDER Last Titration: 12/31/17 05:55 Dose: 50 mcg/hr, 5 mls/hr Lactated Ringer's (Lactated Ringer's) 1,000 mls @ 75 mls/hr IV .[id number] [facility] Last Admin: 12/31/17 04:00 Dose: 75 mls/hr Dexmedetomidine HCl (Precedex 400mcg/100ml) 400 mcg in 100 mls @ 2.722 mls/hr IV .Q24H PRN; Protocol; 0.2 MCG/KG/HR PRN Reason: Sedation Last Admin: 12/30/17 22:25 Dose: 1.2 mcg/kg/hr, 16.329 mls/hr NOREPINEPHRINE BIT/0.9 % NACL (Levophed 4 Mg/ 250 Ml Ns Premixed) 4 mg in 250 mls @ 15 mls/hr IV .[id number] PRN; Protocol; 4 MCG/MIN PRN Reason: TITRATE PER MD ORDER Last Admin: 12/30/17 22:26 Dose: 5 mcg/min, 18.75 mls/hr Acetaminophen (Ofirmev) 1,000 mg in 100 mls @ 400 mls/hr IVPB Q6H PRN PRN Reason: Pain, moderate (4-7) Stop: 01/01/18 20:23 Insulin Detemir (Levemir) 10 unit SC DAILY [facility] Last Admin: 12/30/17 09:32 Dose: Not Given Insulin Human Regular (Humulin R Med) 0 units SC ACHS [facility] PRN Reason: Protocol Last Admin: 12/30/17 22:21 Dose: Not Given Lidocaine (Lidoderm) 1 ea TD DAILY [facility] Last Admin: 12/30/17 09:45 Dose: Not Given Lorazepam (Ativan) 0.25 mg IVP Q8H PRN; Protocol PRN Reason: Anxiety Last Admin: 12/23/17 14:27 Dose: 0.25 mg Metoprolol Tartrate (Lopressor) 50 mg PO BID [facility] Last Admin: 12/30/17 17:13 Dose: Not Given Metoprolol Tartrate (Lopressor) 2.5 mg IVP BID [facility] Pantoprazole Sodium (Protonix Inj) 40 mg IVP DAILY [facility] Phenol/Menthol (Phenaseptic 1.4% Throat [place]) 0 ml MT Q2H PRN PRN Reason: Sore Throat Last Admin: 12/29/17 21:51 Dose: 3 spr Polyethylene Glycol (Miralax) 17 gm PO DAILY [facility] Last Admin: 12/30/17 09:32 Dose: Not Given Promethazine HCl/Codeine (Phenergan/Codeine Oral Syrup) 5 ml PO Q4H PRN PRN Reason: Cough and congestion Last Admin: 12/29/17 04:31 Dose: 5 ml Quetiapine Fumarate (Seroquel) 12.5 mg PO BID PRN; Protocol PRN Reason: agitation and confusion Last Admin: 12/29/17 18:16 Dose: 12.5 mg Sodium Chloride (Winn Nasal [place]) 0 ml NS QID [facility] Last Admin: 12/30/17 22:26 Dose: Not Given - Labs Labs: 12/30/17 15:07 12/30/17 15:07 PT 18.4 SECONDS (9.4-12.5) H 12/30/17 07:00 INR 1.59 (0.93-1.08) H 12/30/17 07:00 APTT 29.9 Seconds (25.1-36.5) 12/30/17 07:00 - Constitutional Appears: Cachectic, Chronically Ill - Head Exam Head Exam: ATRAUMATIC, NORMOCEPHALIC - ENT Exam ENT Exam: Mucous Membranes Dry Additional comments: ET and OGT in place - Respiratory Exam Respiratory Exam: Rhonchi Additional comments: mechanical ventilation - Cardiovascular Exam Cardiovascular Exam: REGULAR RHYTHM. absent: Tachycardia Additional comments: right thoracotomy dressing CDI, chest tube on right with 60cc/12hrs SA fluid output. No evidence of air leak. On wall suction at -20mmHg. Pleurovac changed this am. - Neurological Exam Additional comments: intubated, sedated - Skin Skin Exam: Dry, Intact, Warm Assessment and Plan - Assessment and Plan (Free Text) Assessment: 77 y/o male s/p right sided open thoracotomy POD1 Plan: -cont chest tube on wall suction, monitor output. Leave dressing in place -ok for meds through OGT, would recommend initiation of enteral feedings when Levophed requirements decrease -recommend nutrition evaluation -chest physiotherapy Q6hr -daily CXR -pending am Hgb, ok for DVT ppx today if improved -GI ppx -ok to resume all meds, especially beta mauricio if BP can tolerate -cont wetzel for strict Output -cont IVFs -transfuse prn -daily labs -further recs per Dr. Lluvia Tipton PGY3
[2017-12-31 07:49] LABS: BASO # 0.03 K/mm3 (0.0-2.0); BASO % 0.2 % (0.0-3.0); EOS # 0.3 (0.0-0.7); EOS % 2.2 % (1.5-5.0); GRAN # 13.05 (1.4-6.5); GRAN % 90.3 % (50.0-68.0); HEMOGLOBIN 12.9 g/dL (14.0-18.0); LYMPH # 0.7 (1.2-3.4); LYMPH % 5.1 % (22.0-35.0); MEAN CELL VOLUME 88.3 fl (80.0-105.0); MEAN CORPUSCULAR HEMOGLOBIN 30.1 pg (25.0-35.0); MEAN CORPUSCULAR HGB CONC 34.1 g/dl (31.0-37.0); MEAN PLATELET VOLUME 9.8 fl (7.0-11.0); MONO # 0.3 (0.1-0.6); MONO % 2.2 % (1.0-6.0); PLATELET COUNT 233 10^3/uL (120.0-450.0); RBC 4.28 10^6/uL (3.5-6.1); RED CELL DISTRIBUTION WIDTH 14.5 % (11.5-14.5); WHITE BLOOD COUNT 14.5 10^3/ul (4.5-11.0)
[2017-12-31 07:59] LABS: ALB/GLOB RATIO 0.6 (1.1-1.8); ALBUMIN 1.7 g/dL (3.0-4.8); ALT/SGPT 54 U/L (7-56); AST/SGOT 45 U/L (17-59); BLOOD UREA NITROGEN 21 mg/dL (7-21); CALCIUM 7.4 mg/dL (8.4-10.5); GFR AFRICAN-AMERICAN > 60; GFR NON-AFRICAN AMERICAN > 60
[2017-12-31 08:50] LABS: EOSINOPHIL 1 % (0.0-3.0); LYMPHOCYTE 6 % (22.0-35.0); MONOCYTE 3 % (1.0-6.0)
[2017-12-31 08:51] LABS: PLATELET ESTIMATE NORMAL (NORMAL)
[2017-12-31 08:52] LABS: NEUTROPHIL 72 % (50.0-70.0)
[2017-12-31 08:56] LABS: BAND 18 % (0-2)
[2017-12-31] MEDS: NOREPINEPHRINE BIT/0.9 % NACL 4 MG/250 ML BAG IV PRN ×3 (09:07→19:01)
[2017-12-31] MEDS: Insulin Reg-MEDIUM-Coverage SC SCH ×4 (09:25→22:00)
[2017-12-31] MEDS: Metoprolol 1 mg/ml Inj IVP SCH ×2 (09:26→17:45)
--- NOTE | 2017-12-31 10:02 | PN ---
DATE: 12/31/2017 PULMONARY PROGRESS NOTE REFERRING PHYSICIAN: Ya Fields MD. SUBJECTIVE: He is intubated and sedated. Has a right-sided chest tube. No more air leak. No hemoptysis. No hematemesis. No hematuria. No diarrhea reported. OBJECTIVE: GENERAL: Intubated and sedated. VITAL SIGNS: Temp is 98, heart rate is 76, respiratory rate is 20, blood pressure 90/55, pulse ox 92% on 60% oxygen. HEENT: Moist mucous membrane. ET tube, not much secretion. LUNGS: Have a scattered rhonchi. Right-sided chest tube. No air leak. HEART: S1 and S2. ABDOMEN: Soft, nontender and nondistended. EXTREMITIES: No edema. NEUROLOGICAL: Intubated and sedated. LABORATORY DATA: Shows hemoglobin 12.9, hematocrit 37.8, WBC 14.5, platelet is 233. ABG shows pH 7.47, pCO2 of 33, O2 of 59. This is on 60% oxygen. Sodium 135, potassium 3.4, chloride 103, bicarbonate 26, BUN 21, creatinine 0.8, glucose is 92, calcium 7.4, phosphorus 2.8, magnesium 1.7, AST 45, ALT 54, alk phos is 90, albumin is 1.6. MEDICATIONS: He is on Ativan 0.25 mg IV every 8 hours p.r.n., Cepacol lozenges every 2 hours p.r.n., Dulcolax p.r.n. basis, DuoNeb every 6 hours, also on IV fentanyl, insulin coverage, Lasix 20 mg twice a day, Levemir 10 units subcu daily, getting Levophed, Lidoderm patch, metoprolol tartrate 50 mg twice a day, Lovenox 30 mg subcu daily, meropenem 1 g IV every 8 hours, MiraLax 17 g daily, nasal saline four times daily, Tylenol p.r.n. basis, promethazine with codeine every 4 hours p.r.n., Precedex 400 mcg IV drip, Protonix 40 mg daily, Seroquel 12.5 mg twice a day p.r.n., vancomycin 1 g IV every 12 hours, Vaseline ointment to affected area. IMPRESSION AND PLAN: Chronic obstructive lung disease with cavitary lesion, status post persistent pneumothorax requiring video-assisted thoracoscopic surgery; still has a chest tube, no air leak; intubated; chronic lung disease; hypertension; malnourished; hypoalbuminemia. We will suggest starting nasogastric tube feeding. Keep present ventilator setting. Followup x-ray. Followup proBNP, procalcitonin, ABG, chest x-ray in the morning. Critical care time 135 minutes. Thank you and we will follow with you. Eloisa Luciano MD
[2017-12-31] MEDS: Lidocaine 5% Patch TD SCH (10:04)
[2017-12-31] MEDS: Enoxaparin 30 mg Syringe SC SCH (10:05)
[2017-12-31] MEDS: Insulin Detemir 100 units/ml Vial (Levemir) SC SCH (10:06)
[2017-12-31] MEDS: POLYETHYLENE GLYCOL 3350 17 GM/Dose PACKET PO SCH (10:06)
[2017-12-31] MEDS: Vancomycin 1gm in NS 250ml 1 GM/250 ML BAG IVPB SCH ×2 (10:08→22:28)
--- NOTE | 2017-12-31 10:29 | RAD ---
HISTORY: s/p thoracotomy, chest tube COMPARISON: Multiple serial examinations preceding the most recent study: December 30, 2017. FINDINGS: LUNGS: Stable, extensive bilateral infiltrates including cavitary mass left upper lobe. PLEURA: Stable position of chest tube in the right pleural space. No significant pneumothorax detectable. CARDIOVASCULAR: No significant interval change compared to the prior examination(s). Venous access catheter in stable, satisfactory position. OSSEOUS STRUCTURES: No significant abnormalities. VISUALIZED UPPER ABDOMEN: Normal. OTHER FINDINGS: Stable position of endotracheal tube. IMPRESSION: No significant interval change compared to the prior examination(s).
[2017-12-31] MEDS ORDERED: Dextrose 5%/0.9% NS 1,000 ML IV SCH ×2 (11:30→14:15)
--- NOTE | 2017-12-31 12:13 | PN ---
DATE: 12/31/2017 CHARGE POSTER NOTE LOCATION: [facility]. SUBJECTIVE: The patient is sedated on the ventilator and FIO2 is 60%. The patient is post thoracotomy on the right and has chest tube to drainage, not much drainage this morning. The patient has mild hypotension, but is being supported with Levophed. The patient continues to be in isolation for influenza. PHYSICAL EXAMINATION: VITAL SIGNS: Physical exam note that his temperature is 98.1, his pulse is 76, respirations are 28 and BP is 98/53. SKIN: Warm and dry. HEENT: Head atraumatic, normocephalic. Eyes reactive to light. Ear, nose and throat seemed to be within normal limits. NECK: Supple. No JVD. No thyroid enlargement. No lymph nodes. HEART: Regular rate and rhythm. Normal S1, S2. LUNGS: Reveal bilateral rhonchi. ABDOMEN: Soft. Decreased bowel sounds. GENITALIA AND RECTAL: Deferred. MUSCULOSKELETAL: No joint deformities. EXTREMITIES: Reveal trace lower extremity edema. NEUROLOGICAL: The patient is sedated on the ventilator. LABORATORY DATA: Laboratories reveal a white count of 14.5, hemoglobin of 12.9, hematocrit 37.8 with platelets of 233,000. Arterial blood gas reveals a pH of 7.47, pCO2 of 33, pO2 of 59. Sodium is 135, potassium 3.4, chloride 103, CO2 of 26 with a BUN of 21, creatinine of 0.8 and a glucose of 92. Chest x-ray unofficially read reveals bilateral infiltrates. IMPRESSION: This patient has respiratory failure requiring ventilator support and the FIO2 was 60%. He is status post thoracotomy on the right for persistent pneumothorax, chronic lung infiltrates and cavitary lung changes as well. The patient has bilateral pneumonia and pneumothorax with post thoracotomy and chest tube is resolved. The patient has history of severe chronic obstructive pulmonary disease, anemia as well as diabetes. The patient has been diagnosed with influenza virus and is in isolation at this time. PLAN: As far as our plan, we will continue with ventilator support and decrease the FIO2 as tolerated. The patient will be followed with chest x-ray and arterial blood gas closely as well. We will continue with the Levophed, the Precedex and fentanyl and aggressive pulmonary toilet. The patient will be monitored closely with the chest tube drainage and at this time, he is on DuoNeb for bronchodilatation. He is getting Lasix for appropriate diuresis and Lovenox subcu. The patient is on meropenem for antibiotics as well as vancomycin. We will continue to treat aggressively and follow closely along with the other consultants and the primary care doctor. Campos Whittaker MD
[2017-12-31] MEDS: Dexmedetomidine 400mcg/100mL 400 MCG/100 ML BOTTLE IV PRN ×2 (12:36→22:33)
[2017-12-31 13:52] VITALS: RESP 33
[2017-12-31] MEDS ORDERED: Dextrose 50% SYRINGE Inj (50 ml) ONE (16:23)
[2017-12-31] MEDS ORDERED: Dextrose 50% SYRINGE Inj (50 ml) IVP ONE (16:27)
--- NOTE | 2017-12-31 17:31 | PN ---
DATE: 12/31/2017 LOCATION: The patient is in ICU 128, bed 1. REASON FOR CONSULTATION AND FOLLOWUP: Sinus tachycardia, multilobar pneumonia, pneumothorax, COPD, subcutaneous emphysema, chest tube insertion, status post video-assisted thoracoscopic surgery yesterday. SUBJECTIVE: The patient on respirator after video-assisted thoracoscopic surgery yesterday for leak from the chest tube which was inserted for pneumothorax. The patient still has a chest tube. The patient is sedated with being on respirator. PHYSICAL EXAMINATION: VITAL SIGNS: Blood pressure 94/58, pulse is 85, temperature 98.1. HEENT: Head is normocephalic. Eyes: Pupils are normal. Conjunctivae normal. NECK: JVP low. Carotids equal. THORAX: AP diameter normal. LUNGS: Scattered rhonchi. The patient has chest tube in the right side. CARDIOVASCULAR: S1 and S2. ABDOMEN: Soft and nontender. No organomegaly. EXTREMITIES: No clubbing. No cyanosis. LABORATORY DATA: Shows WBC 14.5, hemoglobin 12.9, hematocrit 37.8, platelet 233. Sodium 135, potassium 3.4, BUN 21, creatinine 0.8, sugar 81. AST and ALT normal, total protein 4.6, albumin 1.7, calcium 7.4 but albumin is also markedly low. Chest x-ray this morning, bilateral infiltrates including cavitary mass in left upper lobe. DIAGNOSES: Multilobar pneumonia, chronic obstructive pulmonary disease, status post pneumothorax, status post chest tube insertion, status post video-assisted thoracoscopic surgery, cavitary lesion on the chest x-ray, severe protein-calorie malnutrition, anemia, difficulty swallowing. The patient on respirator at the present and under sedation. Sinus tachycardia, multifactorial due to anemia and pulmonary status. PLAN: The patient is on IV fluids, furosemide 20 mg IV every 12 hours, metoprolol mg IV b.i.d., meropenem 50 mL IV every 8 hours, norepinephrine drip we will continue 4 mcg per minute, Protonix 40 IV daily, labetalol 100 mg daily, and vancomycin 1 g IV every 12 hours. We will follow with you. Eloisa Guevara MD [facility] # [id number]
--- NOTE | 2017-12-31 18:14 | PN ---
DATE: 12/31/2017 SUBJECTIVE: The patient is in bed, in no acute distress, who was seen in the ICU this morning in 128, bed 1. OBJECTIVE: GENERAL: The patient is intubated on the ventilator, appears to be comfortable. VITAL SIGNS: Temperature of 98, blood pressure 96/60, respiratory rate on the vent, heart rate of 76 HEENT: Reveal ET tube in place. NECK: Supple. LUNGS: Decreased breath sounds. HEART: Normal S1 and S2. ABDOMEN: Soft, nontender. LABORATORY EXAMINATION: Reveals a white count of 14,500. The patient has 18% bandemia and hemoglobin of 12. Chemistries reveal a BUN of 21, creatinine of 0.8. Procalcitonin is 1.63. Urinalysis is noted. Influenza serology is positive. Pleural fluid is negative. Blood cultures are negative. Review of orders reveals the patient to be on meropenem. The patient's chest x-ray from today shows bilateral extensive infiltrates. ASSESSMENT AND PLAN: A 77-year-old male who was seen early this morning in room 128, bed 1 with severe sepsis with respiratory failure, intubated on the ventilator with healthcare-associated probable bacterial spontaneous pneumothorax with hypertension, diabetes, coronary artery disease, chronic obstructive lung disease, on vancomycin and meropenem. Influenza from yesterday is reported to be positive. We will add Tamiflu with vancomycin and the meropenem and place the patient on isolation. Isacc Curtis MD
[2017-12-31] MEDS: Fentanyl 1000mcg/100ml NS 1,000 MCG/100 ML BAG IV PRN (18:17)
[2018-01-01] MEDS: Albuterol-Ipratrop 3 mg / 0.5 (3 ml) UD IH SCH ×4 (03:00→20:45)
--- NOTE | 2018-01-01 03:11 | PN ---
DATE: SUBJECTIVE: The patient is seen and examined at the bedside. Looking comfortable. No nausea, vomiting or diarrhea. No hematuria or hematochezia. No swelling of the legs. No chest pain or palpitation. The patient is intubated, is not able to give review of systems, but looks like no fever. PHYSICAL EXAMINATION: VITAL SIGNS: Temperature 98, heart rate 76, respiratory rate of 20, blood pressure 90/55, pulse oximetry 96% on 66% oxygen. HEENT: Head normocephalic, atraumatic. Eyes closed. ET tube is in place. Normal secretions. Nose patent. NECK: Supple. No carotid bruit. No JVD or thyromegaly. LUNGS: Have scattered rhonchi. Right-sided chest tube. No air leakage. HEART: S1 and S2 positive. ABDOMEN: Soft and nontender. No organomegaly. EXTREMITIES: No edema. No cyanosis. NEUROLOGIC: The patient is intubated and sedated. LABORATORY DATA: Hemoglobin 12.9, hematocrit 37.8, white blood cells 14.5, platelets 233. Sodium 135, potassium 3.4, BUN 25, creatinine 0.8, glucose 92, calcium 7.4, AST 44, ALT 54. ASSESSMENT AND PLAN: Mr. Nikko Dia is a 77-year-old male with chronic obstructive pulmonary disease with cavitary lesion status post persistent pneumonia, pneumothorax requiring video-assisted thoracoscopic surgery, still has chest tube, no air leakage, intubated, chronic lung disease, hypertension, hypercholesterolemia. Gastrointestinal and deep venous thrombosis prophylaxis. Dr. Luciano suggested nasogastric tube for feeding. Follow with chest x-ray. We will titrate to bilevel positive airway pressure. Repeat labs. We will follow up. Ya Fields MD
[2018-01-01] MEDS: NOREPINEPHRINE BIT/0.9 % NACL 4 MG/250 ML BAG IV PRN ×2 (05:56→11:54)
[2018-01-01] MEDS: Dexmedetomidine 400mcg/100mL 400 MCG/100 ML BOTTLE IV PRN ×2 (06:02→15:27)
[2018-01-01 07:28] LABS: ARTERIAL BLOOD GAS HCO3 19.5 mmol/L (21-28); ARTERIAL BLOOD GAS HEMOGLOBIN 12.2 g/dL (11.7-17.4); ARTERIAL BLOOD GAS O2 CAPACITY 16.8 mL/dl (16-24); ARTERIAL BLOOD GAS O2 CONTENT 16.3 ML/dl (15-23); ARTERIAL BLOOD GAS O2 SAT 96.9 % (95-98); ARTERIAL BLOOD GAS PCO2 37 mm/Hg (35-45); ARTERIAL BLOOD GAS PH 7.33 (7.35-7.45); ARTERIAL BLOOD GAS TCO2 20.6 mmol.L (22-28)
[2018-01-01 07:38] LABS: BASO # 0.06 K/mm3 (0.0-2.0); BASO % 0.3 % (0.0-3.0); EOS # 0.3 (0.0-0.7); GRAN # 15.23 (1.4-6.5); GRAN % 88.4 % (50.0-68.0); HEMOGLOBIN 12.6 g/dL (14.0-18.0); LYMPH # 1.1 (1.2-3.4); LYMPH % 6.5 % (22.0-35.0); MEAN CELL VOLUME 89.3 fl (80.0-105.0); MEAN CORPUSCULAR HEMOGLOBIN 30.1 pg (25.0-35.0); MEAN CORPUSCULAR HGB CONC 33.7 g/dl (31.0-37.0); MEAN PLATELET VOLUME 10.3 fl (7.0-11.0); MONO # 0.5 (0.1-0.6); MONO % 2.8 % (1.0-6.0); RBC 4.19 10^6/uL (3.5-6.1); RED CELL DISTRIBUTION WIDTH 14.5 % (11.5-14.5); WHITE BLOOD COUNT 17.2 10^3/ul (4.5-11.0)
[2018-01-01 07:55] LABS: ALB/GLOB RATIO 0.5 (1.1-1.8); ALBUMIN 1.5 g/dL (3.0-4.8); ALT/SGPT 47 U/L (7-56); AST/SGOT 61 U/L (17-59); BLOOD UREA NITROGEN 21 mg/dL (7-21); CALCIUM 7.5 mg/dL (8.4-10.5); GFR AFRICAN-AMERICAN > 60; GFR NON-AFRICAN AMERICAN > 60
[2018-01-01 07:59] LABS: B-TYPE NATRIURETIC PEPTIDE 4680 pg/mL (0-450)
[2018-01-01] MEDS ORDERED: Dextrose 50% SYRINGE Inj (50 ml) ONE (08:01)
[2018-01-01] MEDS ORDERED: Dextrose 50% SYRINGE Inj (50 ml) IVP ONE (08:04)
[2018-01-01] MEDS: Insulin Reg-MEDIUM-Coverage SC SCH ×4 (08:07→22:41)
--- NOTE | 2018-01-01 08:21 | CP.PCM.PN ---
Subjective - Date & Time of Evaluation Date of Evaluation: 01/01/18 Time of Evaluation: 08:15 - Subjective Subjective: Surgery Pt seen and examined. No acute events. patient is on sedation and intubated. On Levophed. hypoglycemic this AM. Got amp of D50. Objective - Vital Signs/Intake and Output Vital Signs (last 24 hours): Temp Pulse Resp BP Pulse Ox 98.4 F 87 33 H 117/66 96 12/31/17 14:45 12/31/17 18:50 12/31/17 13:45 12/31/17 22:23 12/31/17 14:45 Intake and Output: 01/01/18 01/01/18 06:59 18:59 Intake Total 3484 Output Total 245 Balance 3239 - Medications Medications: Current Medications Acetaminophen (Tylenol 325mg Tab) 650 mg PO Q6H PRN PRN Reason: Pain, Mild (1-3)/HEADACHE Last Admin: 12/29/17 21:53 Dose: 650 mg Albuterol/Ipratropium (Duoneb 3 Mg/0.5 Mg (3 Ml) Ud) 3 ml IH [id number] [facility] Last Admin: 01/01/18 03:00 Dose: 3 ml Benzocaine/Menthol (Cepacol Sore Throat) 1 [place]ne MT Q2H PRN PRN Reason: Sore Throat Bisacodyl (Dulcolax) 10 mg RC DAILY [facility] Last Admin: 12/31/17 10:08 Dose: 10 mg Clotrimazole (Mycelex Elaina) 10 mg MT 5XD [facility] Last Admin: 12/31/17 22:30 Dose: Not Given Emollient Ointment (Vaseline Oint) 5 gm TOP Q8 PRN PRN Reason: Dry skin Last Admin: 12/14/17 09:26 Dose: 5 gm Enoxaparin Sodium (Lovenox) 30 mg SC DAILY [facility] PRN Reason: Protocol Last Admin: 12/31/17 10:05 Dose: 30 mg Furosemide (Lasix) 20 mg IVP Q12 [facility] Last Admin: 12/31/17 22:23 Dose: 20 mg Meropenem (Merrem Iv 1 Gm Premix) 50 mls @ 100 mls/hr IVPB Q8 [facility] PRN Reason: Protocol Last Admin: 12/31/17 22:25 Dose: 100 mls/hr Vancomycin HCl (Vancomycin 1gm) 1 gm in 250 mls @ 167 mls/hr IVPB Q12H [facility] PRN Reason: Protocol Last Admin: 12/31/17 22:28 Dose: 167 mls/hr Fentanyl Citrate (Fentanyl Citrate/Sodium Chloride 1 Mg/100 Ml) 1,000 mcg in 100 mls @ 2 mls/hr IV .Q24H PRN; Protocol; 20 MCG/HR PRN Reason: TITRATE PER MD ORDER Last Admin: 12/31/17 18:17 Dose: 40 mcg/hr, 4 mls/hr Lactated Ringer's (Lactated Ringer's) 1,000 mls @ 75 mls/hr IV .[id number] [facility] PAUL Last Admin: 12/31/17 04:00 Dose: 75 mls/hr Dexmedetomidine HCl (Precedex 400mcg/100ml) 400 mcg in 100 mls @ 2.722 mls/hr IV .Q24H PRN; Protocol; 0.2 MCG/KG/HR PRN Reason: Sedation Last Admin: 01/01/18 06:02 Dose: 0.8 mcg/kg/hr, 10.886 mls/hr NOREPINEPHRINE BIT/0.9 % NACL (Levophed 4 Mg/ 250 Ml Ns Premixed) 4 mg in 250 mls @ 15 mls/hr IV .[id number] PRN; Protocol; 4 MCG/MIN PRN Reason: TITRATE PER MD ORDER Last Admin: 01/01/18 05:56 Dose: 14 mcg/min, 52.5 mls/hr Acetaminophen (Ofirmev) 1,000 mg in 100 mls @ 400 mls/hr IVPB Q6H PRN PRN Reason: Pain, moderate (4-7) Stop: 01/01/18 20:23 Dextrose (Dextrose 10% In Water) 500 mls @ 75 mls/hr IV .[id number] [facility] Last Admin: 12/31/17 17:15 Dose: 75 mls/hr Insulin Detemir (Levemir) 10 unit SC DAILY [facility] Last Admin: 12/31/17 10:06 Dose: 10 unit Insulin Human Regular (Humulin R Med) 0 units SC ACHS [facility] PRN Reason: Protocol Last Admin: 01/01/18 08:07 Dose: Not Given Lidocaine (Lidoderm) 1 ea TD DAILY [facility] Last Admin: 12/31/17 10:04 Dose: 1 ea Lorazepam (Ativan) 0.25 mg IVP Q8H PRN; Protocol PRN Reason: Anxiety Last Admin: 12/23/17 14:27 Dose: 0.25 mg Metoprolol Tartrate (Lopressor) 50 mg PO BID [facility] Last Admin: 12/30/17 17:13 Dose: Not Given Metoprolol Tartrate (Lopressor) 2.5 mg IVP BID [facility] Last Admin: 12/31/17 17:45 Dose: Not Given Oseltamivir Phosphate (Tamiflu Cap) 75 mg PO BID [facility] PRN Reason: Protocol Stop: 01/05/18 18:01 Last Admin: 12/31/17 18:20 Dose: 75 mg Pantoprazole Sodium (Protonix Inj) 40 mg IVP DAILY [facility] Last Admin: 12/31/17 10:05 Dose: 40 mg Phenol/Menthol (Phenaseptic 1.4% Throat [place]) 0 ml MT Q2H PRN PRN Reason: Sore Throat Last Admin: 12/29/17 21:51 Dose: 3 spr Polyethylene Glycol (Miralax) 17 gm PO DAILY [facility] Last Admin: 12/31/17 10:06 Dose: 17 gm Promethazine HCl/Codeine (Phenergan/Codeine Oral Syrup) 5 ml PO Q4H PRN PRN Reason: Cough and congestion Last Admin: 12/29/17 04:31 Dose: 5 ml Quetiapine Fumarate (Seroquel) 12.5 mg PO BID PRN; Protocol PRN Reason: agitation and confusion Last Admin: 12/29/17 18:16 Dose: 12.5 mg Sodium Chloride ([place] Nasal [place]) 0 ml NS QID [facility] Last Admin: 12/31/17 22:32 Dose: Not Given - Labs Labs: 01/01/18 07:05 01/01/18 07:05 PT 18.4 SECONDS (9.4-12.5) H 12/30/17 07:00 INR 1.59 (0.93-1.08) H 12/30/17 07:00 APTT 29.9 Seconds (25.1-36.5) 12/30/17 07:00 - Constitutional Appears: Non-toxic - Head Exam Head Exam: ATRAUMATIC, NORMAL INSPECTION, NORMOCEPHALIC - ENT Exam ENT Exam: Mucous Membranes Moist, Normal Exam - Neck Exam Neck Exam: Full ROM, Normal Inspection. absent: Lymphadenopathy - Respiratory Exam Additional comments: Intubated. R chest tube in place. dressing in place. 60cc ss fluid /24hrs. No leak noted. 100% fio2 PRVC 5peep 400TV, - Cardiovascular Exam Cardiovascular Exam: REGULAR RHYTHM, +S1, +S2. absent: Murmur - GI/Abdominal Exam GI & Abdominal Exam: Soft, Normal Bowel Sounds. absent: Tenderness - Exam Additional comments: Wetzel in place - Extremities Exam Extremities Exam: Normal Inspection. absent: Joint Swelling, Pedal Edema - Back Exam Back Exam: NORMAL INSPECTION - Neurological Exam Neurological Exam: absent: Awake - Skin Skin Exam: Dry, Intact, Normal Color, Warm Assessment and Plan - Assessment and Plan (Free Text) Assessment: 77 y/o male s/p right sided open thoracotomy POD2 Plan: -cont chest tube on wall suction, monitor output. Leave dressing in place -ok for meds through OGT -enteral feedings via OG tube -recommend nutrition evaluation -chest physiotherapy Q6hr -daily CXR -ok for DVT ppx -GI ppx -ok to resume all meds, especially beta mauricio if BP can tolerate -cont wetzel for strict Output -cont IVFs -transfuse prn -daily labs -further recs per Dr. Teixeira
[2018-01-01] MEDS: Meropenem IV 1 gm in NS 50 ML IVPB SCH ×3 (09:12→22:37)
--- NOTE | 2018-01-01 10:05 | RAD ---
HISTORY: s/p thoracotomy, chest tube COMPARISON: No prior. FINDINGS: LUNGS: No significant interval change compared to the prior examination(s). PLEURA: Stable/satisfactory position of chest tube in the right pleural space. No visible pneumothorax. CARDIOVASCULAR: Normal. OSSEOUS STRUCTURES: No significant abnormalities. VISUALIZED UPPER ABDOMEN: Normal. OTHER FINDINGS: Stable position of support apparatus including endotracheal tube and nasogastric tube. Right IJ catheter also in stable position. IMPRESSION: Stable multifocal infiltrates including cavitary process left upper lobe. Stable, satisfactory position ventilatory, vascular and nasogastric apparatus.
[2018-01-01] MEDS: POLYETHYLENE GLYCOL 3350 17 GM/Dose PACKET PO SCH (10:22)
[2018-01-01] MEDS: Lidocaine 5% Patch TD SCH (10:23)
[2018-01-01] MEDS: Enoxaparin 30 mg Syringe SC SCH (10:23)
[2018-01-01] MEDS: Metoprolol 1 mg/ml Inj IVP SCH ×2 (10:25→17:22)
[2018-01-01] MEDS: Vancomycin 1gm in NS 250ml 1 GM/250 ML BAG IVPB SCH (10:29)
--- NOTE | 2018-01-01 10:51 | PN ---
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 The patient is post thoracotomy on the right and has chest tube to drainage. Continues to be hypotensive, but stabilized with Levophed and continues to be an isolation for inflow influenza. The patient has an episode of hypoglycemia this morning; was given ampule of D50 and is on D10 drip. Continues to be sedated. PHYSICAL EXAMINATION VITAL SIGNS: Note that the patient has temperature of 98.4, pulse of 87, respirations of 18 and BP is 117/66. SKIN: Warm and dry. HEENT: Head is atraumatic, normocephalic. Eyes reactive to light. Ear, nose and throat seemed to be within normal limits. NECK: Supple. No JVD. No thyroid enlargement or lymph nodes. HEART: Has regular rate and rhythm. Normal S1, S2. LUNGS: Reveal bilateral rhonchi. ABDOMEN: Soft, decreased bowel sounds. GENITALIA: Deferred. RECTAL: Deferred. MUSCULOSKELETAL: No joint deformities. EXTREMITIES: Reveal no edema. NEUROLOGICAL: He is sedated on a ventilator. DATA: As far as his laboratories are concerned, white count is 17.2, hemoglobin is 12.6, hematocrit 37.4 with platelets of 169,000. Arterial blood gas reveals a pH of 7.33, pCO2 of 37, pO2 of 76. His sodium is 137, potassium 3.6, chloride 106, CO2 of 24 with a BUN of 21, creatinine of 0.9 and a glucose of 137. IMPRESSION: As far as my impression, this patient has respiratory failure, requiring ventilator support, FiO2 of 100%. He is status post thoracotomy on the right for persistent pneumothorax, chronic lung infiltrates and cavitary lung changes. The patient has bilateral pneumonia and is status post thoracotomy and a chest tube placement. Has a history of severe COPD, anemia, diabetes and has been diagnosed with influenza. Patient has had episodes of hypoglycemia. PLAN: As far as our plan, we will continue with D10 and the patient will be started on NG tube feedings. Also, we will continue with ventilator support and decrease the FiO2 as tolerated. The patient will be followed with chest x-ray and arterial blood gases. He will continue with the L Levophed and Precedex and fentanyl and aggressive pulmonary toilet. We will continue to monitor his chest x-ray closely. He is on DuoNeb, Lasix, Lovenox, meropenem, vancomycin and we will continue to treat aggressively along with the other consultants and the primary care doctor. Campos Whittaker MD
--- NOTE | 2018-01-01 16:42 | PN ---
DATE: 01/01/2018 SUBJECTIVE: The patient seen earlier this morning in the ICU 128, bed 1. He remains intubated on a ventilator and the patient had uneventful night. There is no reported fevers poor condition. PHYSICAL EXAMINATION: VITAL SIGNS: Temperature is 97, blood pressure 102/50, respiratory rate on the vent, heart rate of 87. HEENT: Reveals ET tube in place. NECK: Supple. LUNGS: Decreased breath sounds. HEART: Normal S1, S2. ABDOMEN: Soft, nontender. No rebound or guarding. LABORATORY EXAMINATION: Reveals a white count of 17,200, hemoglobin of 12, platelets of 169. BUN of 21, creatinine of 0.9. BNP is 4680. Urinalysis is noted. Influenza was positive. Review of orders reveals the patient to be on Tamiflu, vancomycin, and meropenem. Dr. Whittaker's note is reviewed. The patient had a chest x-ray, multifocal infiltrates and some cavitary process of the left upper lobe noted. ASSESSMENT AND PLAN: This is a 77-year-old male who was seen earlier today in 128, bed 1 with severe sepsis, respiratory failure, intubated on a ventilator, healthcare-associated probable bacterial pneumonia, spontaneous pneumothorax, hypertension, diabetes, coronary artery disease, chronic obstructive lung disease, and influenza with respiratory failure, intubated on a ventilator; on vancomycin, meropenem, and Tamiflu, day #2 of Tamiflu and with repeat blood cultures negative. Pleural cultures negative. The sputum cultures are pending. AFB smears are negative. Prognosis is poor. Isacc Curtis MD
[2018-01-01] MEDS: Fentanyl 1000mcg/100ml NS 1,000 MCG/100 ML BAG IV PRN (17:12)
[2018-01-01 21:23] LABS: ARTERIAL BLOOD GAS HCO3 15.6 mmol/L (21-28); ARTERIAL BLOOD GAS HEMOGLOBIN 11.8 g/dL (11.7-17.4); ARTERIAL BLOOD GAS O2 CAPACITY 16.3 mL/dl (16-24); ARTERIAL BLOOD GAS O2 CONTENT 14.3 ML/dl (15-23); ARTERIAL BLOOD GAS O2 SAT 87.8 % (95-98); ARTERIAL BLOOD GAS PCO2 55 mm/Hg (35-45); ARTERIAL BLOOD GAS TCO2 17.3 mmol.L (22-28)
[2018-01-01 21:26] LABS: ARTERIAL BLOOD GAS PH 7.06 (7.35-7.45)
[2018-01-01] MEDS ORDERED: Sodium Bicarbonate (8.4%) 50 Meq Syringe IVP ONE (21:29)
--- NOTE | 2018-01-01 22:28 | PN ---
DATE: 01/01/2018 PULMONARY CRITICAL CARE PROGRESS NOTE REFERRING PHYSICIAN: Dr. Fields. SUBJECTIVE: He is intubated and sedated. He has a nasogastric tube, ET tube, right-sided chest tube. No air leak. Requirement of his oxygen went up to 100%. No hemoptysis. No hematemesis. No hematochezia. No hematuria. No diarrhea. No leg swelling reported. OBJECTIVE: VITAL SIGNS: Temperature is 98, heart rate is 102, respiratory rate is 20-30, blood pressure 91/47, pulse ox 94% on 100% oxygen on ventilator. HEENT: Moist mucous membrane. ET tube, no secretion. LUNGS: Has scattered rhonchi and crackles. Right-sided chest tube. No leak. HEART: S1 and S2. ABDOMEN: Soft, nontender. No organomegaly. EXTREMITIES: There is no edema. NEUROLOGICAL: Intubated and sedated. MEDICATIONS: He is on Ativan 0.25 mg every 8 hours p.r.n., also on benzocaine on p.r.n. basis, fluid is D10 at 75 mL per hour, Dulcolax 10 mg rectally daily, DuoNeb every 6 hours, fentanyl IV, insulin coverage, Lasix 20 mg every 12 hours, Levemir 10 units subcutaneous daily, Lidoderm patch to affected area, metoprolol tartrate 50 mg twice a day and also 2.5 mg twice a day, Lovenox 30 mg daily, meropenem 1 gm IV every 8 hours, MiraLax 17 gm daily, Mycelex Elaina p.o. five times a day, on Levophed, also nasal saline, Tylenol p.r.n. basis, Phenergan with codeine 5 mL every 4 hours p.r.n., Precedex IV, Protonix 40 mg daily, Seroquel 12.5 mg twice a day, Tamiflu 75 mg started yesterday, Tylenol p.r.n., vancomycin 1 gm IV every 12 hours, Vaseline ointment to affected area. LABORATORY DATA: Shows hemoglobin 12.6, hematocrit is 37.4, WBC 17,000, platelet is 169. Blood gas at this point shows pH of 7.33, pCO2 of 37, pO2 of 76, this is on 100% oxygen. Sodium 137, potassium 3.6, chloride 106, bicarbonate 24, BUN is 21, creatinine is 0.9, glucose is 68. His calcium is 7.5, phosphorus 2.9. AST 61, ALT 47, alk phos is 117. ProBNP 4680. Albumin is 1.5, procalcitonin 3.51. Serological testing shows influenza A is positive. Also sputum has some yeast. Chest x-ray done today shows stable multifocal infiltrates including cavity process in the left upper lobe. IMPRESSION AND PLAN: Respiratory failure with persistent pneumothorax, requiring video-assisted thoracoscopic surgery, on ventilator, sedated; multilobar pneumonia, cavitary infiltrates on top of it, ended up with influenza A infection; malnutrition; history of hypertension. Case discussed with next of kin, patient's niece in detail. All the questions answered including patient's critical condition and poor prognosis. For now, he wants to continue aggressive care, want to be informed on daily basis, we will do so. I agreed with the Tamiflu. We will clean up his medication list. Continue antibiotics. Follow up ABG, chest x-ray, CBC, and CMP in the morning. Critical care time is more than 35 minutes. Thank you, and we will follow with you. Eloisa Luciano MD
--- NOTE | 2018-01-01 22:40 | PN ---
DATE: 01/01/2018 LOCATION: The patient is in ICU 128, bed 1. REASON FOR CONSULTATION AND FOLLOWUP: Sinus tachycardia, multilobar pneumonia, pneumothorax, COPD, subcutaneous emphysema, chest tube insertion, status post video-assisted thoracoscopic surgery, episode of hypoglycemia. SUBJECTIVE: Patient is on respirator due to respiratory failure, on FiO2 of 100%. Patient is sedated. Patient continued to be in sinus rhythm. PHYSICAL EXAMINATION: VITAL SIGNS: Blood pressure is 123/67, pulse is 102, temperature 97.5. HEENT: Head is normocephalic. Eyes, pupils normal. Conjunctivae normal. NECK: JVP low. Carotids equal. THORAX: Patient has chest tube in the right chest. LUNGS: Bilateral rhonchi. CARDIOVASCULAR: S1 and S2. ABDOMEN: Soft. No tenderness. No organomegaly. EXTREMITIES: No clubbing. No cyanosis. LABORATORY DATA: WBC 17.2, hemoglobin 12.6, hematocrit 37.4, platelets 169. Sodium 137, potassium 3.6, BUN 21, creatinine 0.9. This morning he had hypoglycemic episode with blood sugar of 33 and 24. After DW10, patient's blood sugar to 137, then 74, and then 68. Calcium 7.5, but albumin is also low at 1.5. Total protein is low 4.5. NT-proB natriuretic peptide 4680. AST 61, ALT 47. Chest x-ray is done with no significant interval change compared to the prior examination, chest tube in the right chest in place, multifocal infiltrates including cavitary process left upper lobe. DIAGNOSES: Multilobar pneumonia, pneumothorax, cavitary lesions, chest tube in the right chest, status post video-assisted thoracoscopic surgery, severe protein-calorie malnutrition, anemia, difficulty swallowing. Patient is on respirator with FiO2 of 100%, tachycardia multifactorial due to anemia and pulmonary status, episode of hypoglycemia, responded to D10 therapy. PLAN: Patient is on dextrose 10% at 75 mL per hour. Initially, when sugar was low, patient received 50% D5W bolus. DuoNeb nebulizer therapy. Patient is on vancomycin 1 g every 12 hours, Tamiflu 75 mg b.i.d. for influenza, norepinephrine discontinued, meropenem 50 mL IV every 8 hours, Lovenox 30 mg subcutaneous daily, metoprolol 50 mg b.i.d., insulin as ordered, furosemide 20 mg IV every 12 hours. We will continue present therapy. We will follow with you. Eloisa Guevara MD
[2018-01-01 23:54] LABS: BLOOD UREA NITROGEN 25 mg/dL (7-21); CALCIUM 7.4 mg/dL (8.4-10.5); GFR AFRICAN-AMERICAN > 60; GFR NON-AFRICAN AMERICAN 54
[2018-01-02 00:09] LABS: HEMOGLOBIN 10.7 g/dL (14.0-18.0); MEAN CORPUSCULAR HEMOGLOBIN 30.3 pg (25.0-35.0); MEAN CORPUSCULAR HGB CONC 32.2 g/dl (31.0-37.0); MEAN PLATELET VOLUME 10.7 fl (7.0-11.0); RBC 3.53 10^6/uL (3.5-6.1); RED CELL DISTRIBUTION WIDTH 15.1 % (11.5-14.5); WHITE BLOOD COUNT 24.9 10^3/ul (4.5-11.0)
[2018-01-02 00:10] LABS: MEAN CELL VOLUME 94.1 fl (80.0-105.0)
[2018-01-02 00:14] LABS: VENOUS BLOOD GAS BASE EXCESS -8.5 mmol/L (0.0-2.0); VENOUS BLOOD GAS PO2 28 mm/Hg (30-55)
[2018-01-02 00:16] LABS: VENOUS BLOOD PH 7.05 (7.32-7.43)
[2018-01-02] MEDS ORDERED: Sodium Bicarbonate (8.4%) 50 Meq Syringe IVP ONE (00:16)
[2018-01-02 00:19] LABS: TROPONIN I 0.02 ng/mL
[2018-01-02] MEDS: Vancomycin 1gm in NS 250ml 1 GM/250 ML BAG IVPB SCH (00:25)
--- NOTE | 2018-01-02 01:24 | CP.PCM.PRO ---
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: [id number] Additional Comments: S/p 3 cardiac arrests with initiation of ACLS protocol for each, 1st and 2nd code ended in ROSC, 3rd code ended at instruction of family <Alexis Whipple MD - Last Filed: 01/02/18 12:50> Attending/Attestation - Attestation I have personally seen and examined this patient.: Yes I have fully participated in the care of the patient.: Yes I have reviewed all pertinent clinical information: Yes
[2018-01-02 03:47] VITALS: BP 41/22; PULSE 71; TEMP 96.1; O2SAT 63
--- NOTE | 2018-01-02 05:19 | PN ---
DATE: SUBJECTIVE: This patient was seen and evaluated earlier and the patient is on vent, sedated. PHYSICAL EXAMINATION: VITAL SIGNS: Temperature is 96.8, pulse is 103, blood pressure is 100/69. HEENT: Atraumatic and anicteric. NECK: Supple. HEART: S1, S2 heard. LUNGS: Bilateral air entry present. Chest tube being present. ABDOMEN: Soft. Bowel sounds are present. LABORATORY DATA: Hemoglobin 10.7, hematocrit 33.2, WBC 24.9, and platelets 105. BUN 25, creatinine 1.3. The patient has orogastric tube. IMPRESSION: This 77-year-old patient with status post thoracotomy, has chest tube placement. The patient has history of multilobular pneumonia, had a pneumothorax. The patient is malnourished, had a GI consult for a PEG tube placement. The patient has a history of colon surgery and multiple scars present in the abdomen. His other comorbidities include hypertension. The patient has elevated white cell count, continue the antibiotics. Drop in blood count . Hemoglobin stable. No obvious GI blood loss. RECOMMENDATIONS: Followup of the hemoglobin and hematocrit. Continue the antibiotics. Close pulmonary followup. Consider upper GI endoscopy to evaluate for the feeding tube placement in view of the abdominal surgery, the feasibility of the endoscopy placement of the feeding tube can be only ascertained of his initial evaluation. We will discuss with the patient's family at length regarding this and we will discuss with the Pulmonary and Reference Data Expert prior to the scheduling for the endoscopic evaluation. The patient presently has an orogastric tube. Plan to be started on feeding. Thank you very much for allowing us to participate in the care of the patient. Misti Ayala MD
--- NOTE | 2018-01-02 09:12 | PN ---
DATE: 12/31/2017 SUBJECTIVE: Patient still remains on vent. PHYSICAL EXAMINATION: VITAL SIGNS: Temperature is 98.4, pulse 80, blood pressure 99/35. HEENT: Atraumatic, anicteric. NECK: Supple. Intubated on vent. HEART: S1, S2 heard. Has had chest tube in place. ABDOMEN: Soft, bowel sounds present. EXTREMITIES: No cyanosis or clubbing. No edema. LABORATORY DATA: Hemoglobin 12.9, hematocrit 37.8, WBC 14.5. Sodium 135, potassium 3.5. BUN 21, creatinine 0.8. IMPRESSION AND PLAN: This 77-year-old patient with multilobar pneumonia, chronic obstructive pulmonary disease, status post pneumothorax, status post chest tube placement, recently had thoracotomy surgery for the closure of this leak, has drop in blood count, status post transfusion. No obvious GI blood loss. Patient malnourished. Requests for feeding tube placement. We will consider one today. Patient does have colon surgery done in the past, had midline scars. Will do an endoscopic evaluation and assess for the feasibility of the feeding tube in view of the multiple scars in the abdomen. We will continue to . Timing of the procedure will be based on the clinical progress of the patient. We will discuss with Dr. Fields. Thank you very much for allowing us to participate in the care of the patient. Misti Ayala MD
--- NOTE | 2018-01-02 09:38 | RAD ---
Portable chest radiograph: AP supine chest radiograph was obtained. Findings: The endotracheal tube terminates 1.5 cm proximal to the radha. The nasogastric tube terminates in the stomach. The right IJV line terminates at the cavoatrial junction. There is interval worsening of patchy multifocal airspace disease in both lungs. There are worsening bilateral pleural effusions. The cardiomediastinal silhouette cannot be excluded due to extensive airspace disease. The visualized bones are within normal limits for the patient's age. Impression: Interval worsening of multifocal airspace disease in both lungs and worsening pleural effusions. Stable position of support line and tubes.
--- NOTE | 2018-01-02 10:14 | PN ---
DATE: SUBJECTIVE: The patient was seen and examined at the bedside, looking comfortable, still intubated, has nasogastric tube. Discussion done with Dr. Ayala about PEG tube. No fever. No chills. No hematemesis. No hematuria. No hematochezia. PHYSICAL EXAMINATION: VITAL SIGNS: Temperature 98, heart rate 102, respiratory rate 20, blood pressure 91/47; pulse oximetry 94%, 100% on ventilator. HEENT: Head is normocephalic and atraumatic. Eyes are closed. Nose is patent. Mucous membranes are moist. NECK: Supple. No carotid bruits, JVD, or thyromegaly. LUNGS: Have scattered rhonchi and crackles. Right-sided chest tube. No leak. HEART: S1 and S2 positive. ABDOMEN: Soft. No organomegaly. EXTREMITIES: No edema. No cyanosis. NEUROLOGIC: The patient is intubated and sedated. MEDICATIONS: Ativan, benzocaine, IV fluid, Lidoderm patch, metoprolol, Mycelex Troches, Phenergan, Tamiflu. LABORATORY DATA: Hemoglobin 12.6, hematocrit 37.4, white blood cells 17,000, platelets 159. Sodium 137, potassium 3.6, chloride 106, and bicarbonate 24. ASSESSMENT AND PLAN: The patient with multiple medical problems, respiratory failure with persistent pneumothorax requiring video-assisted thoracoscopic surgery, on ventilator, sedated, multilobular pneumonia, history of anxiety, cavitary infarction, influenza type A infection, malnutrition, history of hypertension. Discussion done with Dr. Ayala. Family agreed with PEG tube because of surgery of long time ago, still has adhesions Gastrointestinal and deep venous thrombosis prophylaxis. Repeat labs. We will follow up. Ya Fields MD STEVEN
--- NOTE | 2018-01-02 16:24 | CP.PCM.DIS ---
<JeffreyKaylidavy Richey - Last Filed: 01/02/18 16:18> Provider - Provider Date of Admission: 12/13/17 02:22 Attending physician: Ya Fielsd MD Consults: CardioThoracic Surgeon - Dr. Teixeira Urology - Dr. Beck Cardio - Dr. Geuvara Pulmo - Dr. Luciano Surgery/Pulmo - Dr. Scruggs ID - Dr. Curtis Psych - Dr. Umana Surgery - Dr. Bharathi Henry ENT - Dr. Hever Reinoso / Dr. Trejo Time Spent in preparation of Discharge (in minutes): 30 Diagnosis - Discharge Diagnosis (1) Scrotal edema Status: Acute (2) Leukocytosis Status: Acute (3) Anemia Status: Acute (4) Malnutrition Status: Acute (5) Healthcare-associated pneumonia Status: Acute (6) Pneumothorax on right Status: Acute (7) Pneumonia Status: Acute (8) Dysphonia Status: Acute (9) Delirium Status: Acute (10) Hard of hearing Status: Acute (11) Symptoms of depression Status: Acute (12) COPD (chronic obstructive pulmonary disease) Status: Acute (13) Candidiasis of mouth Status: Acute Hospital Course - Lab Results Lab Results: Micro Results 12/30/17 14:27 Pleural Fluid Gram Stain - Final 12/30/17 14:27 Pleural Fluid Body Fluid Culture - Preliminary NO GROWTH AFTER 3 DAYS 12/31/17 02:45 Sputum Gram Stain - Final 12/31/17 02:45 Sputum Sputum Culture - Final Yeast Species 12/30/17 19:33 Blood-Venous Blood Culture - Preliminary NO GROWTH AFTER 48 HOURS 12/30/17 19:33 Blood-Venous Blood Culture - Preliminary NO GROWTH AFTER 48 HOURS 12/30/17 15:54 Naris MRSA Culture (Admit) - Final MRSA NOT DETECTED 12/27/17 16:13 Sputum Gram Stain - Final 12/27/17 16:13 Sputum Sputum Culture - Final NORMAL ORAL MARY BETH 12/27/17 20:55 Other: Please Indicate Mycobacterial Culture - Preliminary 12/19/17 13:00 Urine Urine Culture - Final No Growth (<1,000 CFU/ML) 12/15/17 12:40 Naris MRSA Culture (Admit) - Final MRSA NOT DETECTED 12/13/17 08:28 Urine,Clean Catch Urine Culture - Final No Growth (<1,000 CFU/ML) Most Recent Lab Values WBC 24.9 10^3/ul (4.5-11.0) H D 01/02/18 00:00 RBC 3.53 10^6/uL (3.5-6.1) 01/02/18 00:00 Hgb 10.7 g/dL (14.0-18.0) L 01/02/18 00:00 Hct 33.2 % (42.0-52.0) L 01/02/18 00:00 MCV 94.1 fl (80.0-105.0) D 01/02/18 00:00 MCH 30.3 pg (25.0-35.0) 01/02/18 00:00 MCHC 32.2 g/dl (31.0-37.0) 01/02/18 00:00 RDW 15.1 % (11.5-14.5) H 01/02/18 00:00 Plt Count 105 10^3/uL (120.0-450.0) L 01/02/18 00:00 MPV 10.7 fl (7.0-11.0) 01/02/18 00:00 Gran % 88.4 % (50.0-68.0) H 01/01/18 07:05 Lymph % (Auto) 6.5 % (22.0-35.0) L 01/01/18 07:05 Tift % (Auto) 2.8 % (1.0-6.0) 01/01/18 07:05 Eos % (Auto) 2.0 % (1.5-5.0) 01/01/18 07:05 Baso % (Auto) 0.3 % (0.0-3.0) 01/01/18 07:05 Gran # 15.23 (1.4-6.5) H 01/01/18 07:05 Lymph # (Auto) 1.1 (1.2-3.4) L 01/01/18 07:05 Tift # (Auto) 0.5 (0.1-0.6) 01/01/18 07:05 Eos # (Auto) 0.3 (0.0-0.7) 01/01/18 07:05 Baso # (Auto) 0.06 K/mm3 (0.0-2.0) 01/01/18 07:05 Neutrophils % (Manual) 72 % (50.0-70.0) H 12/31/17 07:30 Band Neutrophils % 18 % (0-2) H* 12/31/17 07:30 Lymphocytes % (Manual) 6 % (22.0-35.0) L 12/31/17 07:30 Monocytes % (Manual) 3 % (1.0-6.0) 12/31/17 07:30 Eosinophils % (Manual) 1 % (0.0-3.0) 12/31/17 07:30 Platelet Evaluation Normal (NORMAL) 12/31/17 07:30 PT 18.4 SECONDS (9.4-12.5) H 12/30/17 07:00 INR 1.59 (0.93-1.08) H 12/30/17 07:00 APTT 29.9 Seconds (25.1-36.5) 12/30/17 07:00 pCO2 55 mm/Hg (35-45) H 01/01/18 21:20 pO2 28 mm/Hg (30-55) L 01/02/18 00:00 HCO3 15.6 mmol/L (21-28) L 01/01/18 21:20 ABG pH 7.06 (7.35-7.45) L* 01/01/18 21:20 ABG Total CO2 17.3 mmol.L (22-28) L 01/01/18 21:20 ABG O2 Saturation 87.8 % (95-98) L 01/01/18 21:20 ABG O2 Content 14.3 ML/dl (15-23) L 01/01/18 21:20 ABG Base Excess -14.7 mmol/L (-2.0-3.0) L 01/01/18 21:20 ABG Hemoglobin 11.8 g/dL (11.7-17.4) 01/01/18 21:20 ABG Carboxyhemoglobin 1.8 % (0.5-1.5) H 01/01/18 21:20 POC ABG HHb (Measured) 11.9 % (0-5) H 01/01/18 21:20 ABG Methemoglobin 0.5 % (0.0-3.0) 01/01/18 21:20 ABG O2 Capacity 16.3 mL/dl (16-24) 01/01/18 21:20 VBG pH 7.05 (7.32-7.43) L* 01/02/18 00:00 VBG pCO2 86.0 (40-60) H* 01/02/18 00:00 VBG HCO3 23.8 mmol/l (21-28) 01/02/18 00:00 VBG Total CO2 26.4 mmol.L (22-28) 01/02/18 00:00 VBG O2 Sat (Calc) 47.8 % (40-65) 01/02/18 00:00 VBG Base Excess -8.5 mmol/L (0.0-2.0) L 01/02/18 00:00 VBG Potassium 5.0 mmol/L (3.6-5.2) 01/02/18 00:00 Hgb O2 Saturation 85.8 % (95.0-98.0) L 01/01/18 21:20 Sodium 143.0 mmol/L (132-148) 01/02/18 00:00 Chloride 102.0 mmol/L (98-107) 01/02/18 00:00 Glucose 205 mg/dl (75-110) H 01/02/18 00:00 Lactate 14.5 mmol/L (0.7-2.1) H* 01/02/18 00:00 FiO2 21.0 % 01/02/18 00:00 Sodium 137 mmol/L (132-148) 01/01/18 23:10 Potassium 4.1 mmol/L (3.6-5.0) 01/01/18 23:10 Chloride 103 mmol/L (98-107) 01/01/18 23:10 Carbon Dioxide 21 mmol/L (21-33) 01/01/18 23:10 Anion Gap 17 (10-20) 01/01/18 23:10 BUN 25 mg/dL (7-21) H 01/01/18 23:10 Creatinine 1.3 mg/dl (0.8-1.5) 01/01/18 23:10 Est GFR ( Amer) > 60 01/01/18 23:10 Est GFR (Non-Af Amer) 54 01/01/18 23:10 POC Glucose (mg/dL) 174 mg/dL (65-110) H 01/01/18 23:48 Random Glucose 207 mg/dL (70-110) H 01/01/18 23:10 Hemoglobin A1c 8.5 % (4.2-6.5) H 12/13/17 00:30 Calcium 7.4 mg/dL (8.4-10.5) L 01/01/18 23:10 Phosphorus 5.7 mg/dL (2.5-4.5) H 01/01/18 23:10 Magnesium 2.0 mg/dL (1.7-2.2) 01/01/18 23:10 Iron 14 ug/dL (45-180) L 12/13/17 00:30 TIBC 177 ug/dL (261-462) L 12/13/17 00:30 % Saturation 8 % (20-55) L 12/13/17 00:30 Total Bilirubin 0.5 mg/dL (0.2-1.3) 01/01/18 07:05 AST 61 U/L (17-59) H D 01/01/18 07:05 ALT 47 U/L (7-56) 01/01/18 07:05 Alkaline Phosphatase 117 U/L (38-126) 01/01/18 07:05 Troponin I 0.02 ng/mL D 01/01/18 23:10 NT-Pro-B Natriuret Pep 4680 pg/mL (0-450) H 01/01/18 07:05 Total Protein 4.5 g/dL (5.8-8.3) L 01/01/18 07:05 Albumin 1.5 g/dL (3.0-4.8) L 01/01/18 07:05 Globulin 2.9 gm/dL 01/01/18 07:05 Albumin/Globulin Ratio 0.5 (1.1-1.8) L 01/01/18 07:05 Triglycerides 34 mg/dL (35-160) L 12/13/17 00:30 Cholesterol < 50 mg/dL (130-200) L 12/13/17 00:30 LDL Cholesterol Direct < 30 mg/dL (0-129) 12/13/17 00:30 HDL Cholesterol 22 mg/dL (29-60) L 12/13/17 00:30 Vitamin B12 966 pg/mL (239-931) H 12/13/17 00:30 Folate 14.3 ng/mL 12/13/17 00:30 Procalcitonin 3.51 NG/ML (0.19-0.49) H 01/01/18 07:05 TSH 3rd Generation 1.90 mIU/mL (0.46-4.68) 12/14/17 06:00 Venous Blood Potassium 5.0 mmol/L (3.6-5.2) 01/02/18 00:00 Urine Color Yellow (YELLOW) 12/19/17 13:00 Urine Appearance Clear (CLEAR) 12/19/17 13:00 Urine pH 5.5 (4.7-8.0) 12/19/17 13:00 Ur Specific [place] 1.015 (1.005-1.035) 12/19/17 13:00 Urine Protein Negative mg/dL (<30 mg/dL) 12/19/17 13:00 Urine Glucose (UA) 100 mg/dL (NEGATIVE) H 12/19/17 13:00 Urine Ketones Negative mg/dL (NEGATIVE) 12/19/17 13:00 Urine Blood Small (NEGATIVE) H 12/19/17 13:00 Urine Nitrate Negative (NEGATIVE) 12/19/17 13:00 Urine Bilirubin Negative (NEGATIVE) 12/19/17 13:00 Urine Urobilinogen 0.2 E.U./dL (<1 E.U./dL) 12/19/17 13:00 Ur Leukocyte Esterase Negative Abrahan/uL (NEGATIVE) 12/19/17 13:00 Urine RBC 5 - 10 /hpf (0-2) 12/19/17 13:00 Urine WBC 0 - 2 /hpf (0-6) 12/19/17 13:00 Ur Epithelial Cells 0 - 2 /hpf (0-5) 12/19/17 13:00 Amorphous Sediment Moderate 12/19/17 13:00 Urine Bacteria Many (NEG) 12/19/17 13:00 Urine Other Uyeast 12/19/17 13:00 Influenza Typ A,B (EIA) Pos for influenza a (NEGATIVE) H 12/30/17 22:59 Blood Type O POSITIVE 12/29/17 21:23 Blood Type Confirm O POSITIVE 12/29/17 22:30 Antibody Screen Negative 12/29/17 21:23 Crossmatch See Detail 12/29/17 21:23 BBK History Checked No verified bt 12/29/17 21:23 - Hospital Course Hospital Course: 77 yr male w/ history of COPD, HTN, DM II, CAD, bowel obstruction s/p colon resection, sepsis, pneumonia, and influenza B. Pt was transferred from [facility] following discharge there after being treated for pneumonia. Pt admitted to [facility] [place] with respiratory distress and transferred to ICU for sepsis. R chest wall chest tube inserted on 12/19/17. Pt evaluated for Dysphonia. Pt was treated IVP lasix, IV solumedryl, IV vancomycin, IV merrem, PO doxycycline, & IV cefepime. TB specimens (quantiferon/mycobacterium) collected. Culture: nares NEGATIVE, urine NEGATIVE, blood NEGATIVE. Pt underwent cardiothoracic procedure, R VATS. Pt was then positive for Influenza A. On 01/02/2018, patient related to multiple co-morbidities. Reviewed: CXR = 12/29 sight increase in R pneumothorax, cavitary lesion MONSE, mild decrease in R chest wall & supraclavicular emphysematous soft tissue changes CXR = 12/28 small R sided pneumothorax CT chest = 12/26 mod R pneumothorax, unchanged, chest tube in place, increased subcutaneous edema now crosses over to L side of chest, persistent infiltrate in MONSE w. a cavity lesion, patchy infiltrate in LLL ECHO = EF 64% ECG = ABNORMAL, NSR, L atrial enlargement, nonspecific T wave abnormality, prolonged QT CXR = 12/19 increasing R sided pneumothorax, chest tube in place CT chest = ? Xray R shoulder = large R sided pneumothorax Doppler BLE = NEGATIVE CXR = 12/13 diffuse alveolar infiltrate in R lung and patchy alveolar infiltrate in L lung. consistent w/ pneumonia - Date & Time of H&P Date of H&P: 01/02/18 Time of H&P: 11:30 Discharge Exam - Head Exam Head Exam: ATRAUMATIC, NORMAL INSPECTION, NORMOCEPHALIC Discharge Plan - Follow Up Plan Condition: STABLE Disposition: WITH WITHOUT AUTOPSY Instructions: How to Choose a Hearing Aid (DC), How to Choose a Hearing Aid ( GEN), Hearing Loss (DC), Malnutrition (DC), Malnutrition (GEN), Leukocytosis (DC ), Leukocytosis (GEN) <Ya Fields - Last Filed: 01/02/18 17:44> Provider - Provider Date of Admission: 12/13/17 02:22 Attending physician: Ya Fields MD Hospital Course - Lab Results Lab Results: Micro Results 12/30/17 14:27 Pleural Fluid Gram Stain - Final 12/30/17 14:27 Pleural Fluid Body Fluid Culture - Preliminary NO GROWTH AFTER 3 DAYS 12/31/17 02:45 Sputum Gram Stain - Final 12/31/17 02:45 Sputum Sputum Culture - Final Yeast Species 12/30/17 19:33 Blood-Venous Blood Culture - Preliminary NO GROWTH AFTER 48 HOURS 12/30/17 19:33 Blood-Venous Blood Culture - Preliminary NO GROWTH AFTER 48 HOURS 12/30/17 15:54 Naris MRSA Culture (Admit) - Final MRSA NOT DETECTED 12/27/17 16:13 Sputum Gram Stain - Final 12/27/17 16:13 Sputum Sputum Culture - Final NORMAL ORAL MARY BETH 12/27/17 20:55 Other: Please Indicate Mycobacterial Culture - Preliminary 12/19/17 13:00 Urine Urine Culture - Final No Growth (<1,000 CFU/ML) 12/15/17 12:40 Naris MRSA Culture (Admit) - Final MRSA NOT DETECTED 12/13/17 08:28 Urine,Clean Catch Urine Culture - Final No Growth (<1,000 CFU/ML) Most Recent Lab Values WBC 24.9 10^3/ul (4.5-11.0) H D 01/02/18 00:00 RBC 3.53 10^6/uL (3.5-6.1) 01/02/18 00:00 Hgb 10.7 g/dL (14.0-18.0) L 01/02/18 00:00 Hct 33.2 % (42.0-52.0) L 01/02/18 00:00 MCV 94.1 fl (80.0-105.0) D 01/02/18 00:00 MCH 30.3 pg (25.0-35.0) 01/02/18 00:00 MCHC 32.2 g/dl (31.0-37.0) 01/02/18 00:00 RDW 15.1 % (11.5-14.5) H 01/02/18 00:00 Plt Count 105 10^3/uL (120.0-450.0) L 01/02/18 00:00 MPV 10.7 fl (7.0-11.0) 01/02/18 00:00 Gran % 88.4 % (50.0-68.0) H 01/01/18 07:05 Lymph % (Auto) 6.5 % (22.0-35.0) L 01/01/18 07:05 Tift % (Auto) 2.8 % (1.0-6.0) 01/01/18 07:05 Eos % (Auto) 2.0 % (1.5-5.0) 01/01/18 07:05 Baso % (Auto) 0.3 % (0.0-3.0) 01/01/18 07:05 Gran # 15.23 (1.4-6.5) H 01/01/18 07:05 Lymph # (Auto) 1.1 (1.2-3.4) L 01/01/18 07:05 Tift # (Auto) 0.5 (0.1-0.6) 01/01/18 07:05 Eos # (Auto) 0.3 (0.0-0.7) 01/01/18 07:05 Baso # (Auto) 0.06 K/mm3 (0.0-2.0) 01/01/18 07:05 Neutrophils % (Manual) 72 % (50.0-70.0) H 12/31/17 07:30 Band Neutrophils % 18 % (0-2) H* 12/31/17 07:30 Lymphocytes % (Manual) 6 % (22.0-35.0) L 12/31/17 07:30 Monocytes % (Manual) 3 % (1.0-6.0) 12/31/17 07:30 Eosinophils % (Manual) 1 % (0.0-3.0) 12/31/17 07:30 Platelet Evaluation Normal (NORMAL) 12/31/17 07:30 PT 18.4 SECONDS (9.4-12.5) H 12/30/17 07:00 INR 1.59 (0.93-1.08) H 12/30/17 07:00 APTT 29.9 Seconds (25.1-36.5) 12/30/17 07:00 pCO2 55 mm/Hg (35-45) H 01/01/18 21:20 pO2 28 mm/Hg (30-55) L 01/02/18 00:00 HCO3 15.6 mmol/L (21-28) L 01/01/18 21:20 ABG pH 7.06 (7.35-7.45) L* 01/01/18 21:20 ABG Total CO2 17.3 mmol.L (22-28) L 01/01/18 21:20 ABG O2 Saturation 87.8 % (95-98) L 01/01/18 21:20 ABG O2 Content 14.3 ML/dl (15-23) L 01/01/18 21:20 ABG Base Excess -14.7 mmol/L (-2.0-3.0) L 01/01/18 21:20 ABG Hemoglobin 11.8 g/dL (11.7-17.4) 01/01/18 21:20 ABG Carboxyhemoglobin 1.8 % (0.5-1.5) H 01/01/18 21: POC ABG HHb (Measured) 11.9 % (0-5) H 01/01/18 21:20 ABG Methemoglobin 0.5 % (0.0-3.0) 01/01/18:20 ABG O2 Capacity 16.3 mL/dl (16-24) 01/01/18 21:20 VBG pH 7.05 (7.32-7.43) L* 01/02/18 00:00 VBG pCO2 86.0 (40-60) H* 01/02/18 00:00 VBG HCO3 23.8 mmol/l (21-28) 01/02/18 00:00 VBG Total CO2 26.4 mmol.L (22-28) 01/02/18 00:00 VBG O2 Sat (Calc) 47.8 % (40-65) 01/02/18 00:00 VBG Base Excess -8.5 mmol/L (0.0-2.0) L 01/02/18 00:00 VBG Potassium 5.0 mmol/L (3.6-5.2) 01/02/18 00:00 Hgb O2 Saturation 85.8 % (95.0-98.0) L 01/01/18 21:20 Sodium 143.0 mmol/L (132-148) 01/02/18 00:00 Chloride 102.0 mmol/L (98-107) 01/02/18 00:00 Glucose 205 mg/dl (75-110) H 01/02/18 00:00 Lactate 14.5 mmol/L (0.7-2.1) H* 01/02/18 00:00 FiO2 21.0 % 01/02/18 00:00 Sodium 137 mmol/L (132-148) 01/01/18 23:10 Potassium 4.1 mmol/L (3.6-5.0) 01/01/18 23:10 Chloride 103 mmol/L (98-107) 01/01/18 23:10 Carbon Dioxide 21 mmol/L (21-33) 01/01/18 23:10 Anion Gap 17 (10-20) 01/01/18 23:10 BUN 25 mg/dL (7-21) H 01/01/18 23:10 Creatinine 1.3 mg/dl (0.8-1.5) 01/01/18 23:10 Est GFR ( Amer) > 60 01/01/18 23:10 Est GFR (Non-Af Amer) 54 01/01/18 23:10 POC Glucose (mg/dL) 174 mg/dL (65-110) H 01/01/18 23:48 Random Glucose 207 mg/dL (70-110) H 01/01/18 23:10 Hemoglobin A1c 8.5 % (4.2-6.5) H 12/13/17 00:30 Calcium 7.4 mg/dL (8.4-10.5) L 01/01/18 23:10 Phosphorus 5.7 mg/dL (2.5-4.5) H 01/01/18 23:10 Magnesium 2.0 mg/dL (1.7-2.2) 01/01/18 23:10 Iron 14 ug/dL (45-180) L 12/13/17 00:30 TIBC 177 ug/dL (261-462) L 12/13/17 00:30 % Saturation 8 % (20-55) L 12/13/17 00:30 Total Bilirubin 0.5 mg/dL (0.2-1.3) 01/01/18 07:05 AST 61 U/L (17-59) H D 01/01/18 07:05 ALT 47 U/L (7-56) 01/01/18 07:05 Alkaline Phosphatase 117 U/L (38-126) 01/01/18 07:05 Troponin I 0.02 ng/mL D 01/01/18 23:10 NT-Pro-B Natriuret Pep 4680 pg/mL (0-450) H 01/01/18 07:05 Total Protein 4.5 g/dL (5.8-8.3) L 01/01/18 07:05 Albumin 1.5 g/dL (3.0-4.8) L 01/01/18 07:05 Globulin 2.9 gm/dL 01/01/18 07:05 Albumin/Globulin Ratio 0.5 (1.1-1.8) L 01/01/18 07:05 Triglycerides 34 mg/dL (35-160) L 12/13/17 00:30 Cholesterol < 50 mg/dL (130-200) L 12/13/17 00:30 LDL Cholesterol Direct < 30 mg/dL (0-129) 12/13/17 00:30 HDL Cholesterol 22 mg/dL (29-60) L 12/13/17 00:30 Vitamin B12 966 pg/mL (239-931) H 12/13/17 00:30 Folate 14.3 ng/mL 12/13/17 00:30 Procalcitonin 3.51 NG/ML (0.19-0.49) H 01/01/18 07:05 TSH 3rd Generation 1.90 mIU/mL (0.46-4.68) 12/14/17 06:00 Venous Blood Potassium 5.0 mmol/L (3.6-5.2) 01/02/18 00:00 Urine Color Yellow (YELLOW) 12/19/17 13:00 Urine Appearance Clear (CLEAR) 12/19/17 13:00 Urine pH 5.5 (4.7-8.0) 12/19/17 13:00 Ur Specific [place] 1.015 (1.005-1.035) 12/19/17 13:00 Urine Protein Negative mg/dL (<30 mg/dL) 12/19/17 13:00 Urine Glucose (UA) 100 mg/dL (NEGATIVE) H 12/19/17 13:00 Urine Ketones Negative mg/dL (NEGATIVE) 12/19/17 13:00 Urine Blood Small (NEGATIVE) H 12/19/17 13:00 Urine Nitrate Negative (NEGATIVE) 12/19/17 13:00 Urine Bilirubin Negative (NEGATIVE) 12/19/17 13:00 Urine Urobilinogen 0.2 E.U./dL (<1 E.U./dL) 12/19/17 13:00 Ur Leukocyte Esterase Negative Abrahan/uL (NEGATIVE) 12/19/17 13:00 Urine RBC 5 - 10 /hpf (0-2) 12/19/17 13:00 Urine WBC 0 - 2 /hpf (0-6) 12/19/17 13:00 Ur Epithelial Cells 0 - 2 /hpf (0-5) 12/19/17 13:00 Amorphous Sediment Moderate 12/19/17 13:00 Urine Bacteria Many (NEG) 12/19/17 13:00 Urine Other Uyeast 12/19/17 13:00 Influenza Typ A,B (EIA) Pos for influenza a (NEGATIVE) H 12/30/17 22:59 Blood Type O POSITIVE 12/29/17 21:23 Blood Type Confirm O POSITIVE 12/29/17 22:30 Antibody Screen Negative 12/29/17 21:23 Crossmatch See Detail 12/29/17 21:23 BBK History Checked No verified bt 12/29/17 21:23 - Hospital Course Hospital Course: agreed all above , chart ,meds and labs noted , will f/u
--- NOTE | 2018-01-02 19:41 | CARD ---
APPROVED REPORT EKG Measurement Heart [id number] <Conclusion> Sinus tachycardia Low voltage QRS Cannot rule out Anterior infarct, age undetermined Abnormal ECG
[2018-01-04 08:31] LABS: TB ANTIGEN MINUS NIL <0.00 IU/mL
== END 2018-01-02 00:44 | DRG 853 ==
LOC: ED 22:40 → ERH 12-13 02:22 → 3RNO 12-13 03:56 → CCU 12-15 12:28 → 2RNO 12-16 16:22 → 5RSO 12-24 12:26 → ICU 12-30 13:40
PROVIDERS: ADMIT Internal Medicine; ATTEND Internal Medicine
PROC: 3E0F7GC Introduction of Other Therapeutic Substance into Respiratory Tract, Via Natural or Artificial Opening (ICD-10-PCS; 2017-12-13)
PROC: 0W9930Z Drainage of Right Pleural Cavity with Drainage Device, Percutaneous Approach (ICD-10-PCS; 2017-12-15)
PROC: 0W9930Z Drainage of Right Pleural Cavity with Drainage Device, Percutaneous Approach (ICD-10-PCS; 2017-12-19)
PROC: 0W9930Z Drainage of Right Pleural Cavity with Drainage Device, Percutaneous Approach (ICD-10-PCS; 2017-12-27)
PROC: 5A1945Z Respiratory Ventilation, 24-96 Consecutive Hours (ICD-10-PCS; 2017-12-30)
PROC: 05HM33Z Insertion of Infusion Device into Right Internal Jugular Vein, Percutaneous Approach (ICD-10-PCS; 2017-12-30)
PROC: B543ZZA Ultrasonography of Right Jugular Veins, Guidance (ICD-10-PCS; 2017-12-30)
PROC: 0BJ Respiratory System, Inspection (ICD-10-PCS; principal; 2017-12-30 11:30)
DX: A41.9 Sepsis, unspecified organism (principal); J10.00 Influenza due to other identified influenza virus with unspecified type of pneumonia; E43 Unspecified severe protein-calorie malnutrition; J93.0 Spontaneous tension pneumothorax; J96.90 Respiratory failure, unspecified, unspecified whether with hypoxia or hypercapnia; J93.82 Other air leak; R64 Cachexia; J44.1 Chronic obstructive pulmonary disease with (acute) exacerbation; J44.0 Chronic obstructive pulmonary disease with (acute) lower respiratory infection; F05 Delirium due to known physiological condition; B37.0 Candidal stomatitis; E87.1 Hypo-osmolality and hyponatremia; I25.10 Atherosclerotic heart disease of native coronary artery without angina pectoris; E83.51 Hypocalcemia; E11.65 Type 2 diabetes mellitus with hyperglycemia; Z68.21 Body mass index [BMI] 21.0-21.9, adult; I10 Essential (primary) hypertension; J98.2 Interstitial emphysema; D64.9 Anemia, unspecified; F43.23 Adjustment disorder with mixed anxiety and depressed mood; R13.12 Dysphagia, oropharyngeal phase; H91.93 Unspecified hearing loss, bilateral; R04.0 Epistaxis; E87.5 Hyperkalemia; G89.29 Other chronic pain; R65.20 Severe sepsis without septic shock; K59.00 Constipation, unspecified; E11.40 Type 2 diabetes mellitus with diabetic neuropathy, unspecified; E11.649 Type 2 diabetes mellitus with hypoglycemia without coma; E78.5 Hyperlipidemia, unspecified; F03.90 Unspecified dementia, unspecified severity, without behavioral disturbance, psychotic disturbance, mood disturbance, and anxiety; H40.9 Unspecified glaucoma; N50.89 Other specified disorders of the male genital organs; T38.0X5A Adverse effect of glucocorticoids and synthetic analogues, initial encounter; R49.0 Dysphonia; Y95 Nosocomial condition; Z85.038 Personal history of other malignant neoplasm of large intestine; Z90.49 Acquired absence of other specified parts of digestive tract; Z87.01 Personal history of pneumonia (recurrent); Z92.21 Personal history of antineoplastic chemotherapy; Z95.5 Presence of coronary angioplasty implant and graft; Z78.1 Physical restraint status